=== PATIENT | male | born 1940 | race Caucasian/White ===

== ENCOUNTER → 2016-03-18 | Outpatient (REF) | payer MEDICARE, OTHER ==
[2016-03-18 10:05] LABS: VITAMIN B12 LEVEL 1525 PG/ML
[2016-03-18 10:06] LABS: FOLATE > 24.0 NG/ML
[2016-03-18 10:10] LABS: PERCENT SATURATION 8.7 % (19.7-37.4); TOTAL IRON BINDING CAPACITY 357 UG/DL (250-450)
== END | disposition home or self-care (01) ==
LOC: M LAB REF 09:18
PROVIDERS: ATTEND Internal Medicine
DX: Z98.84 Bariatric surgery status (principal); K91.2 Postsurgical malabsorption, not elsewhere classified

== ENCOUNTER 2016-03-26 10:04 | Emergency (ER) | payer MEDICARE, OTHER ==
[2016-03-26] MEDS ORDERED: MORPHINE 4 MG/ML 1ML SYRINGE As Ordered ONE ×2 (11:12→12:18)
[2016-03-26 11:30] LABS: BASO % 0.4 % (0.0-1.0); EOS # 0.3 K/mm3 (0.0-0.50); EOS % 2.1 % (0.0-3.0); LARGE UNSTAINED CELL # 0.2 K/mm3 (0.0-0.4); LARGE UNSTAINED CELL % 1.8 % (0.0-4.0); LYMPH # 3.1 K/mm3 (1.5-4.5); LYMPH % 22.6 % (24.0-44.0); MEAN CORPUSCULAR HEMOGLOBIN 32.8 pg (27.0-33.0); MEAN CORPUSCULAR HGB CONC 32.9 g/dl (32.0-36.5); MEAN CORPUSCULAR VOLUME 99.7 fl (80.0-96.0); MONO # 0.7 K/mm3 (0.0-0.8); MONO % 4.8 % (0.0-5.0); NEUTROPHILS # 9.3 K/mm3 (1.8-7.7); NEUTROPHILS % 68.4 % (36.0-66.0); PLATELET COUNT, AUTOMATED 313 k/mm3 (150-450); RED CELL DISTRIBUTION WIDTH 12.7 % (11.5-14.5); WHITE BLOOD COUNT 13.6 K/mm3 (4.0-10.0)
[2016-03-26 11:35] LABS: CALCIUM OXALATE CRYSTALS MODERATE
--- NOTE | 2016-03-26 12:02 | REP ---
Clinical: Right flank pain. Comparison: 10/19/2015. Findings: Moderate right-sided obstructive uropathy with perinephric stranding and hydroureteronephrosis along with periureteral stranding is appreciated secondary to a 8 mm obstructing calculus in the distal right ureter (images 120 - 122). 2 mm nonobstructing right intrarenal calculus is also identified. The left kidney and ureter appear normal. Liver, pancreas, gallbladder, and bilateral adrenal glands are normal. Spleen demonstrates calcifications related to prior granulomas disease. Evidence for prior gastric bypass surgery. No evidence for bowel obstruction or acute inflammatory process. Normal terminal ileum and appendix identified in the right lower quadrant. Colonic diverticulosis noted without acute diverticulitis. Pelvis demonstrates normal bladder along with enlarged prostate gland measuring 6 cm diameter. No pelvic fluid or ascites. No free air. No adenopathy. Atherosclerotic changes of the aorta and iliac arteries noted without aneurysm. Musculoskeletal structures demonstrate degenerative changes. Lung bases demonstrate chronic changes and calcified granuloma in the left lower lobe. Impression: 1. Acute moderate obstructive uropathy with 8 mm obstructing calculus in the distal right ureter. A 2 mm nonobstructing right calculus. Normal left kidney and bladder. 2. Large prostate gland measuring 6 cm diameter. 3. Diverticulosis. 4. Evidence for prior granulomatous disease. Signed by Rudy Valdes MD 03/26/2016 11:53 A
[2016-03-26 12:13] LABS: ANION GAP 7 MEQ/L (8-16); BLOOD UREA NITROGEN 18 MG/DL (7-18); CALCIUM LEVEL 9.4 MG/DL (8.8-10.2); CARBON DIOXIDE LEVEL 30 MEQ/L (21-32); CHLORIDE LEVEL 105 MEQ/L (98-107); CREATININE FOR GFR 0.95 MG/DL (0.70-1.30); GLOMERULAR FILTRATION RATE > 60.0 (>42); GLUCOSE, FASTING 85 MG/DL (83-110); POTASSIUM SERUM 4.4 MEQ/L (3.5-5.1); SODIUM LEVEL 142 MEQ/L (136-145)
[2016-03-26] MEDS ORDERED: TAMSULOSIN 0.4 MG CAP As Ordered ONE (12:38)
[2016-03-26] MEDS ORDERED: KETOROLAC 30 MG/ML VIAL (J1885) As Ordered ONE (12:38)
--- NOTE | 2016-03-26 13:33 | EDDOCDS ---
Nurse's Notes [facility] Name: Jeramie George Age: 76 yrs Sex: Male : 1940 Arrival Date: 03/26/2016 Time: 10:04 Bed I1 / M1 Private MD: Shey Diagnosis: Unspecified renal colic-8 mm stone right. Presentation: 03/26 10:10 Presenting complaint: Patient states: woke up around 2 am with right flank pain that dy wraps around to right testicle. has hx of kidney stones and states the pain is similar. Adult Sepsis Screening: The patient does not have new or worsening altered mentation. Patient's respiratory rate is less than 22. Systolic blood pressure is greater than 100. Patient has a qSOFA score of 0- Negative Sepsis Screen. Suicide/Homicide risk assessment- the patient denies having any suicidal and/or homicidal ideations and does not present with any other emotional, behavioral or mental health complaints. 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 Transition of care: patient was not received from another setting of care. 10:10 Acuity: CASANDRA Level 3 dy 10:10 Method Of Arrival: Walkin/Carried/Asstd dy Triage Assessment: 10:12 General: Appears in no apparent distress. Pain: Location: right flank. dy Historical: - Allergies: No known drug Allergies; - Home Meds: 1. oxycodone-acetaminophen 10-325 mg Oral tab 1 tab every 4 hours (Last dose: 03/26/2016 07:30) - PMHx: Chronic Low Back Pain; Kidney stones; - PSHx: Dorsal column stimulator; back surgery x 4; Shoulder Arthroscopy- Right; - Social history: Smoking status: Cigars No barriers to communication noted, The patient speaks fluent Kinyarwanda, Speaks appropriately for age. - Family history: Not pertinent. - : The pt / caregiver states he / she is not on anticoagulants. Home medication list is obtained from the patient. - Exposure Risk Screening:: None identified. Screenin:23 Screening information is obtained from the patient. Fall risk: No risks identified. ck1 Assistance ADL's: requires no assistance with activities of daily living. Abuse/DV Screen: The patient / caregiver reports he/she is: not in a situation that causes fear, pain or injury. Nutritional screening: No deficits noted. home support is adequate. 13:32 Advance Directives: Currently, there is no health care proxy. kc3 Assessment: 11:23 General: Appears in no apparent distress, comfortable, Behavior is appropriate for age, ck1 cooperative. Pain: Location: right flank Pain currently is 12 out of 10 on a pain scale. right testicle. Respiratory: Respiratory effort is unlabored, Respiratory pattern is regular, symmetrical. GI: Denies nausea, vomiting. : Denies burning with urination, inability to void, urinary frequency. Derm: Skin is intact, is healthy with good turgor, Skin is pink, warm & dry. 12:42 General: Appears in no apparent distress, comfortable, Behavior is appropriate for age, ck1 cooperative. Pain: Location: right flank Pain currently is 4 out of 10 on a pain scale. Neurological: Level of Consciousness is awake, alert, obeys commands, Oriented to person, place, time. Respiratory: Respiratory effort is unlabored, Respiratory pattern is regular, symmetrical. GI: No deficits noted. Derm: Skin is intact, is healthy with good turgor, Skin is pink, warm & dry. Musculoskeletal: Circulation, motion, and sensation intact Range of motion intact in all extremities. 13:29 General: Appears in no apparent distress, comfortable, Behavior is appropriate for age, kc3 cooperative. Neurological: Level of Consciousness is awake, alert, obeys commands, Oriented to person, place, time. Respiratory: Respiratory effort is even, unlabored. Derm: Skin is pink, warm & dry. Vital Signs: 10:05 BP 165 / 88; Pulse 65; Resp 16; Temp 97.8(O); Pulse Ox 100% ; Weight 80.74 kg; Height 5 cmb ft. 8 in. (172.72 cm); Pain 10/10; 11:54 BP 125 / 70 RA Sitting (auto/reg); Pulse 76; Resp 16; Pulse Ox 97% ; Pain 8/10; jrd 12:00 Pain 8/10; ck1 13:21 BP 118 / 75 RA Sitting (auto/reg); Pulse 72; Resp 16; Temp 97.8(O); Pulse Ox 96% ; Pain jrd 2/10; 10:05 Body Mass Index 27.06 (80.74 kg, 172.72 cm) cmb Vitals: 10:05 Log In Time: March 26, 2016 at 10:04. cmb ED Course: 10:05 Patient visited by Raysa Knight. cmb 10:05 Shey is Private Physician. cmb 10:05 Patient moved to Waiting cmb 10:06 Patient moved to Pre RCE cmb 10:11 Triage Initiated dy 10:47 Patient moved to Triage 3 rs6 10:57 Mehdi Bassett PA-C is PHCP. cc10 10:57 Cody Vargas MD is Attending Physician. cc10 10:57 Patient visited by Mehdi Bassett PA-C. cc10 10:57 Patient visited by Mehdi Bassett PA-C. cc10 11:08 Patient moved to I1 / M1 mlb1 11:11 [facility] Payment Agreement was scanned into [employer] and attached to record. lg 11:22 Basic Metabolic Profile Sent. ck1 11:22 CBC with Diff Sent. ck1 11:23 The patient / caregiver is instructed regarding the plan of care and ED course. ck1 11:23 Inserted saline lock: 20 gauge in right hand and blood collected. The patient tolerated ck1 the procedure well. 11:27 Patient visited by Opal Dixon,MARY. ck1 11:55 Patient visited by Srinivasan Harvye PCA. jrd 12:19 CT ABD & PELVIS: No Contrast Returned. EDMS 12:23 Patient visited by Araceli Kaur, MARY. srm 12:42 Patient visited by Opal Dixon,MARY. ck1 13:14 Ar Hale is Referral Physician. cc10 13:22 Patient visited by Srinivasan Harvey PCA. jrd 13:30 Discontinued IV lock intact, bleeding controlled, pressure dressing applied, No kc3 redness/swelling at site. No procedures done that require assistance. Administered Medications: 11:22 Drug: morphine 4 mg [morphine 4 mg/mL intravenous cartridge (1 mL)] Route: IVP; Site: ck1 right hand; 12:00 Follow up: Pain 8/10 Adult; Response: Confirmed pt not driving.; No Adverse Reaction; ck1 Pain is decreased 12:21 Drug: morphine 4 mg [morphine 4 mg/mL intravenous cartridge (1 mL)] Route: IVP; Site: srm right hand; 12:42 Drug: ketorolac 15 mg [ketorolac 30 mg/mL (1 mL) injection solution (0.5 mL)] Route: ck1 IVP; Site: right hand; 12:42 Drug: Tamsulosin 0.4 mg [tamsulosin 0.4 mg capsule (1 caps)] Route: PO; ck1 Order Results: Lab Order: Basic Metabolic Profile; SPEC'M 03/26/16 11:51 Test: GLUCOSE, FASTING; Value: 85; Range: 83-110; Units: MG/DL; Status: F Test: BLOOD UREA NITROGEN; Value: 18; Range: 7-18; Units: MG/DL; Status: F Test: CREATININE FOR GFR; Value: 0.95; Range: 0.70-1.30; Units: MG/DL; Status: F Test: GLOMERULAR FILTRATION RATE; Value: > 60.0; Range: >42; Status: F Test: SODIUM LEVEL; Value: 142; Range: 136-145; Units: MEQ/L; Status: F Test: POTASSIUM SERUM; Value: 4.4; Range: 3.5-5.1; Units: MEQ/L; Status: F Test: CHLORIDE LEVEL; Value: 105; Range: 98-107; Units: MEQ/L; Status: F Test: CARBON DIOXIDE LEVEL; Value: 30; Range: 21-32; Units: MEQ/L; Status: F Test: ANION GAP; Value: 7; Range: 8-16; Abnormal: Below low normal; Units: MEQ/L; Status: F Test: CALCIUM LEVEL; Value: 9.4; Range: 8.8-10.2; Units: MG/DL; Status: F Test Note: ; Units are mL/min/1.73 m2 Chronic Kidney Disease Staging per NKF: Stage I & II GFR >=60 Normal to Mildly Decreased Stage III GFR 30-59 Moderately Decreased Stage IV GFR 15-29 Severely Decreased Stage V GFR <15 Very Little GFR Left ESRD GFR <15 on ENTEROSTOMAL NURSE Lab Order: CBC with Diff; SPEC'03/26/16 11:21 Test: WHITE BLOOD COUNT; Value: 13.6; Range: 4.0-10.0; Abnormal: Above high normal; Units: K/mm3; Status: F Test: RED BLOOD COUNT; Value: 4.52; Range: 4.30-6.10; Units: M/mm3; Status: F Test: HEMOGLOBIN; Value: 14.8; Range: 14.0-18.0; Units: g/dl; Status: F Test: HEMATOCRIT; Value: 45.1; Range: 42.0-52.0; Units: %; Status: F Test: MEAN CORPUSCULAR VOLUME; Value: 99.7; Range: 80.0-96.0; Abnormal: Above high normal; Units: fl; Status: F Test: MEAN CORPUSCULAR HEMOGLOBIN; Value: 32.8; Range: 27.0-33.0; Units: pg; Status: F Test: MEAN CORPUSCULAR HGB CONC; Value: 32.9; Range: 32.0-36.5; Units: g/dl; Status: F Test: RED CELL DISTRIBUTION WIDTH; Value: 12.7; Range: 11.5-14.5; Units: %; Status: F Test: PLATELET COUNT, AUTOMATED; Value: 313; Range: 150-450; Units: k/mm3; Status: F Test: NEUTROPHILS %; Value: 68.4; Range: 36.0-66.0; Abnormal: Above high normal; Units: %; Status: F Test: LYMPH %; Value: 22.6; Range: 24.0-44.0; Abnormal: Below low normal; Units: %; Status: F Test: MONO %; Value: 4.8; Range: 0.0-5.0; Units: %; Status: F Test: EOS %; Value: 2.1; Range: 0.0-3.0; Units: %; Status: F Test: BASO %; Value: 0.4; Range: 0.0-1.0; Units: %; Status: F Test: LARGE UNSTAINED CELL %; Value: 1.8; Range: 0.0-4.0; Units: %; Status: F Test: NEUTROPHILS #; Value: 9.3; Range: 1.8-7.7; Abnormal: Above high normal; Units: K/mm3; Status: F Test: LYMPH #; Value: 3.1; Range: 1.5-4.5; Units: K/mm3; Status: F Test: MONO #; Value: 0.7; Range: 0.0-0.8; Units: K/mm3; Status: F Test: EOS #; Value: 0.3; Range: 0.0-0.50; Units: K/mm3; Status: F Test: BASO #; Value: 0.0; Range: 0.0-0.2; Units: K/mm3; Status: F Test: LARGE UNSTAINED CELL #; Value: 0.2; Range: 0.0-0.4; Units: K/mm3; Status: F Lab Order: Urinalysis; SPEC'M 03/26/16 11:07 Test: APPEARANCE, URINE; Value: CLOUDY; Range: CLEAR; Abnormal: Above high normal; Status: F Test: COLOR, URINE; Value: YELLOW; Range: YELLOW; Status: F Test: PH,URINE; Value: 5.0; Range: 5.0-9.0; Units: UNITS; Status: F Test: SPECIFIC GRAVITY URINE AUTO; Value: 1.019; Range: 1.002-1.035; Status: F Test: PROTEIN, URINE AUTO; Value: NEGATIVE; Range: NEGATIVE; Units: mg/dL; Status: F Test: GLUCOSE, URINE (UA) AUTO; Value: NEGATIVE; Range: NEGATIVE; Units: mg/dL; Status: F Test: KETONE, URINE AUTO; Value: NEGATIVE; Range: NEGATIVE; Units: mg/dL; Status: F Test: UROBILINOGEN, URINE AUTO; Value: 0.2; Range: 0.0-2.0; Units: mg/dL; Status: F Test: BILIRUBIN, URINE AUTO; Value: NEGATIVE; Range: NEGATIVE; Status: F Test: NITRITE, URINE AUTO; Value: NEGATIVE; Range: NEGATIVE; Status: F Test: LEUKOCYTE ESTERASE, URINE AUTO; Value: NEGATIVE; Range: NEGATIVE; Status: F Test: BLOOD, URINE BLOOD; Value: 3+; Range: NEGATIVE; Abnormal: Above high normal; Status: F Test: WBC, URINE AUTO; Value: 3; Range: 0-3; Units: /HPF; Status: F Test: RBC, URINE AUTO; Value: TNTC; Range: 0-3; Abnormal: Above high normal; Units: /HPF; Status: F Test: BACTERIA, URINE AUTO; Value: NEGATIVE; Range: NEGATIVE; Status: F Test: SQUAMOUS EPITHELIAL CELL UR AU; Value: 0; Range: 0-6; Units: /HPF; Status: F Test: MUCUS, URINE; Value: SMALL; Range: NEGATIVE; Status: F Test: HYALINE CAST, URINE AUTO; Value: 0; Range: 0-1; Units: /LPF; Status: F Test: CALCIUM OXALATE CRYSTALS; Value: MODERATE; Range: NONE; Status: F Radiology Order: CT ABD & PELVIS: No Contrast Test: CT ABD & PELVIS: No Contrast REASON FOR EXAMINATION: Renal colic; Clinical: Right flank pain.; ; Comparison: 10/19/2015.; ; Findings:; Moderate right-sided obstructive uropathy with perinephric stranding and; hydroureteronephrosis along with periureteral stranding is appreciated secondary; to a 8 mm obstructing calculus in the distal right ureter (images 120 - 122). 2; mm nonobstructing right intrarenal calculus is also identified. The left kidney; and ureter appear normal.; ; Liver, pancreas, gallbladder, and bilateral adrenal glands are normal. Spleen; demonstrates calcifications related to prior granulomas disease. Evidence for; prior gastric bypass surgery. No evidence for bowel obstruction or acute; inflammatory process. Normal terminal ileum and appendix identified in the right; lower quadrant. Colonic diverticulosis noted without acute diverticulitis.; Pelvis demonstrates normal bladder along with enlarged prostate gland measuring 6; cm diameter. No pelvic fluid or ascites. No free air. No adenopathy.; Atherosclerotic changes of the aorta and iliac arteries noted without aneurysm.; Musculoskeletal structures demonstrate degenerative changes. Lung bases; demonstrate chronic changes and calcified granuloma in the left lower lobe.; ; Impression:; 1. Acute moderate obstructive uropathy with 8 mm obstructing calculus in the; distal right ureter. A 2 mm nonobstructing right calculus. Normal left kidney; and bladder.; 2. Large prostate gland measuring 6 cm diameter.; 3. Diverticulosis.; 4. Evidence for prior granulomatous disease.; ; ; Signed by; Rudy Valdes MD 03/26/2016 11:53 A; Outcome: 11:40 CT Study completed. ck1 13:15 Discharge ordered by Provider. cc10 13:30 Discharge Assessment: Patient awake, alert and oriented x 3. No cognitive and/or kc3 functional deficits noted. Patient verbalized understanding of disposition instructions. patient administered narcotics - yes. Pt provided with safe discharge. 13:31 The following High Risk Discharge criteria are identified: None. Condition: stable. kc3 Discharge instructions given to patient, Instructed on discharge instructions, follow up and referral plans. medication usage, Demonstrated understanding of instructions, medications, Pt was receptive of discharge instructions/ teaching. Prescriptions given X 2. Property :Personal belongings accompany Pt. 13:32 Patient left the ED. kc3 Signatures: Dispatcher [employer] EDMS Araceli Kaur, RN RN srm Rosetta, Cheri, Reg Reg lg Eddi Harkins, RN RN Freddie Sandoval RN RN mlb1 Opal DixonRN RN ck1 Raysa Knight cmMehdi Farmer, PA-C PA-C cc10 Srinivasan Harvey, MUTUEL DEPARTMENT MANAGER MUTUEL DEPARTMENT MANAGER jrd Radha Blackman, MUTUEL DEPARTMENT MANAGER MUTUEL DEPARTMENT MANAGER rs6 Grace Gayle,MARY RN kc3 Corrections: (The following items were deleted from the chart) 13:32 13:30 Discharge Assessment: Patient awake, alert and oriented x 3. No cognitive and/or kc3 functional deficits noted. Patient verbalized understanding of disposition instructions. patient administered narcotics - kc3 MTDD
--- NOTE | 2016-03-26 13:33 | EDDOCDS ---
Physician Documentation [facility] Name: Jeramie George Age: 76 yrs Sex: Male : 1940 Arrival Date: 03/26/2016 Time: 10:04 Bed I1 / M1 Private MD: Shey Disposition: 03/26/16 13:15 Discharged to Home/Self Care. Impression: Unspecified renal colic - 8 mm stone right. . - Condition is Stable. - Discharge Instructions: Kidney Stones. - Prescriptions for Flomax 0.4 mg Oral Capsule, Sust. Release 24 hr - take 1 capsule by ORAL route once daily 1/2 hour following the same meal each day; 30 capsule. ketorolac 10 mg Oral Tablet - take 1 tablet by ORAL route 3 times per day As needed MDD- 30mg. Up to 5 days total use.; 15 tablet. - Medication Reconciliation, Local Pharmacy Hours form. - Follow up: Emergency Department; When: As needed. Follow up: Ar Hale; When: 1 week; Reason: Wound/Symptom Recheck, Recheck today's complaints, Worsening of conditions, Continuance of care. - Problem is new. - Symptoms are resolved. Historical: - Allergies: No known drug Allergies; - Home Meds: 1. oxycodone-acetaminophen 10-325 mg Oral tab 1 tab every 4 hours (Last dose: 03/26/2016 07:30) - PMHx: Chronic Low Back Pain; Kidney stones; - PSHx: Dorsal column stimulator; back surgery x 4; Shoulder Arthroscopy- Right; - Social history: Smoking status: Cigars No barriers to communication noted, The patient speaks fluent Portuguese, Speaks appropriately for age. - Family history: Not pertinent. - : The pt / caregiver states he / she is not on anticoagulants. Home medication list is obtained from the patient. - Exposure Risk Screening:: None identified. Vital Signs: 03/26 10:05 BP 165 / 88; Pulse 65; Resp 16; Temp 97.8(O); Pulse Ox 100% ; Weight 80.74 kg / 178 cmb lbs; Height 5 ft. 8 in. (172.72 cm); Pain 10/10; 11:54 BP 125 / 70 RA Sitting (auto/reg); Pulse 76; Resp 16; Pulse Ox 97% ; Pain 8/10; jrd 12:00 Pain 8/10; ck1 13:21 BP 118 / 75 RA Sitting (auto/reg); Pulse 72; Resp 16; Temp 97.8(O); Pulse Ox 96% ; Pain jrd 04/25; 10:05 Body Mass Index 27.06 (80.74 kg, 172.72 cm) cmb MDM: 11:01 IV Saline Lock ordered. cc10 11:01 morphine 4 mg IVP once ordered. cc10 11:02 Basic Metabolic Profile Ordered. EDMS 11:02 CBC with Diff Ordered. EDMS 11:02 Urinalysis Ordered. EDMS 11:02 Urine Culture Ordered. EDMS 11:02 CT ABD & PELVIS: No Contrast Ordered. EDMS 12:15 morphine 4 mg IVP once ordered. cc10 12:31 ketorolac 15 mg IVP once ordered. cc10 12:32 Tamsulosin Extended Release 24 hour Capsule 0.4 mg PO once ordered. cc10 13:16 Misc. Nursing Order ordered. cc10 MDM: 11:01 Financial registration complete. 11:11 [facility] Payment Agreement was scanned into [employer] and attached to record. lg Administered Medications: 11:22 Drug: morphine 4 mg [morphine 4 mg/mL intravenous cartridge (1 mL)] Route: IVP; Site: ck right hand; 12:00 Follow up: Pain 10/23 Adult; Response: Confirmed pt not driving.; No Adverse Reaction; ck1 Pain is decreased 12:21 Drug: morphine 4 mg [morphine 4 mg/mL intravenous cartridge (1 mL)] Route: IVP; Site: [facility] right hand; 12:42 Drug: ketorolac 15 mg [ketorolac 30 mg/mL (1 mL) injection solution (0.5 mL)] Route: ck1 IVP; Site: right hand; 12:42 Drug: Tamsulosin 0.4 mg [tamsulosin 0.4 mg capsule (1 caps)] Route: PO; ck1 Signatures: Dispatcher [employer] EDMS Cheri Sargent, Reg Reg lg Eddi Harkins RN MARY dy Opal Dixon RN RN ck1 Mehdi Bassett, PA-C PA-C cc10 Grace Gayle RN RN kc3 Araceli Kaur RN [facility] The chart was reviewed and I authenticate all verbal orders and agree with the evaluation and treatment provided.Attachments: 11:11 [facility] Payment Agreement lg MTDD
--- NOTE | 2016-03-28 14:33 | EDDOCDS ---
Physician Documentation [facility] Name: Jeramie George Age: 76 yrs Sex: Male : 1940 Arrival Date: 03/26/2016 Time: 10:04 Bed I1 / M1 Private MD: Shey Disposition: 03/26/16 13:15 Discharged to Home/Self Care. Impression: Unspecified renal colic - 8 mm stone right. . - Condition is Stable. - Discharge Instructions: Kidney Stones. - Prescriptions for Flomax 0.4 mg Oral Capsule, Sust. Release 24 hr - take 1 capsule by ORAL route once daily 1/2 hour following the same meal each day; 30 capsule. ketorolac 10 mg Oral Tablet - take 1 tablet by ORAL route 3 times per day As needed MDD- 30mg. Up to 5 days total use.; 15 tablet. - Medication Reconciliation, Local Pharmacy Hours form. - Follow up: Emergency Department; When: As needed. Follow up: Ar Hale; When: 1 week; Reason: Wound/Symptom Recheck, Recheck today's complaints, Worsening of conditions, Continuance of care. - Problem is new. - Symptoms are resolved. Historical: - Allergies: No known drug Allergies; - Home Meds: 1. oxycodone-acetaminophen 10-325 mg Oral tab 1 tab every 4 hours (Last dose: 03/26/2016 07:30) - PMHx: Chronic Low Back Pain; Kidney stones; - PSHx: Dorsal column stimulator; back surgery x 4; Shoulder Arthroscopy- Right; - Social history: Smoking status: Cigars No barriers to communication noted, The patient speaks fluent Kinyarwanda, Speaks appropriately for age. - Family history: Not pertinent. - : The pt / caregiver states he / she is not on anticoagulants. Home medication list is obtained from the patient. - Exposure Risk Screening:: None identified. Vital Signs: 03/26 10:05 BP 165 / 88; Pulse 65; Resp 16; Temp 97.8(O); Pulse Ox 100% ; Weight 80.74 kg / 178 cmb lbs; Height 5 ft. 8 in. (172.72 cm); Pain 10/10; 11:54 BP 125 / 70 RA Sitting (auto/reg); Pulse 76; Resp 16; Pulse Ox 97% ; Pain 8/10; jrd 12:00 Pain 8/10; ck1 13:21 BP 118 / 75 RA Sitting (auto/reg); Pulse 72; Resp 16; Temp 97.8(O); Pulse Ox 96% ; Pain jrd 210; 10:05 Body Mass Index 27.06 (80.74 kg, 172.72 cm) cmb MDM: 11:01 IV Saline Lock ordered. cc10 11:01 morphine 4 mg IVP once ordered. cc10 11:02 Basic Metabolic Profile Ordered. EDMS 11:02 CBC with Diff Ordered. EDMS 11:02 Urinalysis Ordered. EDMS 11:02 Urine Culture Ordered. EDMS 11:02 CT ABD & PELVIS: No Contrast Ordered. EDMS 12:15 morphine 4 mg IVP once ordered. cc10 12:31 ketorolac 15 mg IVP once ordered. cc10 12:32 Tamsulosin Extended Release 24 hour Capsule 0.4 mg PO once ordered. cc10 13:16 Misc. Nursing Order ordered. cc10 15:13 T-Sheet-- Draft Copy was scanned into [employer] and attached to record. gb MDM: 11:01 Financial registration complete. lg 11:11 [facility] Payment Agreement was scanned into [employer] and attached to record. lg Administered Medications: 11:22 Drug: morphine 4 mg [morphine 4 mg/mL intravenous cartridge (1 mL)] Route: IVP; Site: ck1 right hand; 12:00 Follow up: Pain 10/23 Adult; Response: Confirmed pt not driving.; No Adverse Reaction; ck1 Pain is decreased 12:21 Drug: morphine 4 mg [morphine 4 mg/mL intravenous cartridge (1 mL)] Route: IVP; Site: [facility] right hand; 12:42 Drug: ketorolac 15 mg [ketorolac 30 mg/mL (1 mL) injection solution (0.5 mL)] Route: ck1 IVP; Site: right hand; 12:42 Drug: Tamsulosin 0.4 mg [tamsulosin 0.4 mg capsule (1 caps)] Route: PO; ck1 Signatures: Dispatcher [employer] EDMS Shyann Pardo, Reg Reg gb Cheri Sargent, Reg Reg lg Eddi Harkins RN RN dy Opal Dixon RN RN ck1 Mehdi Bassett PA-C PA-C cc10 Grace Gayle,RN RN kc3 Araceli Kaur RN srm The chart was reviewed and I authenticate all verbal orders and agree with the evaluation and treatment provided.Attachments: 11:11 [facility] Payment Agreement lg 15:13 T-Sheet-- Draft Copy gb Chart Complete MTDD
--- NOTE | 2016-03-28 14:33 | EDDOCDS ---
Physician Documentation [facility] Name: Jeramie George Age: 76 yrs Sex: Male : 1940 Arrival Date: 03/26/2016 Time: 10:04 Bed I1 / M1 Private MD: Shey Disposition: 03/26/16 13:15 Discharged to Home/Self Care. Impression: Unspecified renal colic - 8 mm stone right. . - Condition is Stable. - Discharge Instructions: Kidney Stones. - Prescriptions for Flomax 0.4 mg Oral Capsule, Sust. Release 24 hr - take 1 capsule by ORAL route once daily 1/2 hour following the same meal each day; 30 capsule. ketorolac 10 mg Oral Tablet - take 1 tablet by ORAL route 3 times per day As needed MDD- 30mg. Up to 5 days total use.; 15 tablet. - Medication Reconciliation, Local Pharmacy Hours form. - Follow up: Emergency Department; When: As needed. Follow up: Ar Hale; When: 1 week; Reason: Wound/Symptom Recheck, Recheck today's complaints, Worsening of conditions, Continuance of care. - Problem is new. - Symptoms are resolved. Historical: - Allergies: No known drug Allergies; - Home Meds: 1. oxycodone-acetaminophen 10-325 mg Oral tab 1 tab every 4 hours (Last dose: 03/26/2016 07:30) - PMHx: Chronic Low Back Pain; Kidney stones; - PSHx: Dorsal column stimulator; back surgery x 4; Shoulder Arthroscopy- Right; - Social history: Smoking status: Cigars No barriers to communication noted, The patient speaks fluent Urdu, Speaks appropriately for age. - Family history: Not pertinent. - : The pt / caregiver states he / she is not on anticoagulants. Home medication list is obtained from the patient. - Exposure Risk Screening:: None identified. Vital Signs: 03/26 10:05 BP 165 / 88; Pulse 65; Resp 16; Temp 97.8(O); Pulse Ox 100% ; Weight 80.74 kg / 178 cmb lbs; Height 5 ft. 8 in. (172.72 cm); Pain 10/10; 11:54 BP 125 / 70 RA Sitting (auto/reg); Pulse 76; Resp 16; Pulse Ox 97% ; Pain 8/10; jrd 12:00 Pain 8/10; ck1 13:21 BP 118 / 75 RA Sitting (auto/reg); Pulse 72; Resp 16; Temp 97.8(O); Pulse Ox 96% ; Pain jrd 210; 10:05 Body Mass Index 27.06 (80.74 kg, 172.72 cm) cmb MDM: 11:01 IV Saline Lock ordered. cc10 11:01 morphine 4 mg IVP once ordered. cc10 11:02 Basic Metabolic Profile Ordered. EDMS 11:02 CBC with Diff Ordered. EDMS 11:02 Urinalysis Ordered. EDMS 11:02 Urine Culture Ordered. EDMS 11:02 CT ABD & PELVIS: No Contrast Ordered. EDMS 12:15 morphine 4 mg IVP once ordered. cc10 12:31 ketorolac 15 mg IVP once ordered. cc10 12:32 Tamsulosin Extended Release 24 hour Capsule 0.4 mg PO once ordered. cc10 13:16 Misc. Nursing Order ordered. cc10 15:13 T-Sheet-- Draft Copy was scanned into [employer] and attached to record. gb MDM: 11:01 Financial registration complete. lg 11:11 [facility] Payment Agreement was scanned into [employer] and attached to record. lg Administered Medications: 11:22 Drug: morphine 4 mg [morphine 4 mg/mL intravenous cartridge (1 mL)] Route: IVP; Site: ck1 right hand; 12:00 Follow up: Pain 10/23 Adult; Response: Confirmed pt not driving.; No Adverse Reaction; ck1 Pain is decreased 12:21 Drug: morphine 4 mg [morphine 4 mg/mL intravenous cartridge (1 mL)] Route: IVP; Site: [facility] right hand; 12:42 Drug: ketorolac 15 mg [ketorolac 30 mg/mL (1 mL) injection solution (0.5 mL)] Route: ck1 IVP; Site: right hand; 12:42 Drug: Tamsulosin 0.4 mg [tamsulosin 0.4 mg capsule (1 caps)] Route: PO; ck1 Signatures: Dispatcher [employer] EDMS Shyann Pardo, Reg Reg gb Cheri Sargent, Reg Reg lg Eddi Harkins RN RN dy Opal Dixon RN RN ck1 Mehdi Bassett PA-C PA-C cc10 Grace Gayle,RN RN kc3 Araceli Kaur RN srm The chart was reviewed and I authenticate all verbal orders and agree with the evaluation and treatment provided.Attachments: 11:11 [facility] Payment Agreement lg 15:13 T-Sheet-- Draft Copy gb Chart Complete MTDD
--- NOTE | 2016-03-28 14:33 | EDDOCDS ---
Nurse's Notes [facility] Name: Jeramie George Age: 76 yrs Sex: Male : 1940 Arrival Date: 03/26/2016 Time: 10:04 Bed I1 / M1 Private MD: Shey Diagnosis: Unspecified renal colic-8 mm stone right. Presentation: 03/26 10:10 Presenting complaint: Patient states: woke up around 2 am with right flank pain that dy wraps around to right testicle. has hx of kidney stones and states the pain is similar. Adult Sepsis Screening: The patient does not have new or worsening altered mentation. Patient's respiratory rate is less than 22. Systolic blood pressure is greater than 100. Patient has a qSOFA score of 0- Negative Sepsis Screen. Suicide/Homicide risk assessment- the patient denies having any suicidal and/or homicidal ideations and does not present with any other emotional, behavioral or mental health complaints. Status: Patient is not a emergency service worker or dependent. Transition of care: patient was not received from another setting of care. 10:10 Acuity: CASANDRA Level 3 dy 10:10 Method Of Arrival: Walkin/Carried/Asstd dy Triage Assessment: 10:12 General: Appears in no apparent distress. Pain: Location: right flank. dy Historical: - Allergies: No known drug Allergies; - Home Meds: 1. oxycodone-acetaminophen 10-325 mg Oral tab 1 tab every 4 hours (Last dose: 03/26/2016 07:30) - PMHx: Chronic Low Back Pain; Kidney stones; - PSHx: Dorsal column stimulator; back surgery x 4; Shoulder Arthroscopy- Right; - Social history: Smoking status: Cigars No barriers to communication noted, The patient speaks fluent Lithuanian, Speaks appropriately for age. - Family history: Not pertinent. - : The pt / caregiver states he / she is not on anticoagulants. Home medication list is obtained from the patient. - Exposure Risk Screening:: None identified. Screenin:23 Screening information is obtained from the patient. Fall risk: No risks identified. ck1 Assistance ADL's: requires no assistance with activities of daily living. Abuse/DV Screen: The patient / caregiver reports he/she is: not in a situation that causes fear, pain or injury. Nutritional screening: No deficits noted. home support is adequate. 13:32 Advance Directives: Currently, there is no health care proxy. kc3 Assessment: 11:23 General: Appears in no apparent distress, comfortable, Behavior is appropriate for age, ck1 cooperative. Pain: Location: right flank Pain currently is 12 out of 10 on a pain scale. right testicle. Respiratory: Respiratory effort is unlabored, Respiratory pattern is regular, symmetrical. GI: Denies nausea, vomiting. : Denies burning with urination, inability to void, urinary frequency. Derm: Skin is intact, is healthy with good turgor, Skin is pink, warm & dry. 12:42 General: Appears in no apparent distress, comfortable, Behavior is appropriate for age, ck1 cooperative. Pain: Location: right flank Pain currently is 4 out of 10 on a pain scale. Neurological: Level of Consciousness is awake, alert, obeys commands, Oriented to person, place, time. Respiratory: Respiratory effort is unlabored, Respiratory pattern is regular, symmetrical. GI: No deficits noted. Derm: Skin is intact, is healthy with good turgor, Skin is pink, warm & dry. Musculoskeletal: Circulation, motion, and sensation intact Range of motion intact in all extremities. 13:29 General: Appears in no apparent distress, comfortable, Behavior is appropriate for age, kc3 cooperative. Neurological: Level of Consciousness is awake, alert, obeys commands, Oriented to person, place, time. Respiratory: Respiratory effort is even, unlabored. Derm: Skin is pink, warm & dry. Vital Signs: 10:05 BP 165 / 88; Pulse 65; Resp 16; Temp 97.8(O); Pulse Ox 100% ; Weight 80.74 kg; Height 5 cmb ft. 8 in. (172.72 cm); Pain 10/10; 11:54 BP 125 / 70 RA Sitting (auto/reg); Pulse 76; Resp 16; Pulse Ox 97% ; Pain 8/10; jrd 12:00 Pain 8/10; ck1 13:21 BP 118 / 75 RA Sitting (auto/reg); Pulse 72; Resp 16; Temp 97.8(O); Pulse Ox 96% ; Pain jrd 2/10; 10:05 Body Mass Index 27.06 (80.74 kg, 172.72 cm) cmb Vitals: 10:05 Log In Time: March 26, 2016 at 10:04. cmb ED Course: 10:05 Patient visited by Raysa Knight. cmb 10:05 Shey is Private Physician. cmb 10:05 Patient moved to Waiting cmb 10:06 Patient moved to Pre RCE cmb 10:11 Triage Initiated dy 10:47 Patient moved to Triage 3 rs6 10:57 Mehdi Bassett PA-C is PHCP. cc10 10:57 Cody Vargas MD is Attending Physician. cc10 10:57 Patient visited by Mehdi Bassett PA-C. cc10 10:57 Patient visited by Mehdi Bassett PA-C. cc10 11:08 Patient moved to I1 / M1 mlb1 11:11 [facility] Payment Agreement was scanned into [employer] and attached to record. lg 11:22 Basic Metabolic Profile Sent. ck1 11:22 CBC with Diff Sent. ck1 11:23 The patient / caregiver is instructed regarding the plan of care and ED course. ck1 11:23 Inserted saline lock: 20 gauge in right hand and blood collected. The patient tolerated ck1 the procedure well. 11:27 Patient visited by Opal Dixon,RN. ck1 11:55 Patient visited by Srinivasan Harvey PCA. jrd 12:19 CT ABD & PELVIS: No Contrast Returned. EDMS 12:23 Patient visited by Araceli Kaur, RN. srm 12:42 Patient visited by Opal Dixon,MARY. ck1 13:14 Ar Hale is Referral Physician. cc10 13:22 Patient visited by Srinivasan Harvey PCA. jrd 13:30 Discontinued IV lock intact, bleeding controlled, pressure dressing applied, No kc3 redness/swelling at site. No procedures done that require assistance. 15:13 T-Sheet-- Draft Copy was scanned into [employer] and attached to record. gb Administered Medications: 11:22 Drug: morphine 4 mg [morphine 4 mg/mL intravenous cartridge (1 mL)] Route: IVP; Site: ck1 right hand; 12:00 Follow up: Pain 8/10 Adult; Response: Confirmed pt not driving.; No Adverse Reaction; ck1 Pain is decreased 12:21 Drug: morphine 4 mg [morphine 4 mg/mL intravenous cartridge (1 mL)] Route: IVP; Site: [facility] right hand; 12:42 Drug: ketorolac 15 mg [ketorolac 30 mg/mL (1 mL) injection solution (0.5 mL)] Route: ck1 IVP; Site: right hand; 12:42 Drug: Tamsulosin 0.4 mg [tamsulosin 0.4 mg capsule (1 caps)] Route: PO; ck1 Order Results: Lab Order: Basic Metabolic Profile; SPEC'M 03/26/16 11:51 Test: GLUCOSE, FASTING; Value: 85; Range: 83-110; Units: MG/DL; Status: F Test: BLOOD UREA NITROGEN; Value: 18; Range: 7-18; Units: MG/DL; Status: F Test: CREATININE FOR GFR; Value: 0.95; Range: 0.70-1.30; Units: MG/DL; Status: F Test: GLOMERULAR FILTRATION RATE; Value: > 60.0; Range: >42; Status: F Test: SODIUM LEVEL; Value: 142; Range: 136-145; Units: MEQ/L; Status: F Test: POTASSIUM SERUM; Value: 4.4; Range: 3.5-5.1; Units: MEQ/L; Status: F Test: CHLORIDE LEVEL; Value: 105; Range: 98-107; Units: MEQ/L; Status: F Test: CARBON DIOXIDE LEVEL; Value: 30; Range: 21-32; Units: MEQ/L; Status: F Test: ANION GAP; Value: 7; Range: 8-16; Abnormal: Below low normal; Units: MEQ/L; Status: F Test: CALCIUM LEVEL; Value: 9.4; Range: 8.8-10.2; Units: MG/DL; Status: F Test Note: ; Units are mL/min/1.73 m2 Chronic Kidney Disease Staging per NKF: Stage I & II GFR >=60 Normal to Mildly Decreased Stage III GFR 30-59 Moderately Decreased Stage IV GFR 15-29 Severely Decreased Stage V GFR <15 Very Little GFR Left ESRD GFR <15 on DEVELOPING MACHINE TENDER Lab Order: CBC with Diff; SPEC'M 03/26/16 11:21 Test: WHITE BLOOD COUNT; Value: 13.6; Range: 4.0-10.0; Abnormal: Above high normal; Units: K/mm3; Status: F Test: RED BLOOD COUNT; Value: 4.52; Range: 4.30-6.10; Units: M/mm3; Status: F Test: HEMOGLOBIN; Value: 14.8; Range: 14.0-18.0; Units: g/dl; Status: F Test: HEMATOCRIT; Value: 45.1; Range: 42.0-52.0; Units: %; Status: F Test: MEAN CORPUSCULAR VOLUME; Value: 99.7; Range: 80.0-96.0; Abnormal: Above high normal; Units: fl; Status: F Test: MEAN CORPUSCULAR HEMOGLOBIN; Value: 32.8; Range: 27.0-33.0; Units: pg; Status: F Test: MEAN CORPUSCULAR HGB CONC; Value: 32.9; Range: 32.0-36.5; Units: g/dl; Status: F Test: RED CELL DISTRIBUTION WIDTH; Value: 12.7; Range: 11.5-14.5; Units: %; Status: F Test: PLATELET COUNT, AUTOMATED; Value: 313; Range: 150-450; Units: k/mm3; Status: F Test: NEUTROPHILS %; Value: 68.4; Range: 36.0-66.0; Abnormal: Above high normal; Units: %; Status: F Test: LYMPH %; Value: 22.6; Range: 24.0-44.0; Abnormal: Below low normal; Units: %; Status: F Test: MONO %; Value: 4.8; Range: 0.0-5.0; Units: %; Status: F Test: EOS %; Value: 2.1; Range: 0.0-3.0; Units: %; Status: F Test: BASO %; Value: 0.4; Range: 0.0-1.0; Units: %; Status: F Test: LARGE UNSTAINED CELL %; Value: 1.8; Range: 0.0-4.0; Units: %; Status: F Test: NEUTROPHILS #; Value: 9.3; Range: 1.8-7.7; Abnormal: Above high normal; Units: K/mm3; Status: F Test: LYMPH #; Value: 3.1; Range: 1.5-4.5; Units: K/mm3; Status: F Test: MONO #; Value: 0.7; Range: 0.0-0.8; Units: K/mm3; Status: F Test: EOS #; Value: 0.3; Range: 0.0-0.50; Units: K/mm3; Status: F Test: BASO #; Value: 0.0; Range: 0.0-0.2; Units: K/mm3; Status: F Test: LARGE UNSTAINED CELL #; Value: 0.2; Range: 0.0-0.4; Units: K/mm3; Status: F Lab Order: Urinalysis; SPEC'M 03/26/16 11:07 Test: APPEARANCE, URINE; Value: CLOUDY; Range: CLEAR; Abnormal: Above high normal; Status: F Test: COLOR, URINE; Value: YELLOW; Range: YELLOW; Status: F Test: PH,URINE; Value: 5.0; Range: 5.0-9.0; Units: UNITS; Status: F Test: SPECIFIC GRAVITY URINE AUTO; Value: 1.019; Range: 1.002-1.035; Status: F Test: PROTEIN, URINE AUTO; Value: NEGATIVE; Range: NEGATIVE; Units: mg/dL; Status: F Test: GLUCOSE, URINE (UA) AUTO; Value: NEGATIVE; Range: NEGATIVE; Units: mg/dL; Status: F Test: KETONE, URINE AUTO; Value: NEGATIVE; Range: NEGATIVE; Units: mg/dL; Status: F Test: UROBILINOGEN, URINE AUTO; Value: 0.2; Range: 0.0-2.0; Units: mg/dL; Status: F Test: BILIRUBIN, URINE AUTO; Value: NEGATIVE; Range: NEGATIVE; Status: F Test: NITRITE, URINE AUTO; Value: NEGATIVE; Range: NEGATIVE; Status: F Test: LEUKOCYTE ESTERASE, URINE AUTO; Value: NEGATIVE; Range: NEGATIVE; Status: F Test: BLOOD, URINE BLOOD; Value: 3+; Range: NEGATIVE; Abnormal: Above high normal; Status: F Test: WBC, URINE AUTO; Value: 3; Range: 0-3; Units: /HPF; Status: F Test: RBC, URINE AUTO; Value: TNTC; Range: 0-3; Abnormal: Above high normal; Units: /HPF; Status: F Test: BACTERIA, URINE AUTO; Value: NEGATIVE; Range: NEGATIVE; Status: F Test: SQUAMOUS EPITHELIAL CELL UR AU; Value: 0; Range: 0-6; Units: /HPF; Status: F Test: MUCUS, URINE; Value: SMALL; Range: NEGATIVE; Status: F Test: HYALINE CAST, URINE AUTO; Value: 0; Range: 0-1; Units: /LPF; Status: F Test: CALCIUM OXALATE CRYSTALS; Value: MODERATE; Range: NONE; Status: F Lab Order: Urine Culture; SPEC'M 03/26/16 11:07 Test: URINE CULTURE; Value: URINE CULTURE RESULT NO GROWTH; Status: F Radiology Order: CT ABD & PELVIS: No Contrast Test: CT ABD & PELVIS: No Contrast REASON FOR EXAMINATION: Renal colic; Clinical: Right flank pain.; ; Comparison: 10/19/2015.; ; Findings:; Moderate right-sided obstructive uropathy with perinephric stranding and; hydroureteronephrosis along with periureteral stranding is appreciated secondary; to a 8 mm obstructing calculus in the distal right ureter (images 120 - 122). 2; mm nonobstructing right intrarenal calculus is also identified. The left kidney; and ureter appear normal.; ; Liver, pancreas, gallbladder, and bilateral adrenal glands are normal. Spleen; demonstrates calcifications related to prior granulomas disease. Evidence for; prior gastric bypass surgery. No evidence for bowel obstruction or acute; inflammatory process. Normal terminal ileum and appendix identified in the right; lower quadrant. Colonic diverticulosis noted without acute diverticulitis.; Pelvis demonstrates normal bladder along with enlarged prostate gland measuring 6; cm diameter. No pelvic fluid or ascites. No free air. No adenopathy.; Atherosclerotic changes of the aorta and iliac arteries noted without aneurysm.; Musculoskeletal structures demonstrate degenerative changes. Lung bases; demonstrate chronic changes and calcified granuloma in the left lower lobe.; ; Impression:; 1. Acute moderate obstructive uropathy with 8 mm obstructing calculus in the; distal right ureter. A 2 mm nonobstructing right calculus. Normal left kidney; and bladder.; 2. Large prostate gland measuring 6 cm diameter.; 3. Diverticulosis.; 4. Evidence for prior granulomatous disease.; ; ; Signed by; Rudy Valdes MD 03/26/2016 11:53 A; Outcome: 11:40 CT Study completed. ck1 13:15 Discharge ordered by Provider. cc10 13:30 Discharge Assessment: Patient awake, alert and oriented x 3. No cognitive and/or kc3 functional deficits noted. Patient verbalized understanding of disposition instructions. patient administered narcotics - yes. Pt provided with safe discharge. 13:31 The following High Risk Discharge criteria are identified: None. Condition: stable. kc3 Discharge instructions given to patient, Instructed on discharge instructions, follow up and referral plans. medication usage, Demonstrated understanding of instructions, medications, Pt was receptive of discharge instructions/ teaching. Prescriptions given X 2. Property :Personal belongings accompany Pt. 13:32 Patient left the ED. kc3 Signatures: Dispatcher MedHost EDMS Araceli Kaur, RN RN srm Char, Shyann, Reg Reg gb Cheri Sargent, Reg Reg lg Eddi Harkins, RN RN Freddie Sandoval RN RN mlb1 Opal DixonRN RN ck1 Raysa Knight cmb Mehdi Bassett, PA-C PA-C cc10 Srinivasan Harvey, SEISMOLOGY TECHNICAL OFFICER SEISMOLOGY TECHNICAL OFFICER jrd Radha Blackman, SEISMOLOGY TECHNICAL OFFICER SEISMOLOGY TECHNICAL OFFICER rs6 Grace Gayle RN RN kc3 Corrections: (The following items were deleted from the chart) 13:32 13:30 Discharge Assessment: Patient awake, alert and oriented x 3. No cognitive and/or kc3 functional deficits noted. Patient verbalized understanding of disposition instructions. patient administered narcotics - kc3 [facility]
[2016-03-31] MEDS ORDERED: VITA500046 PO (15:30)
[2016-03-31] MEDS ORDERED: OMEP40CA2 PO (15:30)
[2016-03-31] MEDS ORDERED: MULT1TAB10 PO (15:30)
[2016-03-31] MEDS ORDERED: VITA250L PO (15:30)
[2016-03-31] MEDS ORDERED: IRONCAP2 PO (15:30)
[2016-03-31] MEDS ORDERED: OXYC1TAB16 PO (15:30)
== END 2016-03-26 13:32 | disposition home or self-care (01) ==
LOC: M ED 10:04
DX: N20.1 Calculus of ureter (principal); Z87.442 Personal history of urinary calculi; G89.29 Other chronic pain; M54.5 Low back pain; Z96.9 Presence of functional implant, unspecified; Z72.0 Tobacco use
CPT/HCPCS: 36415; 74176; 80048; 81001; 85025; 87086; 96374; 96375; 96376; 99284; J1885

== ENCOUNTER → 2016-03-31 | Outpatient (CLI) | payer MEDICARE, OTHER ==
[~2016-03-31] MED LIST: IRONCAP2 PO; MULT1TAB10 PO; OMEP40CA2 PO; OXYC1TAB16 PO; VITA250L PO; VITA500046 PO
--- NOTE | 2016-03-31 14:12 | REP ---
CHEST X-RAY PA AND LATERAL: 03/31/2016 COMPARISON: 03/29/2013. CLINICAL HISTORY: Ureteral stone disease. FINDINGS: Two views show a dorsal column stimulator now present and extends up to the T4 level. There is a granuloma in the left lung base peripherally unchanged. There is elevation right diaphragm as before with slightly lower level of inflation overall. Underlying interstitial changes noted. There is no pleural effusion. There is some minor fibrotic change at the left CP angle. Stable. No dense consolidation or mass. The heart is not enlarged. The aorta is mildly tortuous with calcifications at the arch but no aneurysm. Airway intact. The mediastinal or hilar mass. Bony thorax shows no acute compression deformity. IMPRESSION: 1. An elevated right diaphragm, old granulomatous disease and some underlying fibrotic change. No cardiomegaly, edema, nodule/mass, effusion or acute infiltrate. 2. Indwelling dorsal column stimulator up to the T4 level. Signed by Pepe Brizuela MD 03/31/2016 02:57 P
[2016-03-31 18:25] LABS: MEAN CORPUSCULAR HEMOGLOBIN 32.1 pg (27.0-33.0); MEAN CORPUSCULAR HGB CONC 31.8 g/dl (32.0-36.5); MEAN CORPUSCULAR VOLUME 100.8 fl (80.0-96.0); RED CELL DISTRIBUTION WIDTH 13.7 % (11.5-14.5); WHITE BLOOD COUNT 14.4 K/mm3 (4.0-10.0)
[2016-03-31 18:33] LABS: ANION GAP 7 MEQ/L (8-16); BLOOD UREA NITROGEN 17 MG/DL (7-18); CALCIUM LEVEL 9.3 MG/DL (8.8-10.2); CARBON DIOXIDE LEVEL 29 MEQ/L (21-32); CHLORIDE LEVEL 106 MEQ/L (98-107); CREATININE FOR GFR 0.89 MG/DL (0.70-1.30); GLOMERULAR FILTRATION RATE > 60.0 (>42); GLUCOSE, FASTING 99 MG/DL (83-110); POTASSIUM SERUM 4.8 MEQ/L (3.5-5.1); SODIUM LEVEL 142 MEQ/L (136-145)
== END | disposition home or self-care (01) ==
LOC: M SMT 10:43
PROVIDERS: ATTEND Urology
DX: Z01.818 Encounter for other preprocedural examination (principal); N20.1 Calculus of ureter; Q79.1 Other congenital malformations of diaphragm; J98.4 Other disorders of lung; Z96.9 Presence of functional implant, unspecified

== ENCOUNTER → 2016-04-03 | Day surgery (SDC) | payer MEDICARE, OTHER ==
[~2016-04-03] VITALS: Ht 172.7 cm; Wt 78.9 kg
[~2016-04-03] MED LIST changes: +CONRAY-60 60% 50ML VIAL (Q9961) As Ordered ONE; +LIDOCAINE 2% INJ 100 MG/5 ML SDV (FOR ANES.) As Ordered ONE; +MIDAZOLAM INJ 2 MG/2 ML VIAL (J2250) As Ordered ONE; +PHENYLephrine HCL 500 MCG/5 ML (100MCG/ML) SYRINGE (J2370) As Ordered ONE; +PROPOFOL 200 MG/20 ML VIAL As Ordered ONE; +ePHEDrine SULFATE 25 MG/5 ML(5MG/ML) SYRINGE As Ordered ONE; +fentaNYL 100 MCG/2 ML INJECTION (J3010) As Ordered ONE
--- NOTE | 2016-04-03 11:46 | REP ---
Retrograde pyelogram: Four views. History: Ureteral stone, basket retrieval. 11 seconds of fluoroscopy time is reported. Findings: A sequence of four fluoroscopically obtained intraprocedural spot radiographs of the abdomen document ureteral cannulation guidewire placement, contrast injection, and ureteral stent placement. No laterality markers are seen. Signed by Spencer Huddleston MD 04/03/2016 03:09 P
[2016-04-03 12:30] VITALS: BP 141/79
--- NOTE | 2016-04-07 19:49 | RO ---
DATE OF PROCEDURE: 04/03/2016 PREPROCEDURE DIAGNOSIS: Obstructing right ureteral stone. POSTPROCEDURE DIAGNOSIS: Obstructing right ureteral stone. PROCEDURE: Cystoscopy, right ureteroscopy with basket extraction of stones, right retrograde pyelogram with intraoperative interpretation of images, right ureteral stent placement. SURGEON: Ar Hale MD CERTIFIED MIDWIFE: None. ANESTHESIA: General. OPERATIVE INDICATIONS: This is a 76-year-old male who presented to the emergency room about a week or two ago with severe right flank pain due to an obstructing 4-5 mm distal right ureteral stone. He was given a trial of passage, and he could not pass it with Flomax. Therefore, recommended he be brought to the operating room today for removal of stone. DESCRIPTION OF PROCEDURE: Patient brought to the operating room and general anesthesia induced. Prophylactic antibiotics were infused. He was then placed in the dorsal lithotomy position, prepped and draped in the usual sterile fashion. A rigid cystoscope was inserted into the urethral meatus and advanced into the bladder. The wire was then advanced to the right collecting system. This wire was then secured to the drape to serve as a safety wire. The cystoscope was then removed. Then, I went up the right ureter with a short semirigid ureteroscope. Within the distal right ureter, it appeared that the ureteral stone had fragmented into a few smaller pieces. The stones within were still obstructing the lumen. I then utilized the basket to remove all the stone fragments. There did appear to be a little bit of edema and scarring in this area. Retrograde pyelogram was performed, and it was notable for moderate to severe right hydroureteronephrosis. At this point, the ureteroscope was withdrawn and no additional stones were seen. I then utilized the previously placed wire to advance a #6-[id number] x 22-32 cm JJ ureteral stent up into the right collecting system. The wire was then removed, and there were adequate curls of the stent in the right renal pelvis and in the bladder. The bladder was then emptied of all fluid, and this marked the conclusion of the procedure. The patient was then taken out of dorsal lithotomy position, awakened from anesthesia, and transported to the recovery room in stable condition. ESTIMATED BLOOD LOSS: 0 mL. COMPLICATIONS: None. SPECIMENS: Kidney stone fragments. PLAN: The patient will be brought back to be seen in the clinic in a week or two for stent removal.
== END | disposition home or self-care (01) ==
LOC: M SDC 09:00
PROVIDERS: ATTEND Urology
DX: N20.1 Calculus of ureter (principal); R73.03 Prediabetes; E78.00 Pure hypercholesterolemia, unspecified; M54.9 Dorsalgia, unspecified; Z79.899 Other long term (current) drug therapy; Z98.84 Bariatric surgery status; F17.290 Nicotine dependence, other tobacco product, uncomplicated
CPT/HCPCS: 52332; 52352; 74420; 82360; 88300; C1783; J0690; J2250; J2370; J3010; Q9961

== ENCOUNTER → 2016-07-15 | Outpatient (REF) | payer MEDICARE, OTHER ==
[~2016-07-15] MED LIST changes: -CONRAY-60 60% 50ML VIAL (Q9961) As Ordered ONE; -LIDOCAINE 2% INJ 100 MG/5 ML SDV (FOR ANES.) As Ordered ONE; -MIDAZOLAM INJ 2 MG/2 ML VIAL (J2250) As Ordered ONE; -PHENYLephrine HCL 500 MCG/5 ML (100MCG/ML) SYRINGE (J2370) As Ordered ONE; -PROPOFOL 200 MG/20 ML VIAL As Ordered ONE; -ePHEDrine SULFATE 25 MG/5 ML(5MG/ML) SYRINGE As Ordered ONE; -fentaNYL 100 MCG/2 ML INJECTION (J3010) As Ordered ONE
[2016-07-15 12:14] LABS: MEAN CORPUSCULAR HEMOGLOBIN 33.3 pg (27.0-33.0); MEAN CORPUSCULAR HGB CONC 32.2 g/dl (32.0-36.5); MEAN CORPUSCULAR VOLUME 103.5 fl (80.0-96.0); RED CELL DISTRIBUTION WIDTH 12.9 % (11.5-14.5); WHITE BLOOD COUNT 6.1 K/mm3 (4.0-10.0)
[2016-07-15 12:20] LABS: BLOOD UREA NITROGEN 13 MG/DL (7-18); CREATININE FOR GFR 0.86 MG/DL (0.70-1.30); GLOMERULAR FILTRATION RATE > 60.0 (>42)
[2016-07-15 12:34] LABS: INR 0.97
== END ==
LOC: M LABNEURO 11:22
PROVIDERS: ATTEND Orthopaedic Surgery
DX: M54.5 Low back pain (principal)

== ENCOUNTER → 2016-07-31 | Outpatient (CLI) | payer MEDICARE, OTHER ==
[~2016-07-31] MED LIST changes: +ACETAMINOPHEN 325 MG TAB As Ordered ONE; +CONRAY-43 43% 50ML VIAL (Q9960) As Ordered ONE; +ISOVUE-M 300 61% 15ML VIAL (Q9967) As Ordered ONE
--- NOTE | 2016-07-31 10:18 | REP ---
CT LUMBAR SPINE WITH CONTRAST (CT MYELOGRAM): 07/31/2016 CLINICAL HISTORY: Low back pain persists. Spine stimulator in place. TECHNIQUE: Axial soft-tissue and bone windows from T10 through S3 with coronal and sagittal bone window reconstructions provided. A lumbar myelogram injection performed by ELENA Love under supervision of a colleague. Please see that procedure report. COMPARISON: MRI 01/26/2015. FINDINGS: Shift Manager image shows a left posterior flank battery unit for spinal stimulator. Sagittal reconstruction shows loss of lordosis with straightening of the spine. There is disc space narrowing at all levels in the lumbar spine, greatest at L4-5 and L1-2. There is no compression deformity at any of these vertebral levels. There are marginal osteophytes throughout in the anterior aspect of the lumbar spine. From the T10-11 through T12-L1 levels there is layering of the contrast posteriorly to the cord. The conus terminates at about at T12-L1. At L1-2, there is a mild disc bulge flattening ventral subarachnoid space and indenting it centrally with protrusion. This is unchanged. Cross-sectional area of the canal was adequate. The foramina appear adequate. Marginal osteophytes are present but no nerve root compression suggested. At L2-3 posterior osteophytic ridging and a broad-based disc bulge. There is disc osteophyte complex laterally. Cross-sectional area of the canal was adequate. There has been laminectomy with removal of the spinous process of L2. There is clumping of nerve roots noted at this level centrally and towards the left. The right L3 root shows normal course. Cross-sectional area of the canal at this level is adequate with mild ligamentum and facet hypertrophic change. At L3-4, there is broad-based disc bulge. Disc osteophyte complex peripherally. There is ligamentum flavum hypertrophy and facet arthropathy particularly on the left, contributing to moderate spinal stenosis at this level. There is some clumping of nerve roots. This is towards the left side at this level. Foramina show encroachment on the right more than left. Laminectomy also at this level with resection of the spinous process. At L4-5 some mild broad-based disc bulge with disc osteophyte formation peripherally. The left paracentral protrusion better seen on the MRI but also visible on this study. There is some clumping of nerve roots anteriorly in the canal. Foramina show encroachment, left greater than right. Extensive hypertrophic facet change. At L5-S1, there is broad-based disc bulge abutting the S1 nerve roots in the central canal. There is central canal stenosis at this level. Hypertrophic facet changes are noted. Foraminal encroachment bilaterally due to combined factors of facet arthropathy. A few millimeters of retrolisthesis of L5 on S1. No spondylolysis. IMPRESSION: 1. Multiple levels lumbar spondylosis with degenerative disc changes and greatest stenosis centrally at L3-4, facet and ligamentum hypertrophy particularly on the left contributing to moderately severe central canal stenosis. Combined factor foraminal encroachment noted as well. 2. Degenerative disc changes with central canal stenosis at L5-S1 to a lesser degree with L2-3, L1-2, and L4-5 levels, not showing significant central canal stenosis. 3. There has been laminectomies with resection of spinous process at L2 and L3. 4. Clumping of nerve roots consistent with arachnoiditis and similar to the appearance on previous MRI. Signed by Pepe Brizuela MD 07/31/2016 10:58 A
--- NOTE | 2016-07-31 16:36 | REP ---
LUMBAR MYELOGRAM: The procedure was performed under the personal supervision of Dr. Huddleston. The risks and benefits of the procedure were explained to the patient and informed consent was obtained. The L3-4 interspace was localized using fluoroscopic guidance. The skin was prepped and draped in a sterile fashion. 1% Lidocaine was used as a local anesthetic. Using fluoroscopic guidance a 22 gauge spinal needed was inserted and then advanced into the thecal sac however there was no return of spinal fluid. This may represent spinal stenosis. The L 2-3 interspace was then localized using fluoroscopic guidance. A 22-gauge spinal needle was inserted and then advanced into the thecal sac. 10 mL of Isovue-M 300 was injected. Myelogram images show an extradural defect on the right lateral and right ventral lateral margin of the thecal sac at L3-4 consistent with disc protrusion. There is also dorsal lateral indentation of the thecal sac and L3-4 indicating central canal stenosis. Irregularity of the thecal sac contour and some clumping of the nerve roots at L5 and L5-S1 suggest arachnoiditis. The needle was removed and the patient was taken to CAT scan for post-procedural imaging. The patient tolerated the procedure well and there were no immediate complications. 57 seconds of fluoroscopic time was utilized for this procedure. Reviewed by ELENA Salgado 07/31/2016 04:44 PEdited and Signed by Spencer Huddleston MD 07/31/2016 04:56 P
== END ==
LOC: M RADPRO 07:33
PROVIDERS: ATTEND Orthopaedic Surgery
DX: M54.5 Low back pain (principal); M47.896 Other spondylosis, lumbar region; M51.36 Other intervertebral disc degeneration, lumbar region; Z96.9 Presence of functional implant, unspecified
CPT/HCPCS: 62304; 72131; Q9967

== ENCOUNTER → 2016-08-22 | Outpatient (REF) | payer MEDICARE, OTHER ==
[~2016-08-22] MED LIST changes: -ACETAMINOPHEN 325 MG TAB As Ordered ONE; -CONRAY-43 43% 50ML VIAL (Q9960) As Ordered ONE; -ISOVUE-M 300 61% 15ML VIAL (Q9967) As Ordered ONE
== END ==
LOC: M LAB REF 12:58
PROVIDERS: ATTEND Internal Medicine
DX: E61.1 Iron deficiency (principal)

== ENCOUNTER 2016-09-10 01:36 | Emergency (ER) | payer MEDICARE, OTHER ==
[~2016-09-10] VITALS: Ht 175.3 cm; Wt 77.0 kg
[2016-09-10 01:39] VITALS: BP 174/108
== END 2016-09-10 03:08 | disposition home or self-care (01) ==
LOC: M ED 01:36
DX: R33.9 Retention of urine, unspecified (principal); N40.0 Benign prostatic hyperplasia without lower urinary tract symptoms; Z98.84 Bariatric surgery status; M54.9 Dorsalgia, unspecified; F17.200 Nicotine dependence, unspecified, uncomplicated; Z79.899 Other long term (current) drug therapy; Z88.0 Allergy status to penicillin

== ENCOUNTER 2016-09-10 05:41 | Inpatient (IN) | payer MEDICARE, OTHER ==
[~2016-09-10] VITALS: Ht 175.3 cm; Wt 77.7 kg
[2016-09-10] MEDS ORDERED: ASPIRIN 325 MG TAB PO ONE (05:45)
[2016-09-10] MEDS ORDERED: MORPHINE 2 MG/ML 1ML SYRINGE IV ONE (06:15)
[2016-09-10 06:20] LABS: BASO % 0.2 % (0.0-1.0); EOS # 0.2 K/mm3 (0.0-0.50); EOS % 1.2 % (0.0-3.0); LARGE UNSTAINED CELL # 0.2 K/mm3 (0.0-0.4); LARGE UNSTAINED CELL % 1.6 % (0.0-4.0); LYMPH % 26.6 % (24.0-44.0); MEAN CORPUSCULAR HEMOGLOBIN 32.2 pg (27.0-33.0); MEAN CORPUSCULAR HGB CONC 32.2 g/dl (32.0-36.5); MEAN CORPUSCULAR VOLUME 99.9 fl (80.0-96.0); MONO % 6.9 % (0.0-5.0); NEUTROPHILS # 8.9 K/mm3 (1.8-7.7); NEUTROPHILS % 63.6 % (36.0-66.0); PLATELET COUNT, AUTOMATED 261 k/mm3 (150-450); WHITE BLOOD COUNT 14.1 K/mm3 (4.0-10.0)
[2016-09-10] MEDS ORDERED: NS 500 ML IV ONE (06:30)
[2016-09-10 06:31] LABS: INR 0.99
[2016-09-10] MEDS ORDERED: MORPHINE 4 MG/ML 1ML SYRINGE IV ONE ×2 (06:45→08:15)
[2016-09-10 06:48] LABS: ANION GAP 4 MEQ/L (8-16); BLOOD UREA NITROGEN 12 MG/DL (7-18); CALCIUM LEVEL 9.4 MG/DL (8.8-10.2); CARBON DIOXIDE LEVEL 32 MEQ/L (21-32); CHLORIDE LEVEL 103 MEQ/L (98-107); CREATININE FOR GFR 0.82 MG/DL (0.70-1.30); GLOMERULAR FILTRATION RATE > 60.0 (>42); GLUCOSE, FASTING 109 MG/DL (83-110); POTASSIUM SERUM 3.5 MEQ/L (3.5-5.1); SODIUM LEVEL 139 MEQ/L (136-145)
[2016-09-10] MEDS ORDERED: ISOVUE-370 76% 100ML VIAL (Q9967) As Ordered ONE ×2 (06:51→07:02)
--- NOTE | 2016-09-10 07:38 | ECGEPIP ---
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
--- NOTE | 2016-09-10 07:40 | REPUSA ---
CLINICAL HISTORY: Chest pain, exclude PE. TECHNIQUE: Multiple incremental axial, coronal and oblique images are obtained from the thoracic inle t to the upper abdomen. Intravenous contrast material was administered as per pulmonary embolism prot ocol. COMMENTS: There is bilateral peribronchial interstitial thickening suggestive of bronchitis. There is excellent opacification of pulmonary arterial system without evidence for pulmonary embolism . Aorta is of normal caliber without evidence for dissection or aneurysm. There is no evidence of pleural or parenchymal mass. There are no pleural effusions. There is no evid ence of hilar or mediastinal lymphadenopathy. Calcified mediastinal and hilar lymph nodes. Images of the upper abdomen demonstrate no evidence of adrenal mass. The bony structures are free of lytic or blastic lesions. Multilevel degenerative changes are seen in volving the visualized thoracolumbar spine. Scattered calcifications are seen involving the aorta and major branches compatible with atherosclero sis. Bilateral basilar atelectatic pulmonary changes. Small sliding hiatal hernia. IMPRESSION: No evidence for pulmonary embolism. Bilateral basilar atelectatic pulmonary changes. Bronchitis. Thank you for your kind referral of this patient.
--- NOTE | 2016-09-10 07:47 | REP ---
Clinical: Chest pain . Comparison: 03/21/2016. Findings: The mediastinum and cardiac silhouette are stable and within normal limits for portable technique. The lung leigh demonstrate chronic changes without acute consolidation, effusion, or pneumothorax. Stimulator at the mid-thoracic level. Skeletal structures are intact. Impression: No acute cardiopulmonary process. Signed by Rudy Valdes MD 09/10/2016 07:38 A
[2016-09-10 08:36] LABS: AMYLASE 48 U/L (25-115)
[2016-09-10] MEDS: HYDROmorphone HCL 1 MG/ML SYRINGE (J1170) IV PRN ×4 (08:36→10:10)
--- NOTE | 2016-09-10 09:09 | REP ---
Clinical: Abdominal pain status post back surgery. Comparison: 03/26/2016. Findings: Moderate pneumoperitoneum is appreciated and suggest bowel perforation. Correlation is required. The enteric system demonstrates prior gastric bypass surgery along with colonic diverticulosis, but no evidence for acute diverticulitis and no evidence for bowel obstruction. The terminal ileum and appendix in the right lower quadrant appear normal. No ascites or drainable collection appreciated. Liver, pancreas, gallbladder, bilateral adrenal glands and left kidney are normal. Splenic calcifications consistent with prior granulomatous disease. 4.8 cm right renal cyst remain stable. Pelvis demonstrates a Fitzpatrick catheter in collapsed bladder and enlarged heterogeneous prostate gland. No ascites. Atherosclerotic changes to the vasculature noted without aneurysm. Musculoskeletal structures demonstrate degenerative changes as well as presumed recent postsurgical changes to the lumbar spine with laminectomy and epidural stimulator. Lung bases demonstrate chronic fibro atelectatic changes along with suspected right lower lobe atelectasis. Impression: 1. Moderate free air within the abdomen suggests perforation and requires correlation. 2. The enteric system demonstrates diverticulosis as well as prior gastric bypass surgery. No obstruction or obvious acute inflammatory process. 3. Chronic stable changes as described above. 4. Evidence for prior lumbar laminectomy. Signed by Rudy Valdes MD 09/10/2016 09:00 A
[2016-09-10] MEDS ORDERED: IMIPENEM/CILASTATIN 500 MG in D5W MINI-BAG PLUS 100 ML IV ONE (09:15)
[2016-09-10] MEDS ORDERED: SODIUM CHLORIDE 0.9% 1000 ML IV ONE (09:45)
[2016-09-10] MEDS ORDERED: BUPIVACAINE/EPIN 0.25% 30 ML VIAL As Ordered ONE (10:41)
[2016-09-10] MEDS ORDERED: ERTAPENEM 1 GM INJ (INVanz) (J1335) As Ordered ONE (11:56)
[2016-09-10] MEDS ORDERED: fentaNYL 250 MCG/5 ML INJECTION (J3010) As Ordered ONE (12:37)
[2016-09-10] MEDS ORDERED: LIDOCAINE 2% INJ 100 MG/5 ML SDV (FOR ANES.) As Ordered ONE (12:37)
[2016-09-10] MEDS ORDERED: MIDAZOLAM INJ 2 MG/2 ML VIAL (J2250) As Ordered ONE (12:37)
[2016-09-10] MEDS ORDERED: ROCURONIUM BROMIDE 50 MG/5 ML VIAL/SYRINGE As Ordered ONE (12:37)
[2016-09-10] MEDS ORDERED: PROPOFOL 200 MG/20 ML VIAL As Ordered ONE (12:37)
[2016-09-10] MEDS ORDERED: LABETALOL HCL 100 MG/20 ML VIAL As Ordered ONE (12:52)
[2016-09-10] MEDS ORDERED: DESFLURANE 240 ML INHALANT As Ordered ONE (12:56)
[2016-09-10] MEDS ORDERED: ONDANSETRON 4MG/2ML VIAL (J2405) As Ordered ONE (14:31)
[2016-09-10] MEDS ORDERED: NEOSTIGMINE 1MG/ML 5 ML SYRINGE (J2710) As Ordered ONE (14:31)
[2016-09-10] MEDS ORDERED: GLYCOPYRROLATE INJ 0.2 MG/ML 2 ML VIAL As Ordered ONE (14:31)
[2016-09-10] MEDS ORDERED: fentaNYL 100 MCG/2 ML INJECTION (J3010) As Ordered ONE (14:51)
--- NOTE | 2016-09-10 14:56 | CR.PDOC ---
[facility] Consultation Consultation DATE OF CONSULTATION: Sep 10, 2016 at 14:50 PRIMARY CARE PHYSICIAN: Dr. Kat REFERRING PROVIDER: Dr. Miranda ATTENDING PHYSICIAN: Dr. Miranda REASON FOR CONSULTATION/CHIEF COMPLAINT: Medical co-management. HISTORY OF PRESENT ILLNESS: This is a 76-year-old male possible history of multiple back surgeries, peptic ulcer disease, nephrolithiasis who recently had a laminectomy on Thursday. Patient states the night after, he developed urinary retention and presented to the ED after which a Fitzpatrick was placed, and relief was achieved. Patient now presents with epigastric/left upper quadrant abdominal pain with radiation to left shoulder. Patient states this started today. Is unable to quantify the pain, nor describe in detail. The patient states that the pain was progressively worse when he was turned over in the ED. At that time a CAT scan of the abdomen and pelvis was ordered which noted perforation of the bowel. The patient will be going for ex-lap with Dr. Miranda today. We have been consulted for co-medical management. ALLERGIES: Please see below. HOME MEDICATIONS: Please see below. PAST MEDICAL HISTORY: As per HPI PAST SURGICAL HISTORY: Carpal tunnel, multiple back surgeries FAMILY HISTORY: Brother - pancreatitis, F- OR age 66. B- DM SOCIAL HISTORY: - Smokes 1 cigar/day. No alcohol or illicit drug use. REVIEW OF SYSTEMS: HEENT: Denies sore throat/headache CARDIOVASCULAR: Denies chest pain/palpitations RESPIRATORY: Denies shortness of breath/cough GASTROINTESTINAL: denies nausea/vomiting GENITOURINARY: Denies dysuria/urinary urgency. MUSCULOSKELETAL: Denies myalgias/arthralgias NEUROLOGICAL: Denies any focal weakness PHYSICAL EXAMINATION: VITAL SIGNS: Please see below. General: No acute distress, laying comfortably in bed. HEENT: Moist mucous membranes. Neck: No JVD or lymphadenopathy Cardiac: RRR, No murmurs Pulm: Clear to auscultation b/l. No wheezing, rhonchi Abd: Diffuse tender to palpation, greatest at the epigastric/LUQ region. + guarding. Firm. Distended. +BS Ext: No edema or cyanosis. Strength 5 out of 5 in bilateral lower extremities. Distal pulses intact. LABORATORY DATA: Please see below. ASSESSMENT/PLAN: 1. Bowel perforation, history of peptic ulcer disease. Exploratory laparotomy today with Dr. Miranda. Management per surgery. 2. History of peptic ulcer disease- placed on Protonix IV. 3. Tobacco abuse- counseled on cessation 4. History of multiple back surgery status post laminectomy on Thursday. We'll continue to monitor. Pain control. DVT prophylaxis- Lovenox when okay with surgery. Vital Signs/I&O Vital Signs Date Time Temp Pulse Resp B/P (MAP) Pulse Ox O2 Delivery O2 Flow Rate FiO2 09/10/16 10:33 99.6 18 96 Nasal Cannula 2.0 170/103 (125) 09/10/16 10:11 102 Laboratory Data Labs 24H Laboratory Tests 2 09/10/16 06:08: White Blood Count 14.1H, Red Blood Count 4.39, Hemoglobin 14.1, Hematocrit 43.9 , Mean Corpuscular Volume 99.9H, Mean Corpuscular Hemoglobin 32.2, Mean Corpuscular Hemoglobin Concent 32.2, Red Cell Distribution Width 13.0, Platelet Count 261, Neutrophils (%) (Auto) 63.6, Lymphocytes (%) (Auto) 26.6, Monocytes ( %) (Auto) 6.9H, Eosinophils (%) (Auto) 1.2, Basophils (%) (Auto) 0.2, Neutrophils # (Auto) 8.9H, Lymphocytes # (Auto) 4.0, Monocytes # (Auto) 1.0H, Eosinophils # (Auto) 0.2, Basophils # (Auto) 0.0, Large Unclassified Cells % 1.6 , Large Unclassified Cells # 0.2, Prothrombin Time 13.2, Prothromb Time International Ratio 0.99, Activated Partial Thromboplast Time 33.5, Anion Gap 4L , Glomerular Filtration Rate > 60.0, Blood Urea Nitrogen 12, Creatinine 0.82, Sodium Level 139, Potassium Level 3.5, Chloride Level 103, Carbon Dioxide Level 32, Calcium Level 9.4, Total Creatine Kinase 98, Creatine Kinase MB 1.1, Creatine Kinase MB Relative Index 1.12, Troponin I < 0.02, Amylase Level 48, Lipase 108 09/10/16 08:56: Urine Appearance CLEAR, Urine Color STRAW, Urine pH 6.0, Urine Specific Tolar 1.053, Urine Protein NEGATIVE, Urine Glucose (UA) NEGATIVE, Urine Ketones NEGATIVE, Urine Urobilinogen 0.2, Urine Bilirubin NEGATIVE, Urine Leukocyte Esterase NEGATIVE, Urine Blood 3+H, Urine Nitrite NEGATIVE, Urine WBC (Auto) 9H , Urine RBC (Auto) 148H, Urine Hyaline Casts (Auto) 0, Urine Bacteria (Auto) NEGATIVE, Urine Squamous Epithelial Cells 0, Urine Sperm (Auto) CBC/BMP Laboratory Tests 09/10/16 06:08 Red Blood Count 4.39, Mean Corpuscular Volume 99.9 H, Mean Corpuscular Hemoglobin 32.2, Mean Corpuscular Hemoglobin Concent 32.2, Red Cell Distribution Width 13.0, Neutrophils (%) (Auto) 63.6, Lymphocytes (%) (Auto) 26.6, Monocytes (%) (Auto) 6.9 H, Eosinophils (%) (Auto) 1.2, Basophils (%) ( Auto) 0.2, Neutrophils # (Auto) 8.9 H, Lymphocytes # (Auto) 4.0, Monocytes # ( Auto) 1.0 H, Eosinophils # (Auto) 0.2, Basophils # (Auto) 0.0, Calcium Level 9.4 , Total Creatine Kinase 98 Allergies Coded Allergies: Penicillins (Verified Allergy, Unknown, 09/10/16) Home Medications Scheduled Multivitamins (Multivitamin Adults) 1 Tab Tab, 1 TAB PO DAILY, (Reported) Omeprazole (Omeprazole) 40 Mg Cap, 40 MG PO DAILY, (Reported) Scheduled PRN (Oxycodone/Acetaminophen 10-325 mg) 1 Tab Tab, 1 TAB PO Q4HP PRN for PAIN, #1 ( Reported) Miscellaneous Medications (Iron Complex) 1 Cap Cap, 1 CAP PO, (Reported) Cholecalciferol (Vitamin D) 5,000 Unit Tab, 5,000 UNIT PO, (Reported) Cyanocobalamin (Vitamin B 12) 250 Mcg Christian, 250 MCG PO, #2 (Reported) CHARLIE SEN MD Sep 10, 2016 14:56
[2016-09-10] MEDS ORDERED: METOCLOPRAMIDE INJ 10MG/2ML VIAL (J2765) As Ordered ONE (14:58)
[2016-09-10] MEDS ORDERED: ONDANSETRON 4MG/2ML VIAL (J2405) IV PRN ×2 (15:00→15:30)
[2016-09-10] MEDS ORDERED: MEPERIDINE INJ 25 MG/ML VIAL (J2175) IV PRN (15:30)
[2016-09-10] MEDS ORDERED: fentaNYL 100 MCG/2 ML INJECTION (J3010) IV PRN (15:30)
[2016-09-10] MEDS ORDERED: LR 1,000 ML IV SCH (15:30)
[2016-09-10] MEDS ORDERED: METOCLOPRAMIDE INJ 10MG/2ML VIAL (J2765) IV PRN (15:30)
[2016-09-10 16:44] VITALS: BP 118/62
[2016-09-10] MEDS: LR 1,000 ML IV SCH (16:49)
[2016-09-10 17:14] VITALS: BP 108/95
[2016-09-10] MEDS: MORPHINE 2 MG/ML 1ML SYRINGE IV PRN ×2 (17:26→21:23)
[2016-09-10] MEDS: KETOROLAC 30 MG/ML VIAL (J1885) IV PRN (18:13)
[2016-09-10 18:14] VITALS: BP 114/62
[2016-09-10 19:14] VITALS: BP 104/54
--- NOTE | 2016-09-10 19:36 | HPE ---
DATE OF ADMISSION: 09/10/2016 CHIEF COMPLAINT: Abdominal pain. HISTORY OF PRESENT ILLNESS: The patient is a 76-year-old male, who has had a history of multiple back surgeries and peptic ulcer in the past due to his back pain. He also had a gastric bypass done two years ago to help him lose some weight to help relieve some of the pain in is back. He has been on omeprazole daily since then; however this was stopped a little over a week ago for his back surgery. He started to have some upper abdominal pain radiating to left shoulder a little over a week ago. He ignored it because he did not want to have his back surgery cancelled. He underwent his back surgery Thursday and had laminectomy down [place]. Postoperatively, he had difficulty with urination. He was in the emergency room here Thursday where he ended up having a Fitzpatrick catheter placed that he was sent home with. Soon after returning home, he had increasing pain in his upper abdomen and he came back to the emergency room again early this morning. Because of the upper chest pain, he had a CT chest done to rule out pulmonary emboli (PE) that was negative. When of the emergency room (ER) physician went back to see him two hours later, he had sudden onset of increasing pain in his abdomen, so he had a CT abdomen and pelvis which showed free air below the diaphragm. No other signs of bowel obstruction or inflammation with his history of having ulcer disease in the past as well as this gastric bypass and he has been taking lots of pain medications for his first back pain. It was suspected that this was likely an upper source of perforation. PAST MEDICAL HISTORY: 1. Back pain. 2. Peptic ulcer disease 3. Nephrolithiasis. PAST SURGICAL HISTORY: Carpal tunnel, multiple back surgeries, recent laminectomy on Thursday spinal stimulator placement and laparoscopic gastric bypass two years ago. FAMILY HISTORY: Noncontributory. SOCIAL HISTORY: Smokes one cigar a day. Denies any drug or alcohol usage. FAMILY HISTORY: Noncontributory. ALLERGIES: PENICILLIN. MEDICATIONS: Please see medical record. REVIEW OF SYSTEMS: For positives and negatives see the history of present illness. PHYSICAL EXAMINATION: GENERAL: Alert and oriented times three, in no acute distress. VITALS: Temperature 99.1, pulse 89, respirations 18, blood pressure 162/96, pulse oxygen 96% room air. HEENT: Pupils equal round react to light accommodation. HEART: S1-S2, regular rate and rhythm. LUNGS: Clear to auscultation bilaterally. ABDOMEN: Soft, tender palpation left upper and left lower quadrants. No generalized peritonitis. He does have localized guarding in the left upper quadrant and left lower quadrant only. No signs of hernias. EXTREMITIES: No clubbing, cyanosis or edema. LABORATORY DATA: White count 14.1, hemoglobin of 14.1, platelets 261, INR 0.99, potassium 3.5, creatinine 0.82. IMAGING: CT abdomen and pelvis shows moderate free air within the abdomen suggesting perforation and requires correlation. There are signs of diverticulosis. No signs of diverticulitis. No signs of obstruction or acute inflammatory processes. ASSESSMENT/PLAN: The patient is a 76-year-old male with perforated viscus likely secondary to a perforated gastric versus marginal ulcer based off of his history, Recommendation is to proceed with urgent diagnostic laparoscopy with repair of perforation, possible laparotomy. Risks and benefits of the procedure discussed in detail with the patient. Risks include but are not limited bleeding, infection, hernia formation, damage to surrounding structures, need for further surgery, anastomotic leak and possible need for colostomy. He understands all the risks involvements and just wants to be out of pain and is agreeable to having the procedure completed. Postoperatively, he will be kept nothing by mouth. Fitzpatrick catheter will be kept in place for at least 24 hours, then will remove it and he will get all IV pain medications and regular medications, strict nothing by mouth for now.
[2016-09-10 20:14] VITALS: BP 98/57
[2016-09-10 21:14] VITALS: BP 131/56
[2016-09-10] MEDS: HEPARIN SOD (PORCINE) 5000 UNITS/ML VIAL SC SCH (21:21)
[2016-09-11] MEDS: LR 1,000 ML IV SCH ×2 (00:16→05:51)
[2016-09-11] MEDS: KETOROLAC 30 MG/ML VIAL (J1885) IV PRN ×3 (00:17→19:49)
[2016-09-11 01:14] VITALS: BP 96/51
[2016-09-11] MEDS: MORPHINE 2 MG/ML 1ML SYRINGE IV PRN ×2 (03:35→09:47)
[2016-09-11] MEDS: ACETAMINOPHEN 650 MG SUPP PR PRN (04:04)
[2016-09-11 05:14] VITALS: BP 110/59
[2016-09-11] MEDS: HEPARIN SOD (PORCINE) 5000 UNITS/ML VIAL SC SCH ×3 (05:50→21:02)
[2016-09-11 05:58] LABS: MEAN CORPUSCULAR HEMOGLOBIN 33.6 pg (27.0-33.0); MEAN CORPUSCULAR HGB CONC 34.3 g/dl (32.0-36.5); MEAN CORPUSCULAR VOLUME 97.9 fl (80.0-96.0); RED CELL DISTRIBUTION WIDTH 13.2 % (11.5-14.5); WHITE BLOOD COUNT 12.6 K/mm3 (4.0-10.0)
[2016-09-11 06:22] LABS: ANION GAP 5 MEQ/L (8-16); BLOOD UREA NITROGEN 18 MG/DL (7-18); CALCIUM LEVEL 8.4 MG/DL (8.8-10.2); CARBON DIOXIDE LEVEL 27 MEQ/L (21-32); CHLORIDE LEVEL 108 MEQ/L (98-107); CREATININE FOR GFR 0.74 MG/DL (0.70-1.30); GLOMERULAR FILTRATION RATE > 60.0 (>42); GLUCOSE, FASTING 99 MG/DL (83-110); MAGNESIUM LEVEL 1.4 MG/DL (1.8-2.4); POTASSIUM SERUM 4.1 MEQ/L (3.5-5.1); SODIUM LEVEL 140 MEQ/L (136-145)
[2016-09-11] MEDS: MAG SULF 1GM/100ML (MAG RUN) 1 GM in APPROPRIATE DILUENT 1 EA IV SCH ×2 (07:36→09:47)
[2016-09-11 09:14] VITALS: BP 117/69
[2016-09-11] MEDS: PANTOPRAZOLE 40MG INJ (PROTONIX) (C9113) IV SCH (09:47)
[2016-09-11] MEDS: D5W/0.45% SODIUM CHLORIDE 1,000 ML IV SCH ×2 (09:48→21:02)
--- NOTE | 2016-09-11 09:59 | RO ---
DATE OF PROCEDURE: 09/10/2016 PREOPERATIVE DIAGNOSIS: Perforated viscus. POSTOPERATIVE DIAGNOSIS: Perforated marginal ulcer. PROCEDURE: Laparoscopic repair of perforated gastric ulcer with Twan patch and abdominal washout, upper endoscopy. SURGEON: Dr. Miranda SOLDER MAKING SUPERVISOR: Dr. Alvarez ANESTHESIA: General. ESTIMATED BLOOD LOSS: 10 mL. COMPLICATIONS: None. INDICATIONS FOR PROCEDURE: Pace 76-year-old male who presents with a history of upper abdominal pain for a little over a week now. He did not tell his doctors about it because he was scheduled for back surgery on this past Thursday. He underwent a laminectomy down in [place] on Thursday. Postoperatively, he had difficulty with pain, which began radiating up into his shoulders. He came to the emergency room and CT chest was normal; however, CT of the abdomen and pelvis showed free air in the abdomen. On exam, he was extremely tender. Due to the perforated viscus, recommendation was to proceed with laparoscopic, possible open repair. Risks and benefits of the procedure, not limited but including bleeding, infection, hernia formation, damage to surrounding structures and the possible need for further surgery were discussed in detail with the patient. Informed consent was obtained and the procedure was planned. PROCEDURE: The patient brought back to operating room #7. After sufficient sedation, the abdomen was sterilely prepped and draped. Next, a time-out was done to confirm proper patient and proper procedure. Following that, a 5 mm incision was made in left lower quadrant. Veress needle was inserted and the abdomen was insufflated to 50 mmHg. Next, a 5 mm incision was made supraumbilically through a previous incision site from a gastric bypass. Here, a 5 mm Optiview port was used to gain access to the abdomen. When the abdomen was entered, the Veress needle site was examined. There were no signs of injury. Veress needle was then replaced with an 8 mm port. Another 5 mm port epigastric, another 5 mm port in left upper quadrant. There is a lot of dark-colored fluid from the left upper quadrant of the abdomen. After careful dissection and manipulation, the liver was carefully teased off the loop of small bowel that was up there, and there was a perforated gastric ulcer identified right at the anastomosis site where the small bowel was attached. Once this was identified, the right upper quadrant was aspirated and irrigated. The omentum was carefully dissected off of the lateral abdominal wall, again from the previous incision site from the gastric bypass. Once this was completed, the omentum was mobilized, #2-0 Vicryl sutures were used to place three interrupted sutures laparoscopically to approximate the edges of the ulcer. The tails in the middle of the suture was left long. Once the hole was closed, a large piece of omentum was placed over top of the center of this perforation. The suture tails from the middle suture were then tied tight over top of it to hold it in place, thus creating a Twan patch. Once this was completed, Tisseel was placed on top of the Twan patch and underneath it. A #19-Portuguese Ra drain was placed over top the anastomosis and looped up into the left upper quadrant. Next, EGD was completed to confirm patency of the lumen to make sure that it was not oversewn during the repair. On endoscope, there are no signs of any bleeding or damage inside. The distal lumen was intact. No signs of obstruction. Gastroscope was then removed. The abdomen was desufflated. Drain was sutured in place with a #2-0 silk suture. The skin incisions were closed with #4-0 Vicryl subcuticular sutures. The abdomen was cleaned and dried. Steri-Strips, 4x4 and tape were applied, thus ending procedure.
[2016-09-11] MEDS: MORPHINE 4 MG/ML 1ML SYRINGE IV PRN ×3 (12:36→19:45)
[2016-09-11] MEDS: ERTAPENEM SODIUM 1 GM in NS MINI-BAG PLUS 50 ML IV SCH (12:37)
[2016-09-11 13:14] VITALS: BP 124/74
--- NOTE | 2016-09-11 15:00 | IPNPDOC ---
Text Note Date of Service The patient was seen on 09/11/16. NOTE Subjective: Pt has abd pain at the incision sites, however states overall he's feeling better. No N/V. Has a HERNANDEZ with morphine. No vision changes/neuro changes. PHYSICAL EXAMINATION: VITAL SIGNS: Please see below. General: No acute distress, laying comfortably in bed. HEENT: Moist mucous membranes. Neck: No JVD or lymphadenopathy Cardiac: RRR, No murmurs Pulm: Clear to auscultation b/l. No wheezing, rhonchi Abd: Mild diffuse tender to palpation, greatest at the incision sites. ROSALBA drain with serosang. fluid. +BS Ext: No edema or cyanosis. Strength 5 out of 5 in bilateral lower extremities. Distal pulses intact. Strength 5/5 BUE and BLE. Labs (see below) Images: CT Abd/pelvis 09/10/16 Impression: 1. Moderate free air within the abdomen suggests perforation and requires correlation. 2. The enteric system demonstrates diverticulosis as well as prior gastric bypass surgery. No obstruction or obvious acute inflammatory process. 3. Chronic stable changes as described above. 4. Evidence for prior lumbar laminectomy. ASSESSMENT/PLAN: 1. POD#1 s/p laparoscopic repair of perforated gastric ulcer. IVF. NPO. IV Pain control. Management per surgery. 2. History of peptic ulcer disease- placed on Protonix IV. 3. Tobacco abuse- counseled on cessation. Nicotine patch. 4. History of multiple back surgery status post laminectomy on Thursday. We'll continue to monitor. Pain control. 5. H/o gastric bypass surgery DVT prophylaxis- SCDs VS,Fishbone, I+O VS, Fishbone, I+O Laboratory Tests 09/11/16 05:38 Red Blood Count 3.46 L, Mean Corpuscular Volume 97.9 H, Mean Corpuscular Hemoglobin 33.6 H, Mean Corpuscular Hemoglobin Concent 34.3, Red Cell Distribution Width 13.2, Calcium Level 8.4 L Vital Signs Date Time Temp Pulse Resp B/P (MAP) Pulse Ox O2 Delivery O2 Flow Rate FiO2 09/11/16 12:46 18 09/11/16 09:30 Room Air 09/11/16 05:14 98.5 92 110/59 (76) 92 09/10/16 10:33 2.0 I&O- Last 24 Hours up to 6 AM 09/11/16 05:59 Intake Total 1750 ml Output Total 730 ml Balance 1020 ml CHARLIE SEN MD Sep 11, 2016 15:00
[2016-09-11 22:00] VITALS: BP 135/78
[2016-09-12] MEDS: MORPHINE 4 MG/ML 1ML SYRINGE IV PRN ×4 (00:40→19:55)
[2016-09-12 02:00] VITALS: BP 132/76
[2016-09-12] MEDS: D5W/0.45% SODIUM CHLORIDE 1,000 ML IV SCH ×3 (02:12→19:50)
[2016-09-12] MEDS: KETOROLAC 30 MG/ML VIAL (J1885) IV PRN ×3 (02:12→18:48)
[2016-09-12] MEDS: HEPARIN SOD (PORCINE) 5000 UNITS/ML VIAL SC SCH ×3 (05:57→21:12)
[2016-09-12 06:00] VITALS: BP 117/59
[2016-09-12 06:14] LABS: MEAN CORPUSCULAR HEMOGLOBIN 33.7 pg (27.0-33.0); MEAN CORPUSCULAR HGB CONC 33.9 g/dl (32.0-36.5); MEAN CORPUSCULAR VOLUME 99.4 fl (80.0-96.0); RED CELL DISTRIBUTION WIDTH 13.1 % (11.5-14.5)
--- NOTE | 2016-09-12 07:12 | ECGEPIP ---
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
[2016-09-12 07:33] LABS: ANION GAP 8 MEQ/L (8-16); BLOOD UREA NITROGEN 13 MG/DL (7-18); CALCIUM LEVEL 8.7 MG/DL (8.8-10.2); CARBON DIOXIDE LEVEL 24 MEQ/L (21-32); CHLORIDE LEVEL 107 MEQ/L (98-107); CREATININE FOR GFR 0.63 MG/DL (0.70-1.30); GLOMERULAR FILTRATION RATE > 60.0 (>42); GLUCOSE, FASTING 98 MG/DL (83-110); MAGNESIUM LEVEL 1.9 MG/DL (1.8-2.4); POTASSIUM SERUM 3.8 MEQ/L (3.5-5.1); SODIUM LEVEL 139 MEQ/L (136-145)
[2016-09-12] MEDS: PANTOPRAZOLE 40MG INJ (PROTONIX) (C9113) IV SCH (08:02)
[2016-09-12] MEDS: ACETAMINOPHEN 650 MG SUPP PR PRN (11:12)
[2016-09-12] MEDS: ERTAPENEM SODIUM 1 GM in NS MINI-BAG PLUS 50 ML IV SCH (11:12)
--- NOTE | 2016-09-12 13:19 | IPNPDOC ---
Text Note Date of Service The patient was seen on 09/12/16. NOTE Subjective: Pt states abd pain is improving. No N/V. HERNANDEZ improved. PHYSICAL EXAMINATION: VITAL SIGNS: Please see below. General: No acute distress, laying comfortably in bed. HEENT: Moist mucous membranes. Neck: No JVD or lymphadenopathy Cardiac: RRR, No murmurs Pulm: Clear to auscultation b/l. No wheezing, rhonchi Abd: Tender to palpation, greatest at the incision sites, improved. ROSALBA drain with serosang. fluid. +BS Ext: No edema or cyanosis. Strength 5 out of 5 in bilateral lower extremities. Distal pulses intact. Strength 5/5 BUE and BLE. Labs (see below) Images: CT Abd/pelvis 09/10/16 Impression: 1. Moderate free air within the abdomen suggests perforation and requires correlation. 2. The enteric system demonstrates diverticulosis as well as prior gastric bypass surgery. No obstruction or obvious acute inflammatory process. 3. Chronic stable changes as described above. 4. Evidence for prior lumbar laminectomy. ASSESSMENT/PLAN: 1. POD#2 s/p laparoscopic repair of perforated gastric ulcer. IVF. NPO. IV Pain control. Management per surgery. 2. Anemia - drop of Hb from 14-->10.9 since 07/15/16. No significant blood loss noted. Anemia panel. Will continue to monitor. If continues, to drop in the am, will transfuse. Hemodynamically stable. No acute bleeding at this time. 3. History of peptic ulcer disease- placed on Protonix IV. 4. Tobacco abuse- counseled on cessation. Nicotine patch. 5. History of multiple back surgery status post laminectomy on Thursday. We'll continue to monitor. Pain control. 6. H/o gastric bypass surgery DVT prophylaxis- SCDs VS,Fishbone, I+O VS, Fishbone, I+O Laboratory Tests 09/12/16 05:37 Red Blood Count 3.22 L, Mean Corpuscular Volume 99.4 H, Mean Corpuscular Hemoglobin 33.7 H, Mean Corpuscular Hemoglobin Concent 33.9, Red Cell Distribution Width 13.1, Calcium Level 8.7 L Vital Signs Date Time Temp Pulse Resp B/P (MAP) Pulse Ox O2 Delivery O2 Flow Rate FiO2 09/12/16 11:22 18 Room Air 09/12/16 06:00 97.4 66 117/59 (78) 91 09/10/16 10:33 2.0 I&O- Last 24 Hours up to 6 AM 09/12/16 06:00 Intake Total 1450 ml Output Total 1580 ml Balance -130 ml CHARLIE SEN MD Sep 12, 2016 13:19
[2016-09-12 14:00] VITALS: BP 146/91
[2016-09-12 22:00] VITALS: BP 125/75
[2016-09-13] MEDS: MORPHINE 4 MG/ML 1ML SYRINGE IV PRN ×3 (02:14→07:58)
[2016-09-13] MEDS: D5W/0.45% SODIUM CHLORIDE 1,000 ML IV SCH ×3 (03:51→18:13)
[2016-09-13] MEDS: HEPARIN SOD (PORCINE) 5000 UNITS/ML VIAL SC SCH ×3 (05:01→21:06)
[2016-09-13 06:25] VITALS: BP 158/89
[2016-09-13 06:30] LABS: MEAN CORPUSCULAR HEMOGLOBIN 33.2 pg (27.0-33.0); MEAN CORPUSCULAR HGB CONC 33.5 g/dl (32.0-36.5); RED CELL DISTRIBUTION WIDTH 12.5 % (11.5-14.5)
[2016-09-13 07:09] LABS: ANION GAP 8 MEQ/L (8-16); BLOOD UREA NITROGEN 12 MG/DL (7-18); CALCIUM LEVEL 8.9 MG/DL (8.8-10.2); CARBON DIOXIDE LEVEL 23 MEQ/L (21-32); CHLORIDE LEVEL 105 MEQ/L (98-107); CREATININE FOR GFR 0.67 MG/DL (0.70-1.30); FERRITIN 575 NG/ML (26-388); GLOMERULAR FILTRATION RATE > 60.0 (>42); GLUCOSE, FASTING 89 MG/DL (83-110); PERCENT SATURATION 12.6 % (19.7-37.4); POTASSIUM SERUM 3.5 MEQ/L (3.5-5.1); SODIUM LEVEL 136 MEQ/L (136-145); TOTAL IRON BINDING CAPACITY 253 UG/DL (250-450)
[2016-09-13] MEDS: PANTOPRAZOLE 40MG INJ (PROTONIX) (C9113) IV SCH (07:57)
[2016-09-13] MEDS: KETOROLAC 30 MG/ML VIAL (J1885) IV PRN ×2 (10:31→18:32)
[2016-09-13] MEDS: MORPHINE 2 MG/ML 1ML SYRINGE IV PRN ×2 (10:32→18:33)
--- NOTE | 2016-09-13 10:47 | IPNPDOC ---
Text Note Date of Service The patient was seen on 09/13/16. NOTE Subjective: Pt states abd pain continues to improve. No N/V. Mild flatus. Ambulating PHYSICAL EXAMINATION: VITAL SIGNS: Please see below. General: No acute distress, laying comfortably in bed. HEENT: Moist mucous membranes. Neck: No JVD or lymphadenopathy Cardiac: RRR, No murmurs Pulm: Clear to auscultation b/l. No wheezing, rhonchi Abd: Tender to palpation, greatest at the incision sites, improved. ROSALBA drain with serosang. fluid. +BS Ext: No edema or cyanosis. Strength 5 out of 5 in bilateral lower extremities. Distal pulses intact. Strength 5/5 BUE and BLE. Labs (see below) Images: CT Abd/pelvis 09/10/16 Impression: 1. Moderate free air within the abdomen suggests perforation and requires correlation. 2. The enteric system demonstrates diverticulosis as well as prior gastric bypass surgery. No obstruction or obvious acute inflammatory process. 3. Chronic stable changes as described above. 4. Evidence for prior lumbar laminectomy. ASSESSMENT/PLAN: 1. POD#3 s/p laparoscopic repair of perforated gastric ulcer. IVF. NPO. IV Pain control. Management per surgery. 2. Anemia - drop of Hb from 14-->10.9--> 12 Likely dilutional. No significant blood loss noted. Anemia panel. Will continue to monitor. Hemodynamically stable. No acute bleeding at this time. 3. History of peptic ulcer disease- placed on Protonix IV. 4. Tobacco abuse- counseled on cessation. Nicotine patch. 5. History of multiple back surgery status post laminectomy on Thursday. We'll continue to monitor. Pain control. 6. H/o gastric bypass surgery DVT prophylaxis- SCDs VS,Fishbone, I+O VS, Fishbone, I+O Laboratory Tests 09/13/16 05:48 Red Blood Count 3.66 L, Mean Corpuscular Volume 99.0 H, Mean Corpuscular Hemoglobin 33.2 H, Mean Corpuscular Hemoglobin Concent 33.5, Red Cell Distribution Width 12.5, Calcium Level 8.9 Vital Signs Date Time Temp Pulse Resp B/P (MAP) Pulse Ox O2 Delivery O2 Flow Rate FiO2 09/13/16 10:32 18 09/13/16 06:25 97.6 71 158/89 (112) 97 Room Air 09/10/16 10:33 2.0 I&O- Last 24 Hours up to 6 AM 09/13/16 06:00 Intake Total 2988 ml Output Total 1870 ml Balance 1118 ml CHARLIE SEN MD Sep 13, 2016 10:47
[2016-09-13] MEDS: ERTAPENEM SODIUM 1 GM in NS MINI-BAG PLUS 50 ML IV SCH (13:29)
[2016-09-13 14:00] VITALS: BP 130/77
[2016-09-13 22:00] VITALS: BP 135/78
[2016-09-14] MEDS: KETOROLAC 30 MG/ML VIAL (J1885) IV PRN ×3 (00:55→19:01)
[2016-09-14] MEDS: MORPHINE 2 MG/ML 1ML SYRINGE IV PRN ×2 (00:55→07:55)
[2016-09-14] MEDS: D5W/0.45% SODIUM CHLORIDE 1,000 ML IV SCH ×2 (01:15→05:18)
[2016-09-14] MEDS: HEPARIN SOD (PORCINE) 5000 UNITS/ML VIAL SC SCH ×3 (05:18→21:22)
[2016-09-14 06:00] VITALS: BP 104/58
[2016-09-14 06:21] LABS: MEAN CORPUSCULAR HGB CONC 33.6 g/dl (32.0-36.5); MEAN CORPUSCULAR VOLUME 98.3 fl (80.0-96.0); RED CELL DISTRIBUTION WIDTH 12.7 % (11.5-14.5)
[2016-09-14 06:34] LABS: ANION GAP 5 MEQ/L (8-16); BLOOD UREA NITROGEN 10 MG/DL (7-18); CALCIUM LEVEL 8.6 MG/DL (8.8-10.2); CARBON DIOXIDE LEVEL 26 MEQ/L (21-32); CHLORIDE LEVEL 110 MEQ/L (98-107); CREATININE FOR GFR 0.57 MG/DL (0.70-1.30); GLOMERULAR FILTRATION RATE > 60.0 (>42); GLUCOSE, FASTING 103 MG/DL (83-110); MAGNESIUM LEVEL 1.9 MG/DL (1.8-2.4); POTASSIUM SERUM 3.6 MEQ/L (3.5-5.1); SODIUM LEVEL 141 MEQ/L (136-145)
[2016-09-14] MEDS: PANTOPRAZOLE 40MG INJ (PROTONIX) (C9113) IV SCH (07:55)
--- NOTE | 2016-09-14 08:33 | IPNPDOC ---
Text Note Date of Service The patient was seen on 09/14/16. NOTE Subjective: Feels well. + BM. Ambulating. Abd pain improving. PHYSICAL EXAMINATION: VITAL SIGNS: Please see below. General: No acute distress, laying comfortably in bed. HEENT: Moist mucous membranes. Neck: No JVD or lymphadenopathy Cardiac: RRR, No murmurs Pulm: Clear to auscultation b/l. No wheezing, rhonchi Abd: Minimal tenderness to palpation at the incision sites, improved. ROSALBA drain with serosang. fluid. +BS Ext: No edema or cyanosis. Strength 5 out of 5 in bilateral lower extremities. Distal pulses intact. Strength 5/5 BUE and BLE. Labs (see below) Images: CT Abd/pelvis 09/10/16 Impression: 1. Moderate free air within the abdomen suggests perforation and requires correlation. 2. The enteric system demonstrates diverticulosis as well as prior gastric bypass surgery. No obstruction or obvious acute inflammatory process. 3. Chronic stable changes as described above. 4. Evidence for prior lumbar laminectomy. ASSESSMENT/PLAN: 1. POD#4 s/p laparoscopic repair of perforated gastric ulcer. IVF. NPO. IV Pain control being weaned off. Management per surgery. 2. Anemia -Likely dilutional. No significant blood loss noted. Anemia panel. Will continue to monitor. Hemodynamically stable. No acute bleeding at this time. 3. History of peptic ulcer disease- placed on Protonix IV. 4. Tobacco abuse- counseled on cessation. Nicotine patch. 5. History of multiple back surgery status post laminectomy on Thursday. We'll continue to monitor. Pain control. 6. H/o gastric bypass surgery DVT prophylaxis- Heparin SQ VS,Fishbone, I+O VS, Fishbone, I+O Laboratory Tests 09/14/16 05:47 Red Blood Count 3.28 L, Mean Corpuscular Volume 98.3 H, Mean Corpuscular Hemoglobin 33.0, Mean Corpuscular Hemoglobin Concent 33.6, Red Cell Distribution Width 12.7, Calcium Level 8.6 L Vital Signs Date Time Temp Pulse Resp B/P (MAP) Pulse Ox O2 Delivery O2 Flow Rate FiO2 09/14/16 07:55 18 09/14/16 06:00 97.3 59 104/58 (73) 96 Room Air 09/10/16 10:33 2.0 I&O- Last 24 Hours up to 6 AM 09/14/16 05:59 Intake Total 3025 ml Output Total 3080 ml Balance -55 ml CHARLIE SEN MD Sep 14, 2016 08:33
[2016-09-14] MEDS ORDERED: GASTROGRAFIN SOLUTION 30ML (Q9963) As Ordered ONE ×2 (10:09→10:15)
[2016-09-14] MEDS: ERTAPENEM SODIUM 1 GM in NS MINI-BAG PLUS 50 ML IV SCH (12:14)
[2016-09-14 14:00] VITALS: BP 130/60
[2016-09-14] MEDS: SUCRALFATE SUSP 1GM/10ML UD PO SCH ×3 (14:27→21:22)
--- NOTE | 2016-09-14 16:12 | REP ---
Clinical: Status post repair for gastric perforation with history of gastric bypass surgery. Technique: Limited esophagram/upper GI examination using gastrografin contrast. Findings: Examination demonstrates the patient to be status post gastric bypass surgery as well as recent repair for gastric perforation. Drainage catheter is identified in the left upper quadrant. The esophagus demonstrates mild dilatation to the mid/distal esophagus which may be chronic and related to gastric bypass surgery. Normal peristalsis is otherwise noted with normal passage of contrast through the esophagus into the residual stomach and small bowel. There is no evidence for extravasation. Total fluoroscopic time 1 minute 44 seconds. Impression: Evidence for prior gastric bypass surgery and recent gastric perforation repair. No evidence for extravasation. Signed by Rudy Valdes MD 09/14/2016 04:03 P
[2016-09-14] MEDS: NORCO, ANEXSIA 5/325MG TABLET (HYDROcodone/ACETAMINOPHEN) PO PRN (19:01)
[2016-09-14 22:00] VITALS: BP 109/68
[2016-09-15] MEDS: NORCO, ANEXSIA 5/325MG TABLET (HYDROcodone/ACETAMINOPHEN) PO PRN ×2 (01:14→07:53)
[2016-09-15] MEDS: HEPARIN SOD (PORCINE) 5000 UNITS/ML VIAL SC SCH (05:25)
[2016-09-15 06:00] VITALS: BP 135/81
[2016-09-15 06:19] LABS: MEAN CORPUSCULAR HEMOGLOBIN 33.6 pg (27.0-33.0); MEAN CORPUSCULAR VOLUME 98.6 fl (80.0-96.0); RED CELL DISTRIBUTION WIDTH 12.6 % (11.5-14.5); WHITE BLOOD COUNT 7.2 K/mm3 (4.0-10.0)
[2016-09-15 06:25] LABS: ANION GAP 9 MEQ/L (8-16); BLOOD UREA NITROGEN 11 MG/DL (7-18); CALCIUM LEVEL 8.6 MG/DL (8.8-10.2); CARBON DIOXIDE LEVEL 23 MEQ/L (21-32); CHLORIDE LEVEL 109 MEQ/L (98-107); CREATININE FOR GFR 0.64 MG/DL (0.70-1.30); GLOMERULAR FILTRATION RATE > 60.0 (>42); GLUCOSE, FASTING 72 MG/DL (83-110); MAGNESIUM LEVEL 1.8 MG/DL (1.8-2.4); POTASSIUM SERUM 3.6 MEQ/L (3.5-5.1); SODIUM LEVEL 141 MEQ/L (136-145)
--- NOTE | 2016-09-15 07:45 | IPNPDOC ---
Text Note Date of Service The patient was seen on 09/15/16. NOTE Subjective: No acute changes overnight. Diet advanced to clears yesterday, and he tolerated diet. PHYSICAL EXAMINATION: VITAL SIGNS: Please see below. General: No acute distress, laying comfortably in bed. HEENT: Moist mucous membranes. Neck: No JVD or lymphadenopathy Cardiac: RRR, No murmurs Pulm: Clear to auscultation b/l. No wheezing, rhonchi Abd: Minimal tenderness to palpation at the incision sites, improved. ROSALBA drain with serosang. fluid. +BS Ext: No edema or cyanosis. Strength 5 out of 5 in bilateral lower extremities. Distal pulses intact. Strength 5/5 BUE and BLE. Labs (see below) Images: CT Abd/pelvis 09/10/16 Impression: 1. Moderate free air within the abdomen suggests perforation and requires correlation. 2. The enteric system demonstrates diverticulosis as well as prior gastric bypass surgery. No obstruction or obvious acute inflammatory process. 3. Chronic stable changes as described above. 4. Evidence for prior lumbar laminectomy. ASSESSMENT/PLAN: 1. POD#5 s/p laparoscopic repair of perforated gastric ulcer. IVF. Tolerated clears. IV Pain control being weaned off. Management per surgery. 2. Anemia -Likely dilutional. No significant blood loss noted. Anemia panel. Will continue to monitor. Hemodynamically stable. No acute bleeding at this time. 3. History of peptic ulcer disease- placed on Protonix IV. 4. Tobacco abuse- counseled on cessation. Nicotine patch. 5. History of multiple back surgery status post laminectomy on Thursday. We'll continue to monitor. Pain control. 6. H/o gastric bypass surgery 7. Urinary retention - has jones prior to admission. Started on flomax. will need to f/u with Dr. Hale in 1 week. DVT prophylaxis- Heparin SQ Being d/c today. VS,Fishbone, I+O VS, Fishbone, I+O Laboratory Tests 09/15/16 05:47 Red Blood Count 3.43 L, Mean Corpuscular Volume 98.6 H, Mean Corpuscular Hemoglobin 33.6 H, Mean Corpuscular Hemoglobin Concent 34.0, Red Cell Distribution Width 12.6, Calcium Level 8.6 L Vital Signs Date Time Temp Pulse Resp B/P (MAP) Pulse Ox O2 Delivery O2 Flow Rate FiO2 7/3/17 06:00 96.9 57 19 135/81 (99) 97 Room Air 09/10/16 10:33 2.0 I&O- Last 24 Hours up to 6 AM 09/15/16 06:00 Intake Total 1650 ml Output Total 1230 ml Balance 420 ml CHARLIE SEN MD Sep 15, 2016 07:45
[2016-09-15] MEDS: PANTOPRAZOLE 40MG INJ (PROTONIX) (C9113) IV SCH (07:53)
[2016-09-15] MEDS: SUCRALFATE SUSP 1GM/10ML UD PO SCH (07:53)
[2016-09-15] MEDS: KETOROLAC 30 MG/ML VIAL (J1885) IV PRN (07:53)
[2016-09-15 08:30] VITALS: BP 134/81
[2016-09-15] MEDS ORDERED: SUCR10SS PO (09:02)
--- NOTE | 2016-09-15 10:08 | DSES ---
DATE OF ADMISSION: 09/10/2016 DATE OF DISCHARGE: ADMISSION DIAGNOSIS: Perforated marginal ulcer. DISCHARGE DIAGNOSIS: Perforated marginal ulcer. HOSPITAL COURSE: The patient is a 76-year-old male who presented with upper abdominal pain and shoulder pain. He was found to have free air on abdominal CAT scan in the emergency room. Due to his history of a gastric bypass and recent stress from his back surgery, this was suspected to be from a gastric ulcer versus marginal ulcer that had likely perforated. He was brought to the operating room on 09/10/2016 for exploratory surgery and repair. He underwent a diagnostic laparoscopy which diagnosed a perforated marginal ulcer at the junction of the stomach and the jejunum and this was on the anterior surface. The hole was approximately a centimeter in diameter. This was all repaired laparoscopically with a Twan patch. Once this was completed, he had a Ra drain placed next to the anastomosis. He was sent to back to the floor. He was kept strict nothing by mouth (n.p.o.) with IV fluids, antibiotics and IV pain meds for four days. He did well. Minimal output of serosanguineous from his Ra drain. Labs were controlled. No fevers. No elevated heart rate. No problems with blood pressure. He was up ambulating in the halls every day with decreasing pain daily. On 09/14/2016, he had underwent an upper GI which showed that there was no extravasation of contrast from where the repair was made. He was started on a clear liquid diet and by mouth (p.o.) pain meds. By the afternoon, he was doing well. No problems with increasing output from his Ra drain. Again, today, 09/15/2016, still no problems with increased drainage output and no change in pain, labs or fevers. The plan is to discharge home today. Because of the risk of this perforation happening again, he will be discharged home with the drain in place for three more days to monitor output. He will be kept on a liquid diet for the next ten days straight. He will go back on his home pain meds that he already has. I advised him to make sure he eats with any pills that he takes. He also will be started on Carafate before meals and at bedtime and he will go back on his omeprazole that he was taking prior to his surgery. It is okay to shower when he gets home. No lifting more than 20 pounds. He will follow up with me in the office this to evaluate his drainage output and likely remove the drain as well.
[2016-09-15] MEDS ORDERED: FLOM5CAP PO (10:39)
[2016-09-15 10:44] LABS: FOLATE 13.8 NG/ML (>5.4); VITAMIN B12 LEVEL 522 PG/ML (247-911)
[2016-09-15] MEDS ORDERED: TAMSULOSIN 0.4 MG CAP PO ONE (11:00)
== END 2016-09-15 11:08 | disposition home or self-care (01) | DRG 328 ==
LOC: EDBD 05:41 → M ED 05:41 → M ED INP 10:00 → M MSPAV 16:37
PROVIDERS: ADMIT Surgery; ATTEND Surgery
PROC: 0DQ64ZZ Repair Stomach, Percutaneous Endoscopic Approach (ICD-10-PCS; principal; 2016-09-10 10:14)
DX: K28.5 Chronic or unspecified gastrojejunal ulcer with perforation (principal); D64.9 Anemia, unspecified; K27.9 Peptic ulcer, site unspecified, unspecified as acute or chronic, without hemorrhage or perforation; Z98.84 Bariatric surgery status; Z87.442 Personal history of urinary calculi; Z88.0 Allergy status to penicillin; Z72.0 Tobacco use; Z79.899 Other long term (current) drug therapy; Z96.89 Presence of other specified functional implants

== ENCOUNTER → 2016-09-18 | Outpatient (REF) | payer MEDICARE, OTHER ==
[~2016-09-18] MED LIST changes: +FLOM5CAP PO; +SUCR10SS PO
== END ==
LOC: M LAB REF 09:30
PROVIDERS: ATTEND Physician Assistant Medical
DX: R31.9 Hematuria, unspecified (principal)

== ENCOUNTER 2016-09-19 19:34 | Emergency (ER) | payer MEDICARE, OTHER ==
[~2016-09-19] VITALS: Ht 172.7 cm; Wt 77.7 kg
[2016-09-19 21:06] LABS: BASO % 0.5 % (0.0-1.0); EOS # 0.3 K/mm3 (0.0-0.50); EOS % 3.5 % (0.0-3.0); LARGE UNSTAINED CELL # 0.2 K/mm3 (0.0-0.4); LARGE UNSTAINED CELL % 2.9 % (0.0-4.0); LYMPH # 2.5 K/mm3 (1.5-4.5); LYMPH % 30.3 % (24.0-44.0); MEAN CORPUSCULAR HGB CONC 33.4 g/dl (32.0-36.5); MEAN CORPUSCULAR VOLUME 98.9 fl (80.0-96.0); MONO # 0.4 K/mm3 (0.0-0.8); MONO % 5.5 % (0.0-5.0); NEUTROPHILS # 4.4 K/mm3 (1.8-7.7); NEUTROPHILS % 57.3 % (36.0-66.0); PLATELET COUNT, AUTOMATED 509 k/mm3 (150-450); RED CELL DISTRIBUTION WIDTH 12.7 % (11.5-14.5); WHITE BLOOD COUNT 7.7 K/mm3 (4.0-10.0)
[2016-09-19 21:23] LABS: ANION GAP 4 MEQ/L (8-16); BLOOD UREA NITROGEN 11 MG/DL (7-18); CALCIUM LEVEL 9.2 MG/DL (8.8-10.2); CARBON DIOXIDE LEVEL 29 MEQ/L (21-32); CHLORIDE LEVEL 107 MEQ/L (98-107); CREATININE FOR GFR 0.82 MG/DL (0.70-1.30); GLOMERULAR FILTRATION RATE > 60.0 (>42); GLUCOSE, FASTING 93 MG/DL (83-110); POTASSIUM SERUM 4.7 MEQ/L (3.5-5.1); SODIUM LEVEL 140 MEQ/L (136-145)
[2016-09-19] MEDS ORDERED: ISOVUE-370 76% 100ML VIAL (Q9967) As Ordered ONE (21:40)
--- NOTE | 2016-09-19 22:17 | REP ---
Clinical: Hematuria. Rule out bladder mass. Technique: Axial precontrast, contrast enhanced, and delayed images of the abdomen and pelvis using 100 ml Isovue 370 intravenous contrast material with coronal and sagittal re-formations. Comparison: 09/10/2016. Findings: Evaluation of the urinary tract system demonstrates stable 4.8 cm lower pole right renal cyst and sub centimeter bilateral renal cysts. No perinephric stranding, hydroureteronephrosis, intrarenal or obstructing ureteral calculi are identified. Evaluation of the bladder demonstrates mass effect secondary to enlarged prostate gland measuring approximately 5.1 cm maximal AP diameter. Fitzpatrick catheter in satisfactory position. Liver, spleen, pancreas, gallbladder, and bilateral adrenal glands are normal. Splenic calcifications consistent with prior granulomatous disease. The patient is status post gastric bypass surgery and there is no evidence for acute obstruction or inflammatory process. Normal terminal ileum and appendix identified in the right lower quadrant. Colonic and sigmoid diverticulosis without acute diverticulitis. No ascites. No obvious retroperitoneal adenopathy. No free air. Atherosclerotic changes of the aorta and vasculature without aneurysm or dissection. Musculoskeletal structures demonstrate degenerative changes without focal osseous abnormality. Lung bases demonstrate minimal bibasilar chronic changes. Impression: 1. Stable 4.8 cm lower pole right renal cyst and bilateral sub centimeter cysts. Mass effect on the bladder due to enlarged prostate gland measuring 5.1 cm maximal AP diameter. No other obvious significant urinary tract pathology appreciated. 2. Diverticulosis without acute diverticulitis. 3. Evidence of prior gastric bypass surgery. 4. Chronic changes as described above without further acute abdominopelvic pathology appreciated. Signed by Rudy aVldes MD 09/19/2016 10:09 P
[2016-09-19 23:23] VITALS: BP 131/69
== END 2016-09-19 23:25 | disposition home or self-care (01) ==
LOC: M ED 19:34
DX: R31.0 Gross hematuria (principal); N40.1 Benign prostatic hyperplasia with lower urinary tract symptoms; N28.1 Cyst of kidney, acquired; K57.90 Diverticulosis of intestine, part unspecified, without perforation or abscess without bleeding; Z96.0 Presence of urogenital implants; Z87.442 Personal history of urinary calculi; Z98.84 Bariatric surgery status; Z98.890 Other specified postprocedural states; Z98.1 Arthrodesis status
CPT/HCPCS: 36415; 51700; 74178; 80048; 81001; 85025; 99284; Q9967

== ENCOUNTER → 2016-10-01 | Outpatient (REF) | payer MEDICARE | LOC: M SMT 09:38 | PROVIDERS: ATTEND Nurse Practitioner Women's Health | DX: N39.0 Urinary tract infection, site not specified (principal) ==

== ENCOUNTER → 2016-10-20 | Outpatient (REF) | payer MEDICARE, OTHER | LOC: M SMT 12:59 | PROVIDERS: ATTEND Urology | DX: N39.0 Urinary tract infection, site not specified (principal) ==

== ENCOUNTER → 2017-02-03 | Outpatient (REF) | payer MEDICARE, OTHER ==
[2017-02-04 09:05] LABS: CONTROL LINE HPYORI INT CTR LINE PRESENT
== END ==
LOC: M LAB REF 16:36
PROVIDERS: ATTEND Nurse Practitioner Family
DX: R10.13 Epigastric pain (principal)

== ENCOUNTER 2017-02-25 06:58 | Day surgery (SDC) | payer MEDICARE, OTHER ==
[~2017-02-25] VITALS: Ht 175.3 cm; Wt 79.4 kg
[~2017-02-25 06:58] MED LIST changes: +CALC600T60 PO; +OXYC20TA2 PO; +PREG100CA PO; +PROPOFOL 200 MG/20 ML VIAL As Ordered ONE; +medical marijuana
[2017-02-25] MEDS ORDERED: NS 1,000 ML IV ONE (07:30)
[2017-02-25] MEDS ORDERED: LIDOCAINE 2% INJ 100 MG/5 ML SDV (FOR ANES.) As Ordered ONE (08:31)
--- NOTE | 2017-02-25 08:39 | ROOR ---
Patient Name: Jeramie George Procedure Date: 02/25/2017 8:20 AM Date of : 1940 Age: 77 Room: [facility] Gender: Male Note Status: Finalized Procedure: Upper GI endoscopy Indications: Epigastric abdominal pain Providers: DO Randolph Murcia MD: KADEN VIERA JR, MD Requesting Provider: Medicines: Propofol per Anesthesia Complications: No immediate complications. Procedure: Pre-Anesthesia Assessment: - Prior to the procedure, a History and Physical was performed, and patient medications and allergies were reviewed. The patient is competent. The risks and benefits of the procedure and the sedation options and risks were discussed with the patient. All questions were answered and informed consent was obtained. Patient identification and proposed procedure were verified by the physician, the nurse, the anesthesiologist and the facilities operations technician in the endoscopy suite. Mental Status Examination: alert and oriented. Airway Examination: normal oropharyngeal airway and neck mobility. Respiratory Examination: clear to auscultation. CV Examination: normal. Prophylactic Antibiotics: The patient does not require prophylactic antibiotics. Prior Anticoagulants: The patient has taken no previous anticoagulant or antiplatelet agents. ASA Grade Assessment: II - A patient with mild systemic disease. After reviewing the risks and benefits, the patient was deemed in satisfactory condition to undergo the procedure. The anesthesia plan was to use monitored anesthesia care (MAC). Immediately prior to administration of medications, the patient was re-assessed for adequacy to receive sedatives. The heart rate, respiratory rate, oxygen saturations, blood pressure, adequacy of pulmonary ventilation, and response to care were monitored throughout the procedure. The physical status of the patient was re-assessed after the procedure. The Endoscope was introduced through the mouth, and advanced to the afferent and efferent jejunal loops. The upper GI endoscopy was accomplished without difficulty. The patient tolerated the procedure well. Findings: Scattered moderate inflammation characterized by erythema and friability was found in the entire examined stomach. Biopsies were taken with a cold forceps for Helicobacter pylori testing. Estimated blood loss was minimal. One oozing superficial gastric ulcer was found on the anterior wall of the stomach. The lesion was 15 mm in largest dimension. Biopsies were taken with a cold forceps for histology. Estimated blood loss was minimal. Impression: - Gastritis. Biopsied. - Oozing gastric ulcer. Biopsied. Recommendation: - Patient has a contact number available for emergencies. The signs and symptoms of potential delayed complications were discussed with the patient. Return to normal activities tomorrow. Written discharge instructions were provided to the patient. - Return to my office PRN. - Telephone my office for pathology results in 1 week. Michael Miranda DO 02/25/2017 8:39:06 AM This report has been signed electronically. Number of Addenda: 0 Note Initiated On: 02/25/2017 8:20 AM Estimated Blood Loss: Estimated blood loss was minimal.
[2017-02-25 09:00] VITALS: BP 106/69
== END 2017-02-25 09:15 | disposition home or self-care (01) ==
LOC: M OPP 06:58
PROVIDERS: ATTEND Surgery
DX: R10.13 Epigastric pain (principal); K31.89 Other diseases of stomach and duodenum; K25.4 Chronic or unspecified gastric ulcer with hemorrhage; K29.70 Gastritis, unspecified, without bleeding; M54.9 Dorsalgia, unspecified; M79.669 Pain in unspecified lower leg; I73.9 Peripheral vascular disease, unspecified; Z98.84 Bariatric surgery status; F17.290 Nicotine dependence, other tobacco product, uncomplicated; F12.10 Cannabis abuse, uncomplicated; Z88.0 Allergy status to penicillin; Z79.899 Other long term (current) drug therapy

== ENCOUNTER → 2017-08-26 | Outpatient (REF) | payer MEDICARE, OTHER ==
[2017-08-26 12:49] LABS: IRON (FE) 89 UG/DL (65-175); PERCENT SATURATION 30.5 % (19.7-50.0); TOTAL IRON BINDING CAPACITY 292 UG/DL (250-450)
[2017-08-26 14:11] LABS: VITAMIN B12 LEVEL 1625 PG/ML (247-911)
[2017-08-29 08:06] LABS: VITAMIN B1 LEVEL WHOLE BLOOD 104.7 nmol/L (66.5-200.0)
== END ==
LOC: M LAB REF 11:54
DX: E61.1 Iron deficiency (principal); Z98.84 Bariatric surgery status
CPT/HCPCS: 83550

== ENCOUNTER 2017-09-08 07:10 | Day surgery (SDC) | payer MEDICARE, OTHER ==
[~2017-09-08 07:10] MED LIST changes: +ACETAMINOPHEN 325 MG TAB PO; -CALC600T60 PO; -FLOM5CAP PO; -IRONCAP2 PO; -MULT1TAB10 PO; -OMEP40CA2 PO; -OXYC1TAB16 PO; -OXYC20TA2 PO; +PHENYLEPHRINE HCL 10 % OPHTH. SOL 5ML OD; -PREG100CA PO; -PROPOFOL 200 MG/20 ML VIAL As Ordered ONE; -SUCR10SS PO; -VITA250L PO; -VITA500046 PO; -medical marijuana
[2017-09-08] MEDS: TROPICAMIDE 1% OPHTH SOLN 2ML OD (08:02)
[2017-09-08] MEDS: LIDOCAINE 3.5 % 1ML OPHTH TOPICAL GEL OU (08:02)
[2017-09-08] MEDS: OFLOXACIN 0.3 % (OCUFLOX) OPTH SOL 5ML OD (08:03)
[2017-09-08] MEDS: CYCLOPENTOLATE 2% OPHTH SOLN 2ML BTL OD (08:03)
[2017-09-08] MEDS: PHENYLEPHRINE 2.5% OPHTH SOL 2ML OD (08:03)
[2017-09-08] MEDS: POVIDONE-IODINE 5% OPHTH PREP SOL 30ML As Ordered (08:53)
[2017-09-08] MEDS ORDERED: MIDAZOLAM INJ 2 MG/2 ML VIAL (J2250) As Ordered (08:57)
[2017-09-08] MEDS ORDERED: fentaNYL 100 MCG/2 ML INJECTION (J3010) As Ordered (08:57)
[2017-09-08] MEDS: LIDOCAINE 1% SDV 5 ML VIAL As Ordered (08:59)
[2017-09-08] MEDS: HEALON DUET (HEALON 10MG/ML 0.55ML & HEALON ENDOCOAT 30MG/ML 0.85ML) As Ordered (09:04)
[2017-09-08] MEDS: MOXIFLOXACIN IN BSS 0.25MG/0.25ML INTRACAMERAL INJ (OR EYE ONLY)(J2280) As Ordered (09:04)
[2017-09-08] MEDS: TRIAMCINOLONE PRES FR 40 MG/ML 1ML(TRIESENCE)(OR EYE ONLY)(J3300 PER 1MG) As Ordered (09:05)
[2017-09-08] MEDS: BSS with VANC/TOB/EPI for EYE CASES IR (09:05)
[2017-09-08] MEDS ORDERED: TRIMETHOBENZAMIDE 300 MG CAP PO (09:30)
[2017-09-08] MEDS: AcetaZOLAMIDE 500 MG ER CAP PO (09:30)
== END 2017-09-08 09:45 | disposition home or self-care (01) ==
LOC: M SDC 07:10
DX: H25.9 Unspecified age-related cataract (principal); H57.03 Miosis; H21.81 Floppy iris syndrome; K21.9 Gastro-esophageal reflux disease without esophagitis; N40.0 Benign prostatic hyperplasia without lower urinary tract symptoms; F17.290 Nicotine dependence, other tobacco product, uncomplicated; Z79.899 Other long term (current) drug therapy; Z88.0 Allergy status to penicillin
CPT/HCPCS: 66982

== ENCOUNTER → 2017-09-23 | Outpatient (REF) | payer MEDICARE, OTHER ==
[2017-09-23 16:58] LABS: TROPONIN I < 0.02 NG/ML (< 0.10)
== END ==
LOC: M LAB REF 16:24
DX: R07.9 Chest pain, unspecified (principal)
CPT/HCPCS: 84484

== ENCOUNTER 2017-10-13 10:24 | Emergency (ER) | payer MEDICARE, OTHER | END 2017-10-13 11:50 | disposition home or self-care (01) | LOC: M ED 10:24 | DX: I47.1 Supraventricular tachycardia (principal); M54.9 Dorsalgia, unspecified; Z88.0 Allergy status to penicillin; Z79.899 Other long term (current) drug therapy; Z79.891 Long term (current) use of opiate analgesic | CPT/HCPCS: 93005 ==

== ENCOUNTER → 2017-11-05 | Outpatient (REF) | payer MEDICARE, OTHER ==
[2017-11-05 16:03] LABS: BASO # 0.1 10^3/uL (0.0-0.2); BASO % 0.6 % (0.0-1.0); EOS # 0.2 10^3/uL (0.0-0.50); EOS % 2.3 % (0.0-3.0); HEMATOCRIT 41.2 % (42.0-52.0); HEMOGLOBIN 13.7 g/dl (13.5-17.5); IMMATURE GRANULOCYTE % 0.2 % (0-3.0); LYMPH % 34.5 % (24.0-44.0); MEAN CORPUSCULAR HEMOGLOBIN 32.1 pg (27.0-33.0); MEAN CORPUSCULAR HGB CONC 33.3 g/dl (32.0-36.5); MEAN CORPUSCULAR VOLUME 96.5 fl (80.0-96.0); MONO # 0.7 10^3/uL (0.0-0.8); MONO % 8.4 % (0.0-5.0); NEUTROPHILS # 4.7 10^3/uL (1.8-7.7); PLATELET COUNT, AUTOMATED 260 10^3/uL (150-450); RED BLOOD COUNT 4.27 10^6/uL (4.30-6.10); RED CELL DISTRIBUTION WIDTH 14.1 % (11.5-14.5); WHITE BLOOD COUNT 8.7 10^3/uL (4.0-10.0)
[2017-11-05 16:08] LABS: ANION GAP 6 MEQ/L (8-16); BLOOD UREA NITROGEN 11 MG/DL (7-18); CALCIUM LEVEL 8.9 MG/DL (8.8-10.2); CARBON DIOXIDE LEVEL 29 MEQ/L (21-32); CHLORIDE LEVEL 108 MEQ/L (98-107); CREATININE FOR GFR 0.82 MG/DL (0.70-1.30); GLOMERULAR FILTRATION RATE > 60.0 (>42); GLUCOSE, FASTING 67 MG/DL (70-100); POTASSIUM SERUM 4.4 MEQ/L (3.5-5.1); SODIUM LEVEL 143 MEQ/L (136-145)
== END ==
LOC: M LAB REF 15:37
DX: I47.1 Supraventricular tachycardia (principal)
CPT/HCPCS: 80048

== ENCOUNTER → 2018-10-12 | Outpatient (REF) | payer MEDICARE, OTHER ==
[~2018-10-12] MED LIST changes: -ACETAMINOPHEN 325 MG TAB PO; +CALC600T60 PO; +FLOM0.4C39 PO; +IRONCAP2 PO; +MORP-38 PO; +MULT1TAB10 PO; +OMEP40CA2 PO; +OXYC10TA3 PO; +OXYC20TA2 PO; -PHENYLEPHRINE HCL 10 % OPHTH. SOL 5ML OD; +PREG100CA PO; +SUCR10SS PO; +VITA250L PO; +VITA500046 PO; +medical marijuana
[2018-10-12 13:27] LABS: IRON (FE) 84 UG/DL (65-175); PERCENT SATURATION 29.3 % (19.7-50.0); TOTAL IRON BINDING CAPACITY 287 UG/DL (250-450)
[2018-10-12 13:39] LABS: FOLATE > 24.0 NG/ML; VITAMIN B12 LEVEL 834 PG/ML
== END ==
LOC: M LAB REF 12:46
PROVIDERS: ATTEND Internal Medicine
DX: Z98.84 Bariatric surgery status (principal)

== ENCOUNTER 2018-10-24 11:52 | Emergency (ER) | payer MEDICARE, OTHER ==
[~2018-10-24 11:52] MED LIST changes: -MORP-38 PO; +MORP-69 PO
[2018-10-24] MEDS ORDERED: OXYC-141 (12:06)
[2018-10-24] MEDS ORDERED: OXYC10TA3 (12:06)
[2018-10-24] MEDS ORDERED: ALPR0.5T7 (12:07)
[2018-10-24 12:22] LABS: BASO # 0.1 10^3/uL (0.0-0.2); BASO % 0.7 % (0.0-1.0); EOS # 0.2 10^3/uL (0.0-0.50); EOS % 2.5 % (0.0-3.0); HEMATOCRIT 44.9 % (42.0-52.0); HEMOGLOBIN 14.9 g/dl (13.5-17.5); LYMPH % 34.4 % (24.0-44.0); MEAN CORPUSCULAR HEMOGLOBIN 32.7 pg (27.0-33.0); MEAN CORPUSCULAR HGB CONC 33.2 g/dl (32.0-36.5); MEAN CORPUSCULAR VOLUME 98.5 fl (80.0-96.0); MONO # 0.7 10^3/uL (0.0-0.8); MONO % 7.5 % (0.0-5.0); NEUTROPHILS # 4.8 10^3/uL (1.8-7.7); NEUTROPHILS % 54.8 % (36.0-66.0); PLATELET COUNT, AUTOMATED 267 10^3/uL (150-450); RED BLOOD COUNT 4.56 10^6/uL (4.30-6.10); WHITE BLOOD COUNT 8.7 10^3/uL (4.0-10.0)
[2018-10-24] MEDS ORDERED: GI COCKTAIL 50ML BTL(HYOSCYAMINE/MAALOX/LIDOCAINE VISCOUS)(1:3:1) PO ONE (12:45)
[2018-10-24] MEDS ORDERED: ASPIRIN 81 MG CHEW TABLET PO ONE (12:45)
[2018-10-24 12:57] LABS: ALBUMIN 3.6 GM/DL (3.2-5.2); ALT/SGPT 19 U/L (12-78); BILIRUBIN,DIRECT < 0.1 MG/DL (0.0-0.2); BILIRUBIN,TOTAL 0.3 MG/DL (0.2-1.0); BLOOD UREA NITROGEN 9 MG/DL (7-18); CALCIUM LEVEL 8.9 MG/DL (8.8-10.2); CARBON DIOXIDE LEVEL 31 MEQ/L (21-32); CHLORIDE LEVEL 107 MEQ/L (98-107); CK-MB VALUE MASS 2.5 NG/ML (<3.6); CPK CREATINE PHOSPHOKINASE 143 U/L (39-308); GLOMERULAR FILTRATION RATE > 60.0 (>42); GLUCOSE, FASTING 89 MG/DL (70-100); LIPASE 76 U/L (73-393); MB/CK RELATIVE INDEX 1.75 (< OR =4); POTASSIUM SERUM 4.5 MEQ/L (3.5-5.1); SODIUM LEVEL 142 MEQ/L (136-145); TOTAL PROTEIN 6.5 GM/DL (6.4-8.2); TROPONIN I < 0.02 NG/ML (< 0.10)
[2018-10-24 13:05] LABS: INR 0.99; PROTHROMBIN TIME 12.8 SECONDS (11.8-14.0)
--- NOTE | 2018-10-24 13:10 | REP ---
HISTORY: Chest pain. COMPARISON: 06/22/2017. The technique utilized in obtaining the radiograph has magnified the cardiac silhouette and accentuated the interstitial markings. There is no significant change compared to the prior exam. There is evidence of interstitial fibrosis with basilar predominance and again, left greater than right. No acute patchy parenchymal opacities or pleural effusions seem to have developed on this limited exam. The cardiac silhouette is accentuated by technique. The dorsal column stimulator is unchanged. The osseous structures are unchanged. IMPRESSION: No change. No evidence of acute cardiopulmonary disease. Electronically Signed by Jesus Montanez DO 10/24/2018 01:44 P
[2018-10-24] MEDS ORDERED: LORazepam 2 MG/ML VIAL (J2060) IV STA (13:30)
[2018-10-24] MEDS ORDERED: PERCOCET 5MG/325MG TAB PO ONE (15:45)
[2018-10-24 17:03] LABS: CPK CREATINE PHOSPHOKINASE 114 U/L (39-308); MB/CK RELATIVE INDEX 1.75 (< OR =4); TROPONIN I < 0.02 NG/ML (< 0.10)
[2018-10-24 17:31] VITALS: BP 150/70
--- NOTE | 2018-10-24 21:36 | ECGEPIP ---
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
--- NOTE | 2018-10-24 21:41 | ECGEPIP ---
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
== END 2018-10-24 17:39 | disposition home or self-care (01) ==
LOC: M ED 11:52
DX: K52.9 Noninfective gastroenteritis and colitis, unspecified (principal); R07.89 Other chest pain; I44.0 Atrioventricular block, first degree; I51.9 Heart disease, unspecified; I10 Essential (primary) hypertension; K21.9 Gastro-esophageal reflux disease without esophagitis; G89.29 Other chronic pain; M54.9 Dorsalgia, unspecified; Z98.84 Bariatric surgery status; Z72.0 Tobacco use; Z79.899 Other long term (current) drug therapy; Z88.0 Allergy status to penicillin
CPT/HCPCS: 71045; 80048; 80076; 82550; 82553; 83690; 84439; 84443; 84484; 85025; 85610; 93005; 93041; 94760; 96374; 99285; J2060

== ENCOUNTER → 2019-02-22 | Day surgery (SDC) | payer MEDICARE, OTHER ==
[~2019-02-22] VITALS: Ht 172.7 cm; Wt 78.5 kg
[~2019-02-22] MED LIST changes: +ALPR0.5T7; +IRON18TA PO; +LIDOCAINE 2% INJ 100 MG/5 ML SDV (FOR ANES.) As Ordered ONE; +MULTCAP PO; +NS 1,000 ML IV ONE; -OMEP40CA2 PO; +OMEP40CA97 PO; +OXYC-141; +OXYC-423 PO; +OXYC10TA3; +OYST1TAB PO; +PROPOFOL 200 MG/20 ML VIAL As Ordered ONE; +[UNRECOGNIZED DRUG - CODE] PO
--- NOTE | 2019-02-22 12:54 | ROOR ---
Patient Name: Jeramie George Procedure Date: 02/22/2019 12:42 PM Date of : 1940 Age: 79 Room: [facility] Gender: Male Note Status: Finalized Procedure: Upper GI endoscopy Indications: Epigastric abdominal pain Providers: Eddi CAI MD Referring MD: KADEN VIERA JR, MD Requesting Provider: Medicines: Monitored Anesthesia Care Complications: No immediate complications. Procedure: Pre-Anesthesia Assessment: - The heart rate, respiratory rate, oxygen saturations, blood pressure, adequacy of pulmonary ventilation, and response to care were monitored throughout the procedure. The Endoscope was introduced through the mouth, and advanced to the jejunum. The upper GI endoscopy was accomplished without difficulty. The patient tolerated the procedure well. Findings: The examined esophagus was normal. 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 The gastrojejunal anastomosis was characterized by healthy appearing mucosa. This was traversed. Small Hiatal Hernia. The exam of the stomach was otherwise normal. The examined jejunum was normal. Impression: - Normal esophagus. - Small Hiatal Hernia. - Melissa-en-Y gastrojejunostomy with gastrojejunal anastomosis characterized by healthy appearing mucosa. - Normal examined jejunum. - No specimens collected. Recommendation: - Continue present medications. - No ibuprofen, naproxen, or other non-steroidal anti-inflammatory drugs. - Observe patient's clinical course. Eddi Cai MD Eddi CAI MD 02/22/2019 12:54:32 PM Electronically signed by Eddi CAI MD Number of Addenda: 0 Note Initiated On: 02/22/2019 12:42 PM Estimated Blood Loss: Estimated blood loss: none.
[2019-02-22 13:20] VITALS: BP 116/72
== END | disposition home or self-care (01) ==
LOC: M OPP 11:43
PROVIDERS: ATTEND Internal Medicine Gastroenterology
DX: K44.9 Diaphragmatic hernia without obstruction or gangrene (principal); Z98.0 Intestinal bypass and anastomosis status; R10.13 Epigastric pain; F17.210 Nicotine dependence, cigarettes, uncomplicated; Z79.891 Long term (current) use of opiate analgesic; Z79.899 Other long term (current) drug therapy; Z88.0 Allergy status to penicillin

== ENCOUNTER → 2019-02-26 | Outpatient (CLI) | payer MEDICARE, OTHER ==
[~2019-02-26] MED LIST changes: -LIDOCAINE 2% INJ 100 MG/5 ML SDV (FOR ANES.) As Ordered ONE; -NS 1,000 ML IV ONE; -PROPOFOL 200 MG/20 ML VIAL As Ordered ONE
--- NOTE | 2019-02-26 12:44 | REP ---
Left wrist series: Four views. History: Contusion. Findings: Four views of the left wrist demonstrate overall normal mineralization. There are osteoarthritic changes at the carpal-metacarpal articulation of the thumb as well as at the first MCP and first IP joint. No fracture or subluxation is seen. There is degenerative spurring at the other carpometacarpal joints as well on lateral film. Impression: Osteoarthritic changes. No traumatic abnormality. Electronically Signed by Spencer Huddleston MD 02/26/2019 12:36 P
== END ==
LOC: M WUC 12:12
PROVIDERS: ATTEND Physician Assistant
DX: S60.212A Contusion of left wrist, initial encounter (principal); W18.30XA Fall on same level, unspecified, initial encounter; Y92.009 Unspecified place in unspecified non-institutional (private) residence as the place of occurrence of the external cause

== ENCOUNTER 2019-06-04 11:59 | Emergency (ER) | payer MEDICARE, OTHER ==
[~2019-06-04] VITALS: Ht 175.3 cm; Wt 77.4 kg
[~2019-06-04 11:59] MED LIST changes: -SUCR10SS PO; +SUCR1ORA2 PO
[2019-06-04] MEDS ORDERED: NS 1,000 ML IV SCH (12:18)
[2019-06-04] MEDS ORDERED: PANTOPRAZOLE 40MG INJ (PROTONIX) (C9113) IV ONE (12:30)
[2019-06-04] MEDS ORDERED: SUCRALFATE 1 GM TAB PO ONE (12:30)
--- NOTE | 2019-06-04 12:31 | REP ---
Clinical: Chest pain. Comparison: 10/24/2018, 06/22/2017. Findings: Mediastinum and cardiac silhouette are within normal limits and stable. Epidural stimulator in the mid thoracic level again noted. Lung leigh demonstrate diffuse chronic-appearing interstitial changes similar to prior examination and primarily involving the left lower lung zone. No focal consolidation, obvious effusion, or pneumothorax. Skeletal structures demonstrate age-related changes. Impression: Chronic-appearing interstitial changes with left basilar predominance similar to prior examination. Subtle superimposed atelectasis cannot definitively be excluded. No focal consolidation or effusion. Electronically Signed by Rudy Valdes MD 06/04/2019 12:23 P
[2019-06-04 12:41] LABS: BASO # 0.1 10^3/uL (0.0-0.2); BASO % 0.6 % (0.0-1.0); EOS # 0.2 10^3/uL (0.0-0.5); EOS % 1.8 % (0.0-3.0); HEMATOCRIT 45.4 % (42.0-52.0); HEMOGLOBIN 15.2 g/dl (13.5-17.5); LYMPH # 2.6 10^3/uL (1.5-5.0); LYMPH % 31.3 % (24.0-44.0); MEAN CORPUSCULAR HEMOGLOBIN 31.7 pg (27.0-33.0); MEAN CORPUSCULAR HGB CONC 33.5 g/dl (32.0-36.5); MEAN CORPUSCULAR VOLUME 94.6 fl (80.0-96.0); MONO # 0.7 10^3/uL (0.0-0.8); MONO % 8.1 % (0.0-5.0); NEUTROPHILS # 4.8 10^3/uL (1.5-8.5); PLATELET COUNT, AUTOMATED 356 10^3/uL (150-450); WHITE BLOOD COUNT 8.4 10^3/uL (4.0-10.0)
[2019-06-04 12:50] LABS: INR 1.06; PROTHROMBIN TIME 13.5 SECONDS (11.8-14.0)
[2019-06-04] MEDS ORDERED: ALPR0.5T7 (12:55)
[2019-06-04] MEDS ORDERED: OXYC15TA66 (12:55)
[2019-06-04] MEDS ORDERED: GABA-843 PO (12:55)
[2019-06-04 13:07] LABS: BLOOD UREA NITROGEN 19 MG/DL (7-18); CALCIUM LEVEL 9.9 MG/DL (8.8-10.2); CARBON DIOXIDE LEVEL 27 MEQ/L (21-32); CHLORIDE LEVEL 105 MEQ/L (98-107); CPK CREATINE PHOSPHOKINASE 76 U/L (39-308); CREATININE FOR GFR 0.93 MG/DL (0.70-1.30); GLOMERULAR FILTRATION RATE > 60.0 (>42); GLUCOSE, FASTING 101 MG/DL (70-100); MB/CK RELATIVE INDEX 1.32 (< OR =4); POTASSIUM SERUM 4.1 MEQ/L (3.5-5.1); SODIUM LEVEL 136 MEQ/L (136-145); TROPONIN I < 0.02 NG/ML (< 0.10)
[2019-06-04] MEDS ORDERED: COLA100C5 PO (14:14)
[2019-06-04] MEDS ORDERED: OMEP40CA97 PO (14:14)
[2019-06-04] MEDS ORDERED: CARA1TAB6 PO (14:14)
[2019-06-04 14:20] VITALS: BP 117/66
--- NOTE | 2019-06-05 06:43 | ECGEPIP ---
[facility] - ED Test Date: 2019-06-04 Pat Name: SERVANDO BLAIR Department: Room: - Gender: Male Brainer: maricruzjoce : 1940 Requested By: JOSIAH Gerardo Order Number: [id number] Reading MD: Cody Vargas Measurements Intervals [place] Rate: 82 P: 201 LA: 366 QRS: 66 QRSD: 75 T: 49 QT: 337 QTc: 394 Interpretive Statements SINUS RHYTHM WITH FIRST DEGREE AV BLOCK ABNORMAL RHYTHM ECG BASELINE ARTIFACT MAY AFFECT READING NONSPECIFIC ST T WAVE CHANGES CW 10/24/[address] T WAVE CHANGES Electronically Signed on 06-05-2019 6:43:33 EDT by Cody Vargas
== END 2019-06-04 14:42 | disposition home or self-care (01) ==
LOC: M ED 11:59
DX: K29.01 Acute gastritis with bleeding (principal); K27.0 Acute peptic ulcer, site unspecified, with hemorrhage; I44.0 Atrioventricular block, first degree; I51.9 Heart disease, unspecified; M54.9 Dorsalgia, unspecified; Z98.84 Bariatric surgery status; Z79.899 Other long term (current) drug therapy; Z88.0 Allergy status to penicillin
CPT/HCPCS: 71045; 80048; 82550; 82553; 83690; 84484; 85025; 85610; 86850; 86900; 86901; 93005; 93041; 94760; 96361; 96374; 99285; C9113

== ENCOUNTER → 2019-09-05 | Outpatient (CLI) | payer MEDICARE, OTHER ==
[~2019-09-05] MED LIST changes: +CARA1TAB6 PO; +COLA100C5 PO; +GABA-843 PO; +OXYC15TA66
--- NOTE | 2019-09-06 00:28 | REP ---
REASON: Contusion. COMPARISON: 02/26/2019 There are degenerative changes seen throughout the wrist, status quo. Seen arising from the base of the radial styloid, there is a slight cortical irregularity, which represents a change from the prior exam. This potentially represents a tiny avulsion fracture, but clinical correlation for point tenderness over the region is recommended. Electronically Signed by Jesus Montanez DO 09/06/2019 10:17 A
== END ==
LOC: M WUC 14:56
PROVIDERS: ATTEND Physician Assistant
DX: S60.212A Contusion of left wrist, initial encounter (principal); Y92.9 Unspecified place or not applicable; Y93.9 Activity, unspecified; Y99.9 Unspecified external cause status

== ENCOUNTER → 2020-03-19 | Outpatient (REF) | payer MEDICARE, OTHER ==
[~2020-03-19] MED LIST changes: +GABA-282 PO; -GABA-843 PO
[2020-03-19 13:28] LABS: IRON (FE) 126 UG/DL (65-175); TOTAL IRON BINDING CAPACITY 300 UG/DL (250-450)
[2020-03-19 13:38] LABS: FOLATE > 24.0 NG/ML; VITAMIN B12 LEVEL 484 PG/ML
== END ==
LOC: M LAB REF 12:11
PROVIDERS: ATTEND Internal Medicine
DX: Z98.84 Bariatric surgery status (principal)

== ENCOUNTER 2020-07-29 08:30 | Inpatient (IN) | payer MEDICARE, OTHER ==
[~2020-07-29] VITALS: Ht 172.7 cm; Wt 77.0 kg
[~2020-07-29 08:30] MED LIST changes: +ALPR0.5T7 PO
[2020-07-29] MEDS ORDERED: PERC10TA26 PO (08:51)
[2020-07-29] MEDS: MULTIVITAMINS/MINERALS THERAP 1 TAB PO SCH (09:00)
[2020-07-29] MEDS: VITAMIN D 1,000 INTERNATIONAL UNITS TABLET PO SCH (09:00)
[2020-07-29] MEDS ORDERED: MORPHINE 4 MG/ML 1ML VIAL/SYRINGE (J2270) IV ONE (09:00)
[2020-07-29] MEDS: OYSTER SHELL CALCIUM 500 MG TAB PO SCH (09:00)
[2020-07-29] MEDS: TAMSULOSIN 0.4 MG CAP PO SCH (09:00)
[2020-07-29 09:23] LABS: BASO % 0.5 % (0.0-1.0); EOS # 0.3 10^3/uL (0.0-0.5); HEMATOCRIT 44.3 % (42.0-52.0); HEMOGLOBIN 14.2 g/dl (13.5-17.5); LYMPH # 2.5 10^3/uL (1.5-5.0); LYMPH % 30.4 % (24.0-44.0); MEAN CORPUSCULAR HEMOGLOBIN 31.6 pg (27.0-33.0); MEAN CORPUSCULAR HGB CONC 32.1 g/dl (32.0-36.5); MEAN CORPUSCULAR VOLUME 98.4 fl (80.0-96.0); MONO # 0.6 10^3/uL (0.0-0.8); MONO % 7.2 % (2.0-8.0); NEUTROPHILS # 4.7 10^3/uL (1.5-8.5); NEUTROPHILS % 57.5 % (36.0-66.0); PLATELET COUNT, AUTOMATED 313 10^3/uL (150-450); WHITE BLOOD COUNT 8.2 10^3/uL (4.0-10.0)
--- NOTE | 2020-07-29 09:44 | REP ---
INDICATION: fall. COMPARISON: None. TECHNIQUE: CT brain performed in the axial plane. Coronal reconstruction images are performed. FINDINGS: There is moderate atrophy. There is no midline shift or mass effect. There are mild periventricular small vessel ischemic changes in the white matter. There is no acute intracranial hemorrhage. There is no extra-axial fluid collection. There is no evidence of skull fracture. The visualized paranasal sinuses and mastoid air cells demonstrate no air-fluid levels, with minor mucosal thickening in portions of the paranasal sinuses. IMPRESSION: Chronic changes. No acute intracranial hemorrhage, midline shift or mass effect. No evidence of a skull fracture. <Electronically signed by Michael Kaur > 07/29/20 0996
--- NOTE | 2020-07-29 09:48 | REP ---
INDICATION: trauma. COMPARISON: None. TECHNIQUE: CT cervical spine performed in the axial plane, with sagittal and coronal reconstruction images performed. FINDINGS: There is no acute compression fracture or malalignment. There is no prevertebral soft tissue swelling. There is narrowing and subcortical sclerotic and cystic change at the interface between the dens and the anterior ring of C1. There is mild diffuse spurring. A ligamentous calcification is seen anteriorly at the C3-4 disc level. There is moderate disc space narrowing at C3-4 with subchondral sclerosis. There is moderately severe narrowing at C6-7 with subchondral sclerosis and cystic change. There is mild narrowing at other disc levels. There is relatively mild diffuse narrowing and sclerosis as well as spurring at the posterior facet joints. There is normal cervical lordosis. There is no abnormal density in the spinal canal. IMPRESSION: No evidence of acute fracture or dislocation.Degenerative changes as discussed above <Electronically signed by Michael Kaur > 07/29/20 0944
[2020-07-29 09:50] LABS: BLOOD UREA NITROGEN 14 MG/DL (7-18); CALCIUM LEVEL 9.3 MG/DL (8.8-10.2); CARBON DIOXIDE LEVEL 30 MEQ/L (21-32); CHLORIDE LEVEL 109 MEQ/L (98-107); CREATININE FOR GFR 0.82 MG/DL (0.70-1.30); GLOMERULAR FILTRATION RATE > 60.0 (>35); GLUCOSE, FASTING 86 MG/DL (70-100); POTASSIUM SERUM 4.3 MEQ/L (3.5-5.1); SODIUM LEVEL 142 MEQ/L (136-145)
--- NOTE | 2020-07-29 09:54 | REP ---
INDICATION: fall COMPARISON: None. TECHNIQUE: Three views right shoulder. FINDINGS: No acute fracture is seen. The humeral head is high riding suggesting a tear of the rotator cuff. There is mild to moderate narrowing and spurring at the glenohumeral joint. There appears to have been resection of the distal end of the clavicle. Subcentimeter calcific density is seen adjacent to the distal end of the clavicle. IMPRESSION: No acute fracture. The humeral head is high riding suggesting a rotator cuff tear. <Electronically signed by Michael Kaur > 07/29/20 [id number]
--- NOTE | 2020-07-29 09:56 | REP ---
INDICATION: fall COMPARISON: None. TECHNIQUE: AP and lateral right forearm. FINDINGS: There is no evidence of acute fracture, dislocation, or intrinsic bone disease. IMPRESSION: No fracture or dislocation. <Electronically signed by Michael Kaur > 07/29/20 0983
--- NOTE | 2020-07-29 10:04 | REP ---
INDICATION: trauma. COMPARISON: None. TECHNIQUE: AP view pelvis, AP and cross-table lateral right hip. FINDINGS: Linear lucency in the intertrochanteric region of the proximal right femur is visualized without evidence of cortical disruption. I suspect this represents a nondisplaced fracture. Otherwise no acute fracture or dislocation is seen. There are mild degenerative changes at both hip joints, with mild joint space narrowing, subchondral sclerosis and spurring. Scattered vascular calcifications are present. There is a bone island in the left femoral neck. IMPRESSION: Nondisplaced fracture intertrochanteric region proximal right femur is suspected. Recommend confirmation with CT. <Electronically signed by Michael Kaur > 07/29/20 1000
--- NOTE | 2020-07-29 10:37 | REP ---
INDICATION: trauma ?fx on xray. COMPARISON: The radiographs today. TECHNIQUE: Axial CT right hip performed with sagittal and coronal reconstruction images. FINDINGS: There is nondisplaced fracture of the intertrochanteric region of the proximal right femur. There is no other evidence of acute fracture or dislocation. There is mild joint space narrowing, subchondral sclerosis and spurring at the right hip joint. There is a joint effusion. The prostate is enlarged. IMPRESSION: Nondisplaced fracture intertrochanteric region proximal right femur. <Electronically signed by Michael Kaur > 07/29/20 0812
[2020-07-29] MEDS ORDERED: PERCOCET 5MG/325MG TAB PO PRN (10:50)
[2020-07-29] MEDS ORDERED: THERTAB21 PO (10:57)
[2020-07-29] MEDS ORDERED: OXYC20TA40 PO (10:57)
[2020-07-29] MEDS ORDERED: D31000TA2 PO (10:57)
[2020-07-29] MEDS ORDERED: TAMS1CAP17 PO (10:57)
[2020-07-29] MEDS ORDERED: ALBU8.5H INH (10:57)
[2020-07-29] MEDS: PERCOCET 5MG/325MG TAB PO PRN ×2 (11:02→16:59)
[2020-07-29] MEDS: MORPHINE 4 MG/ML 1ML VIAL/SYRINGE (J2270) IV PRN (11:05)
[2020-07-29] MEDS ORDERED: MOM 30ML SUSPENSION UDC PO PRN (11:25)
[2020-07-29] MEDS ORDERED: MIRALAX *UNIT DOSE* 17GM PACKET PO PRN (11:25)
[2020-07-29] MEDS ORDERED: SENOKOT S TAB PO PRN (11:25)
--- NOTE | 2020-07-29 11:55 | HPEPDOC ---
[facility] Medical History & Physical Date of Admission July 29, 2020 Date of Service: July 29, 2020 History and Physical CHIEF COMPLAINT: Fall, right hip fracture HISTORY OF PRESENT ILLNESS: 80-year-old, DO NOT RESUSCITATE, DO NOT INTUBATE male with history of multiple back surgeries, disc herniation laminectomy, dorsal column stimulator gastric bypass surgery, gastroesophageal reflux disease, gastric ulcer repair was in his usual state of health until this morning when he tripped while going to the bathroom. Patient sat up too quickly, usually has gait abnormalities and didn't catch himself fell forward, hit himself on the side of the bed and landed on the dresser then eventually on the floor. He rolled over to the bathroom because he had to urinate and called his family from there. When they arrived patient did n ot appear pale, diaphoretic. He had no complaints of dizziness, lightheadedness, chest pain, pressure, tightness, fever, chills, cough, dysuria, urgency, frequency, flank pain, polyphagia, polydipsia, weakness, nausea, vomiting, diarrhea, constipation, bright red blood per rectum, melena, black tarry stools. Patient's gait is unsteady at baseline but has had no falls, resulting in fractures in the past. He lives alone in a two-story home and usually manages well cooking, cleaning and says that he is a "neat freak," and still mows his lawn and snow blows in the winter. Patient is very active and usually does not require a cane or walker. In the emergency room he was found to have a right nondisplaced proximal femoral fracture. EKG was sinus rhythm, ventricular rate of 61. Chest x-ray had no acute intrathoracic abnormality. Hospitalist was asked to admit the patient for pain control and treatment for right hip fracture. Orthopedic surgeon, Dr. Bhanu Ham has been consulted. Patient had a last drink and meal at 6:30 PM on 07/28/2020. He has been Nothing by mouth since he arrived in the emergency room. PAST MEDICAL HISTORY/PAST SURGICAL HISTORY: Gastroesophageal reflux disease, gastric ulcer, gastric bypass surgery gastric ulcer repair, BPH, 6 back surgeries due to disc herniations, laminectomy, dorsal column stimulator in his back SOCIAL HISTORY: Lives in his own home alone. Two-story home walks without a walker or cane very active and still snow blows in the winter and uses his lawnmower during the summer able to do all his activities of daily living, still smoking cigars, 2 a day for the past 10 years. Smokes cigarettes in the past on and off but has not been smoking for many years. No alcohol use at all, but previously drank socially. He is retired, DO NOT RESUSCITATE, DO NOT INTUBATE. Emergency contact is Laurence [id number] who works at [email or web address] in the rehabilitation unit. Her phone number is [phone]. FAMILY HISTORY: Mother, father are both . Father of heart disease and was diabetic at the age of 66. Mother at the age of 92 or 93 had prior history of diabetes ALLERGIES: Please see below. REVIEW OF SYSTEMS: 10 point review of system per HPI, otherwise negative HOME MEDICATIONS: Please see below. PHYSICAL EXAMINATION: VITAL SIGNS: See below GENERAL APPEARANCE: No distress, pallor, icterus or jaundice, awake, alert, or iented 3, speaking in full sentences HEENT: Pupils equally round, reactive to light and accommodation. Extra muscles are intact. Normocephalic, atraumatic. Moist mucous membranes. No JVD, thyromegaly, carotid bruit or stridor CARDIOVASCULAR: S1, S2, regular rate and rhythm. No murmurs, rubs or gallops LUNGS: No kyphosis, no scoliosis. Air entry is equal bilaterally. No adventitious breath sounds clear to auscultation bilaterally. No wheezing, rales or rhonchi ABDOMEN: Positive bowel sounds, soft, nontender, nondistended. No rebound, guarding, no CVA tenderness. No hepatosplenomegaly. No abdominal bruit EXTREMITIES: Right lower extremity slightly rotated medially and tender right hip. No ecchymosis or excoriations. No pitting edema bilateral lower extremities Femoral pulses, dorsalis pedis, posterior tibialis, popliteal pulses intact . SKIN: WARM, DRY, WELL PERFUSED, PINK IN COLOR LABORATORY DATA: See below. IMAGING: See below MICROBIOLOGY: Please see below. ASSESSMENT: 80-year-old, DO NOT RESUSCITATE, DO NOT INTUBATE male with history of multiple back surgeries, disc herniation laminectomy, dorsal column stimulator gastric bypass surgery, gastroesophageal reflux disease, gastric ulcer repair was in his usual state of health until this morning when he tripped while going to the bathroom. Patient sat up too quickly, usually has gait abnormalities and didn't catch himself fell forward, hit himself on the side of the bed and landed on the dresser then eventually on the floor. He rolled over to the bathroom because he had to urinate and called his family from there. When they arrived patient did not appear pale, diaphoretic. He had no complaints of dizziness, lightheadedn ess, chest pain, pressure, tightness, fever, chills, cough, dysuria, urgency, frequency, flank pain, polyphagia, polydipsia, weakness, nausea, vomiting, diarrhea, constipation, bright red blood per rectum, melena, black tarry stools. Patient's gait is unsteady at baseline but has had no falls, resulting in fractures in the past. He lives alone in a two-story home and usually manages well cooking, cleaning and says that he is a "neat freak," and still mows his lawn and snow blows in the winter. Patient is very active and usually does not require a cane or walker. In the emergency room he was found to have a right nondisplaced proximal femoral fracture. EKG was sinus rhythm, ventricular rate of 61. Chest x-ray had no acute intrathoracic abnormality. Hospitalist was asked to admit the patient for pain control and treatment for right hip fracture. Orthopedic surgeon, Dr. Bhanu Ham has been consulted. Patient had a last drink and meal at 6:30 PM on 07/28/2020. He has been Nothing by mouth since he arrived in the emergency room. Patient will be admitted as an inpatient for 2 midnights due to right hip fracture. #1 right hip fracture-patient is kept nothing by mouth, bed rest, Fitzpatrick catheter perioperatively. Patient is medically stable to proceed to the operating room for intervention. Dr. Bhanu Ham has been consulted from orthopedic surgery. Patient does not take any antiplatelet or anticoagulants. He will be given compression stockings. IV fluids. Hypoglycemic protocol . His DNR/DNI status will be suspended temporarily during the surgery and resume postoperatively when he arrives on the floor Pain medications. Activity per orthopedic surgery. A RU screen on Thursday #2. Medical clearance -Patient had no prodromal symptoms. EKG is unremarkable, but patient will be kept on telemetry monitoring. Chest x-ray has no acute intrathoracic changes. Patient is medically optimized to proceed to surgery #3. Chronic back pain with history of lumbar disc disease, disc herniations laminectomies and has a dorsal column stimulator -Resume home medications. IV pain meds for breakthrough pain #4 history of gastric ulcer, gastric ulcer repair, gastric bypass surgery in the past -Continue on PPI #5 BPH -on flomax. check for orthostasis postop. #6 Abnormal EKG -Tele monitoring. nonurgent ECHO. CODE STATUS DNR/DNI Diet nothing by mouth awaiting surgery for right hip fracture DVT prophylaxis compression stockings for now while awaiting surgery Healthcare proxy Laurence [id number], phone number [phone] Vital Signs Vital Signs Date Time Temp Pulse Resp B/P (MAP) Pulse Ox O2 Delivery O2 Flow Rate FiO2 07/29/20 11:15 82 07/29/20 11:08 134/78 (96) 07/29/20 11:05 16 07/29/20 08:37 97.7 97 Room Air Laboratory Data Labs 24H Laboratory Tests 2 07/29/20 08:57: Immature Granulocyte % (Auto) 0.4, Neutrophils (%) (Auto) 57.5, Lymphocytes (%) (Auto) 30.4, Monocytes (%) (Auto) 7.2, Eosinophils (%) (Auto) 4.0H, Basophils (%) (Auto) 0.5, Neutrophils # (Auto) 4.7, Lymphocytes # (Auto) 2.5, Monocytes # (Auto) 0.6, Eosinophils # (Auto) 0.3, Basophils # (Auto) 0.0, Nucleated Red Blood Cells % (auto) 0.0, Anion Gap 3L, Glomerular Filtration Rate > 60.0, Calcium Level 9.3 07/29/20 09:10: Bedside Glucose (Misc Panel) 93 07/29/20 11:37: CBC/BMP Laboratory Tests 07/29/20 08:57 Microbiology Microbiology 07/29/20 Respiratory Virus Panel (PCR) ([facility]), Received Pending Home Medications Scheduled Alprazolam (Alprazolam Odt) 0.5 Mg Tab.rapdis, 0.5 MG PO QHS Calcium Carbonate (Calcium) 500 Mg Tablet, 500 MG PO DAILY Cholecalciferol (Vitamin D3) (Vitamin D3) 1,000 Unit Tablet, 1,000 UNITS PO DAILY Gabapentin (Gabapentin) 300 Mg Capsule, 300 MG PO TID Multivit,Calc,Mins/Iron/Folic (Thera-M Tablet) 1 Each Tablet, 1 TAB PO DAILY Omeprazole (Omeprazole) 40 Mg Cap, 40 MG PO DAILY Oxycodone HCl (Oxycontin) 20 Mg Tab.er.12h, 20 MG PO BID Tamsulosin Hcl (Tamsulosin HCl) 0.4 Mg Capsule, 0.4 MG PO DAILY [medical marijuana] , QPM Scheduled PRN Albuterol Sulfate (Albuterol Sulfate Hfa) 8.5 Gm Hfa.aer.ad, 2 PUFF INH Q4H PRN for SOB/WHEEZING Oxycodone HCl/Acetaminophen (Percocet 10-325 mg Tablet) 1 Each Tablet, 1 TAB PO BID PRN for BREAKTHROUGH PAIN Allergies Coded Allergies: Penicillins (Verified Adverse Reaction, Mild, itchy, 02/07/19) A-FIB/CHADSVASC A-FIB History Current/History of A-Fib/PAF?: No Current PO Anticoag Therapy: No Age/Risk Factor Scoring CHADSVASC: CHADSVASC Response (Comments) Value Age Risk Factor Age >/= 75 years old 2 Gender Risk Factor Male 0 Hx of CHF No 0 Hx of HTN No 0 Hx of Stroke/TIA/or VTE No 0 Hx of Diabetes No 0 Hx of Vascular Disease No 0 Total 2 Treatment Treatment ordered: NONE BETHANY DOE MD July 29, 2020 11:55
[2020-07-29] MEDS ORDERED: DEXTROSE 50% 50 ML SYRINGE IV PRN (12:00)
[2020-07-29] MEDS ORDERED: GLUCAGON INJ 1MG VIAL SC PRN (12:00)
[2020-07-29] MEDS ORDERED: GLUCOSE 4GM CHEW TABLET PO PRN (12:00)
[2020-07-29] MEDS ORDERED: ALBUTEROL 90 MCG/ACT 8GM HFA INHALER INH PRN (12:00)
[2020-07-29 12:01] LABS: INR 0.98; PROTHROMBIN TIME 13.2 SECONDS (12.5-14.3)
--- NOTE | 2020-07-29 12:14 | REP ---
INDICATION: PREOP . FALL. COMPARISON: 06/04/2019. TECHNIQUE: Single portable AP view of the chest was performed. FINDINGS: Elevation of the right hemidiaphragm is unchanged. Chronically prominent interstitial markings are stable. Calcified granuloma is again seen in the left lung base. There is no acute infiltrate. The heart is normal in size. The mediastinal silhouette is unchanged. There is mild calcification of the thoracic aorta. Stimulator leads are again noted in the midthoracic region. IMPRESSION: No acute pulmonary disease. <Electronically signed by Michael Kaur > 07/29/20 1217
--- NOTE | 2020-07-29 12:52 | REP ---
INDICATION: Right hip fracture, femur film please COMPARISON: None. TECHNIQUE: AP and lateral right femur. FINDINGS: There is an oblique nondisplaced fracture of the intertrochanteric region of the proximal right femur. The more distal femur is intact. There are mild degenerative changes at the knee joint, with mild medial joint space narrowing and subchondral sclerosis. There is diffuse chondrocalcinosis. There are scattered vascular calcifications in the soft tissues. There are mild degenerative changes at the hip joint. IMPRESSION: Nondisplaced intertrochanteric fracture proximal right femur. Mild degenerative changes at the hip and knee. <Electronically signed by Michael Kaur > 07/29/20 1722
[2020-07-29] MEDS ORDERED: TRANEXAMIC ACID 100 MG/ML 10ML VIAL As Ordered ONE (13:42)
[2020-07-29] MEDS ORDERED: LIDOCAINE 1% MDV 20ML VIAL As Ordered ONE (13:42)
[2020-07-29] MEDS ORDERED: CLINDAMYCIN 900 MG/50 ML PREMIX BAG As Ordered ONE (13:42)
[2020-07-29] MEDS ORDERED: BUPIVACAINE HCL 0.5% 10ML VIAL As Ordered ONE (13:57)
[2020-07-29] MEDS ORDERED: SUGAMMADEX SODIUM 500 MG/5 ML VIAL (BRIDION) As Ordered ONE (14:20)
[2020-07-29] MEDS ORDERED: fentaNYL 250 MCG/5 ML INJECTION (J3010) As Ordered ONE (14:20)
[2020-07-29] MEDS ORDERED: MIDAZOLAM INJ 2MG/2ML VIAL (J2250 PER 1MG) As Ordered ONE (14:20)
[2020-07-29] MEDS ORDERED: ePHEDrine SULFATE 25 MG/5 ML(5MG/ML) SYRINGE As Ordered ONE (14:20)
[2020-07-29] MEDS ORDERED: PHENYLephrine 500MCG 5ML (100MCG/ML) SYRINGE As Ordered ONE (14:20)
[2020-07-29] MEDS ORDERED: METOCLOPRAMIDE INJ 10MG/2ML VIAL (J2765 PER 1) As Ordered ONE (14:20)
[2020-07-29] MEDS ORDERED: LIDOCAINE 2% 100MG/5ML SDV (FOR ANES.) As Ordered ONE (14:20)
[2020-07-29] MEDS ORDERED: ROCURONIUM BROMIDE 50 MG/5 ML VIAL As Ordered ONE (14:20)
[2020-07-29] MEDS ORDERED: propofoL 200 MG/20 ML VIAL As Ordered ONE (14:20)
[2020-07-29] MEDS ORDERED: ONDANSETRON 4MG/2ML VIAL As Ordered ONE (14:20)
[2020-07-29] MEDS ORDERED: dexameTHASONE 4 MG/ML 1ML VIAL (J1100 PER 1MG) As Ordered ONE (14:20)
--- NOTE | 2020-07-29 16:06 | REP ---
INDICATION: IM NAIL FEMUR. COMPARISON: Radiographs today. TECHNIQUE: Multiple C-arm views right hip. FINDINGS: Metallic internal fixation is placed for an intertrochanteric fracture of the proximal right femur. The structures are well-aligned. IMPRESSION: 135 seconds fluoroscopy time utilized. <Electronically signed by Michael Kaur > 07/29/20 1767
[2020-07-29] MEDS ORDERED: ONDANSETRON 4MG/2ML VIAL IV PRN (16:15)
[2020-07-29] MEDS ORDERED: oxyCODONE 5MG TAB PO PRN (16:15)
[2020-07-29] MEDS ORDERED: HYDROMORPHONE HCL 0.5 MG/ 0.5 ML SYRINGE (J1170 PER 1) IV PRN (16:15)
[2020-07-29] MEDS ORDERED: LR 1,000 ML IV SCH (16:15)
[2020-07-29] MEDS ORDERED: fentaNYL 100 MCG/2 ML INJECTION (J3010) IV PRN (16:15)
--- NOTE | 2020-07-29 16:22 | CR ---
CONSULTATION DATE: 07/29/2020 REASON FOR CONSULTATION: Right hip nondisplaced intertrochanteric fracture. CHIEF COMPLAINT: Right hip pain. HISTORY OF PRESENT ILLNESS: The patient is an 80-year-old male, do not resuscitate, do not intubate, male with a history of back surgery, disc herniation, laminectomy, dorsal column stimulator, gastric bypass surgery, GERD, gastric ulcer repair who sustained a fall this morning onto his right hip. He noted immediate onset of pain and inability to ambulate on his right lower extremity. He was evaluated in the emergency department where he was found to have a nondisplaced right hip intertrochanteric femur fracture. Orthopedics was consulted for further management. He was admitted by the hospitalist team. He did have x-rays taken of both the right shoulder as well as the right forearm and radius but these were negative. Otherwise, no other complaints. PAST MEDICAL HISTORY: As above in the HPI. PAST SURGICAL HISTORY: As above in the HPI. SOCIAL HISTORY: He lives at home alone in a two-story home, walks without a walker or a cane. He still snow blows and mows his lawn. Prior smoker but not currently, no alcohol. FAMILY HISTORY: Mother and father are both . Father of a heart attack and was diabetic. Mother at 92 and prior history of diabetes. ALLERGIES: PENICILLINS. MEDICATIONS: See medical rec conciliation. REVIEW OF SYSTEMS: A 10 point review of systems per HPI. A full review of systems was performed and all were negative except what is in HPI. PHYSICAL EXAMINATION: GENERAL: He is well-developed, well-nourished, in no acute distress. NEURO: Alert and oriented x4. PSYCH: Normal mood and affect. CARDIAC: Regular rate and rhythm. RESPIRATORY: Nonlabored breathing. Equal chest rise and fall. ABDOMEN: Nontender, nondistended. SKIN: Intact, no ecchymosis, swelling or breaks in the skin. EXTREMITIES: Focused exam of right lower extremity demonstrates mild swelling about the thigh. Mild tenderness to palpation over the proximal femur. Pain with range of motion so limited secondary to pain. No other areas of tenderness to palpation. Otherwise neurovascularly intact distally. Focused exam of the right upper extremity demonstrates full range of motion, no ecchymosis, swelling or breaks in the skin. Otherwise, neurovascularly intact distally. IMAGING: X-rays of the right shoulder and right forearm demonstrate no acute osseous abnormalities although there are some degenerative changes about both. Right hip x-rays and right hip CT scan demonstrate a nondisplaced intertrochanteric femur fracture of the right hip. ASSESSMENT: This is an 80-year-old male who sustained a ground level fall and sustained a nondisplaced right-sided intertrochanteric femur fracture. PLAN: I had a long discussion with the patient about operative and nonoperative treatment. Due to the concern of this nondisplaced fracture further displacing and causing catastrophic failure of the right hip and its ability to bear weight, I recommend stabilization with supplementary nail fixation. I counseled the patient on the risks of the surgery to include but not limited to bleeding, infection, damage to nearby structures, pain and stiffness, need for further surgery and refracture and he was able to sign informed consent. We will plan for right-sided cephalomedullary nail fixation today. Postoperatively we will plan his weightbearing status based on what we seen in surgery. He will receive preop antibiotics and then in 24 hours, postop antibiotics.
[2020-07-29] MEDS: D5W/0.45% SODIUM CHLORIDE 1,000 ML IV SCH ×2 (16:51→22:00)
[2020-07-29] MEDS: GABAPENTIN 300 MG CAP PO SCH ×2 (16:59→20:35)
[2020-07-29 17:00] VITALS: BP 135/84
[2020-07-29 17:30] VITALS: BP 131/82
[2020-07-29 18:00] VITALS: BP 130/80
[2020-07-29 19:00] VITALS: BP_SYST 11; BP_SYST 111; BP_DIAS 62
[2020-07-29 20:00] VITALS: BP 110/66
[2020-07-29] MEDS: CLINDAMYCIN 900 MG in IV 1 EA IV SCH (20:34)
[2020-07-29] MEDS: oxyCODONE 20 MG CR TAB PO SCH (20:35)
[2020-07-29] MEDS: ALPRAZolam 0.5 MG TAB PO SCH (20:35)
[2020-07-29 21:00] VITALS: BP 115/71
[2020-07-30] VITALS (11 sets, daily range): BP systolic 104–130; BP diastolic 56–70; O2SAT 91–95
[2020-07-30] MEDS: PERCOCET 5MG/325MG TAB PO PRN (00:28)
--- NOTE | 2020-07-30 00:50 | IPNPDOC ---
Text Note Date of Service The patient was seen on 07/30/20. NOTE Alerted overnight that patient was showing irregular rhythm on heart monitor. STAT ekg ordered at this point shows possible 2nd/3rd degree heart block. D/w Dr. 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 Recommends close observation as patient is asymptomatic. Will upgrade patient to PCU for closer monitoring, f/u troponin VS,Fishbone, I+O VS, Fishbone, I+O Laboratory Tests 07/29/20 08:57 Vital Signs Date Time Temp Pulse Resp B/P (MAP) Pulse Ox O2 Delivery O2 Flow Rate FiO2 07/30/20 00:30 98.0 74 20 108/67 (81) 96 Room Air I&O- Last 24 Hours up to 6 AM 07/30/20 06:00 Intake Total 1210 ml Output Total 400 ml Balance 810 ml RICHARD VILLASENOR July 30, 2020 00:50
[2020-07-30] MEDS: CLINDAMYCIN 900 MG in IV 1 EA IV SCH ×3 (04:11→15:49)
[2020-07-30] MEDS: RIVAROXABAN 10 MG TAB (XARELTO) PO SCH (05:22)
[2020-07-30 05:44] LABS: HEMATOCRIT 36.8 % (42.0-52.0); MEAN CORPUSCULAR HEMOGLOBIN 31.6 pg (27.0-33.0); MEAN CORPUSCULAR HGB CONC 32.6 g/dl (32.0-36.5); MEAN CORPUSCULAR VOLUME 96.8 fl (80.0-96.0); PLATELET COUNT, AUTOMATED 271 10^3/uL (150-450)
[2020-07-30 06:23] LABS: BLOOD UREA NITROGEN 14 MG/DL (7-18); CALCIUM LEVEL 8.3 MG/DL (8.8-10.2); CARBON DIOXIDE LEVEL 27 MEQ/L (21-32); CHLORIDE LEVEL 106 MEQ/L (98-107); CREATININE FOR GFR 0.74 MG/DL (0.70-1.30); FREE THYROXINE INDEX 1.6 % (1.4-3.8); GLOMERULAR FILTRATION RATE > 60.0 (>35); GLUCOSE, FASTING 102 MG/DL (70-100); POTASSIUM SERUM 4.5 MEQ/L (3.5-5.1); SODIUM LEVEL 139 MEQ/L (136-145); T UPTAKE 31 % (33-40); THYROID STIMULATING HORMONE 0.578 uIU/ML (0.358-3.740); THYROXINE (T4) 5.2 UG/DL (4.5-12.0)
[2020-07-30] MEDS ORDERED: METOCLOPRAMIDE INJ 10MG/2ML VIAL (J2765 PER 1) IV ONE (07:45)
[2020-07-30] MEDS ORDERED: oxyCODONE 5MG TAB PO ONE (07:45)
[2020-07-30] MEDS ORDERED: MONTELUKAST 10 MG TAB PO ONE (07:45)
[2020-07-30] MEDS ORDERED: CETIRIZINE (ZyrTEC) 10 MG TAB PO ONE (07:45)
[2020-07-30] MEDS ORDERED: FIORICET TAB PO ONE (07:45)
[2020-07-30] MEDS ORDERED: IPRATROPIUM 0.5MG/ALBUTEROL 2.5MG INH SOL UD 3ML (DUONEB) NEB PRN (07:50)
[2020-07-30] MEDS ORDERED: IPRATROPIUM 0.5MG/ALBUTEROL 2.5MG INH SOL UD 3ML (DUONEB) NEB ONE (07:50)
--- NOTE | 2020-07-30 08:30 | RO ---
OPERATIVE NOTE DATE OF OPERATION: 07/29/2020 PREOPERATIVE DIAGNOSIS: Right hip nondisplaced intertrochanteric femur fracture. POSTOPERATIVE DIAGNOSIS: Right hip nondisplaced intertrochanteric femur fracture. MATERIAL FORWARDED: None. DESCRIPTION OF FINDINGS: The patient had stable intertrochanteric femur fracture that remained nondisplaced throughout the procedure and amenable to cephalomedullary nail fixation with short nail. IMPLANTS: DePuy Synthes TFN-A. The implant length was 170 mm. INFECTION CLASSIFICATION: 1, clean. ESTIMATED BLOOD LOSS: 100 mL. PROCEDURE PERFORMED: Right hip closed reduction and cephalomedullary nail fixation. SURGEON: Bhanu Ham MD SERVICE COORDINATOR: None. CLINICAL SERVICE: Orthopedic surgery. ANESTHESIA: INDICATIONS FOR OPERATION: The patient is an 80-year-old male who at baseline is a community ambulator who fell while getting out of bed today and sustained a ground level fall to his right hip and had onset of pain and inability to bear weight. He was seen in the emergency department and diagnosed with undisplaced intertrochanteric right femur fracture. He was indicated for cephalomedullary nail fixation for stable intertrochanteric fracture. He was counseled on the risks of surgery to include but not limited to bleeding, infection, damage to local structures, pain, stiffness, need for further surgery, re-fracture and he was sign informed consent. All questions were answered to his full satisfaction. DESCRIPTION OF THE OPERATION: The patient was met in the preoperative holding area where the correct name, identity, operative site, laterality and procedure were confirmed with no discrepancies. The operative site was marked by myself. The patient was then taken to the operating room by nursing and anesthesia providers, placed supine on the operating room table. All bony prominences were padded in standard fashion. He then underwent general anesthetic and placed under general anesthesia without complication. He was on the fracture table and the right lower extremity was placed into the boot and secured with adequate padding. The left lower extremity was then supported and the end of the bed was removed and the left lower extremity was then scissored down and well padded. After being well padded it was secured to the longitudinal axis of the table. Once in appropriate position with the peroneal post in place as well the leg was adducted and the C-arm was brought in and we took images to assure that we had correct positioning to allow for adequate AP and lateral images of the right hip. Once this was completed the right lower extremity area was prepped and draped, first after undergoing a Chlorhexidine scrub followed by wiping down with isopropyl alcohol followed by Chlorhexidine preparation. The shower curtain was then applied as the draping. We then called time out and the patient's name, identity, operative site, laterality and procedure verified without discrepancies. We also confirmed weight-based antibiotic administration with Clindamycin as well as patient endorsed an allergy to Penicillin. We marked out the axes of the femoral neck in AP and lateral views. Incision was carried out about 4 fingersbreadth length several centimeters above the level of the greater trochanter. Sharp dissection was taken down to the IT band and opened up with Medina scissors. The greater trochanter was then palpated and the guidewire was inserted. Appropriate placement on AP and lateral views was confirmed. Guidewire was then seated into position using mallet. Once it was in the appropriate position using the wire retail delivery driver the opening reamer was then used taking care to try to medialize the opening reamer. Once the opening reamer was down to the level of the lesser trochanter we placed the long ball-tipped guidewire down through the femoral canal. An 11 x 80 mm nail with 125 degree setting was then placed under the jig and placed into the femur. Once it was seated in the appropriate position our lag screw jig attachment was then applied. Using the AP and lateral to ensure that we had appropriate position cranial caudally of the guide pin and on the lateral to ensure that we had appropriate position with regard to femoral neck anteversion, the guidewire was then placed in the right position. It was drilled over the appropriate drill after having been measured with lag screw size to 100 mm. Once this was drilled we placed the lag screw without complication. AP and lateral x-rays demonstrated appropriate position. We then utilized the jig feature of applying some compression to the intertrochanteric region. Set screw was then placed proximally. We then placed our interlocking screw distally through the jig without complication as well. Once this was completed x-rays in the AP and lateral views were obtained and demonstrated appropriate length, orientation and position of the implants. The wounds were then copiously irrigated and closed in layers including the IT band. Once closed the areas around the wounds were infiltrated with combination of 1% Lidocaine and 0.5% Marcaine for pain control. Sterile dressings were applied. The patient was then aroused from anesthesia having tolerated the procedure well without complications. He was transferred to the PACU without any problem. Postoperatively, he will remain weightbearing as tolerated on the right lower extremity and plan to begin mobilizing with physical therapy on postop day 1. Will have him go on DVT chemoprophylaxis and pain control per the primary team. I would like him to go on 24 hours of postop antibiotics. Will order physical therapy and occupational therapy. Will have him follow up with me or another one of the orthopedic providers in the next 2-3 weeks or so. The patient received preop antibiotics, he will continue to receive postop antibiotics and will go on postop DVT chemoprophylaxis per primary team.
[2020-07-30] MEDS: TAMSULOSIN 0.4 MG CAP PO SCH (08:35)
[2020-07-30] MEDS: MULTIVITAMINS/MINERALS THERAP 1 TAB PO SCH (08:36)
[2020-07-30] MEDS: OYSTER SHELL CALCIUM 500 MG TAB PO SCH (08:36)
[2020-07-30] MEDS: GABAPENTIN 300 MG CAP PO SCH ×3 (08:37→20:17)
[2020-07-30] MEDS: VITAMIN D 1,000 INTERNATIONAL UNITS TABLET PO SCH (08:37)
--- NOTE | 2020-07-30 08:37 | IPN ---
PROGRESS NOTE DATE: 07/30/2020 SUBJECTIVE: Overnight, patient was transferred to PCU emergently due to findings of sinus pause of 1.7 at 2328 last night. 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 The patient was hemodynamically stable, asymptomatic without complaints of shortness of breath, chest pain, pressure or tightness. This morning he complains of cough and says that he felt like he had the same a week ago when he had bronchitis; no fever or chills overnight. He also complains of severe pain at the right hip and requesting for his 10 mg of oxycodone to be given as needed. The patient is continued on OxyContin 20 twice a day, which he takes at home, and he is requesting his Percocet 10-325 to be given as needed. The patient also complains of diffuse headache this morning. Blood pressure is 109/70 without changes in vision, diplopia, blurred vision; without chest pain, pressure, tightness. PHYSICAL EXAM (OBJECTIVE): Vital Signs: Temperature 98, pulse 78, respiratory 17, blood pressure 109/70, 95% on room air. General: Awake, alert, oriented to person, place, and time, answering questions appropriately. He is in no distress. No jugular venous distension (JVD), thyromegaly. No pallor, icterus, jaundice. Speaks in full sentences. HEENT: No jugular venous distension (JVD); no thyromegaly, cervical lymphadenopathy or carotid bruits. Heart: S1, S2, regularly irregular. Lungs: Diminished but clear to auscultation. No wheezing, rales or rhonchi. Abdomen: Soft, nontender, nondistended. Positive bowel sounds. Extremities: Patient has postoperative right hip. No pitting edema. LABORATORY DATA: White count 13, hemoglobin 12, hematocrit 36, platelet count 271. Sodium 139, potassium 4.5, chloride 106, bicarbonate 27, BUN 14, creatinine 0.74, glucose of 102. Troponin less than 0.02. TSH 0.578, normal. Respiratory panel negative. Chest x-ray yesterday, 07/29/2020: No acute cardiopulmonary disease. Pelvic and hip x-ray, 07/29/2020: Metallic internal fixation is placed for an intertrochanteric fracture of the proximal right femur. Structures are well aligned. ASSESSMENT AND PLAN: This is an 80-year-old male admitted on 07/29/2020 status post mechanical fall; found to have a right nondisplaced proximal femoral fracture with the following acute issues, admitted as an inpatient for two midnights. 1. Right hip fracture, status post surgery by orthopedic surgeon, Dr. Ham, yesterday; postoperative day number one. For deep vein thrombosis (DVT) prophylaxis, the patient has been given renally dosed Xarelto 10 mg. Pain management is not adequate at this time. he is on OxyContin 20 mg twice a day which he uses at home; gabapentin 300 mg three times a day; he is requesting his oxycodone/acetaminophen 10-325 mg to be given as needed. He will be given oxycodone 10 mg this morning and as needed every four hours for pain control. Bowel regimen with MiraLAX. 2. Headache. Patient had been given Fioricet. Blood pressure is okay. IV Reglan for rapid control. 3. Benign prostatic hypertrophy (BPH) on chronic Flomax. 4. Sinus bradycardia, 1.7 seconds and second degree type I Wenckebach. Continue on telemetry monitoring. Thyroid function tests are normal. Patient has a history of chronic atrial fibrillation, status post ablation in the past. Will consult cardiology if patient continues to have longer sinus pauses or symptomatic bradycardia. He is currently not on any rate control medications at this time. Twelve-lead EKG. 5. History of benign prostatic hypertrophy on chronic Flomax potentially causing orthostasis with recurrent falls at home. Check orthostatic hypotension today and discontinue Flomax if positive, and put the patient on Proscar. 6. Vitamin D deficiency on chronic supplements. 7. Type 2 diabetes on sliding scale; continue carbohydrate diet and hypoglycemic protocol.
[2020-07-30] MEDS: oxyCODONE 20 MG CR TAB PO SCH (08:38)
--- NOTE | 2020-07-30 08:58 | REP ---
INDICATION: cough sob r/o chf/ pneumonia. COMPARISON: 07/29/2020. TECHNIQUE: Single portable AP view of the chest was performed. FINDINGS: Once again there is elevation of the right hemidiaphragm. There is no acute infiltrate. Calcified granuloma is again seen in the left lung base. The heart is normal in size. There is calcification and tortuosity of the thoracic aorta. The mediastinal silhouette is unchanged. IMPRESSION: No acute pulmonary disease. <Electronically signed by Michael Kaur > 07/30/20 0850
[2020-07-30] MEDS: IPRATROPIUM 0.5MG/ALBUTEROL 2.5MG INH SOL UD 3ML (DUONEB) NEB SCH ×3 (13:08→21:21)
[2020-07-30] MEDS: oxyCODONE 5MG TAB PO PRN ×2 (13:51→18:23)
[2020-07-30] MEDS: MORPHINE 4 MG/ML 1ML VIAL/SYRINGE (J2270) IV PRN (16:00)
--- NOTE | 2020-07-30 19:29 | ECGEPIP ---
[facility] Test Date: 2020-07-30 Pat Name: SERVANDO BLAIR Department: Room: [place] [address] Gender: Male Plc Controls Engineer: SURENDRA : 1940 Requested By: RICHARD Viramontes Order Number: [id number] Reading MD: Eddi Rosa Measurements Intervals [place] Rate: 67 P: [place]: QRS: 21 QRSD: 70 T: 35 QT: 400 QTc: 422 Interpretive Statements Sinus arrythmia with first degree av block Low voltage QRS Similar to tracing done 10-24-18 Electronically Signed on 07-30-2020 19:28:49 EDT by Eddi Rosa
[2020-07-30] MEDS: ALPRAZolam 0.5 MG TAB PO SCH (20:17)
[2020-07-30] MEDS: HYDROMORPHONE HCL 0.5 MG/ 0.5 ML SYRINGE (J1170 PER 1) IV PRN (20:18)
[2020-07-31] VITALS: BP 119/75
[2020-07-31] MEDS: HYDROMORPHONE HCL 0.5 MG/ 0.5 ML SYRINGE (J1170 PER 1) IV PRN ×2 (00:32→11:08)
[2020-07-31] MEDS ORDERED: ACETAMINOPHEN 500 MG TAB PO PRN (02:10)
--- NOTE | 2020-07-31 02:43 | REPVR ---
PROCEDURE INFORMATION: Exam: XR Chest Exam date and time: 07/31/2020 1:36 AM Age: 80 years old Clinical indication: Fever; Additional info: Post op fever TECHNIQUE: Imaging protocol: XR of the chest. Views: 1 view. COMPARISON: MD PORTABLE CHEST X-RAY 07/30/2020 8:19 AM FINDINGS: Tubes, catheters and devices: Spinal stimulator electrode is unchanged. Lungs: Clear. No consolidation. Pleural spaces: Unremarkable. No pleural effusion. No pneumothorax. Heart/Mediastinum: Unremarkable. No cardiomegaly. Diaphragm: Persistent elevation of the right hemidiaphragm. Bones/joints: Unremarkable. IMPRESSION: Stable chest. Electronically signed by: Gm Jama On 07/31/2020 02:43:10 AM
[2020-07-31 04:00] VITALS: BP 96/51
[2020-07-31] MEDS: RIVAROXABAN 10 MG TAB (XARELTO) PO SCH (05:20)
[2020-07-31 05:46] LABS: HEMATOCRIT 36.2 % (42.0-52.0); MEAN CORPUSCULAR HEMOGLOBIN 32.3 pg (27.0-33.0); MEAN CORPUSCULAR HGB CONC 33.1 g/dl (32.0-36.5); MEAN CORPUSCULAR VOLUME 97.3 fl (80.0-96.0); PLATELET COUNT, AUTOMATED 256 10^3/uL (150-450); RED BLOOD COUNT 3.72 10^6/uL (4.30-6.10); WHITE BLOOD COUNT 10.7 10^3/uL (4.0-10.0)
--- NOTE | 2020-07-31 05:47 | ECGEPIP ---
[facility] - ED Test Date: 2020-07-29 Pat Name: SERVANDO BLAIR Department: Room: - Gender: Male Archeology Professor: LR : 1940 Requested By: Ayleen Yuan Order Number: [id number] Reading MD: Anshu Resendiz Measurements Intervals [place] Rate: 61 P: [place]: QRS: 44 QRSD: 72 T: 38 QT: 394 QTc: 396 Interpretive Statements BASELINE ARTIFACT AFFECTS INTERPRETATION Sino-Atrial Block, Type 2 Low voltage QRS Electronically Signed on 07-31-2020 5:47:27 EDT by Anshu Resendiz
[2020-07-31 06:19] LABS: BLOOD UREA NITROGEN 13 MG/DL (7-18); CALCIUM LEVEL 8.4 MG/DL (8.8-10.2); CARBON DIOXIDE LEVEL 27 MEQ/L (21-32); CHLORIDE LEVEL 105 MEQ/L (98-107); CREATININE FOR GFR 0.82 MG/DL (0.70-1.30); GLOMERULAR FILTRATION RATE > 60.0 (>35); GLUCOSE, FASTING 113 MG/DL (70-100); MAGNESIUM LEVEL 1.7 MG/DL (1.8-2.4); POTASSIUM SERUM 4.1 MEQ/L (3.5-5.1); SODIUM LEVEL 139 MEQ/L (136-145)
[2020-07-31] MEDS: IPRATROPIUM 0.5MG/ALBUTEROL 2.5MG INH SOL UD 3ML (DUONEB) NEB SCH ×3 (07:36→16:00)
[2020-07-31 07:39] VITALS: BP 118/57
[2020-07-31] MEDS: VITAMIN D 1,000 INTERNATIONAL UNITS TABLET PO SCH (08:44)
[2020-07-31] MEDS: MULTIVITAMINS/MINERALS THERAP 1 TAB PO SCH (08:44)
[2020-07-31] MEDS: oxyCODONE 20 MG CR TAB PO SCH ×2 (08:44)
[2020-07-31] MEDS: GABAPENTIN 300 MG CAP PO SCH ×2 (08:44→16:59)
[2020-07-31] MEDS: TAMSULOSIN 0.4 MG CAP PO SCH (08:44)
[2020-07-31] MEDS: OYSTER SHELL CALCIUM 500 MG TAB PO SCH (08:45)
[2020-07-31] MEDS ORDERED: MAGNESIUM OXIDE 400MG TAB (MAG-OX) PO ONE (09:00)
[2020-07-31] MEDS: oxyCODONE 5MG TAB PO PRN ×3 (09:09→16:59)
[2020-07-31] MEDS ORDERED: SENN-52 PO (11:09)
[2020-07-31] MEDS ORDERED: MIRA1POW3 PO (11:09)
[2020-07-31] MEDS ORDERED: XARE10TA PO (11:09)
[2020-07-31] MEDS ORDERED: ACET-907 PO (11:09)
[2020-07-31] MEDS ORDERED: OXYC-517 PO (11:09)
[2020-07-31 11:54] VITALS: BP 111/61
--- NOTE | 2020-07-31 13:58 | IPNPDOC ---
Text Note Date of Service The patient was seen on 07/31/20. NOTE NOTE Date of Service The patient was seen on 07/31/20. NOTE S: Doing well this afternoon, no issues to speak of. Ready to go to rehab. O: VSSWNL Right Hip demonstrates incisions c/d/i, TTP over incisions, NVI distally Labs: Hgb 12 A: 80 yo M s/p right hip cephalomedullary nail fixation on 07/29/2020, doing well overall. 9 POINT PLAN: 1. Medications: pain and DVT ppx per primary team 2. Therapy: continue ROM and strengthening, mobilize WBAT 3. Conservative measures: RICE precautions 4. Activity Modifications: as tolerated 5. Injections: none today 6. Surgery plan: none 7. Follow-up: with Dr. Perez on August 24 8. Imaging: none 9. Consults: none Questions please call [phone] Jitendra VS,Ofe, I+O VS, Ofe, I+O Laboratory Tests 07/31/20 05:22 Vital Signs Date Time Temp Pulse Resp B/P (MAP) Pulse Ox O2 Delivery O2 Flow Rate FiO2 07/31/20 13:13 18 07/31/20 11:54 97.7 96 111/61 (78) 92 Room Air I&O- Last 24 Hours up to 6 AM 07/31/20 06:00 Intake Total 775 ml Output Total 2050 ml Balance -1275 ml COREY CHRISTINA MD July 31, 2020 13:58
[2020-07-31 15:21] VITALS: BP 110/64
--- NOTE | 2020-07-31 21:33 | DS.PDOC ---
Discharge Summary General Date of Admission July 29, 2020 at 10:46 Date of Discharge 07/31/20 Attending Physician: Scarlett Rosales MD Discharge Summary HISTORY OF PRESENT ILLNESS: 80-year-old, DO NOT RESUSCITATE, DO NOT INTUBATE male with history of multiple back surgeries, disc herniation laminectomy, dorsal column stimulator gastric bypass surgery, gastroesophageal reflux disease, gastric ulcer repair was in his usual state of health until this morning when he tripped while going to the bathroom. Patient sat up too quickly, usually has gait abnormalities and didn't catch himself fell forward, hit himself on the side of the bed and landed on the dresser then eventually on the floor. He rolled over to the bathroom because he had to urinate and called his family from there. When they arrived patient did not appear pale, diaphoretic. He had no complaints of dizziness, lighth eadedness, chest pain, pressure, tightness, fever, chills, cough, dysuria, urgency, frequency, flank pain, polyphagia, polydipsia, weakness, nausea, vomiting, diarrhea, constipation, bright red blood per rectum, melena, black tarry stools. Patient's gait is unsteady at baseline but has had no falls, resulting in fractures in the past. He lives alone in a two-story home and usually manages well cooking, cleaning and says that he is a "neat freak," and still mows his lawn and snow blows in the winter. Patient is very active and usually does not require a cane or walker. In the emergency room he was found to have a right nondisplaced proximal femoral fracture. EKG was sinus rhythm, ventricular rate of 61. Chest x-ray had no acute intrathoracic abnormality. Hospitalist was asked to admit the patient for pain control and treatment for right hip fracture. Orthopedic surgeon, Dr. Bhanu Ham has been consulted. Patient had a last drink and meal at 6:30 PM on 07/28/2020. He has been Nothing by mouth since he arrived in the emergency room. HOSPITAL COURSE: Patient underwent right hip cephalomedullary nail fixation on 07/29/2020, no intra- or post-operative complications. After arrival to hospital floor there was a d noted pause of 1.7 at 2328 07/29/20. He also had a second degree type I Wenckebach heart block with sales and marketing agent (Dr. Chamberlain) reviewing EKG and recommendations of close observation over the next 24-48 hours. The patient was hemodynamically stable, asymptomatic without complaints of shortness of breath, chest pain, pressure or tightness. There was difficulty controlling his pain and PRN meds were switched to Q4H along with home oxycodone BID. This helped some. Over the next several days, VS remained stable, there were no acute events on te le to warrant official cardiology consult or concern for additional medication treatment. Bu 07/31/20 patient remained stable, pain better controlled with PO meds and rehab accepted patient. He was discharged from acute inpatient and transferred to ARU for further rehabilitation. At time of discharge, he denied chest pain, palpitations, SOB, changes in vision, diplopia, blurred vision. PAST MEDICAL HISTORY/PAST SURGICAL HISTORY: Gastroesophageal reflux disease, gastric ulcer, gastric bypass surgery gastric ulcer repair, BPH, 6 back surgeries due to disc herniations, laminectomy, dorsal column stimulator in his back SOCIAL HISTORY: Lives in his own home alone. Two-story home walks without a walker or cane very active and still snow blows in the winter and uses his lawnmower during the summ er able to do all his activities of daily living, still smoking cigars, 2 a day for the past 10 years. Smokes cigarettes in the past on and off but has not been smoking for many years. No alcohol use at all, but previously drank socially. He is retired, DO NOT RESUSCITATE, DO NOT INTUBATE. Emergency contact is Laurence [email or web address] who works at [employer] [facility] [employer] in the rehabilitation unit. Her phone number is [phone]. FAMILY HISTORY: Mother, father are both . Father of heart disease and was diabetic at the age of 66. Mother at the age of 92 or 93 had prior history of diabetes DISCHARGE MEDS: Please see below PHYSICAL EXAM: Vital Signs: Please see below General: Awake, alert, oriented to person, place, and time, answering questions appropriately. He is in no distress. No jugular venous distension (JVD), thyromegaly. No pallor, icterus, jaundice. Speaks in full sentences. HEENT: No jugular venous distension (JVD); no thyromegaly, cervical lymphadenopathy or carotid bruits. Heart: S1, S2, regularly irregular. Lungs: Diminished but clear to auscultation. No wheezing, rales or rhonchi. Abdomen: Soft, nontender, nondistended. Positive bowel sounds. Extremities: Patient has postoperative right hip. No pitting edema. LABORATORY DATA: Please see below MICRO: Respiratory panel negative. IMAGING: Chest x-ray 07/29/2020: No acute cardiopulmonary disease. Pelvic and hip x-ray, 07/29/2020: Metallic internal fixation is placed for an intertrochanteric fracture of the proximal right femur. Structures are well aligned. ASSESSMENT/PLAN: This is an 80-year-old male admitted on 07/29/2020 status post mechanical fall; found to have a right nondisplaced proximal femoral fracture s/p cephalomedullary nail fixation, doing well. Right hip fracture s/p right hip cephalomedullary nail fixation on 07/29/2020 (ortho- Dr. Ham) -Pain better controlled, no post-op complications -F/u with ortho Dr. Perez on 08/24/20 -C/w AC, pain control with BR, PT/OT, continue ROM and strengthening, mobilize WBAT in rehab Benign prostatic hypertrophy (BPH) -Stable -Tamsulosin Sinus bradycardia, 1.7 seconds and second degree type I Wenckebach- isolated event -TSH wnl, denies chest pain, palpitations, incr SOB- was asymptomatic on this isolated event -Discussed with cards this admission, no further w/u due to not occurring again. -if occurs again, officially consult cards Chronic atrial fibrillation s/p ablation hx -Rate controlled -C/w Xarelto Vitamin D deficiency -C/w supplementation Type 2 diabetes -Continue to monitor closely with carbohydrate diet , ISS, hypoglycemic protocol. GERD -PPI DVT PX -xarelto DISPOSITION: discharge to ARU today, f/u with orthopedic surgery 08/24/20 TIME SPENT ON DISCHARGE: 35 minutes. Vital Signs/I&Os Vital Signs Date Time Temp Pulse Resp B/P (MAP) Pulse Ox O2 Delivery O2 Flow Rate FiO2 07/31/20 17:29 17 07/31/20 15:21 97.2 80 110/64 (79) 94 Room Air I&O- Last 24 Hours up to 6 AM 07/31/20 06:00 Intake Total 775 ml Output Total 2050 ml Balance -1275 ml Laboratory Data Labs 24H Laboratory Tests 2 07/31/20 01:21: Urine Color STRAW, Urine Appearance CLEAR, Urine pH 7.0, Urine Specific Gladys 1.006, Urine Protein NEGATIVE, Urine Glucose (UA) NEGATIVE, Urine Ketones NEGATIVE, Urine Blood NEGATIVE, Urine Nitrite NEGATIVE, Urine Bilirubin NEGAT GABRIELLA, Urine Urobilinogen 0.2, Urine Leukocyte Esterase NEGATIVE, Urine WBC (Auto) 1, Urine RBC (Auto) 2, Urine Hyaline Casts (Auto) 0, Urine Bacteria (Auto) NEGATIVE, Urine Squamous Epithelial Cells 0, Urine Sperm (Auto) 07/31/20 05:22: Nucleated Red Blood Cells % (auto) 0.0, Anion Gap 7L, Glomerular Filtration Rate > 60.0, Calcium Level 8.4L, Magnesium Level 1.7L CBC/BMP Laboratory Tests 07/31/20 05:22 Microbiology Microbiology 07/29/20 Respiratory Virus Panel (PCR) (KENDRA) - Final, Complete Discharge Medications Scheduled Alprazolam (Alprazolam Odt) 0.5 Mg Tab.rapdis, 0.5 MG PO QHS, (Reported) Calcium Carbonate (Calcium) 500 Mg Tablet, 500 MG PO DAILY, (Reported) Cholecalciferol (Vitamin D3) (Vitamin D3) 1,000 Unit Tablet, 1,000 UNITS PO DAILY, (Reported) Gabapentin (Gabapentin) 300 Mg Capsule, 300 MG PO TID, (Reported) Multivit,Calc,Mins/Iron/Folic (Thera-M Tablet) 1 Each Tablet, 1 TAB PO DAILY, (Reported) Omeprazole (Omeprazole) 40 Mg Cap, 40 MG PO DAILY, (Reported) Oxycodone HCl (Oxycontin) 20 Mg Tab.er.12h, 20 MG PO BID, (Reported) Rivaroxaban (Xarelto) 10 Mg Tablet, 10 MG PO DAILY@0600 Tamsulosin Hcl (Tamsulosin HCl) 0.4 Mg Capsule, 0.4 MG PO DAILY, (Reported) [medical marijuana] , QPM, (Reported) Scheduled PRN Acetaminophen (Tylenol) 325 Mg Tablet, 650 MG PO Q6HP PRN for PAIN OR FEVER Albuterol Sulfate (Albuterol Sulfate Hfa) 8.5 Gm Hfa.aer.ad, 2 PUFF INH Q4H PRN for SOB/WHEEZING, (Reported) Oxycodone HCl (Oxycodone HCl) 5 Mg Tablet, 10 MG PO Q6HP PRN for SEVERE PAIN (PS 8-10) Polyethylene Glycol 3350 (Miralax) 17 Gm Powd.pack, 1 PKT PO DAILYPRN PRN for CONSTIPATION Sennosides/Docusate Sodium (Senna Plus Tablet) 1 Each Tablet, 2 TAB PO BIDP PRN for CONSTIPATION Allergies Coded Allergies: Penicillins (Verified Adverse Reaction, Mild, itchy, 02/07/19) Scarlett Rosales MD July 31, 2020 21:33
--- NOTE | 2020-08-01 09:45 | ECHO ---
DATE OF PROCEDURE: 07/31/2020 Age: 80 Gender: M Height: 173 cm Weight: 76 kg REFERRING PHYSICIAN: Dr. Lenz INDICATION: Abnormal electrocardiogram (EKG) MEASUREMENTS: IVS 1.0 LV 4.0 LVPW 1.1 LA 3.6 Aorta 3.3 IVC 2.3 FINDINGS: The study is of fair technical quality. There is underlying sinus rhythm with first degree AV block and very frequent atrial ectopy. Left ventricle is normal size and has hyperdynamic contractility, estimated left ventricular ejection fraction (LVEF) 70 to 75%. No segmental wall motion abnormalities are noted. Right ventricle is also normal size and systolic function. Both atria appear grossly normal. Aortic valve is heavily sclerotic, but mobility is preserved. The same applies for mitral valve. There is very prominent mitral annulus calcifications and thickening of mitral leaflets. Mobility is preserved though. Tricuspid valve appears normal. Pulmonic valve was not well seen. No pericardial effusion is noted. Inferior vena cava is dilated, but collapses with inspiration indicative of normal mildly elevated central venous pressure. Aortic root and abdominal aorta appear normal. Aortic arch was not well seen. Doppler interrogation of the aortic valve reveals no significant stenosis or insufficiency. There is trace mitral and trace tricuspid insufficiency. Calculated pulmonary artery pressure is in the 30s corresponding to mild pulmonary hypertension. I was unable to determine diastolic function due to irregularity of the rate and the fact that the evaluation of mitral annulus velocities was not performed. CONCLUSIONS: 1. Study was of acceptable technical quality, underlying sinus rhythm with frequent ectopy and first degree AV block. 2. Normal LV size with preserved LV systolic function. Unable to determine diastolic function. 3. Very prominent aortic sclerosis, but no significant stenosis or insufficiency. 4. Degenerative abnormalities of mitral valve resulting in no significant functional impairment. 5. Likely normal mildly elevated central venous pressure and at least mild pulmonary hypertension. MTDD
== END 2020-07-31 17:30 | DRG 481 ==
LOC: M ED 08:30 → EDBD 08:30 → M ED INP 10:46 → ENRESERV 12:14 → M MSPAV 12:52 → M PCU 07-30 01:58
PROVIDERS: ADMIT General Practice; ATTEND Internal Medicine
PROC: 0QS606Z Reposition Right Upper Femur with Intramedullary Internal Fixation Device, Open Approach (ICD-10-PCS; principal; 2020-07-29 12:06)
DX: S72.144A Nondisplaced intertrochanteric fracture of right femur, initial encounter for closed fracture (principal); I48.20 Chronic atrial fibrillation, unspecified; E11.9 Type 2 diabetes mellitus without complications; I44.1 Atrioventricular block, second degree; Z66 Do not resuscitate; K21.9 Gastro-esophageal reflux disease without esophagitis; N40.0 Benign prostatic hyperplasia without lower urinary tract symptoms; E55.9 Vitamin D deficiency, unspecified; Z79.899 Other long term (current) drug therapy; Z88.0 Allergy status to penicillin; W22.8XXA Striking against or struck by other objects, initial encounter; Y92.002 Bathroom of unspecified non-institutional (private) residence as the place of occurrence of the external cause

== ENCOUNTER 2020-07-31 13:58 | Inpatient (IN) | payer MEDICARE, OTHER ==
[~2020-07-31] VITALS: Ht 172.7 cm; Wt 74.7 kg
[~2020-07-31 13:58] MED LIST changes: +ACET-907 PO; +ALBU8.5H INH; +D31000TA2 PO; +MIRA1POW3 PO; +OXYC-517 PO; +OXYC20TA40 PO; +PERC10TA26 PO; +SENN-52 PO; +TAMS1CAP17 PO; +THERTAB21 PO; +XARE10TA PO
[2020-07-31] MEDS ORDERED: BISACODYL 10 MG SUPP PR PRN (16:35)
[2020-07-31] MEDS ORDERED: MIRALAX *UNIT DOSE* 17GM PACKET PO PRN (16:35)
[2020-07-31 17:38] VITALS: BP 128/52
[2020-07-31] MEDS: COMBIVENT RESPIMAT 100-20MCG INHALER 4GM INH SCH (20:22)
[2020-07-31] MEDS: SENNA 8.6 MG TAB (SENOKOT) PO SCH (21:04)
[2020-07-31] MEDS: ALPRAZolam 0.5 MG TAB PO SCH (21:05)
[2020-07-31] MEDS: oxyCODONE 10 MG CR TAB PO SCH (21:05)
[2020-07-31] MEDS: ACETAMINOPHEN 500 MG TAB PO SCH (21:05)
[2020-07-31] MEDS: DOCUSATE SODIUM 100MG CAPSULE PO SCH (21:06)
[2020-07-31] MEDS: GABAPENTIN 300 MG CAP PO SCH (21:06)
[2020-07-31 22:00] VITALS: BP 111/68
[2020-08-01] MEDS: oxyCODONE 5MG TAB PO PRN ×2 (03:47→11:14)
[2020-08-01 04:30] VITALS: BP 137/81
[2020-08-01] MEDS ORDERED: PINK BISMUTH SUSP 524MG/30ML ORAL SYRINGE PO ONE (04:50)
[2020-08-01] MEDS ORDERED: CALCIUM CARBONATE 500 MG CHEW U/D PO ONE (04:50)
--- NOTE | 2020-08-01 04:51 | IPNPDOC ---
Text Note Date of Service The patient was seen on 08/01/20. NOTE I received a call from the RN to see the pt bc he was c/o chest pain At the time of my visit the pt reported that the left sided chest pain radiated to the left chest & he also had back pain, that occurred suddenly after trying to pull himself up in the hospital bed. He denied having dyspnea, denied having a history of CVA, PVD, previous LA, DM, CHF or pulmonary HTN. He occasionally payne s acid reflux. He added that both his parents have had MIs but these occurred after they were 50 yrs of age. 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
[2020-08-01] MEDS: RIVAROXABAN 10 MG TAB (XARELTO) PO SCH (05:05)
[2020-08-01] MEDS: ACETAMINOPHEN 500 MG TAB PO SCH ×3 (05:05→21:33)
[2020-08-01 05:12] LABS: BASO % 0.4 % (0.0-1.0); EOS # 0.4 10^3/uL (0.0-0.5); EOS % 3.7 % (0.0-3.0); HEMATOCRIT 40.9 % (42.0-52.0); HEMOGLOBIN 13.7 g/dl (13.5-17.5); LYMPH # 2.6 10^3/uL (1.5-5.0); LYMPH % 23.7 % (24.0-44.0); MEAN CORPUSCULAR HEMOGLOBIN 32.2 pg (27.0-33.0); MEAN CORPUSCULAR HGB CONC 33.5 g/dl (32.0-36.5); MONO # 1.1 10^3/uL (0.0-0.8); MONO % 9.4 % (2.0-8.0); NEUTROPHILS % 62.4 % (36.0-66.0); PLATELET COUNT, AUTOMATED 254 10^3/uL (150-450); RED BLOOD COUNT 4.26 10^6/uL (4.30-6.10); WHITE BLOOD COUNT 11.1 10^3/uL (4.0-10.0)
[2020-08-01 05:43] LABS: ALT/SGPT 20 U/L (12-78); BILIRUBIN,TOTAL 0.7 MG/DL (0.2-1.0); BLOOD UREA NITROGEN 13 MG/DL (7-18); CALCIUM LEVEL 8.9 MG/DL (8.8-10.2); CARBON DIOXIDE LEVEL 29 MEQ/L (21-32); CHLORIDE LEVEL 104 MEQ/L (98-107); CREATININE FOR GFR 0.64 MG/DL (0.70-1.30); GLOMERULAR FILTRATION RATE > 60.0 (>35); GLUCOSE, FASTING 105 MG/DL (70-100); POTASSIUM SERUM 4.5 MEQ/L (3.5-5.1); SODIUM LEVEL 137 MEQ/L (136-145); TOTAL PROTEIN 6.3 GM/DL (6.4-8.2); TROPONIN I < 0.02 NG/ML (< 0.10)
[2020-08-01 06:09] VITALS: BP 129/77
--- NOTE | 2020-08-01 07:32 | HPEPDOC ---
Rayon Winder Note DATE OF ADMISSION: 07-31-20 DATE OF SERVICE: 08-01-20 TIME OF ADMISSION: Please refer to physician's admission order. SOURCE OF ADMISSION INFORMATION: [facility] record and patient CHIEF COMPLAINT: right hip fracture HISTORY OF PRESENT ILLNESS: 80M pmh multiple back surgeries, chronic opioid use, spinal stimulator, GERD, gastric ulcer s/p repair, s/p gastric bypass surgery, chronic afib s/p ablation not on AC, who fell at home and presented to [facility] ED on 07-29-20 complaining of right leg pain and difficulty walking. Hip x-ray revealed Nondisplaced fracture intertrochanteric region proximal right femur. CTH was performed showing no acute bleed or mass. He was evaluated by orthopedics who performed an ORIF on 07/29/20 after which he developed post-op anemia and leukocytosis. He was transferred to PCU on 07/30/20 for sinus bradycardia with second degree heart block which resolved. He reported cough which began a week prior when he had had bronchitis. He was noted to have mobility and ADL impairments and deemed medically appropriate for discharge to ARU on 07-31-20. Overnight patient complained of left sided chest pain after pulling himself up in bed using his arms overhead with subsequent cardiac work-up negative. Patient's symptoms also responded to pepto bismol and tums. REVIEW OF SYSTEMS: The following is a completed review of systems and has been reviewed. Review of systems otherwise unremarkable. PAIN: Patient self reports right hip and low back pain EYES: No recent vision changes EARS, NOSE, & THROAT: No throat pain, or dysphagia, or rhinorrhea CARDIOVASCULAR: Denies chest pain or palpitations PULMONARY: +cough GASTROINTESTINAL: Denies constipation/diarrhea GENITOURINARY: denies dysuria MUSCULOSKELETAL: s/p right hip ORIF NEUROLOGICAL:denies paresthesias or tremors HEMATOLOGICAL: denies easy bruising SKIN: right hip incision PSYCHIATRIC: Unremarkable All other review of systems found to be negative. PAST MEDICAL HISTORY: As per HPI PAST SURGICAL HISTORY: As per HPI ALLERGIES: Please see below. MEDICATIONS: Please see below. FAMILY HISTORY: Cardiac and DM SOCIAL HISTORY: former cigarette smoker, daily cigar smoker, no etoh, no illicit drugs DIET: 2 gram sodium PHYSICAL EXAMINATION: VITAL SIGNS: Please see below. GENERAL: Pleasant and cooperative. No acute distress. HEENT: PERRL. Extraocular movements intact. Clear conjunctiva CARDIOVASCULAR: Regular rate and rhythm. No murmurs, rubs, or gallops LUNGS: mostly Clear to auscultation bilaterally with scattered wheeze ABDOMEN: Soft, nontender, nondistended. Positive bowel sounds. Normal active bowel sounds NEUROLOGICAL: Alert and oriented times three. Cranial nerves II through XII grossly intact. Sensation grossly intact all 4 limbs including 1st web space of right foot EXTREMITIES: 5-\5 strength bilateral upper extremities. right ankle DF 5-/5 (limited due to recent surgery) .5-/5 strength in left lower extremity. SKIN: right hip incision c/d/i no induration or ecchymosis LABORATORY DATA: Please see below. IMAGING:Imaging documentation personally reviewed by record FUNCTIONAL STATUS: Premorbid: Mod-Independent with all activities of daily life as well as mobility On Admission: Contact guard bed mobility, functional transfers, toileting, dressing, ambulating (5ft) GOALS: Mod-Independent with all activities of daily life as well as mobility ASSESSMENT:80-year-old M with past medical history of chronic low back pain who presents status post fall with right femur fracture PLAN: 1. Rehab- PT/OT advance mobility and ADLs, WBAT to RLE, strengthen/stretch/jj ntain ROM all 4 limbs 2. Ortho- s/p right hip ORIF 07/29/[address] Ham, WBAT f/u outpati ent 3. CArdiac- hx of chronic afib s/p ablation, not on AC or beta ritu, noted to have recent sinus bradycardia with 2nd degree AV block asymptomatic-will refer to supervisor transferring and boxing to eval for possible pacemaker -chest pain overnight on 08/01/20 resolved following pepto-bismol and tums, cardiac enzymes negative -BPs well controlled, not on meds -medicine consulted to assist in overall management 4. Resp- + cigar smoker with recent bronchitis, monitor for worsening respiratory infection, Combivent and guaifenesin, sputum cx ordered -incentive spirometry 5. GI- hx of gastric ulcers, c/u Protonix, will add sucralfate now that he is on xarelto 6. DVT ppx- xarelto 7. Pain- hx of chronic low back pain s/p multiple surgeries on chronic opioids, c/u oxycodone 20mg CR BID and oxycodone 10mg q6h prn, increase gabapentin to 600mg TID to better address pain -tylneol 8. Psych- x/u xanax qhs- monitor for sedation/AMS while on oioids 9. - c/u flomax for bph 10. Dispo- TBD POST ADMISSION PHYSICIAN EVALUATION: Medical and functional status: Description of medical status, medical assessment: As above. Rehabilitation diagnosis and current and prior cold morbid medical conditions as above. Risk of complications and plans to mitigate them as above. Description of functional status current status is as above. Prior status as above. Status compared to preadmission: There are no clinically significant differences between the patient's current status and the information described on the preadmission screening document. Treatment plan anticipated: Treatment plan is as described above. Required disciplines including physical therapy, occupational therapy, others as noted above. Intensity of services: 3 hours a day, 6 days a week. Special considerations: There are no specific special or safety considerations that would likely preclude immediate implementation of an intensive rehabilitation program or subsequently influence the plan of care. ATTESTATION: Considering all the information above, it is my best judgment that this patient requires intensive rehabilitation therapy as described above and an inpatient hospital environment due to the complexity of nursing, medical, and rehabilitation needs required by the patient. Furthermore, this patient can re asonably be expected to participate in an benefit from an inpatient rehabilitation stay with an interdisciplinary team approach to the delivery of rehabilitation care under the direction and supervision of rehabilitation physician. PROGNOSIS: good ESTIMATED LENGTH OF STAY:12-14 days. PROJECTED DISCHARGE DESTINATION: Home with family support and any durable medical equipment required to increase functional safety and mobility TIME SPENT COUNSELING AND COORDINATING INITIAL CARE: Greater than 70 minutes. Vital Signs Vital Sign - Last 24 Hours 07/31/20 07/31/20 07/31/20 07/31/20 17:38 17:45 21:05 22:00 Temp 98.5 97.5 Pulse 106 95 Resp 20 20 18 20 B/P (MAP) 128/52 (77) 111/68 (82) Pulse Ox 93 95 O2 Delivery Room Air Room Air Room Air Room Air 07/31/20 08/01/20 08/01/20 08/01/20 23:37 03:47 04:17 04:30 Pulse 64 Resp 18 18 18 18 B/P (MAP) 137/81 (99) Pulse Ox 98 O2 Delivery Room Air Room Air 08/01/20 06:09 Temp 97.8 Pulse 62 Resp 18 B/P (MAP) 129/77 (94) Pulse Ox 93 O2 Delivery Room Air Laboratory Data CBC/BMP Laboratory Tests 08/01/20 05:01 Labs 24H Laboratory Tests 2 08/01/20 05:01: Immature Granulocyte % (Auto) 0.4, Neutrophils (%) (Auto) 62.4, Lymphocytes (%) (Auto) 23.7L, Monocytes (%) (Auto) 9.4H, Eosinophils (%) (Auto) 3.7H, Basophils (%) (Auto) 0.4, Neutrophils # (Auto) 7.0, Lymphocytes # (Auto) 2.6, Monocytes # (Auto) 1.1H, Eosinophils # (Auto) 0.4, Basophils # (Auto) 0.0, Nucleated Red Blood Cells % (auto) 0.0, Anion Gap 4L, Glomerular Filtration Rate > 60.0, Calcium Level 8.9, Total Bilirubin 0.7, Aspartate Amino Transf (AST/SGOT) 19, Alanine Aminotransferase (ALT/SGPT) 20, Alkaline Phosphatase 104, Troponin I < 0.02, Total Protein 6.3L, Albumin 3.0L, Albumin/Globulin Ratio 0.9 Home Medications Scheduled Alprazolam (Alprazolam Odt) 0.5 Mg Tab.rapdis, 0.5 MG PO QHS, (Reported) Calcium Carbonate (Calcium) 500 Mg Tablet, 500 MG PO DAILY, (Reported) Cholecalciferol (Vitamin D3) (Vitamin D3) 1,000 Unit Tablet, 1,000 UNITS PO DAILY, (Reported) Gabapentin (Gabapentin) 300 Mg Capsule, 300 MG PO TID, (Reported) Multivit,Calc,Mins/Iron/Folic (Thera-M Tablet) 1 Each Tablet, 1 TAB PO DAILY, (Reported) Omeprazole (Omeprazole) 40 Mg Cap, 40 MG PO DAILY, (Reported) Oxycodone HCl (Oxycontin) 20 Mg Tab.er.12h, 20 MG PO BID, (Reported) Rivaroxaban (Xarelto) 10 Mg Tablet, 10 MG PO DAILY@0600 Tamsulosin Hcl (Tamsulosin HCl) 0.4 Mg Capsule, 0.4 MG PO DAILY, (Reported) [medical marijuana] , QPM, (Reported) Scheduled PRN Acetaminophen (Tylenol) 325 Mg Tablet, 650 MG PO Q6HP PRN for PAIN OR FEVER Albuterol Sulfate (Albuterol Sulfate Hfa) 8.5 Gm Hfa.aer.ad, 2 PUFF INH Q4H PRN for SOB/WHEEZING, (Reported) Oxycodone HCl (Oxycodone HCl) 5 Mg Tablet, 10 MG PO Q6HP PRN for SEVERE PAIN (PS 8-10) Polyethylene Glycol 3350 (Miralax) 17 Gm Powd.pack, 1 PKT PO DAILYPRN PRN for CONSTIPATION Sennosides/Docusate Sodium (Senna Plus Tablet) 1 Each Tablet, 2 TAB PO BIDP PRN for CONSTIPATION Allergies Coded Allergies: Penicillins (Verified Adverse Reaction, Mild, itchy, 02/07/19) A-FIB/CHADSVASC A-FIB History Current/History of A-Fib/PAF?: Yes Current PO Anticoag Therapy: No ALEXANDRA QUINTANA MD August 01, 2020 07:31
[2020-08-01] MEDS: COMBIVENT RESPIMAT 100-20MCG INHALER 4GM INH SCH ×3 (08:06→20:20)
--- NOTE | 2020-08-01 08:55 | ECGEPIP ---
[facility] Test Date: 2020-08-01 Pat Name: SERVANDO BLAIR Department: Room: [place] [address] Gender: Male Building Official: : [id number] Requested By: THERESA GUARDADO Order Number: [id number] Reading MD: Eddi Rosa Measurements Intervals [place] Rate: 74 P: 73 TX: QRS: 16 QRSD: 82 T: 29 QT: 380 QTc: 421 Interpretive Statements Sinus rhythm with 2nd degree AV block (Mobitz I) Previous tracing may have had progressively increasing TX interval hidden in b baseline artifact Electronically Signed on 08-01-2020 8:55:09 EDT by Eddi Rosa
[2020-08-01] MEDS: GABAPENTIN 300 MG CAP PO SCH ×3 (09:21→21:34)
[2020-08-01] MEDS: TAMSULOSIN 0.4 MG CAP PO SCH (09:21)
[2020-08-01] MEDS: PANTOPRAZOLE 40MG TAB (PROTONIX) PO SCH (09:21)
[2020-08-01] MEDS: MULTIVITAMINS/MINERALS THERAP 1 TAB PO SCH (09:21)
[2020-08-01] MEDS: VITAMIN D 1,000 INTERNATIONAL UNITS TABLET PO SCH (09:21)
[2020-08-01] MEDS: DOCUSATE SODIUM 100MG CAPSULE PO SCH ×2 (09:21→21:33)
[2020-08-01] MEDS: OYSTER SHELL CALCIUM 500 MG TAB PO SCH (09:21)
[2020-08-01] MEDS: oxyCODONE 10 MG CR TAB PO SCH ×2 (09:22→21:35)
--- NOTE | 2020-08-01 12:47 | IPNPDOC ---
Date Seen The patient was seen on 08/01/20. Progress Note SUBJECTIVE: Overnight patient complained of chest pain after pulling self up in bed by both upper ext. Cardiac w/u done, trop neg, ECG similar to last on file. Was given Tums and Peptol Bismol and this helped slightly. No chest pain this AM on exam. Complains of increased congestion similar to recent symptoms with bronchitis several weeks ago. Denies incr SOB, fevers, chills, n/v/d. OBJECTIVE: PHYSICAL EXAM: Vital Signs: Please see below General: NAD, sitting up in wheelchair HEENT: No jugular venous distension (JVD); no thyromegaly, cervical lymphadenopathy or carotid bruits. Heart: S1, S2, regularly irregular. No pitting edema. Lungs: CTAB, no wheezing/rhonchi or rales Abdomen: Soft, nontender, nondistended. Positive bowel sounds. Extremities: Right hip incision appears clean. LABORATORY DATA: Please see below IMAGING: No new imaging ASSESSMENT: This is an 80-year-old male admitted on 07/29/2020 status post mechanical fall; found to have a right nondisplaced proximal femoral fracture s/p cephalomedullary nail fixation currently admitted to ARU for continued rehabilitation . PLAN: Chest pain likely musculoskeletal vs. GERD -Not cardiac in nature, neg trop, no ECG changes -Mild relief with TUMs, Peptol Bismol -Pain not recreatable on exam today -Monitor closely -PPI Chest congestion, possibly bronchitis -Currently saturating well on RA, no incr SOB -Recently diagnosed several weeks ago, has similar symptoms of mild cough, occasional productive sputum -Guaifenesin, consider adding acapella Q2H while awake Right hip fracture s/p right hip cephalomedullary nail fixation on 07/29/2020 (ortho- Dr. Ham) -Pain better controlled, no post-op complications -F/u with ortho Dr. Perez on 08/24/20 -C/w AC, pain control with BR, PT/OT, continue ROM and strengthening, mobilize WBAT in rehab Benign prostatic hypertrophy (BPH) -Stable -Tamsulosin Sinus bradycardia, 1.7 seconds and second degree type I Wenckebach- isolated event -TSH wnl, denies chest pain, palpitations, incr SOB- was asymptomatic on this isolated event -Discussed with cards this admission, no further w/u due to not occurring again. -if occurs again, officially consult cards Chronic atrial fibrillation s/p ablation hx -Rate controlled -C/w Xarelto Vitamin D deficiency -C/w supplementation Type 2 diabetes -Continue to monitor closely with carbohydrate diet , ISS, hypoglycemic protocol. GERD -PPI DVT PX -xarelto DISPOSITION: Will continue to follow regularly while in ARU. VS, I&O, 24H, Fishbone Vital Signs/I&O Vital Signs Date Time Temp Pulse Resp B/P (MAP) Pulse Ox O2 Delivery O2 Flow Rate FiO2 08/01/20 11:44 18 08/01/20 06:09 97.8 62 129/77 (94) 93 Room Air I&O- Last 24 Hours up to 6 AM 08/01/20 06:00 Intake Total 200 ml Output Total 300 ml Balance -100 ml Laboratory Data 24H LABS Laboratory Tests 2 08/01/20 05:01: Immature Granulocyte % (Auto) 0.4, Neutrophils (%) (Auto) 62.4, Lymphocytes (%) (Auto) 23.7L, Monocytes (%) (Auto) 9.4H, Eosinophils (%) (Auto) 3.7H, Basophils (%) (Auto) 0.4, Neutrophils # (Auto) 7.0, Lymphocytes # (Auto) 2.6, Monocytes # (Auto) 1.1H, Eosinophils # (Auto) 0.4, Basophils # (Auto) 0.0, Nucleated Red Blood Cells % (auto) 0.0, Anion Gap 4L, Glomerular Filtration Rate > 60.0, Calcium Level 8.9, Total Bilirubin 0.7, Aspartate Amino Transf (AST/SGOT) 19, Alanine Aminotransferase (ALT/SGPT) 20, Alkaline Phosphatase 104, Troponin I < 0.02, Total Protein 6.3L, Albumin 3.0L, Albumin/Globulin Ratio 0.9 CBC/BMP Laboratory Tests 08/01/20 05:01 Scarlett Rosales MD August 01, 2020 12:47
[2020-08-01] MEDS: SUCRALFATE 1 GM TAB PO SCH ×3 (13:42→21:33)
[2020-08-01] MEDS: guaiFENesin 200 MG TAB PO SCH ×2 (13:43→21:33)
[2020-08-01 14:00] VITALS: BP 115/59
[2020-08-01 20:00] VITALS: BP 115/59
[2020-08-01] MEDS: SENNA 8.6 MG TAB (SENOKOT) PO SCH (21:33)
[2020-08-01] MEDS: ALPRAZolam 0.5 MG TAB PO SCH (21:33)
[2020-08-02] MEDS: oxyCODONE 5MG TAB PO PRN ×3 (00:11→12:33)
[2020-08-02] MEDS: RIVAROXABAN 10 MG TAB (XARELTO) PO SCH (05:16)
[2020-08-02] MEDS: ACETAMINOPHEN 500 MG TAB PO SCH ×3 (05:16→21:35)
[2020-08-02 06:23] VITALS: BP 122/76
[2020-08-02] MEDS: SUCRALFATE 1 GM TAB PO SCH ×4 (07:45→21:36)
[2020-08-02] MEDS: DOCUSATE SODIUM 100MG CAPSULE PO SCH ×2 (08:27→21:35)
[2020-08-02] MEDS: TAMSULOSIN 0.4 MG CAP PO SCH (08:27)
[2020-08-02] MEDS: VITAMIN D 1,000 INTERNATIONAL UNITS TABLET PO SCH (08:27)
[2020-08-02] MEDS: guaiFENesin 200 MG TAB PO SCH ×2 (08:28→21:35)
[2020-08-02] MEDS: GABAPENTIN 300 MG CAP PO SCH ×3 (08:28→21:36)
[2020-08-02] MEDS: PANTOPRAZOLE 40MG TAB (PROTONIX) PO SCH (08:30)
[2020-08-02] MEDS: MULTIVITAMINS/MINERALS THERAP 1 TAB PO SCH (08:30)
[2020-08-02] MEDS: oxyCODONE 10 MG CR TAB PO SCH ×2 (08:30→21:34)
[2020-08-02] MEDS: OYSTER SHELL CALCIUM 500 MG TAB PO SCH (08:30)
--- NOTE | 2020-08-02 10:48 | IPNPDOC ---
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 He states his cough is better, but he is still brining up brown mucus. REVIEW OF SYSTEMS: The following is a completed review of systems and has been reviewed. Review of systems otherwise unremarkable. PAIN: Patient self reports right hip and low back pain EYES: No recent vision changes EARS, NOSE, & THROAT: No throat pain, or dysphagia, or rhinorrhea CARDIOVASCULAR: Denies chest pain or palpitations PULMONARY: +cough GASTROINTESTINAL: Denies constipation/diarrhea GENITOURINARY: denies dysuria MUSCULOSKELETAL: s/p right hip ORIF NEUROLOGICAL:denies paresthesias or tremors HEMATOLOGICAL: denies easy bruising SKIN: right hip incision PSYCHIATRIC: Unremarkable All other review of systems found to be negative. PHYSICAL EXAMINATION: VITAL SIGNS: Please see below. GENERAL: Pleasant and cooperative. No acute distress. HEENT: PERRL. Extraocular movements intact. Clear conjunctiva CARDIOVASCULAR: Regular rate and rhythm. No murmurs, rubs, or gallops LUNGS: Clear to auscultation ABDOMEN: Soft, nontender, nondistended. Positive bowel sounds. Normal active bowel sounds NEUROLOGICAL: Alert and oriented times three. Cranial nerves II through XII grossly intact. Sensation grossly intact all 4 limbs including 1st web space of right foot EXTREMITIES: 5-\5 strength bilateral upper extremities. right ankle DF 5-/5 (limited due to recent surgery) .5-/5 strength in left lower extremity. SKIN: right hip incision c/d/i no induration or ecchymosis ASSESSMENT:80-year-old M with past medical history of chronic low back pain who presents status post fall with right femur fracture PLAN: 1. Rehab- PT/OT advance mobility and ADLs, WBAT to RLE, strengthen/stretch/maintain ROM all 4 limbs 2. Ortho- s/p right hip ORIF 07/29/[address] Ham, WBAT f/u outpatient 3. CArdiac- hx of chronic afib s/p ablation, not on AC or beta ritu, noted to have recent sinus bradycardia with 2nd degree AV block asymptomatic-will refer to wireless watcher to [employer]ula for possible pacemaker- he has worked with Dr. Chamberlain in past -chest pain overnight on 5/19/21 resolved following pepto-bismol and tums, cardiac enzymes negative- no further chest pain -BPs well controlled, not on meds -medicine consulted to assist in overall management 4. Resp- + cigar smoker with recent bronchitis, monitor for worsening respiratory infection, Combivent and guaifenesin, sputum cx ordered-cough imp roving -incentive spirometry 5. GI- hx of gastric ulcers, c/u Protonix, c/u sucralfate now that he is on xarelto 6. DVT ppx- xarelto 7. Pain- hx of chronic low back pain s/p multiple surgeries on chronic opioids, c/u oxycodone 20mg CR BID and oxycodone 10mg q6h prn, increase gabapentin to 600mg TID to better address pain -tylneol 8. Psych- x/u xanax qhs- monitor for sedation/AMS while on opioids -rozerem added for insomnia 9. - c/u flomax for bph 10. Dispo- TBD Allergies Coded Allergies: Penicillins (Verified Adverse Reaction, Mild, itchy, 02/07/19) Vital Signs Vital Signs Date Time Temp Pulse Resp B/P (MAP) Pulse Ox O2 Delivery O2 Flow Rate FiO2 08/02/20 08:30 18 Room Air 08/02/20 06:23 97.2 91 122/76 (91) 98 Current Medications Current Medications Current Medications Medications (Trade) Dose Ordered Sig/Lyly Route PRN Reason Start Time Stop Time Status Last Admin Dose Admin Acetaminophen (Tylenol Tab) 1,000 mg Q8H PO 07/31/20 22:00 08/02/20 05:16 Albuterol/ Ipratropium (Combivent Respimat 100-20mcg) 1 puff RTID INH 07/31/20 20:00 08/01/20 20:20 Alprazolam (Xanax) 0.5 mg QHS PO 07/31/20 21:00 08/01/20 21:33 Bisacodyl (Dulcolax Suppository) 10 mg DAILYPRN PRN ND CONSTIPATION 07/31/20 16:35 Calcium Carbonate (Oscal) 500 mg DAILY PO 08/01/20 09:00 08/02/20 08:30 Docusate Sodium (Colace) 100 mg BID PO 07/31/20 21:00 08/02/20 08:27 Gabapentin (Neurontin) 300 mg TID PO 07/31/20 21:00 08/01/20 12:34 DC 08/01/20 09:21 Gabapentin (Neurontin) 600 mg TID PO 08/01/20 16:00 08/02/20 08:28 Guaifenesin (Robitussin Tab) 400 mg BID PO 08/01/20 09:00 08/02/20 08:28 Multivitamins (Theragram-M) 1 tab DAILY PO 08/01/20 09:00 08/02/20 08:30 Oxycodone HCl (OxyCONTIN) 20 mg BID PO 07/31/20 21:00 08/02/20 08:30 Oxycodone HCl (Roxicodone, Oxyir) 10 mg Q6HP PRN PO SEVERE PAIN (PS 8-10) 07/31/20 16:35 08/02/20 06:42 Pantoprazole Sodium (Protonix) 40 mg DAILY PO 08/01/20 09:00 08/02/20 08:30 Polyethylene Glycol (Miralax) 1 pkt DAILY PRN PO CONSTIPATION 07/31/20 16:35 Rivaroxaban (Xarelto) 10 mg DAILY@0600 PO 08/01/20 06:00 08/02/20 05:16 Senna (Senokot) 1 tab QHS PO 07/31/20 21:00 08/01/20 21:33 Sucralfate (Carafate) 1 gm ACHS PO 08/01/20 12:00 08/02/20 07:45 Tamsulosin HCl (Flomax) 0.4 mg DAILY PO 08/01/20 09:00 08/02/20 08:27 Vitamin D (Vitamin D) 1,000 units DAILY PO 08/01/20 09:00 08/02/20 08:27 ALEXANDRA QUINTANA MD August 02, 2020 10:48
[2020-08-02 14:00] VITALS: BP 160/98
[2020-08-02] MEDS: COMBIVENT RESPIMAT 100-20MCG INHALER 4GM INH SCH (20:35)
[2020-08-02 21:00] VITALS: BP 112/73
[2020-08-02] MEDS ORDERED: RAMELTEON 8 MG TAB (ROZEREM) PO SCH (21:00)
[2020-08-02] MEDS: SENNA 8.6 MG TAB (SENOKOT) PO SCH (21:34)
[2020-08-02] MEDS: ALPRAZolam 0.5 MG TAB PO SCH (21:35)
[2020-08-03] MEDS ORDERED: POLYVINYL ALCOHOL OPHTH SOLN 15 ML(LIQUITEARS) OU PRN (00:55)
[2020-08-03] MEDS ORDERED: prednisoLONE ACET 1% OPHTH SUSP 5ML OD PRN (00:55)
[2020-08-03] MEDS: oxyCODONE 5MG TAB PO PRN ×2 (01:34→12:49)
[2020-08-03] MEDS: RIVAROXABAN 10 MG TAB (XARELTO) PO SCH (05:29)
[2020-08-03] MEDS: ACETAMINOPHEN 500 MG TAB PO SCH ×3 (05:29→21:32)
[2020-08-03 06:00] VITALS: BP 122/70
[2020-08-03] MEDS: COMBIVENT RESPIMAT 100-20MCG INHALER 4GM INH SCH ×3 (08:00→23:42)
[2020-08-03] MEDS: GABAPENTIN 300 MG CAP PO SCH ×3 (08:53→20:08)
[2020-08-03] MEDS: MULTIVITAMINS/MINERALS THERAP 1 TAB PO SCH (08:53)
[2020-08-03] MEDS: DOCUSATE SODIUM 100MG CAPSULE PO SCH ×2 (08:53→19:58)
[2020-08-03] MEDS: VITAMIN D 1,000 INTERNATIONAL UNITS TABLET PO SCH (08:53)
[2020-08-03] MEDS: TAMSULOSIN 0.4 MG CAP PO SCH (08:54)
[2020-08-03] MEDS: guaiFENesin 200 MG TAB PO SCH ×2 (08:54→20:08)
[2020-08-03] MEDS: OYSTER SHELL CALCIUM 500 MG TAB PO SCH (08:54)
[2020-08-03] MEDS: PANTOPRAZOLE 40MG TAB (PROTONIX) PO SCH (08:54)
[2020-08-03] MEDS: oxyCODONE 10 MG CR TAB PO SCH ×2 (08:55→19:45)
[2020-08-03] MEDS: SUCRALFATE 1 GM TAB PO SCH ×4 (09:03→20:08)
[2020-08-03 10:14] LABS: BASO % 0.4 % (0.0-1.0); EOS # 0.3 10^3/uL (0.0-0.5); EOS % 3.2 % (0.0-3.0); HEMATOCRIT 39.7 % (42.0-52.0); HEMOGLOBIN 13.3 g/dl (13.5-17.5); LYMPH # 2.3 10^3/uL (1.5-5.0); LYMPH % 27.6 % (24.0-44.0); MEAN CORPUSCULAR HEMOGLOBIN 32.4 pg (27.0-33.0); MEAN CORPUSCULAR HGB CONC 33.5 g/dl (32.0-36.5); MEAN CORPUSCULAR VOLUME 96.8 fl (80.0-96.0); MONO # 0.9 10^3/uL (0.0-0.8); MONO % 11.4 % (2.0-8.0); NEUTROPHILS # 4.7 10^3/uL (1.5-8.5); NEUTROPHILS % 57.2 % (36.0-66.0); PLATELET COUNT, AUTOMATED 331 10^3/uL (150-450); WHITE BLOOD COUNT 8.3 10^3/uL (4.0-10.0)
[2020-08-03 10:48] LABS: BLOOD UREA NITROGEN 20 MG/DL (7-18); CALCIUM LEVEL 8.9 MG/DL (8.8-10.2); CARBON DIOXIDE LEVEL 26 MEQ/L (21-32); CHLORIDE LEVEL 105 MEQ/L (98-107); CREATININE FOR GFR 0.66 MG/DL (0.70-1.30); GLOMERULAR FILTRATION RATE > 60.0 (>35); GLUCOSE, FASTING 100 MG/DL (70-100); POTASSIUM SERUM 4.4 MEQ/L (3.5-5.1); SODIUM LEVEL 139 MEQ/L (136-145)
--- NOTE | 2020-08-03 11:35 | IPNPDOC ---
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 He believes it is allergy related and reports a warm wet compress always helps. He is interested in trying claritin and flonase. REVIEW OF SYSTEMS: The following is a completed review of systems and has been reviewed. Review of systems otherwise unremarkable. PAIN: Patient self reports right hip and low back pain EYES: No recent vision changes EARS, NOSE, & THROAT: No throat pain, or dysphagia, or rhinorrhea CARDIOVASCULAR: Denies chest pain or palpitations PULMONARY: +cough GASTROINTESTINAL: Denies constipation/diarrhea GENITOURINARY: denies dysuria MUSCULOSKELETAL: s/p right hip ORIF NEUROLOGICAL:denies paresthesias or tremors HEMATOLOGICAL: denies easy bruising SKIN: right hip incision PSYCHIATRIC: Unremarkable All other review of systems found to be negative. PHYSICAL EXAMINATION: VITAL SIGNS: Please see below. GENERAL: Pleasant and cooperative. No acute distress. HEENT: PERRL. Extraocular movements intact. Clear conjunctiva CARDIOVASCULAR: Regular rate and rhythm. No murmurs, rubs, or gallops LUNGS: Clear to auscultation ABDOMEN: Soft, nontender, nondistended. Positive bowel sounds. Normal active bowel sounds NEUROLOGICAL: Alert and oriented times three. Cranial nerves II through XII grossly intact. Sensation grossly intact all 4 limbs including 1st web space of right foot EXTREMITIES: 5-\5 strength bilateral upper extremities. right ankle DF 5-/5 (limited due to recent surgery) .5-/5 strength in left lower extremity. SKIN: right hip incision c/d/i no induration or ecchymosis ASSESSMENT:80-year-old M with past medical history of chronic low back pain who presents status post fall with right femur fracture PLAN: 1. Rehab- PT/OT advance mobility and ADLs, WBAT to RLE, strengthen/stretch/maintain ROM all 4 limbs- ambulating with RW 2. Ortho- s/p right hip ORIF 07/29/[address] Ham, WBAT f/u outpatient 3. 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 Chamberlain in past -chest pain overnight on 08/01/20 resolved following pepto-bismol and tums, cardiac enzymes negative- no further chest pain -BPs well controlled, not on meds -medicine consulted to assist in overall management 4. Resp- + cigar smoker with recent bronchitis, monitor for worsening respirator y infection, Combivent and guaifenesin, sputum cx ordered-cough improving -incentive spirometry -flonase, claritin for seasonal allergies and warm compress to right eye 5. GI- hx of gastric ulcers, c/u Protonix, c/u sucralfate now that he is on xarelto 6. DVT ppx- xarelto 7. Pain- hx of chronic low back pain s/p multiple surgeries on chronic opioids, c/u oxycodone 20mg CR BID and oxycodone 10mg q6h prn, increase gabapentin to 600mg TID to better address pain -tylneol 8. Psych- x/u xanax qhs- monitor for sedation/AMS while on opioids -rozerem not effective, will trial trazodone 9. - c/u flomax for bph 10. Dispo- TBD Allergies Coded Allergies: Penicillins (Verified Adverse Reaction, Mild, itchy, 02/07/19) Vital Signs Vital Signs Date Time Temp Pulse Resp B/P (MAP) Pulse Ox O2 Delivery O2 Flow Rate FiO2 08/03/20 08:55 16 08/03/20 06:00 97.7 80 122/70 (87) 95 Room Air Laboratory Data CBC/BMP Laboratory Tests 08/03/20 06:00 Labs 24H Laboratory Tests 2 08/03/20 06:00: Immature Granulocyte % (Auto) 0.2, Neutrophils (%) (Auto) 57.2, Lymphocytes (%) (Auto) 27.6, Monocytes (%) (Auto) 11.4H, Eosinophils (%) (Auto) 3.2H, Basophils (%) (Auto) 0.4, Neutrophils # (Auto) 4.7, Lymphocytes # (Auto) 2.3, Monocytes # (Auto) 0.9H, Eosinophils # (Auto) 0.3, Basophils # (Auto) 0.0, Nucleated Red Blood Cells % (auto) 0.0, Anion Gap 8, Glomerular Filtration Rate > 60.0, Calcium Level 8.9 Current Medications Current Medications Current Medications Medications (Trade) Dose Ordered Sig/Lyly Route PRN Reason Start Time Stop Time Status Last Admin Dose Admin Acetaminophen (Tylenol Tab) 1,000 mg Q8H PO 07/31/20 22:00 08/03/20 05:29 Albuterol/ Ipratropium (Combivent Respimat 100-20mcg) 1 puff RTID INH 07/31/20 20:00 08/02/20 20:35 Alprazolam (Xanax) 0.5 mg QHS PO 07/31/20 21:00 08/02/20 21:35 Artificial Tears (Akwa Tears) 2 drop TIDP PRN OU DRY EYES 08/03/20 00:55 08/03/20 01:33 Bisacodyl (Dulcolax Suppository) 10 mg DAILYPRN PRN [place] CONSTIPATION 07/31/20 16:35 Calcium Carbonate (Oscal) 500 mg DAILY PO 08/01/20 09:00 08/03/20 08:54 Docusate Sodium (Colace) 100 mg BID PO 07/31/20 21:00 08/03/20 08:53 Gabapentin (Neurontin) 300 mg TID PO 07/31/20 21:00 08/01/20 12:34 DC 08/01/20 09:21 Gabapentin (Neurontin) 600 mg TID PO 08/01/20 16:00 08/03/20 08:53 Guaifenesin (Robitussin Tab) 400 mg BID PO 08/01/20 09:00 08/03/20 08:54 Multivitamins (Theragram-M) 1 tab DAILY PO 08/01/20 09:00 08/03/20 08:53 Oxycodone HCl (OxyCONTIN) 20 mg BID PO 07/31/20 21:00 08/03/20 08:55 Oxycodone HCl (Roxicodone, Oxyir) 10 mg Q6HP PRN PO SEVERE PAIN (PS 8-10) 07/31/20 16:35 08/03/20 01:34 Pantoprazole Sodium (Protonix) 40 mg DAILY PO 08/01/20 09:00 08/03/20 08:54 Polyethylene Glycol (Miralax) 1 pkt DAILY PRN PO CONSTIPATION 07/31/20 16:35 Prednisolone Acetate (Predforte 1% Ophth Susp) 2 drop DAILYPRN PRN [place] PAIN OR DISCOMFORT 08/03/20 00:55 08/03/20 01:32 Ramelteon (Rozerem) 8 mg QHS PO 08/02/20 21:00 08/02/20 21:34 Rivaroxaban (Xarelto) 10 mg DAILY@0600 PO 08/01/20 06:00 08/03/20 05:29 Senna (Senokot) 1 tab QHS PO 07/31/20 21:00 08/02/20 21:34 Sucralfate (Carafate) 1 gm ACHS PO 08/01/20 12:00 08/03/20 09:03 Tamsulosin HCl (Flomax) 0.4 mg DAILY PO 08/01/20 09:00 08/03/20 08:54 Vitamin D (Vitamin D) 1,000 units DAILY PO 08/01/20 09:00 08/03/20 08:53 ALEXANDRA QUINTANA MD August 03, 2020 11:35
--- NOTE | 2020-08-03 12:56 | IPNPDOC ---
Text Note Date of Service The patient was seen on 08/03/20. NOTE Pt seen and examined, No overnight events. PHYSICAL EXAM: General: NAD HEENT: No jugular venous distension (JVD); no thyromegaly, cervical lymphadenopathy or carotid bruits. Heart: S1, S2, regularly irregular. No pitting edema. Lungs: CTAB, no wheezing/rhonchi or rales Abdomen: Soft, nontender, nondistended. Positive bowel sounds. Extremities: Right hip incision appears clean. ASSESSMENT and PLAN This is an 80-year-old male admitted on 07/29/2020 status post mechanical fall; found to have a right nondisplaced proximal femoral fracture s/p cephalomedullary nail fixation currently admitted to ARU for continued rehabilitation . 1) Right hip fracture s/p right hip cephalomedullary nail fixation on 07/29/2020 (ortho- Dr. Ham) : Pain better controlled, no post-op complications, F/u with ortho Dr. Perez on 08/24/20, C/w AC with xeralto , pain control with BR, PT/OT, continue ROM and strengthening, mobilize WBAT in rehab 2) Chest pain likely musculoskeletal vs. GERD: Resolved. Not cardiac in nature, neg trop, no ECG changes. PPI 3) Benign prostatic hypertrophy (BPH): Continue Tamsulosin 4) Sinus bradycardia, 1.7 seconds and second degree type I Wenckebach- isolated event . TSH wnl, denies chest pain, palpitations, incr SOB- was asymptomatic on this isolated event. No acute intervention required. Out pt follow up 5) Chronic atrial fibrillation s/p ablation hx : Rate controlled, C/w Xarelto 6) Vitamin D deficiency: C/w supplementation 7) Type 2 diabetes. Continue to monitor closely with carbohydrate diet , ISS, hypoglycemic protocol. DVT ppx xarelto DISPOSITION:As per ARU. VS,Fishbone, I+O VS, Fishbone, I+O Laboratory Tests 08/03/20 06:00 Vital Signs Date Time Temp Pulse Resp B/P (MAP) Pulse Ox O2 Delivery O2 Flow Rate FiO2 08/03/20 12:49 14 08/03/20 06:00 97.7 80 122/70 (87) 95 Room Air I&O- Last 24 Hours up to 6 AM 08/03/20 05:59 Intake Total 680 ml Output Total 500 ml Balance 180 ml HUSSEIN ESTEVES MD August 03, 2020 12:56
[2020-08-03 14:00] VITALS: BP 118/62
[2020-08-03] MEDS ORDERED: traZODone 25MG PER 1/2 TABLET PO PRN (14:35)
[2020-08-03] MEDS: LORATADINE 10 MG TAB PO SCH (15:49)
[2020-08-03] MEDS: POLYVINYL ALCOHOL OPHTH SOLN 15 ML(LIQUITEARS) OU SCH ×2 (16:00→20:08)
[2020-08-03] MEDS: SENNA 8.6 MG TAB (SENOKOT) PO SCH (19:58)
[2020-08-03 20:00] VITALS: BP 141/71
[2020-08-03] MEDS: FLUTICASONE PROP 0.05% NASAL SPRAY 16 GM (FLONASE) NARES SCH (20:08)
[2020-08-03] MEDS: ALPRAZolam 0.5 MG TAB PO SCH (20:08)
[2020-08-03] MEDS: traZODone 25MG PER 1/2 TABLET PO SCH (20:09)
[2020-08-03] MEDS ORDERED: diphenhydrAMINE 50MG CAP PO PRN (22:05)
[2020-08-03] MEDS: diphenhydrAMINE 50MG CAP PO SCH (22:47)
[2020-08-03] MEDS: AUGMENTIN 875 MG TAB PO SCH (22:47)
[2020-08-04] MEDS: oxyCODONE 5MG TAB PO PRN ×3 (01:41→16:26)
[2020-08-04] MEDS ORDERED: MORPHINE 2 MG/ML 1ML VIAL (J2270) IV PRN (05:40)
[2020-08-04] MEDS ORDERED: MORPHINE 30 MG TAB **MSIR PO ONE (05:45)
[2020-08-04 06:00] VITALS: BP 106/64
[2020-08-04] MEDS: RIVAROXABAN 10 MG TAB (XARELTO) PO SCH (06:10)
[2020-08-04] MEDS: ACETAMINOPHEN 500 MG TAB PO SCH ×3 (06:10→21:13)
[2020-08-04 06:34] LABS: BASO # 0.1 10^3/uL (0.0-0.2); BASO % 0.7 % (0.0-1.0); EOS # 0.4 10^3/uL (0.0-0.5); EOS % 5.1 % (0.0-3.0); HEMATOCRIT 38.6 % (42.0-52.0); HEMOGLOBIN 12.9 g/dl (13.5-17.5); LYMPH % 37.4 % (24.0-44.0); MEAN CORPUSCULAR HEMOGLOBIN 32.2 pg (27.0-33.0); MEAN CORPUSCULAR HGB CONC 33.4 g/dl (32.0-36.5); MEAN CORPUSCULAR VOLUME 96.3 fl (80.0-96.0); MONO # 0.9 10^3/uL (0.0-0.8); MONO % 10.7 % (2.0-8.0); NEUTROPHILS # 3.7 10^3/uL (1.5-8.5); NEUTROPHILS % 45.7 % (36.0-66.0); PLATELET COUNT, AUTOMATED 342 10^3/uL (150-450); RED BLOOD COUNT 4.01 10^6/uL (4.30-6.10); WHITE BLOOD COUNT 8.1 10^3/uL (4.0-10.0)
[2020-08-04 06:58] LABS: BLOOD UREA NITROGEN 19 MG/DL (7-18); CALCIUM LEVEL 8.7 MG/DL (8.8-10.2); CARBON DIOXIDE LEVEL 26 MEQ/L (21-32); CHLORIDE LEVEL 106 MEQ/L (98-107); CREATININE FOR GFR 0.63 MG/DL (0.70-1.30); GLOMERULAR FILTRATION RATE > 60.0 (>35); GLUCOSE, FASTING 81 MG/DL (70-100); POTASSIUM SERUM 4.3 MEQ/L (3.5-5.1); SODIUM LEVEL 139 MEQ/L (136-145)
[2020-08-04] MEDS: COMBIVENT RESPIMAT 100-20MCG INHALER 4GM INH SCH ×3 (07:23→20:02)
[2020-08-04] MEDS: AUGMENTIN 875 MG TAB PO SCH ×2 (07:35→20:41)
[2020-08-04] MEDS: diphenhydrAMINE 50MG CAP PO SCH ×2 (07:35→20:41)
[2020-08-04] MEDS: SUCRALFATE 1 GM TAB PO SCH ×4 (07:35→20:41)
[2020-08-04] MEDS: PANTOPRAZOLE 40MG TAB (PROTONIX) PO SCH (07:35)
[2020-08-04] MEDS: TAMSULOSIN 0.4 MG CAP PO SCH (07:35)
[2020-08-04] MEDS: oxyCODONE 10 MG CR TAB PO SCH ×2 (07:35→20:41)
[2020-08-04] MEDS: VITAMIN D 1,000 INTERNATIONAL UNITS TABLET PO SCH (07:35)
[2020-08-04] MEDS: GABAPENTIN 300 MG CAP PO SCH ×3 (07:35→20:41)
[2020-08-04] MEDS: guaiFENesin 200 MG TAB PO SCH ×2 (07:35→20:41)
[2020-08-04] MEDS: MULTIVITAMINS/MINERALS THERAP 1 TAB PO SCH (07:35)
[2020-08-04] MEDS: LORATADINE 10 MG TAB PO SCH (07:35)
[2020-08-04] MEDS: OYSTER SHELL CALCIUM 500 MG TAB PO SCH (07:38)
[2020-08-04] MEDS: FLUTICASONE PROP 0.05% NASAL SPRAY 16 GM (FLONASE) NARES SCH ×2 (07:38→20:42)
[2020-08-04] MEDS: DOCUSATE SODIUM 100MG CAPSULE PO SCH ×2 (07:38→20:42)
[2020-08-04] MEDS: POLYVINYL ALCOHOL OPHTH SOLN 15 ML(LIQUITEARS) OU SCH ×4 (07:38→20:42)
[2020-08-04 14:00] VITALS: BP 109/71
[2020-08-04] MEDS: traZODone 25MG PER 1/2 TABLET PO SCH (20:41)
[2020-08-04] MEDS: ALPRAZolam 0.5 MG TAB PO SCH (20:41)
[2020-08-04] MEDS: SENNA 8.6 MG TAB (SENOKOT) PO SCH (20:42)
[2020-08-04 22:00] VITALS: BP 113/70
[2020-08-05] MEDS: oxyCODONE 5MG TAB PO PRN ×4 (02:54→22:45)
[2020-08-05] MEDS: RIVAROXABAN 10 MG TAB (XARELTO) PO SCH (05:53)
[2020-08-05] MEDS: ACETAMINOPHEN 500 MG TAB PO SCH ×4 (05:53→22:45)
[2020-08-05 06:00] VITALS: BP 140/63
[2020-08-05] MEDS: COMBIVENT RESPIMAT 100-20MCG INHALER 4GM INH SCH ×3 (07:48→20:33)
[2020-08-05] MEDS: oxyCODONE 10 MG CR TAB PO SCH ×2 (08:12→20:28)
[2020-08-05] MEDS: AUGMENTIN 875 MG TAB PO SCH ×2 (08:13→20:28)
[2020-08-05] MEDS: PANTOPRAZOLE 40MG TAB (PROTONIX) PO SCH (08:13)
[2020-08-05] MEDS: diphenhydrAMINE 50MG CAP PO SCH ×2 (08:13→20:27)
[2020-08-05] MEDS: SUCRALFATE 1 GM TAB PO SCH ×4 (08:13→20:28)
[2020-08-05] MEDS: DOCUSATE SODIUM 100MG CAPSULE PO SCH ×2 (08:13→20:28)
[2020-08-05] MEDS: OYSTER SHELL CALCIUM 500 MG TAB PO SCH (08:13)
[2020-08-05] MEDS: TAMSULOSIN 0.4 MG CAP PO SCH (08:13)
[2020-08-05] MEDS: guaiFENesin 200 MG TAB PO SCH ×2 (08:13→20:30)
[2020-08-05] MEDS: MULTIVITAMINS/MINERALS THERAP 1 TAB PO SCH (08:13)
[2020-08-05] MEDS: VITAMIN D 1,000 INTERNATIONAL UNITS TABLET PO SCH (08:13)
[2020-08-05] MEDS: LORATADINE 10 MG TAB PO SCH (08:13)
[2020-08-05] MEDS: GABAPENTIN 300 MG CAP PO SCH ×3 (08:13→20:28)
[2020-08-05] MEDS: FLUTICASONE PROP 0.05% NASAL SPRAY 16 GM (FLONASE) NARES SCH ×2 (08:14→20:29)
[2020-08-05] MEDS: POLYVINYL ALCOHOL OPHTH SOLN 15 ML(LIQUITEARS) OU SCH ×4 (08:14→20:30)
[2020-08-05 14:30] VITALS: BP 132/67
[2020-08-05 20:00] VITALS: BP 127/59
[2020-08-05] MEDS: ALPRAZolam 0.5 MG TAB PO SCH (20:28)
[2020-08-05] MEDS: traZODone 25MG PER 1/2 TABLET PO SCH (20:28)
[2020-08-05] MEDS: SENNA 8.6 MG TAB (SENOKOT) PO SCH (20:29)
[2020-08-06] MEDS: oxyCODONE 5MG TAB PO PRN ×2 (03:44→14:04)
[2020-08-06] MEDS: RIVAROXABAN 10 MG TAB (XARELTO) PO SCH (05:44)
[2020-08-06] MEDS: ACETAMINOPHEN 500 MG TAB PO SCH ×3 (05:44→20:57)
[2020-08-06 05:52] VITALS: BP 120/67
[2020-08-06] MEDS: COMBIVENT RESPIMAT 100-20MCG INHALER 4GM INH SCH ×3 (07:37→19:40)
[2020-08-06 07:48] LABS: BASO # 0.1 10^3/uL (0.0-0.2); BASO % 0.7 % (0.0-1.0); EOS # 0.5 10^3/uL (0.0-0.5); EOS % 5.5 % (0.0-3.0); HEMATOCRIT 40.8 % (42.0-52.0); LYMPH # 3.4 10^3/uL (1.5-5.0); LYMPH % 34.7 % (24.0-44.0); MEAN CORPUSCULAR HEMOGLOBIN 31.6 pg (27.0-33.0); MEAN CORPUSCULAR HGB CONC 31.9 g/dl (32.0-36.5); MEAN CORPUSCULAR VOLUME 99.3 fl (80.0-96.0); MONO # 0.9 10^3/uL (0.0-0.8); NEUTROPHILS # 4.8 10^3/uL (1.5-8.5); NEUTROPHILS % 49.9 % (36.0-66.0); PLATELET COUNT, AUTOMATED 397 10^3/uL (150-450); RED BLOOD COUNT 4.11 10^6/uL (4.30-6.10); WHITE BLOOD COUNT 9.7 10^3/uL (4.0-10.0)
[2020-08-06 08:17] LABS: BLOOD UREA NITROGEN 16 MG/DL (7-18); CALCIUM LEVEL 9.6 MG/DL (8.8-10.2); CARBON DIOXIDE LEVEL 27 MEQ/L (21-32); CHLORIDE LEVEL 109 MEQ/L (98-107); CREATININE FOR GFR 0.81 MG/DL (0.70-1.30); GLOMERULAR FILTRATION RATE > 60.0 (>35); GLUCOSE, FASTING 82 MG/DL (70-100); POTASSIUM SERUM 4.4 MEQ/L (3.5-5.1); SODIUM LEVEL 142 MEQ/L (136-145)
[2020-08-06] MEDS: TAMSULOSIN 0.4 MG CAP PO SCH (08:56)
[2020-08-06] MEDS: PANTOPRAZOLE 40MG TAB (PROTONIX) PO SCH (08:56)
[2020-08-06] MEDS: MULTIVITAMINS/MINERALS THERAP 1 TAB PO SCH (08:56)
[2020-08-06] MEDS: GABAPENTIN 300 MG CAP PO SCH ×3 (08:56→20:51)
[2020-08-06] MEDS: SUCRALFATE 1 GM TAB PO SCH ×4 (08:56→20:49)
[2020-08-06] MEDS: guaiFENesin 200 MG TAB PO SCH ×2 (08:56→20:49)
[2020-08-06] MEDS: OYSTER SHELL CALCIUM 500 MG TAB PO SCH (08:56)
[2020-08-06] MEDS: LORATADINE 10 MG TAB PO SCH (08:56)
[2020-08-06] MEDS: oxyCODONE 10 MG CR TAB PO SCH ×2 (08:57→20:50)
[2020-08-06] MEDS: AUGMENTIN 875 MG TAB PO SCH ×2 (08:57→20:50)
[2020-08-06] MEDS: FLUTICASONE PROP 0.05% NASAL SPRAY 16 GM (FLONASE) NARES SCH ×2 (08:57→20:54)
[2020-08-06] MEDS: VITAMIN D 1,000 INTERNATIONAL UNITS TABLET PO SCH (08:57)
[2020-08-06] MEDS: POLYVINYL ALCOHOL OPHTH SOLN 15 ML(LIQUITEARS) OU SCH ×4 (08:57→20:54)
[2020-08-06] MEDS: diphenhydrAMINE 50MG CAP PO SCH ×2 (08:57→20:51)
[2020-08-06] MEDS: DOCUSATE SODIUM 100MG CAPSULE PO SCH ×2 (08:58→20:50)
--- NOTE | 2020-08-06 09:48 | IPNPDOC ---
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 REVIEW OF SYSTEMS: The following is a completed review of systems and has been reviewed. Review of systems otherwise unremarkable. PAIN: Patient self reports right hip and low back pain EYES: No recent vision changes EARS, NOSE, & THROAT: No throat pain, or dysphagia, or rhinorrhea CARDIOVASCULAR: Denies chest pain or palpitations PULMONARY: +cough GASTROINTESTINAL: Denies constipation/diarrhea GENITOURINARY: denies dysuria MUSCULOSKELETAL: s/p right hip ORIF NEUROLOGICAL:denies paresthesias or tremors HEMATOLOGICAL: denies easy bruising SKIN: right hip incision PSYCHIATRIC: Unremarkable All other review of systems found to be negative. PHYSICAL EXAMINATION: VITAL SIGNS: Please see below. GENERAL: Pleasant and cooperative. No acute distress. HEENT: PERRL. Extraocular movements intact. Clear conjunctiva CARDIOVASCULAR: Regular rate and rhythm. No murmurs, rubs, or gallops LUNGS: Clear to auscultation ABDOMEN: Soft, nontender, nondistended. Positive bowel sounds. Normal active bowel sounds NEUROLOGICAL: Alert and oriented times three. Cranial nerves II through XII grossly intact. Sensation grossly intact all 4 limbs including 1st web space of right foot EXTREMITIES: 5-\5 strength bilateral upper extremities. right ankle DF 5-/5 (limited due to recent surgery) .5-/5 strength in left lower extremity. SKIN: right hip incision c/d/i no induration or ecchymosis ASSESSMENT:80-year-old M with past medical history of chronic low back pain who presents status post fall with right femur fracture PLAN: 1. Rehab- PT/OT advance mobility and ADLs, WBAT to RLE, strengthen/stretch/maintain ROM all 4 limbs- ambulating with RW 2. Ortho- s/p right hip ORIF 07/29/[address] Ham, WBAT f/u outpatient 3. 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 Chamberlain in past -chest pain overnight on 08/01/20 resolved following pepto-bismol and tums, cardiac enzymes negative- no further complaints of chest pain -BPs well controlled, not on meds -medicine consulted to assist in overall management 4. Resp- + cigar smoker with recent bronchitis, monitor for worsening respiratory infection, Combivent and guaifenesin, sputum cx growing E. coli, patient started on augmentin 08-03-20 per hospitalist along with benadryl as hx of rash with penicillins, discussed with Dr. Gilliland who recommended CXR to r/o PNA- patient appears clinically stable, lungs CTA, cough much better, no leukocytosis, low suspicion for PNA -incentive spirometry -flonase, claritin for seasonal allergies and warm compress to right eye 5. GI- hx of gastric ulcers, c/u Protonix, c/u sucralfate now that he is on xarelto 6. DVT ppx- xarelto 7. Pain- hx of chronic low back pain s/p multiple surgeries on chronic opioids, c/u oxycodone 20mg CR BID and oxycodone 10mg q6h prn, increased gabapentin to 600mg TID to better address pain -tylneol 8. Psych- x/u xanax qhs- monitor for sedation/AMS while on opioids -trazodone helping with insomnia 9. - c/u flomax for bph 10. Dispo- TBD Allergies Coded Allergies: Penicillins (Verified Adverse Reaction, Mild, itchy, 02/07/19) Vital Signs Vital Signs Date Time Temp Pulse Resp B/P (MAP) Pulse Ox O2 Delivery O2 Flow Rate FiO2 08/06/20 08:57 18 08/06/20 05:52 97.3 86 120/67 (84) 95 Room Air Laboratory Data CBC/BMP Laboratory Tests 08/06/20 07:31 Labs 24H Laboratory Tests 2 08/06/20 07:31: Immature Granulocyte % (Auto) 0.2, Neutrophils (%) (Auto) 49.9, Lymphocytes (%) (Auto) 34.7, Monocytes (%) (Auto) 9.0H, Eosinophils (%) (Auto) 5.5H, Basophils (%) (Auto) 0.7, Neutrophils # (Auto) 4.8, Lymphocytes # (Auto) 3.4, Monocytes # (Auto) 0.9H, Eosinophils # (Auto) 0.5, Basophils # (Auto) 0.1, Nucleated Red Blood Cells % (auto) 0.0, Anion Gap 6L, Glomerular Filtration Rate > 60.0, Calcium Level 9.6 Microbiology Microbiology 08/03/20 Gram Stain - Final, Complete 08/03/20 Sputum Culture - Final, Complete Escherichia Coli Current Medications Current Medications Current Medications Medications (Trade) Dose Ordered Sig/Lyly Route PRN Reason Start Time Stop Time Status Last Admin Dose Admin Acetaminophen (Tylenol Tab) 1,000 mg Q8H PO 07/31/20 22:00 08/06/20 05:44 Albuterol/ Ipratropium (Combivent Respimat 100-20mcg) 1 puff RTID INH 07/31/20 20:00 08/06/20 07:37 Alprazolam (Xanax) 0.5 mg QHS PO 07/31/20 21:00 08/05/20 20:28 Amoxicillin/ Clavulanate Potassium (Augmentin) 875 mg BID PO 08/03/20 21:00 08/06/20 08:57 Artificial Tears (Akwa Tears) 2 drop QID OU 08/03/20 17:00 08/06/20 08:57 Artificial Tears (Akwa Tears) 2 drop TIDP PRN OU DRY EYES 08/03/20 00:55 08/03/20 15:02 DC 08/03/20 01:33 Bisacodyl (Dulcolax Suppository) 10 mg DAILYPRN PRN [place] CONSTIPATION 07/31/20 16:35 Calcium Carbonate (Oscal) 500 mg DAILY PO 08/01/20 09:00 08/06/20 08:56 Diphenhydramine HCl (Benadryl) 50 mg BID@0830,2030 PO 08/03/20 20:30 08/06/20 08:57 Diphenhydramine HCl (Benadryl) 50 mg Q4HP PRN PO ITCHING/SWELLING 08/03/20 22:05 Docusate Sodium (Colace) 100 mg BID PO 07/31/20 21:00 08/03/20 08:53 Fluticasone Propionate (Flonase 0.05% Nasal [place]) 1 spray BID NARES 08/03/20 21:00 08/06/20 08:57 Gabapentin (Neurontin) 300 mg TID PO 07/31/20 21:00 08/01/20 12:34 DC 08/01/20 09:21 Gabapentin (Neurontin) 600 mg TID PO 08/01/20 16:00 08/06/20 08:56 Guaifenesin (Robitussin Tab) 400 mg BID PO 08/01/20 09:00 08/06/20 08:56 Loratadine (Claritin) 10 mg DAILY PO 08/03/20 15:00 08/06/20 08:56 Morphine Sulfate (Morphine Sulfate Inj) 1 mg Q4H PRN IV MODERATE PAIN (PS 5-7) 08/04/20 05:40 UNV Multivitamins (Theragram-M) 1 tab DAILY PO 08/01/20 09:00 08/06/20 08:56 Oxycodone HCl (OxyCONTIN) 20 mg BID PO 07/31/20 21:00 08/06/20 08:57 Oxycodone HCl (Roxicodone, Oxyir) 10 mg Q6HP PRN PO SEVERE PAIN (PS 8-10) 07/31/20 16:35 08/06/20 03:44 Pantoprazole Sodium (Protonix) 40 mg DAILY PO 08/01/20 09:00 08/06/20 08:56 Polyethylene Glycol (Miralax) 1 pkt DAILY PRN PO CONSTIPATION 07/31/20 16:35 Prednisolone Acetate (Predforte 1% Ophth Susp) 2 drop DAILYPRN PRN OD PAIN OR DISCOMFORT 08/03/20 00:55 08/03/20 15:02 DC 08/03/20 01:32 Ramelteon (Rozerem) 8 mg QHS PO 08/02/20 21:00 08/03/20 14:37 DC 08/02/20 21:34 Rivaroxaban (Xarelto) 10 mg DAILY@0600 PO 08/01/20 06:00 08/06/20 05:44 Senna (Senokot) 1 tab QHS PO 07/31/20 21:00 08/02/20 21:34 Sucralfate (Carafate) 1 gm ACHS PO 08/01/20 12:00 08/06/20 08:56 Tamsulosin HCl (Flomax) 0.4 mg DAILY PO 08/01/20 09:00 08/06/20 08:56 Trazodone HCl (Desyrel) 25 mg ASDIRECTED PRN PO INSOMNIA 08/03/20 14:35 Trazodone HCl (Desyrel) 25 mg QHS PO 08/03/20 21:00 08/05/20 20:28 Vitamin D (Vitamin D) 1,000 units DAILY PO 08/01/20 09:00 08/06/20 08:57 ALEXANDRA QUINTANA MD August 06, 2020 09:48
[2020-08-06 14:00] VITALS: BP 132/76
--- NOTE | 2020-08-06 15:05 | REP ---
INDICATION: r/o infilatrate COMPARISON: 07/31/2020 TECHNIQUE: PA and lateral. FINDINGS: Mediastinum and cardiac silhouette are stable. Epidural stimulator overlies the thoracic spine. Lung leigh demonstrate chronic changes. Subtle bibasilar airspace disease cannot definitively be excluded. No discrete focal consolidation, effusion, or pneumothorax.. IMPRESSION: Chronic changes. Cannot exclude very subtle basilar airspace disease. <Electronically signed by Rudy Valdes > 08/06/20 [id number]
[2020-08-06] MEDS: LACTOBACILLUS ACIDOPHILUS CAP (BACID) PO SCH ×2 (17:26→20:49)
[2020-08-06 20:00] VITALS: BP 130/65
[2020-08-06] MEDS: SENNA 8.6 MG TAB (SENOKOT) PO SCH (20:49)
[2020-08-06] MEDS: ALPRAZolam 0.5 MG TAB PO SCH (20:50)
[2020-08-06] MEDS: traZODone 50 MG TAB PO SCH (20:51)
[2020-08-07] MEDS: oxyCODONE 5MG TAB PO PRN ×2 (01:18→10:25)
[2020-08-07] MEDS: ACETAMINOPHEN 500 MG TAB PO SCH ×3 (06:16→20:11)
[2020-08-07] MEDS: RIVAROXABAN 10 MG TAB (XARELTO) PO SCH (06:16)
[2020-08-07 06:35] VITALS: BP 123/75
[2020-08-07] MEDS: COMBIVENT RESPIMAT 100-20MCG INHALER 4GM INH SCH ×3 (07:09→19:37)
[2020-08-07] MEDS: PANTOPRAZOLE 40MG TAB (PROTONIX) PO SCH (08:27)
[2020-08-07] MEDS: LACTOBACILLUS ACIDOPHILUS CAP (BACID) PO SCH ×3 (08:27→20:10)
[2020-08-07] MEDS: VITAMIN D 1,000 INTERNATIONAL UNITS TABLET PO SCH (08:27)
[2020-08-07] MEDS: AUGMENTIN 875 MG TAB PO SCH ×2 (08:27→20:11)
[2020-08-07] MEDS: GABAPENTIN 300 MG CAP PO SCH ×3 (08:27→20:10)
[2020-08-07] MEDS: TAMSULOSIN 0.4 MG CAP PO SCH (08:27)
[2020-08-07] MEDS: MULTIVITAMINS/MINERALS THERAP 1 TAB PO SCH (08:27)
[2020-08-07] MEDS: SUCRALFATE 1 GM TAB PO SCH ×4 (08:27→20:10)
[2020-08-07] MEDS: LORATADINE 10 MG TAB PO SCH (08:28)
[2020-08-07] MEDS: guaiFENesin 200 MG TAB PO SCH ×2 (08:28→20:10)
[2020-08-07] MEDS: diphenhydrAMINE 50MG CAP PO SCH (08:28)
[2020-08-07] MEDS: oxyCODONE 10 MG CR TAB PO SCH ×2 (08:28→20:12)
[2020-08-07] MEDS: OYSTER SHELL CALCIUM 500 MG TAB PO SCH (08:28)
[2020-08-07] MEDS: POLYVINYL ALCOHOL OPHTH SOLN 15 ML(LIQUITEARS) OU SCH ×4 (08:29→20:13)
[2020-08-07] MEDS: DOCUSATE SODIUM 100MG CAPSULE PO SCH ×2 (08:29→20:10)
[2020-08-07] MEDS: FLUTICASONE PROP 0.05% NASAL SPRAY 16 GM (FLONASE) NARES SCH ×2 (08:29→20:13)
[2020-08-07 14:00] VITALS: BP 128/76
--- NOTE | 2020-08-07 15:01 | IPNPDOC ---
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 He is uncertain whether or not he feels ready to go home on Thursday. REVIEW OF SYSTEMS: The following is a completed review of systems and has been reviewed. Review of systems otherwise unremarkable. PAIN: Patient self reports right hip and low back pain EYES: No recent vision changes EARS, NOSE, & THROAT: No throat pain, or dysphagia, or rhinorrhea CARDIOVASCULAR: Denies chest pain or palpitations PULMONARY: +cough (resolved) GASTROINTESTINAL: Denies constipation/diarrhea GENITOURINARY: denies dysuria MUSCULOSKELETAL: s/p right hip ORIF NEUROLOGICAL:denies paresthesias or tremors HEMATOLOGICAL: denies easy bruising SKIN: right hip incision PSYCHIATRIC: Unremarkable All other review of systems found to be negative. PHYSICAL EXAMINATION: VITAL SIGNS: Please see below. GENERAL: Pleasant and cooperative. No acute distress. HEENT: PERRL. Extraocular movements intact. Clear conjunctiva CARDIOVASCULAR: Regular rate and rhythm. No murmurs, rubs, or gallops LUNGS: Clear to auscultation ABDOMEN: Soft, nontender, nondistended. Positive bowel sounds. Normal active bowel sounds NEUROLOGICAL: Alert and oriented times three. Cranial nerves II through XII grossly intact. Sensation grossly intact all 4 limbs including 1st web space of right foot EXTREMITIES: 5-\5 strength bilateral upper extremities. right ankle DF 5-/5 (limited due to recent surgery) .5-/5 strength in left lower extremity. SKIN: right hip incision c/d/i no induration or ecchymosis ASSESSMENT:80-year-old M with past medical history of chronic low back pain who presents status post fall with right femur fracture PLAN: 1. Rehab- PT/OT advance mobility and ADLs, WBAT to RLE, strengthen/stretch/maintain ROM all 4 limbs- ambulating with RW 2. Ortho- s/p right hip ORIF 07/29/[address] Ham, WBAT f/u outpatient 3. 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 Chamberlain in past -chest pain overnight on 08/01/20 resolved following pepto-bismol and tums, cardiac enzymes negative- no further complaints of chest pain -BPs well controlled, not on meds -medicine consulted to assist in overall management 4. Resp- + cigar smoker with recent bronchitis, monitor for worsening respiratory infection, Combivent and guaifenesin, sputum cx growing E. coli, patient started on augmentin 08-03-20 per hospitalist along with benadryl (will lower dose as per staff patient more anxious which may be side effect of benadryl) as hx of rash with penicillins -patient appears clinically stable, lungs CTA, cough resolved, no leukocytosis/fever, CXR 08-06-20 shows no infiltrate, will stop augmentin tomorrow after 5 day course -incentive spirometry -flonase, claritin for seasonal allergies and warm compress to right eye 5. GI- hx of gastric ulcers, c/u Protonix, c/u sucralfate now that he is on xarelto 6. DVT ppx- xarelto 7. Pain- hx of chronic low back pain s/p multiple surgeries on chronic opioids, c/u oxycodone 20mg CR BID and oxycodone 10mg q6h prn, increased gabapentin to 600mg TID to better address pain -tylneol 8. Psych- x/u xanax qhs- monitor for sedation/AMS while on opioids -trazodone helping with insomnia 9. - c/u flomax for bph 10. Dispo- TBD Allergies Coded Allergies: Penicillins (Verified Adverse Reaction, Mild, itchy, 02/07/19) Vital Signs Vital Signs Date Time Temp Pulse Resp B/P (MAP) Pulse Ox O2 Delivery O2 Flow Rate FiO2 08/07/20 14:00 97.3 93 18 128/76 (93) 100 Room Air Microbiology Microbiology 08/03/20 Gram Stain - Final, Complete 08/03/20 Sputum Culture - Final, Complete Escherichia Coli Current Medications Current Medications Current Medications Medications (Trade) Dose Ordered Sig/Lyly Route PRN Reason Start Time Stop Time Status Last Admin Dose Admin Acetaminophen (Tylenol Tab) 1,000 mg Q8H PO 07/31/20 22:00 08/07/20 14:35 Albuterol/ Ipratropium (Combivent Respimat 100-20mcg) 1 puff RTID INH 07/31/20 20:00 08/07/20 12:50 Alprazolam (Xanax) 0.5 mg QHS PO 07/31/20 21:00 08/06/20 20:50 Amoxicillin/ Clavulanate Potassium (Augmentin) 875 mg BID PO 08/03/20 21:00 08/10/20 23:59 08/07/20 08:27 Artificial Tears (Akwa Tears) 2 drop QID OU 08/03/20 17:00 08/07/20 12:23 Artificial Tears (Akwa Tears) 2 drop TIDP PRN OU DRY EYES 08/03/20 00:55 08/03/20 15:02 DC 08/03/20 01:33 Bisacodyl (Dulcolax Suppository) 10 mg DAILYPRN PRN [place] CONSTIPATION 07/31/20 16:35 Calcium Carbonate (Oscal) 500 mg DAILY PO 08/01/20 09:00 08/07/20 08:28 Diphenhydramine HCl (Benadryl) 50 mg BID@0830,2030 PO 08/03/20 20:30 08/07/20 08:28 Diphenhydramine HCl (Benadryl) 50 mg Q4HP PRN PO ITCHING/SWELLING 08/03/20 22:05 Docusate Sodium (Colace) 100 mg BID PO 07/31/20 21:00 08/06/20 20:50 Fluticasone Propionate (Flonase 0.05% Nasal [place]) 1 spray BID NARES 08/03/20 21:00 08/07/20 08:29 Gabapentin (Neurontin) 300 mg TID PO 07/31/20 21:00 08/01/20 12:34 DC 08/01/20 09:21 Gabapentin (Neurontin) 600 mg TID PO 08/01/20 16:00 08/07/20 08:27 Guaifenesin (Robitussin Tab) 400 mg BID PO 08/01/20 09:00 08/07/20 08:28 Lactobacillus Acidophilus (Bacid) 1 ea TID PO 08/06/20 16:00 08/07/20 08:27 Loratadine (Claritin) 10 mg DAILY PO 08/03/20 15:00 08/07/20 08:28 Morphine Sulfate (Morphine Sulfate Inj) 1 mg Q4H PRN IV MODERATE PAIN (PS 5-7) 08/04/20 05:40 UNV Multivitamins (Theragram-M) 1 tab DAILY PO 08/01/20 09:00 08/07/20 08:27 Oxycodone HCl (OxyCONTIN) 20 mg BID PO 07/31/20 21:00 08/07/20 08:28 Oxycodone HCl (Roxicodone, Oxyir) 10 mg Q6HP PRN PO SEVERE PAIN (PS 8-10) 07/31/20 16:35 08/07/20 10:25 Pantoprazole Sodium (Protonix) 40 mg DAILY PO 08/01/20 09:00 08/07/20 08:27 Polyethylene Glycol (Miralax) 1 pkt DAILY PRN PO CONSTIPATION 07/31/20 16:35 Prednisolone Acetate (Predforte 1% Ophth Susp) 2 drop DAILYPRN PRN OD PAIN OR DISCOMFORT 08/03/20 00:55 08/03/20 15:02 DC 08/03/20 01:32 Ramelteon (Rozerem) 8 mg QHS PO 08/02/20 21:00 08/03/20 14:37 DC 08/02/20 21:34 Rivaroxaban (Xarelto) 10 mg DAILY@0600 PO 08/01/20 06:00 08/07/20 06:16 Senna (Senokot) 1 tab QHS PO 07/31/20 21:00 08/06/20 20:49 Sucralfate (Carafate) 1 gm ACHS PO 08/01/20 12:00 08/07/20 12:23 Tamsulosin HCl (Flomax) 0.4 mg DAILY PO 08/01/20 09:00 08/07/20 08:27 Trazodone HCl (Desyrel) 25 mg ASDIRECTED PRN PO INSOMNIA 08/03/20 14:35 Trazodone HCl (Desyrel) 25 mg QHS PO 08/03/20 21:00 08/06/20 14:26 DC 08/05/20 20:28 Trazodone HCl (Desyrel) 50 mg QHS PO 08/06/20 21:00 08/06/20 20:51 Vitamin D (Vitamin D) 1,000 units DAILY PO 08/01/20 09:00 08/07/20 08:27 ALEXANDRA QUINTANA MD August 07, 2020 15:01
[2020-08-07 20:00] VITALS: BP 107/68
[2020-08-07] MEDS: ALPRAZolam 0.5 MG TAB PO SCH (20:10)
[2020-08-07] MEDS: traZODone 50 MG TAB PO SCH (20:10)
[2020-08-07] MEDS: diphenhydrAMINE 12.5MG/5ML ELIXIR UDC PO SCH (20:10)
[2020-08-07] MEDS: SENNA 8.6 MG TAB (SENOKOT) PO SCH (20:11)
[2020-08-08] MEDS: oxyCODONE 5MG TAB PO PRN ×3 (02:13→16:38)
[2020-08-08] MEDS: RIVAROXABAN 10 MG TAB (XARELTO) PO SCH (05:28)
[2020-08-08] MEDS: ACETAMINOPHEN 500 MG TAB PO SCH ×3 (05:28→20:59)
[2020-08-08 06:30] VITALS: BP 122/71
[2020-08-08 06:56] LABS: BASO # 0.1 10^3/uL (0.0-0.2); BASO % 0.9 % (0.0-1.0); EOS # 0.5 10^3/uL (0.0-0.5); EOS % 5.2 % (0.0-3.0); HEMATOCRIT 38.1 % (42.0-52.0); HEMOGLOBIN 12.5 g/dl (13.5-17.5); LYMPH # 3.2 10^3/uL (1.5-5.0); LYMPH % 37.3 % (24.0-44.0); MEAN CORPUSCULAR HEMOGLOBIN 31.7 pg (27.0-33.0); MEAN CORPUSCULAR HGB CONC 32.8 g/dl (32.0-36.5); MEAN CORPUSCULAR VOLUME 96.7 fl (80.0-96.0); MONO # 0.7 10^3/uL (0.0-0.8); MONO % 7.6 % (2.0-8.0); NEUTROPHILS # 4.2 10^3/uL (1.5-8.5); NEUTROPHILS % 48.7 % (36.0-66.0); PLATELET COUNT, AUTOMATED 395 10^3/uL (150-450); RED BLOOD COUNT 3.94 10^6/uL (4.30-6.10); WHITE BLOOD COUNT 8.7 10^3/uL (4.0-10.0)
[2020-08-08 07:26] LABS: BLOOD UREA NITROGEN 15 MG/DL (7-18); CALCIUM LEVEL 9.7 MG/DL (8.8-10.2); CARBON DIOXIDE LEVEL 25 MEQ/L (21-32); CHLORIDE LEVEL 110 MEQ/L (98-107); CREATININE FOR GFR 0.77 MG/DL (0.70-1.30); GLOMERULAR FILTRATION RATE > 60.0 (>35); GLUCOSE, FASTING 86 MG/DL (70-100); POTASSIUM SERUM 3.9 MEQ/L (3.5-5.1); SODIUM LEVEL 142 MEQ/L (136-145)
[2020-08-08] MEDS: COMBIVENT RESPIMAT 100-20MCG INHALER 4GM INH SCH ×3 (07:35→20:42)
[2020-08-08] MEDS: LACTOBACILLUS ACIDOPHILUS CAP (BACID) PO SCH ×3 (08:11→20:58)
[2020-08-08] MEDS: VITAMIN D 1,000 INTERNATIONAL UNITS TABLET PO SCH (08:11)
[2020-08-08] MEDS: OYSTER SHELL CALCIUM 500 MG TAB PO SCH (08:11)
[2020-08-08] MEDS: LORATADINE 10 MG TAB PO SCH (08:11)
[2020-08-08] MEDS: PANTOPRAZOLE 40MG TAB (PROTONIX) PO SCH (08:11)
[2020-08-08] MEDS: TAMSULOSIN 0.4 MG CAP PO SCH (08:11)
[2020-08-08] MEDS: diphenhydrAMINE 12.5MG/5ML ELIXIR UDC PO SCH (08:11)
[2020-08-08] MEDS: MULTIVITAMINS/MINERALS THERAP 1 TAB PO SCH (08:11)
[2020-08-08] MEDS: AUGMENTIN 875 MG TAB PO SCH (08:11)
[2020-08-08] MEDS: SUCRALFATE 1 GM TAB PO SCH ×4 (08:11→20:58)
[2020-08-08] MEDS: DOCUSATE SODIUM 100MG CAPSULE PO SCH ×3 (08:11→20:59)
[2020-08-08] MEDS: GABAPENTIN 300 MG CAP PO SCH ×3 (08:12→20:58)
[2020-08-08] MEDS: guaiFENesin 200 MG TAB PO SCH ×2 (08:12→20:59)
[2020-08-08] MEDS: oxyCODONE 10 MG CR TAB PO SCH ×2 (08:13→20:58)
[2020-08-08] MEDS: FLUTICASONE PROP 0.05% NASAL SPRAY 16 GM (FLONASE) NARES SCH ×2 (08:13→20:58)
[2020-08-08] MEDS: POLYVINYL ALCOHOL OPHTH SOLN 15 ML(LIQUITEARS) OU SCH ×4 (08:13→20:58)
--- NOTE | 2020-08-08 11:36 | IPNPDOC ---
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 He states he usually takes medical marij uana at home but understands this is not something the hospital can provide. He is interested in having the frequency of his short-acting oxycodone dosing increased. REVIEW OF SYSTEMS: The following is a completed review of systems and has been reviewed. Review of systems otherwise unremarkable. PAIN: Patient self reports right hip and low back pain EYES: No recent vision changes EARS, NOSE, & THROAT: No throat pain, or dysphagia, or rhinorrhea CARDIOVASCULAR: Denies chest pain or palpitations PULMONARY: +cough (resolved) GASTROINTESTINAL: Denies constipation/diarrhea GENITOURINARY: denies dysuria MUSCULOSKELETAL: s/p right hip ORIF NEUROLOGICAL:denies paresthesias or tremors HEMATOLOGICAL: denies easy bruising SKIN: right hip incision PSYCHIATRIC: Unremarkable All other review of systems found to be negative. PHYSICAL EXAMINATION: VITAL SIGNS: Please see below. GENERAL: Pleasant and cooperative. No acute distress. HEENT: PERRL. Extraocular movements intact. Clear conjunctiva CARDIOVASCULAR: Regular rate and rhythm. No murmurs, rubs, or gallops LUNGS: Clear to auscultation ABDOMEN: Soft, nontender, nondistended. Positive bowel sounds. Normal active bowel sounds NEUROLOGICAL: Alert and oriented times three. Cranial nerves II through XII grossly intact. Sensation grossly intact all 4 limbs including 1st web space of right foot EXTREMITIES: 5-\5 strength bilateral upper extremities. right ankle DF 5-/5 (limited due to recent surgery) .5-/5 strength in left lower extremity. SKIN: right hip incision c/d/i no induration or ecchymosis ASSESSMENT:80-year-old M with past medical history of chronic low back pain who presents status post fall with right femur fracture PLAN: 1. Rehab- PT/OT advance mobility and ADLs, WBAT to RLE, stren gthen/stretch/maintain ROM all 4 limbs- ambulating with RW 2. Ortho- s/p right hip ORIF 07/29/[address] Ham, WBAT f/u outpatient 3. 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 Chamberlain in past -chest pain overnight on 08/01/20 resolved following pepto-bismol and tums, cardiac enzymes negative- no further complaints of chest pain -BPs well controlled, not on meds -medicine consulted to assist in overall management 4. Resp- + cigar smoker with recent bronchitis, monitor for worsening respiratory infection, Combivent and guaifenesin, sputum cx growing E. coli, patient started on augmentin 08-03-20 per hospitalist along with benadryl ( lowered dose as per staff patient more anxious which may be side effect of benadryl) as hx of rash with penicillins -patient appears clinically stable, lungs CTA, cough resolved, no leukocytosis/fever, CXR 08-06-20 shows no infiltrate, finishing up 5 day course of Augmentin today -incentive spirometry -flonase, claritin for seasonal allergies and warm compress to right eye 5. GI- hx of gastric ulcers, c/u Protonix, c/u sucralfate now that he is on xarelto 6. DVT ppx- xarelto 7. Pain- hx of chronic low back pain s/p multiple surgeries on chronic opioids, c/u oxycodone 20mg CR BID and will increase oxycodone frequency to 10mg 46h prn, increased gabapentin to 600mg TID to better address pain -tylneol 8. Psych- x/u xanax qhs- monitor for sedation/AMS while on opioids -trazodone helping with insomnia 9. - c/u flomax for bph 10. Dispo- 08-10-20 to home, progressing towards goals Allergies Coded Allergies: Penicillins (Verified Adverse Reaction, Mild, itchy, 02/07/19) Vital Signs Vital Signs Date Time Temp Pulse Resp B/P (MAP) Pulse Ox O2 Delivery O2 Flow Rate FiO2 08/08/20 08:13 18 08/08/20 06:30 96.7 61 122/71 (88) 97 Room Air Laboratory Data CBC/BMP Laboratory Tests 08/08/20 06:39 Labs 24H Laboratory Tests 2 08/08/20 06:39: Immature Granulocyte % (Auto) 0.3, Neutrophils (%) (Auto) 48.7, Lymphocytes (%) (Auto) 37.3, Monocytes (%) (Auto) 7.6, Eosinophils (%) (Auto) 5.2H, Basophils (%) (Auto) 0.9, Neutrophils # (Auto) 4.2, Lymphocytes # (Auto) 3.2, Monocytes # (Auto) 0.7, Eosinophils # (Auto) 0.5, Basophils # (Auto) 0.1, Nucleated Red Blood Cells % (auto) 0.0, Anion Gap 7L, Glomerular Filtration Rate > 60.0, Calcium Level 9.7 Microbiology Microbiology 08/03/20 Gram Stain - Final, Complete 08/03/20 Sputum Culture - Final, Complete Escherichia Coli Current Medications Current Medications Current Medications Medications (Trade) Dose Ordered Sig/Lyly Route PRN Reason Start Time Stop Time Status Last Admin Dose Admin Acetaminophen (Tylenol Tab) 1,000 mg Q8H PO 07/31/20 22:00 08/08/20 05:28 Albuterol/ Ipratropium (Combivent Respimat 100-20mcg) 1 puff RTID INH 07/31/20 20:00 08/08/20 07:35 Alprazolam (Xanax) 0.5 mg QHS PO 07/31/20 21:00 08/07/20 20:10 Amoxicillin/ Clavulanate Potassium (Augmentin) 875 mg BID PO 08/03/20 21:00 08/08/20 09:01 DC 08/08/20 08:11 Artificial Tears (Akwa Tears) 2 drop QID OU 08/03/20 17:00 08/08/20 08:13 Artificial Tears (Akwa Tears) 2 drop TIDP PRN OU DRY EYES 08/03/20 00:55 08/03/20 15:02 DC 08/03/20 01:33 Bisacodyl (Dulcolax Suppository) [address] CONSTIPATION 07/31/20 16:35 Calcium Carbonate (Oscal) 500 mg DAILY PO 08/01/20 09:00 08/08/20 08:11 Diphenhydramine HCl (Benadryl Elixir) 12.5 mg BID@0830,2030 PO 08/07/20 20:30 08/08/20 08:31 DC 08/08/20 08:11 Diphenhydramine HCl (Benadryl) 50 mg BID@0830,2030 PO 08/03/20 20:30 08/07/20 14:51 DC 08/07/20 08:28 Diphenhydramine HCl (Benadryl) 50 mg Q4HP PRN PO ITCHING/SWELLING 08/03/20 22:05 Docusate Sodium (Colace) 100 mg BID PO 07/31/20 21:00 08/07/20 20:10 Fluticasone Propionate (Flonase 0.05% Nasal [place]) 1 spray BID NARES 08/03/20 21:00 08/08/20 08:13 Gabapentin (Neurontin) 300 mg TID PO 07/31/20 21:00 08/01/20 12:34 DC 08/01/20 09:21 Gabapentin (Neurontin) 600 mg TID PO 08/01/20 16:00 08/08/20 08:12 Guaifenesin (Robitussin Tab) 400 mg BID PO 08/01/20 09:00 08/08/20 08:12 Lactobacillus Acidophilus (Bacid) 1 ea TID PO 08/06/20 16:00 08/08/20 08:11 Loratadine (Claritin) 10 mg DAILY PO 08/03/20 15:00 08/08/20 08:11 Morphine Sulfate (Morphine Sulfate Inj) 1 mg Q4H PRN IV MODERATE PAIN (PS 5-7) 08/04/20 05:40 UNV Multivitamins (Theragram-M) 1 tab DAILY PO 08/01/20 09:00 08/08/20 08:11 Oxycodone HCl (OxyCONTIN) 20 mg BID PO 07/31/20 21:00 08/08/20 08:13 Oxycodone HCl (Roxicodone, Oxyir) 10 mg Q4HP PRN PO SEVERE PAIN (PS 8-10) 08/08/20 11:15 Oxycodone HCl (Roxicodone, Oxyir) 10 mg Q6HP PRN PO SEVERE PAIN (PS 8-10) 07/31/20 16:35 08/08/20 11:21 DC 08/08/20 02:13 Pantoprazole Sodium (Protonix) 40 mg DAILY PO 08/01/20 09:00 08/08/20 08:11 Polyethylene Glycol (Miralax) 1 pkt DAILY PRN PO CONSTIPATION 07/31/20 16:35 Prednisolone Acetate (Predforte 1% Ophth Susp) 2 drop DAILYPRN PRN OD PAIN OR DISCOMFORT 08/03/20 00:55 08/03/20 15:02 DC 08/03/20 01:32 Ramelteon (Rozerem) 8 mg QHS PO 08/02/20 21:00 08/03/20 14:37 DC 08/02/20 21:34 Rivaroxaban (Xarelto) 10 mg DAILY@0600 PO 08/01/20 06:00 08/08/20 05:28 Senna (Senokot) 1 tab QHS PO 07/31/20 21:00 08/07/20 20:11 Sucralfate (Carafate) 1 gm ACHS PO 08/01/20 12:00 08/08/20 08:11 Tamsulosin HCl (Flomax) 0.4 mg DAILY PO 08/01/20 09:00 08/08/20 08:11 Trazodone HCl (Desyrel) 25 mg ASDIRECTED PRN PO INSOMNIA 08/03/20 14:35 Trazodone HCl (Desyrel) 25 mg QHS PO 08/03/20 21:00 08/06/20 14:26 DC 08/05/20 20:28 Trazodone HCl (Desyrel) 50 mg QHS PO 08/06/20 21:00 08/07/20 20:10 Vitamin D (Vitamin D) 1,000 units DAILY PO 08/01/20 09:00 08/08/20 08:11 ALEXANDRA QUINTANA MD August 08, 2020 11:36
[2020-08-08] MEDS ORDERED: GABA-282 PO (11:51)
[2020-08-08] MEDS ORDERED: VITAD1000T PO (11:51)
[2020-08-08] MEDS ORDERED: OMEP40CA97 PO (11:51)
[2020-08-08] MEDS ORDERED: OXYC-517 PO (11:51)
[2020-08-08] MEDS ORDERED: FLUTISP NARES (11:51)
[2020-08-08] MEDS ORDERED: XARE10TA PO (11:51)
[2020-08-08] MEDS ORDERED: SUCR1TA PO (11:51)
[2020-08-08] MEDS ORDERED: ALBU8.5H INH (11:51)
[2020-08-08] MEDS ORDERED: CLAR10TA7 PO (11:51)
[2020-08-08] MEDS ORDERED: FLOM0.4C39 PO (11:51)
[2020-08-08 14:00] VITALS: BP 122/55
[2020-08-08 20:00] VITALS: BP 125/68
[2020-08-08] MEDS: ALPRAZolam 0.5 MG TAB PO SCH (20:58)
[2020-08-08] MEDS: traZODone 50 MG TAB PO SCH (20:58)
[2020-08-08] MEDS: SENNA 8.6 MG TAB (SENOKOT) PO SCH (20:59)
[2020-08-09] MEDS: oxyCODONE 5MG TAB PO PRN ×5 (02:22→21:10)
[2020-08-09 05:16] VITALS: BP 122/69
[2020-08-09] MEDS: RIVAROXABAN 10 MG TAB (XARELTO) PO SCH (06:18)
[2020-08-09] MEDS: ACETAMINOPHEN 500 MG TAB PO SCH ×3 (06:19→20:10)
[2020-08-09] MEDS: OYSTER SHELL CALCIUM 500 MG TAB PO SCH (08:22)
[2020-08-09] MEDS: LACTOBACILLUS ACIDOPHILUS CAP (BACID) PO SCH ×3 (08:22→20:05)
[2020-08-09] MEDS: PANTOPRAZOLE 40MG TAB (PROTONIX) PO SCH (08:22)
[2020-08-09] MEDS: MULTIVITAMINS/MINERALS THERAP 1 TAB PO SCH (08:22)
[2020-08-09] MEDS: TAMSULOSIN 0.4 MG CAP PO SCH (08:22)
[2020-08-09] MEDS: SUCRALFATE 1 GM TAB PO SCH ×4 (08:23→20:06)
[2020-08-09] MEDS: GABAPENTIN 300 MG CAP PO SCH ×3 (08:23→20:05)
[2020-08-09] MEDS: VITAMIN D 1,000 INTERNATIONAL UNITS TABLET PO SCH (08:23)
[2020-08-09] MEDS: LORATADINE 10 MG TAB PO SCH (08:23)
[2020-08-09] MEDS: oxyCODONE 10 MG CR TAB PO SCH ×2 (08:24→20:06)
[2020-08-09] MEDS: DOCUSATE SODIUM 100MG CAPSULE PO SCH ×3 (08:25→20:09)
[2020-08-09] MEDS: guaiFENesin 200 MG TAB PO SCH ×2 (08:26→20:06)
[2020-08-09] MEDS: COMBIVENT RESPIMAT 100-20MCG INHALER 4GM INH SCH ×3 (09:00→20:25)
[2020-08-09] MEDS: FLUTICASONE PROP 0.05% NASAL SPRAY 16 GM (FLONASE) NARES SCH ×2 (10:16→20:06)
[2020-08-09] MEDS: POLYVINYL ALCOHOL OPHTH SOLN 15 ML(LIQUITEARS) OU SCH ×4 (10:17→20:07)
[2020-08-09 14:00] VITALS: BP 112/57
[2020-08-09 20:00] VITALS: BP 100/63
[2020-08-09] MEDS: traZODone 50 MG TAB PO SCH (20:05)
[2020-08-09] MEDS: ALPRAZolam 0.5 MG TAB PO SCH (20:06)
[2020-08-09] MEDS: SENNA 8.6 MG TAB (SENOKOT) PO SCH ×2 (20:06→20:09)
[2020-08-10] MEDS: oxyCODONE 5MG TAB PO PRN ×2 (01:17→04:48)
[2020-08-10] MEDS: RIVAROXABAN 10 MG TAB (XARELTO) PO SCH (04:49)
[2020-08-10] MEDS: ACETAMINOPHEN 500 MG TAB PO SCH (04:49)
[2020-08-10 06:00] VITALS: BP 106/60
[2020-08-10] MEDS: COMBIVENT RESPIMAT 100-20MCG INHALER 4GM INH SCH (07:24)
[2020-08-10] MEDS: SUCRALFATE 1 GM TAB PO SCH ×2 (07:30→12:00)
[2020-08-10] MEDS: guaiFENesin 200 MG TAB PO SCH (09:00)
[2020-08-10] MEDS: POLYVINYL ALCOHOL OPHTH SOLN 15 ML(LIQUITEARS) OU SCH ×2 (09:00→13:00)
[2020-08-10] MEDS: OYSTER SHELL CALCIUM 500 MG TAB PO SCH (09:00)
[2020-08-10] MEDS: GABAPENTIN 300 MG CAP PO SCH (09:28)
[2020-08-10] MEDS: oxyCODONE 10 MG CR TAB PO SCH (09:29)
[2020-08-10] MEDS: LORATADINE 10 MG TAB PO SCH (09:30)
[2020-08-10] MEDS: VITAMIN D 1,000 INTERNATIONAL UNITS TABLET PO SCH (09:30)
[2020-08-10] MEDS: PANTOPRAZOLE 40MG TAB (PROTONIX) PO SCH (09:30)
[2020-08-10] MEDS: MULTIVITAMINS/MINERALS THERAP 1 TAB PO SCH (09:30)
[2020-08-10] MEDS: LACTOBACILLUS ACIDOPHILUS CAP (BACID) PO SCH (09:30)
[2020-08-10] MEDS: DOCUSATE SODIUM 100MG CAPSULE PO SCH (09:30)
[2020-08-10] MEDS: TAMSULOSIN 0.4 MG CAP PO SCH (09:30)
[2020-08-10] MEDS: FLUTICASONE PROP 0.05% NASAL SPRAY 16 GM (FLONASE) NARES SCH (09:32)
--- NOTE | 2020-08-10 14:37 | IPNPDOC ---
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 He feels better after having received a dose of oxycodone and has no complaints. REVIEW OF SYSTEMS: The following is a completed review of systems and has been reviewed. Review of systems otherwise unremarkable. PAIN: Patient self reports right hip and low back pain EYES: No recent vision changes EARS, NOSE, & THROAT: No throat pain, or dysphagia, or rhinorrhea CARDIOVASCULAR: Denies chest pain or palpitations PULMONARY: +cough (resolved) GASTROINTESTINAL: Denies constipation/diarrhea GENITOURINARY: denies dysuria MUSCULOSKELETAL: s/p right hip ORIF NEUROLOGICAL:denies paresthesias or tremors HEMATOLOGICAL: denies easy bruising SKIN: right hip incision PSYCHIATRIC: Unremarkable All other review of systems found to be negative. PHYSICAL EXAMINATION: VITAL SIGNS: Please see below. GENERAL: Pleasant and cooperative. No acute distress. HEENT: PERRL. Extraocular movements intact. Clear conjunctiva CARDIOVASCULAR: Regular rate and rhythm. No murmurs, rubs, or gallops LUNGS: Clear to auscultation ABDOMEN: Soft, nontender, nondistended. Positive bowel sounds. Normal active bowel sounds NEUROLOGICAL: Alert and oriented times three. Cranial nerves II through XII grossly intact. Sensation grossly intact all 4 limbs including 1st web space of right foot EXTREMITIES: 5-\5 strength bilateral upper extremities. right ankle DF 5-/5 (limited due to recent surgery) .5-/5 strength in left lower extremity. SKIN: right hip incision c/d/i no induration or ecchymosis, sutures in place, no erythema/drainage ASSESSMENT:80-year-old M with past medical history of chronic low back pain who presents status post fall with right femur fracture PLAN: 1. Rehab- PT/OT advance mobility and ADLs, WBAT to RLE, strengthen/stretch/maintain ROM all 4 limbs- ambulating with RW 2. Ortho- s/p right hip ORIF 07/29/[address] Ham, WBAT f/u outpatient 3. 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 Chamberlain in past -chest pain overnight on 08/01/20 resolved following pepto-bismol and tums, cardiac enzymes negative- no further complaints of chest pain -BPs well controlled, not on meds -medicine consulted to assist in overall management 4. Resp- + cigar smoker with recent bronchitis, monitor for worsening respiratory infection, Combivent and guaifenesin, sputum cx growing E. coli, patient started on augmentin 08-03-20 per hospitalist along with benadryl ( lowered dose as per staff patient more anxious which may be side effect of benadryl) as hx of rash with penicillins -patient appears clinically stable, lungs CTA, cough resolved, no leukocytosis/fever, CXR 08-06-20 shows no infiltrate, s/p 5 day course of Augmentin -incentive spirometry -flonase, claritin for seasonal allergies and warm compress to right eye 5. GI- hx of gastric ulcers, c/u Protonix, c/u sucralfate now that he is on xarelto 6. DVT ppx- xarelto 7. Pain- hx of chronic low back pain s/p multiple surgeries on chronic opioids, c/u oxycodone 20mg CR BID and will increase oxycodone frequency to 10mg 46h prn, increased gabapentin to 600mg TID to better address pain -tylneol 8. Psych- x/u xanax qhs- monitor for sedation/AMS while on opioids -trazodone helping with insomnia 9. - c/u flomax for bph 10. Dispo- 08-10-20 to home, progressing towards goals Allergies Coded Allergies: Penicillins (Verified Adverse Reaction, Mild, itchy, 02/07/19) Vital Signs Vital Signs Date Time Temp Pulse Resp B/P (MAP) Pulse Ox O2 Delivery O2 Flow Rate FiO2 08/10/20 10:00 18 Room Air 08/10/20 06:00 97.4 89 106/60 (75) 98 Microbiology Microbiology 08/03/20 Gram Stain - Final, Complete 08/03/20 Sputum Culture - Final, Complete Escherichia Coli Current Medications Current Medications Current Medications Medications (Trade) Dose Ordered Sig/Lyly Route PRN Reason Start Time Stop Time Status Last Admin Dose Admin Acetaminophen (Tylenol Tab) 1,000 mg Q8H PO 07/31/20 22:00 08/10/20 14:34 DC 08/10/20 04:49 Albuterol/ Ipratropium (Combivent Respimat 100-20mcg) 1 puff RTID INH 07/31/20 20:00 08/10/20 14:34 DC 08/10/20 07:24 Alprazolam (Xanax) 0.5 mg QHS PO 07/31/20 21:00 08/10/20 14:34 DC 08/09/20 20:06 Amoxicillin/ Clavulanate Potassium (Augmentin) 875 mg BID PO 08/03/20 21:00 08/08/20 09:01 DC 08/08/20 08:11 Artificial Tears (Akwa Tears) 2 drop QID OU 08/03/20 17:00 08/10/20 14:35 DC 08/09/20 20:07 Artificial Tears (Akwa Tears) 2 drop TIDP PRN OU DRY EYES 08/03/20 00:55 08/03/20 15:02 DC 08/03/20 01:33 Bisacodyl (Dulcolax Suppository) 10 mg DAILYPRN PRN [place] CONSTIPATION 07/31/20 16:35 08/10/20 14:34 DC Calcium Carbonate (Oscal) 500 mg DAILY PO 08/01/20 09:00 08/10/20 14:34 DC 08/09/20 08:22 Diphenhydramine HCl (Benadryl Elixir) 12.5 mg BID@0830,2030 PO 08/07/20 20:30 08/08/20 08:31 DC 08/08/20 08:11 Diphenhydramine HCl (Benadryl) 50 mg BID@0830,2030 PO 08/03/20 20:30 08/07/20 14:51 DC 08/07/20 08:28 Diphenhydramine HCl (Benadryl) 50 mg Q4HP PRN PO ITCHING/SWELLING 08/03/20 22:05 08/10/20 14:35 DC Docusate Sodium (Colace) 100 mg BID PO 07/31/20 21:00 08/10/20 14:34 DC 08/10/20 09:30 Fluticasone Propionate (Flonase 0.05% Nasal [place]) 1 spray BID NARES 08/03/20 21:00 08/10/20 14:35 DC 08/10/20 09:32 Gabapentin (Neurontin) 300 mg TID PO 07/31/20 21:00 08/01/20 12:34 DC 08/01/20 09:21 Gabapentin (Neurontin) 600 mg TID PO 08/01/20 16:00 08/10/20 14:35 DC 08/10/20 09:28 Guaifenesin (Robitussin Tab) 400 mg BID PO 08/01/20 09:00 08/10/20 14:35 DC 08/09/20 20:06 Lactobacillus Acidophilus (Bacid) 1 ea TID PO 08/06/20 16:00 08/10/20 14:35 DC 08/10/20 09:30 Loratadine (Claritin) 10 mg DAILY PO 08/03/20 15:00 08/10/20 14:35 DC 08/10/20 09:30 Morphine Sulfate (Morphine Sulfate Inj) 1 mg Q4H PRN IV MODERATE PAIN (PS 5-7) 08/04/20 05:40 UNV Multivitamins (Theragram-M) 1 tab DAILY PO 08/01/20 09:00 08/10/20 14:34 DC 08/10/20 09:30 Oxycodone HCl (OxyCONTIN) 20 mg BID PO 07/31/20 21:00 08/10/20 14:34 DC 08/10/20 09:29 Oxycodone HCl (Roxicodone, Oxyir) 10 mg Q4HP PRN PO SEVERE PAIN (PS 8-10) 08/08/20 11:15 08/10/20 14:35 DC 08/10/20 04:48 Oxycodone HCl (Roxicodone, Oxyir) 10 mg Q6HP PRN PO SEVERE PAIN (PS 8-10) 07/31/20 16:35 08/08/20 11:21 DC 08/08/20 02:13 Pantoprazole Sodium (Protonix) 40 mg DAILY PO 08/01/20 09:00 08/10/20 14:34 DC 08/10/20 09:30 Polyethylene Glycol (Miralax) 1 pkt DAILY PRN PO CONSTIPATION 07/31/20 16:35 08/10/20 14:34 DC Prednisolone Acetate (Predforte 1% Ophth Susp) 2 drop DAILYPRN PRN OD PAIN OR DISCOMFORT 08/03/20 00:55 08/03/20 15:02 DC 08/03/20 01:32 Ramelteon (Rozerem) 8 mg QHS PO 08/02/20 21:00 08/03/20 14:37 DC 08/02/20 21:34 Rivaroxaban (Xarelto) 10 mg DAILY@0600 PO 08/01/20 06:00 08/10/20 14:34 DC 08/10/20 04:49 Senna (Senokot) 1 tab QHS PO 07/31/20 21:00 08/10/20 14:34 DC 08/07/20 20:11 Sucralfate (Carafate) 1 gm ACHS PO 08/01/20 12:00 08/10/20 14:34 DC 08/09/20 20:06 Tamsulosin HCl (Flomax) 0.4 mg DAILY PO 08/01/20 09:00 08/10/20 14:34 DC 08/10/20 09:30 Trazodone HCl (Desyrel) 25 mg ASDIRECTED PRN PO INSOMNIA 08/03/20 14:35 08/10/20 14:35 DC Trazodone HCl (Desyrel) 25 mg QHS PO 08/03/20 21:00 08/06/20 14:26 DC 08/05/20 20:28 Trazodone HCl (Desyrel) 50 mg QHS PO 08/06/20 21:00 08/10/20 14:35 DC 08/09/20 20:05 Vitamin D (Vitamin D) 1,000 units DAILY PO 08/01/20 09:00 08/10/20 14:34 DC 08/10/20 09:30 ALEXANDRA QUINTANA MD August 10, 2020 14:37
--- NOTE | 2020-08-15 13:00 | PMRDS ---
NAME: SERVANDO BLAIR [facility] WT ID#: [id number] JOB: [id number] RUKHSANA: 08/10/2020 ACCT: [id number] DOCTOR: ALEXANDRA QUINTANA MD PMR DISCHARGE SUMMARY DATE OF ADMISSION: 07/31/2020 DATE OF DISCHARGE: 08/10/2020 CHIEF COMPLAINT/DISCHARGE DIAGNOSIS: Left hip fracture. HISTORY OF PRESENT ILLNESS: This is an 80-year-old male with a past medical history of multiple back surgeries, chronic opiate use, spinal stimulator, GERD, gastric ulcer status post repair, status post gastric bypass surgery, chronic atrial fibrillation, status post ablation, not on anticoagulation, who fell at home and presented to [facility] ED on 07/29/2020 complaining of right leg pain and difficulty walking. Hip x-ray revealed "nondisplaced fracture intertrochanteric region proximal right femur." CTH was performed showing no acute bleed or mass. He was evaluated by Orthopedics who performed an ORIF on 07/29/2020 after which he developed postop anemia and leukocytosis. He was transferred to PCU on 07/30/2020 for sinus bradycardia with second degree heart block which resolved. He reported a cough which began a week prior when he had bronchitis. He was noted to have mobility and ADL impairments and deemed medically appropriate for discharge to ARU on 07/31/2020. Overnight, the patient complained of left sided chest pain after pulling himself up in bed using his arms overhead with subsequent cardiac workup negative. The patient's symptoms also responded to Pepto Bismol and Tums. PAST MEDICAL HISTORY: As per HPI. HOSPITAL COURSE: The patient was admitted and enrolled in a comprehensive PT/OT program. He received 24 hour nursing supervision and weekly team meetings were held to discuss his progress. Patient was able to maintain weightbearing as tolerated following his right hip ORIF. The patient complained of a persistent cough with brown mucous for which sputum culture was ordered and eventually grew E. coli. Patient was started on Augmentin and his cough improved. Patient did not have any leukocytosis or fever and chest x-ray on 08/06/2020 showed no infiltrates. Patient complained of right eye irritation thought to be due to seasonal allergies which did respond to warm compress, Flonase and Claritin. Patient had a longstanding history of lower back pain on home doses of opioids. He was continued on long-acting Oxycodone and short-acting Oxycodone for breakthrough pain. His Gabapentin dose was increased to 600 mg t.i.d. to better address his pain. He made steady gains in therapy with no further report of chest pain and was instructed to follow-up with Cardiology to discuss his second degree heart block and was deemed medically and functionally stable to return home. DISCHARGE MEDICATIONS: As per instructions. FUNCTIONAL HISTORY ON DISCHARGE: Patient was modified independent for functional transfers and standby assist for ambulation. Thank you for this referral.
== END 2020-08-10 12:40 | disposition home health service (06) | DRG 560 ==
LOC: M PM&R 17:33
PROVIDERS: ADMIT Physical Medicine & Rehabilitation; ATTEND Physical Medicine & Rehabilitation
DX: S72.144D Nondisplaced intertrochanteric fracture of right femur, subsequent encounter for closed fracture with routine healing (principal); I48.20 Chronic atrial fibrillation, unspecified; K21.9 Gastro-esophageal reflux disease without esophagitis; I44.1 Atrioventricular block, second degree; M54.5 Low back pain; E11.9 Type 2 diabetes mellitus without complications; W22.8XXD Striking against or struck by other objects, subsequent encounter; Y92.002 Bathroom of unspecified non-institutional (private) residence as the place of occurrence of the external cause; F17.290 Nicotine dependence, other tobacco product, uncomplicated; Z66 Do not resuscitate; R07.89 Other chest pain; J40 Bronchitis, not specified as acute or chronic; G47.00 Insomnia, unspecified; J30.2 Other seasonal allergic rhinitis; N40.0 Benign prostatic hyperplasia without lower urinary tract symptoms; E55.9 Vitamin D deficiency, unspecified; Z98.84 Bariatric surgery status; Z74.1 Need for assistance with personal care; Z74.09 Other reduced mobility; Z79.891 Long term (current) use of opiate analgesic; Z88.0 Allergy status to penicillin; Z87.11 Personal history of peptic ulcer disease

== ENCOUNTER → 2020-08-23 | Outpatient (CLI) | payer MEDICARE, OTHER ==
[~2020-08-23] MED LIST changes: +CLAR10TA7 PO; +FLUTISP NARES; +SUCR1TA PO; +VITAD1000T PO
--- NOTE | 2020-08-23 14:40 | REP ---
INDICATION: RIGHT HIP REPLACEMENT,. COMPARISON: Preoperative examination 07/29/2020 which is the latest prior TECHNIQUE: AP pelvis and two views right hip FINDINGS: The previously described right hip fracture has been open the reduced and internally fixed. The leg screw tip does not breach the joint space. The alignment is near anatomical. There are bilateral hip degenerative changes. There is no evidence of an acute fracture. The iliac crests were not included on the AP view. IMPRESSION: As above <Electronically signed by Jesus Montanez > 08/23/20 [id number]
== END ==
LOC: M SOG 13:21
PROVIDERS: ATTEND Orthopaedic Surgery
DX: Z48.89 Encounter for other specified surgical aftercare (principal)

== ENCOUNTER → 2020-09-20 | Outpatient (CLI) | payer MEDICARE, OTHER ==
[~2020-09-20] MED LIST changes: +OMEP40CA4 PO; -OMEP40CA97 PO
--- NOTE | 2020-09-20 12:17 | REP ---
INDICATION: FX F/U. COMPARISON: 08/24/2019 TECHNIQUE: Two views of the pelvis. FINDINGS: Visualized portions of the pelvis demonstrate osteopenia and advanced degenerative changes. Patient is status post satisfactory open reduction and fixation for proximal right femur fracture. No acute fracture or dislocation noted. Evidence for peripheral vascular disease identified. IMPRESSION: Generalized osteopenia and degenerative changes. No acute fracture. Satisfactory appearance to right proximal femur. <Electronically signed by Rudy Valdes > 09/20/20 [id number]
== END ==
LOC: M SOG 09:18
PROVIDERS: ATTEND Orthopaedic Surgery
DX: S72.141D Displaced intertrochanteric fracture of right femur, subsequent encounter for closed fracture with routine healing (principal); W18.30XD Fall on same level, unspecified, subsequent encounter; Y92.009 Unspecified place in unspecified non-institutional (private) residence as the place of occurrence of the external cause

== ENCOUNTER → 2020-11-21 | Outpatient (REF) | payer MEDICARE, OTHER ==
[2020-11-21 17:44] LABS: C REACTIVE PROTEIN QUANTITATIV < 0.30 MG/DL (0.00-0.30); RHEUMATOID FACTOR QUANT < 10.0 IU/ML (<15.0)
== END ==
LOC: M LAB REF 16:37
PROVIDERS: ATTEND Internal Medicine
DX: M25.50 Pain in unspecified joint (principal)

== ENCOUNTER → 2021-12-02 | Outpatient (CLI) | payer MEDICARE, OTHER ==
[~2021-12-02] MED LIST changes: -D31000TA2 PO; +VITA100093 PO
== END ==
LOC: M SOG 08:21
PROVIDERS: ATTEND Orthopaedic Surgery
DX: M25.511 Pain in right shoulder (principal); M75.41 Impingement syndrome of right shoulder

== ENCOUNTER → 2022-06-24 | Outpatient (REF) | payer MEDICARE, OTHER ==
[~2022-06-24] MED LIST changes: +FLUT50SP17 NARES; -FLUTISP NARES
[2022-06-27 04:07] LABS: Alkaline Phosphatase Iso-Bone 28 % (12-68); Alkaline Phosphatase Iso-Intes 5 % (0-18); Alkaline Phosphatase Iso-Liver 67 % (13-88); TOTAL ALK PHOS 325 IU/L (44-121)
== END ==
LOC: M LAB REF 16:14
PROVIDERS: ATTEND Internal Medicine
DX: R74.8 Abnormal levels of other serum enzymes (principal)

== ENCOUNTER → 2022-07-15 | Outpatient (REF) | payer MEDICARE, OTHER | LOC: M LAB REF 16:59 | PROVIDERS: ATTEND Internal Medicine | DX: M51.37 Other intervertebral disc degeneration, lumbosacral region (principal); R74.8 Abnormal levels of other serum enzymes; I10 Essential (primary) hypertension ==

== ENCOUNTER → 2022-08-05 | Outpatient (CLI) | payer MEDICARE, OTHER ==
[2022-08-05 15:34] LABS: IRON (FE) 40 UG/DL (65-175); TOTAL IRON BINDING CAPACITY 267 UG/DL (250-425)
[2022-08-05 15:35] LABS: ALKALINE PHOSPHATASE 573 U/L (46-116); ALT/SGPT 73 U/L (7.0-40); AST/SGOT 46 U/L (<34); BILIRUBIN,DIRECT 1.3 MG/DL (<0.4); BILIRUBIN,TOTAL 1.8 MG/DL (0.3-1.2); TOTAL PROTEIN 6.2 G/DL (5.7-8.2)
[2022-08-05 15:52] LABS: HEPATITIS B SURFACE ANTIGEN NEGATIVE (NEGATIVE)
[2022-08-05 16:13] LABS: HEPATITIS B CORE ANTIBODY IGM NEGATIVE (NEGATIVE)
[2022-08-06 17:09] LABS: LIVER-KIDNEY MICROSOMAL ABY <20.1 Units (0.0-20.0)
[2022-08-07 17:10] LABS: ANCA-ATYPICAL <1:20 titer (Neg:<1:20); ANTI-MITOCHONDRIAL ANTIBODY <20.0 Units (0.0-20.0); ANTINUCLEAR ANTIBODIES DIRECT Negative (Negative); CYTOPLASMIC NEUTROP AB ANCA-C <1:20 titer (Neg:<1:20); PERINUCLEAR AB ANCA-P <1:20 titer (Neg:<1:20)
== END ==
LOC: M WUC 09:06
PROVIDERS: ATTEND Internal Medicine Gastroenterology
DX: R94.5 Abnormal results of liver function studies (principal); D50.9 Iron deficiency anemia, unspecified

== ENCOUNTER → 2022-08-14 | Outpatient (CLI) | payer MEDICARE, OTHER ==
[~2022-08-14] MED LIST changes: +GASTROGRAFIN SOLUTION 30ML As Ordered ONE; +ISOVUE-370 76% 100ML VIAL As Ordered ONE
[2022-08-14 10:26] LABS: BLOOD UREA NITROGEN 13 MG/DL (9-23); CREATININE FOR GFR 0.75 MG/DL (0.70-1.30); GLOMERULAR FILTRATION RATE > 60.0 (>35)
== END ==
LOC: M RAD 09:15
PROVIDERS: ATTEND Internal Medicine Gastroenterology
DX: D37.6 Neoplasm of uncertain behavior of liver, gallbladder and bile ducts (principal); R94.5 Abnormal results of liver function studies; K80.20 Calculus of gallbladder without cholecystitis without obstruction
CPT/HCPCS: 36415; 74177; 82565; 84520; Q9963; Q9967

== ENCOUNTER → 2022-11-24 | Outpatient (REF) | payer MEDICARE, OTHER ==
[~2022-11-24] MED LIST changes: +B-12100010 PO; +DULO1CAP5 PO; +DULO1CAP6 PO; -GASTROGRAFIN SOLUTION 30ML As Ordered ONE; -ISOVUE-370 76% 100ML VIAL As Ordered ONE; +METH5TA PO
[2022-12-03 10:12] LABS: IMMUNOTYPING SERUM IGA SO 256 mg/dL (61-437); IMMUNOTYPING SERUM IGM SO 120 mg/dL (15-143)
== END ==
LOC: M LAB REF 09:48
PROVIDERS: ATTEND Internal Medicine
DX: C91.10 Chronic lymphocytic leukemia of B-cell type not having achieved remission (principal)

== ENCOUNTER → 2022-12-18 | Outpatient (CLI) | payer MEDICARE, OTHER | LOC: M EKG 13:32 | PROVIDERS: ATTEND Physician Assistant Medical | DX: M54.50 Low back pain, unspecified (principal); M96.1 Postlaminectomy syndrome, not elsewhere classified ==

== ENCOUNTER → 2022-12-24 | Outpatient (REF) | payer MEDICARE, OTHER ==
[~2022-12-24] MED LIST changes: +METH-1177 PO
== END ==
LOC: M LAB REF 12:07
PROVIDERS: ATTEND Internal Medicine
DX: R19.7 Diarrhea, unspecified (principal)

== ENCOUNTER → 2023-01-06 | Outpatient (CLI) | payer MEDICARE, OTHER ==
[~2023-01-06] VITALS: Ht 162.6 cm; Wt 72.6 kg
[~2023-01-06] MED LIST changes: +NEUR300C PO
[2023-01-06 14:42] VITALS: BP 136/80; O2SAT 98
== END ==
LOC: M PAL 14:14
PROVIDERS: ATTEND Nurse Practitioner Adult Health
DX: C83.03 Small cell B-cell lymphoma, intra-abdominal lymph nodes (principal); G89.29 Other chronic pain; R19.7 Diarrhea, unspecified; R29.6 Repeated falls; F17.290 Nicotine dependence, other tobacco product, uncomplicated; Z66 Do not resuscitate; Z79.891 Long term (current) use of opiate analgesic; Z79.899 Other long term (current) drug therapy; Z80.0 Family history of malignant neoplasm of digestive organs; Z87.442 Personal history of urinary calculi; Z88.0 Allergy status to penicillin; Z88.1 Allergy status to other antibiotic agents; Z98.84 Bariatric surgery status

== ENCOUNTER → 2023-01-07 | Outpatient (REF) | payer MEDICARE, OTHER | LOC: M LAB REF 14:33 | PROVIDERS: ATTEND Internal Medicine | DX: R19.7 Diarrhea, unspecified (principal) ==

== ENCOUNTER → 2023-01-27 | Outpatient (CLI) | payer MEDICARE, OTHER ==
[~2023-01-27] MED LIST changes: +MORP15TA2 PO
== END ==
LOC: M PAL 07:41
PROVIDERS: ATTEND Nurse Practitioner Adult Health
DX: C83.03 Small cell B-cell lymphoma, intra-abdominal lymph nodes (principal); G89.29 Other chronic pain; R19.7 Diarrhea, unspecified; R29.6 Repeated falls; R53.83 Other fatigue; F17.290 Nicotine dependence, other tobacco product, uncomplicated; Z66 Do not resuscitate; Z79.891 Long term (current) use of opiate analgesic; Z79.899 Other long term (current) drug therapy; Z80.0 Family history of malignant neoplasm of digestive organs; Z87.442 Personal history of urinary calculi; Z88.0 Allergy status to penicillin; Z88.1 Allergy status to other antibiotic agents; Z98.84 Bariatric surgery status

== ENCOUNTER 2023-02-13 18:52 | Inpatient (IN) | payer MEDICARE, OTHER ==
[~2023-02-13] VITALS: Ht 172.7 cm; Wt 71.3 kg
[~2023-02-13 18:52] MED LIST changes: -FLUT50SP17 NARES; +FLUTISP NARES
[2023-02-13] MEDS: HYDROMORPHONE HCL 0.5 MG/ 0.5 ML SYRINGE IV PRN (21:31)
[2023-02-13 22:01] LABS: INR 1.05; PROTHROMBIN TIME 13.4 SECONDS (12.5-14.5)
[2023-02-13 22:02] LABS: PARTIAL THROMBOPLASTIN TIME 34.2 SECONDS (24.8-34.2)
[2023-02-13 22:14] LABS: BLOOD UREA NITROGEN 10 MG/DL (9-23); CALCIUM LEVEL 8.5 MG/DL (8.3-10.6); CARBON DIOXIDE LEVEL 27 MMOL/L (20-31); CHLORIDE LEVEL 105 MMOL/L (98-107); CREATININE FOR GFR 0.63 MG/DL (0.70-1.30); GLOMERULAR FILTRATION RATE > 60.0 (>35); GLUCOSE, FASTING 83 MG/DL (74-106); POTASSIUM SERUM 4.4 MMOL/L (3.5-5.1); SODIUM LEVEL 138 MMOL/L (136-145)
[2023-02-13 22:16] LABS: HEMATOCRIT 41.2 % (42.0-52.0); HEMOGLOBIN 13.9 g/dl (13.5-17.5); MEAN CORPUSCULAR HEMOGLOBIN 33.5 pg (27.0-33.0); MEAN CORPUSCULAR HGB CONC 33.7 g/dl (32.0-36.5); MEAN CORPUSCULAR VOLUME 99.3 fl (80.0-96.0); PLATELET COUNT, AUTOMATED 276 10^3/uL (150-450); RED BLOOD COUNT 4.15 10^6/uL (4.30-6.10); WHITE BLOOD COUNT 16.1 10^3/uL (4.0-10.0)
[2023-02-13 22:23] LABS: ATYPICAL LYMPH 1 % (0-5); BASOPHILS 1 % (0-1); EOSINOPHILS 1 % (0-3); LYMPHOCYTES 22 % (16-44); MONOCYTES 6 % (0-5); NEUTROPHILS 67 % (28-66); PLATELET ESTIMATE NORMAL (NORMAL)
[2023-02-13 22:25] LABS: RSV AMPLIFICATION NEGATIVE (NEGATIVE)
[2023-02-14] MEDS ORDERED: FLOM0.4C39 PO (00:06)
[2023-02-14] MEDS ORDERED: GABA-282 PO (00:06)
[2023-02-14] MEDS ORDERED: OMEP40CA5 PO (00:06)
[2023-02-14] MEDS ORDERED: HOME MED LIST COMPLETE! XX SCH (00:10)
[2023-02-14] MEDS: HYDROMORPHONE HCL 0.5 MG/ 0.5 ML SYRINGE IV PRN ×6 (00:21→20:52)
[2023-02-14] MEDS: LR 1,000 ML IV SCH ×3 (01:40→23:26)
[2023-02-14] MEDS ORDERED: ONDANSETRON 4MG 2ML VIAL IV PRN (01:40)
[2023-02-14 02:00] VITALS: BP 142/78; TEMP 99.7; O2SAT 99
[2023-02-14] MEDS: DULoxetine 30MG CAPSULE (CYMBALTA) PO SCH ×2 (03:21→20:45)
[2023-02-14 06:00] VITALS: BP 127/60; TEMP 99.7; O2SAT 94
[2023-02-14 08:23] LABS: HEMOGLOBIN 13.8 g/dl (13.5-17.5); MEAN CORPUSCULAR HEMOGLOBIN 32.9 pg (27.0-33.0); MEAN CORPUSCULAR HGB CONC 33.7 g/dl (32.0-36.5); MEAN CORPUSCULAR VOLUME 97.9 fl (80.0-96.0); PLATELET COUNT, AUTOMATED 269 10^3/uL (150-450); RED BLOOD COUNT 4.19 10^6/uL (4.30-6.10); WHITE BLOOD COUNT 13.4 10^3/uL (4.0-10.0)
[2023-02-14 08:56] LABS: BLOOD UREA NITROGEN 10 MG/DL (9-23); CALCIUM LEVEL 8.7 MG/DL (8.3-10.6); CARBON DIOXIDE LEVEL 29 MMOL/L (20-31); CHLORIDE LEVEL 104 MMOL/L (98-107); GLOMERULAR FILTRATION RATE > 60.0 (>35); GLUCOSE, FASTING 93 MG/DL (74-106); POTASSIUM SERUM 4.8 MMOL/L (3.5-5.1); SODIUM LEVEL 139 MMOL/L (136-145)
[2023-02-14] MEDS: OMEPRAZOLE 20MG CAP PO SCH (08:58)
[2023-02-14] MEDS: GABAPENTIN 300 MG CAP PO SCH ×3 (08:58→20:53)
[2023-02-14] MEDS: TAMSULOSIN 0.4 MG CAP PO SCH (08:58)
[2023-02-14 09:14] LABS: ATYPICAL LYMPH 23 % (0-5); BASOPHILS 1 % (0-1); LYMPHOCYTES 11 % (16-44); MONOCYTES 9 % (0-5); NEUTROPHILS 56 % (28-66)
[2023-02-14 09:15] LABS: PLATELET ESTIMATE NORMAL (NORMAL)
[2023-02-14 14:00] VITALS: BP 125/72; TEMP 99; O2SAT 93
[2023-02-14 20:00] VITALS: BP 133/64; TEMP 99; O2SAT 95
[2023-02-14] MEDS: ALPRAZolam 0.5 MG TAB PO SCH (20:53)
[2023-02-14 22:00] VITALS: BP 133/64; TEMP 99; O2SAT 95
[2023-02-15] VITALS (7 sets, daily range): BP systolic 108–152; BP diastolic 62–71; TEMP 97.1–99.8; O2SAT 95–99
[2023-02-15] MEDS: HYDROMORPHONE HCL 0.5 MG/ 0.5 ML SYRINGE IV PRN ×5 (03:39→18:27)
[2023-02-15 07:07] LABS: HEMATOCRIT 41.6 % (42.0-52.0); HEMOGLOBIN 14.1 g/dl (13.5-17.5); MEAN CORPUSCULAR HGB CONC 33.9 g/dl (32.0-36.5); MEAN CORPUSCULAR VOLUME 97.4 fl (80.0-96.0); PLATELET COUNT, AUTOMATED 242 10^3/uL (150-450); RED BLOOD COUNT 4.27 10^6/uL (4.30-6.10); WHITE BLOOD COUNT 14.8 10^3/uL (4.0-10.0)
[2023-02-15 07:36] LABS: BLOOD UREA NITROGEN 10 MG/DL (9-23); CALCIUM LEVEL 8.6 MG/DL (8.3-10.6); CARBON DIOXIDE LEVEL 26 MMOL/L (20-31); CHLORIDE LEVEL 101 MMOL/L (98-107); CREATININE FOR GFR 0.64 MG/DL (0.70-1.30); GLOMERULAR FILTRATION RATE > 60.0 (>35); GLUCOSE, FASTING 99 MG/DL (74-106); POTASSIUM SERUM 4.6 MMOL/L (3.5-5.1); SODIUM LEVEL 135 MMOL/L (136-145)
[2023-02-15] MEDS: LR 1,000 ML IV SCH (07:40)
[2023-02-15 08:01] LABS: ATYPICAL LYMPH 25 % (0-5); EOSINOPHILS 2 % (0-3); LYMPHOCYTES 6 % (16-44); MONOCYTES 8 % (0-5); NEUTROPHILS 59 % (28-66); PLATELET ESTIMATE NORMAL (NORMAL); SMUDGE CELLS 1+
[2023-02-15] MEDS ORDERED: propofoL 200 MG/20 ML VIAL As Ordered ONE (08:20)
[2023-02-15] MEDS ORDERED: MIDAZOLAM INJ 2MG/2ML VIAL As Ordered ONE (08:20)
[2023-02-15] MEDS ORDERED: LIDOCAINE 2% 100MG/5ML SDV (FOR ANES.) As Ordered ONE (08:20)
[2023-02-15] MEDS ORDERED: fentaNYL 100 MCG/2 ML INJECTION As Ordered ONE (08:20)
[2023-02-15] MEDS ORDERED: ONDANSETRON 4MG 2ML VIAL As Ordered ONE (08:20)
[2023-02-15] MEDS ORDERED: TRANEXAMIC ACID 100 MG/ML 10ML VIAL As Ordered ONE (08:27)
[2023-02-15] MEDS ORDERED: ePHEDrine SULFATE 25 MG/5 ML(5MG/ML) SYRINGE As Ordered ONE (08:38)
[2023-02-15] MEDS ORDERED: ACETAMINOPHEN 1000MG 100ML IV BAG As Ordered ONE (08:59)
[2023-02-15] MEDS ORDERED: MEPERIDINE 25 MG/ML 1ML VIAL IV PRN (09:30)
[2023-02-15] MEDS ORDERED: HYDROMORPHONE HCL 0.5 MG/ 0.5 ML SYRINGE IV PRN (09:30)
[2023-02-15] MEDS ORDERED: fentaNYL 100 MCG/2 ML INJECTION IV PRN (09:30)
[2023-02-15] MEDS ORDERED: oxyCODONE 5MG TAB PO PRN (09:30)
[2023-02-15] MEDS ORDERED: ONDANSETRON 4MG 2ML VIAL IV PRN (09:30)
[2023-02-15] MEDS ORDERED: HYDROmorphone HCL 2MG/ML 1ML VIAL As Ordered ONE (10:10)
[2023-02-15] MEDS: GABAPENTIN 300 MG CAP PO SCH ×3 (10:17→21:59)
[2023-02-15] MEDS: TAMSULOSIN 0.4 MG CAP PO SCH (10:45)
[2023-02-15] MEDS: ceFAZolin SOD 2 GM in IV 1 EA IV SCH ×2 (10:45→19:50)
[2023-02-15] MEDS: OMEPRAZOLE 20MG CAP PO SCH (10:45)
[2023-02-15] MEDS: ALPRAZolam 0.5 MG TAB PO SCH (21:59)
[2023-02-15] MEDS: DULoxetine 30MG CAPSULE (CYMBALTA) PO SCH (21:59)
[2023-02-16] MEDS: HYDROMORPHONE HCL 0.5 MG/ 0.5 ML SYRINGE IV PRN ×3 (00:40→07:48)
[2023-02-16] MEDS: ceFAZolin SOD 2 GM in IV 1 EA IV SCH (03:16)
[2023-02-16 06:00] VITALS: BP 126/67; TEMP 98.8; O2SAT 91
[2023-02-16 06:49] LABS: HEMATOCRIT 40.5 % (42.0-52.0); HEMOGLOBIN 13.6 g/dl (13.5-17.5); MEAN CORPUSCULAR HEMOGLOBIN 32.7 pg (27.0-33.0); MEAN CORPUSCULAR HGB CONC 33.6 g/dl (32.0-36.5); MEAN CORPUSCULAR VOLUME 97.4 fl (80.0-96.0); PLATELET COUNT, AUTOMATED 238 10^3/uL (150-450); RED BLOOD COUNT 4.16 10^6/uL (4.30-6.10); WHITE BLOOD COUNT 14.6 10^3/uL (4.0-10.0)
[2023-02-16 07:27] LABS: ATYPICAL LYMPH 9 % (0-5); EOSINOPHILS 1 % (0-3); LYMPHOCYTES 16 % (16-44); MONOCYTES 13 % (0-5); NEUTROPHILS 61 % (28-66); PLATELET ESTIMATE NORMAL (NORMAL)
[2023-02-16] MEDS: OMEPRAZOLE 20MG CAP PO SCH (07:47)
[2023-02-16] MEDS: GABAPENTIN 300 MG CAP PO SCH (07:47)
[2023-02-16] MEDS: TAMSULOSIN 0.4 MG CAP PO SCH (07:47)
[2023-02-16] MEDS ORDERED: ENOXAPARIN 40MG/0.4ML SYRINGE (J1650 PER 10MG) SC SCH (09:00)
[2023-02-16] MEDS ORDERED: VITAMIN D 1,000 INTERNATIONAL UNITS TABLET PO SCH (09:25)
[2023-02-16] MEDS ORDERED: MULTIVITAMINS/MINERALS THERAP 1 TAB PO SCH (09:25)
[2023-02-16] MEDS ORDERED: CYANOCOBALAMIN 500 MCG TAB PO SCH (09:35)
[2023-02-16] MEDS ORDERED: METHADONE 5MG TAB PO PRN (10:45)
[2023-02-16] MEDS ORDERED: ACETAMINOPHEN TAB 650MG DOSE (2X325MG) PO PRN (10:45)
[2023-02-16] MEDS ORDERED: MORPHINE 30 MG TAB **MSIR PO PRN (10:45)
[2023-02-16] MEDS ORDERED: XARE10TA PO (10:57)
[2023-02-16] MEDS ORDERED: METHADONE 10MG TAB PO SCH ×2 (21:00)
== END 2023-02-16 13:05 | DRG 481 ==
LOC: M ED 18:52 → EDBD 18:52 → M ED INP 23:45 → M MS4PR 02-14 02:09
PROVIDERS: ADMIT Internal Medicine; ATTEND Internal Medicine
PROC: 0QS706Z Reposition Left Upper Femur with Intramedullary Internal Fixation Device, Open Approach (ICD-10-PCS; principal; 2023-02-15)
DX: S72.142A Displaced intertrochanteric fracture of left femur, initial encounter for closed fracture (principal); F11.20 Opioid dependence, uncomplicated; C91.10 Chronic lymphocytic leukemia of B-cell type not having achieved remission; C83.00 Small cell B-cell lymphoma, unspecified site; I48.20 Chronic atrial fibrillation, unspecified; F41.9 Anxiety disorder, unspecified; K21.9 Gastro-esophageal reflux disease without esophagitis; Z66 Do not resuscitate; G89.29 Other chronic pain; M54.9 Dorsalgia, unspecified; R33.9 Retention of urine, unspecified; F17.210 Nicotine dependence, cigarettes, uncomplicated; W08.XXXA Fall from other furniture, initial encounter; Y99.8 Other external cause status; Y93.E9 Activity, other interior property and clothing maintenance; Y92.019 Unspecified place in single-family (private) house as the place of occurrence of the external cause; N40.1 Benign prostatic hyperplasia with lower urinary tract symptoms; G62.9 Polyneuropathy, unspecified; M81.0 Age-related osteoporosis without current pathological fracture; Z79.899 Other long term (current) drug therapy

== ENCOUNTER 2023-02-16 10:02 | Inpatient (IN) | payer MEDICARE, OTHER ==
[~2023-02-16] VITALS: Ht 172.7 cm; Wt 69.1 kg
[~2023-02-16 10:02] MED LIST changes: +OMEP40CA5 PO
[2023-02-16] MEDS ORDERED: XARE10TA PO (10:57)
[2023-02-16] MEDS ORDERED: METHADONE 5MG TAB PO PRN (11:00)
[2023-02-16] MEDS ORDERED: ACETAMINOPHEN TAB 650MG DOSE (2X325MG) PO PRN (11:00)
[2023-02-16 13:05] VITALS: BP 114/65; TEMP 99.2; O2SAT 94
[2023-02-16] MEDS ORDERED: PILL CUTTER 1 EACH XX PRN (14:05)
[2023-02-16] MEDS: METHADONE 5MG TAB PO SCH (15:01)
[2023-02-16] MEDS ORDERED: MIRALAX *UNIT DOSE* 17GM PACKET PO PRN (16:10)
[2023-02-16] MEDS: GABAPENTIN 300 MG CAP PO SCH ×2 (16:58→21:25)
[2023-02-16] MEDS: ACETAMINOPHEN 500 MG TAB PO SCH ×2 (17:00→21:24)
[2023-02-16] MEDS: MORPHINE 30 MG TAB **MSIR PO PRN (17:00)
[2023-02-16 20:00] VITALS: BP 110/57; TEMP 97.4; O2SAT 97
[2023-02-16] MEDS: DULoxetine 30MG CAPSULE (CYMBALTA) PO SCH (21:23)
[2023-02-16] MEDS: ALPRAZolam 0.5 MG TAB PO SCH (21:24)
[2023-02-16] MEDS: METHADONE 10MG TAB PO SCH (21:24)
[2023-02-16] MEDS: DICLOFENAC EPOLAMINE 1.3% PATCH TOP SCH (21:25)
[2023-02-17] MEDS: MORPHINE 30 MG TAB **MSIR PO PRN ×3 (02:30→19:24)
[2023-02-17 06:00] VITALS: BP 117/59; TEMP 96.9; O2SAT 94
[2023-02-17 07:44] LABS: BASO % 0.3 % (0.0-1.0); EOS # 0.3 10^3/uL (0.0-0.5); EOS % 2.4 % (0.0-3.0); HEMATOCRIT 38.1 % (42.0-52.0); HEMOGLOBIN 12.9 g/dl (13.5-17.5); LYMPH # 3.9 10^3/uL (1.5-5.0); LYMPH % 34.1 % (24.0-44.0); MEAN CORPUSCULAR HEMOGLOBIN 33.2 pg (27.0-33.0); MEAN CORPUSCULAR HGB CONC 33.9 g/dl (32.0-36.5); MEAN CORPUSCULAR VOLUME 98.2 fl (80.0-96.0); MONO # 1.3 10^3/uL (0.0-0.8); MONO % 11.2 % (2.0-8.0); NEUTROPHILS # 5.9 10^3/uL (1.5-8.5); NEUTROPHILS % 51.7 % (36.0-66.0); PLATELET COUNT, AUTOMATED 243 10^3/uL (150-450); RED BLOOD COUNT 3.88 10^6/uL (4.30-6.10); WHITE BLOOD COUNT 11.4 10^3/uL (4.0-10.0)
[2023-02-17 08:06] LABS: BLOOD UREA NITROGEN 15 MG/DL (9-23); CALCIUM LEVEL 8.5 MG/DL (8.3-10.6); CARBON DIOXIDE LEVEL 29 MMOL/L (20-31); CHLORIDE LEVEL 102 MMOL/L (98-107); CREATININE FOR GFR 0.65 MG/DL (0.70-1.30); GLOMERULAR FILTRATION RATE > 60.0 (>35); GLUCOSE, FASTING 94 MG/DL (74-106); POTASSIUM SERUM 4.4 MMOL/L (3.5-5.1); SODIUM LEVEL 137 MMOL/L (136-145)
[2023-02-17] MEDS: OMEPRAZOLE 20MG CAP PO SCH (08:49)
[2023-02-17] MEDS: GABAPENTIN 300 MG CAP PO SCH ×3 (08:49→20:15)
[2023-02-17] MEDS: VITAMIN D 1,000 INTERNATIONAL UNITS TABLET PO SCH (08:50)
[2023-02-17] MEDS: MULTIVITAMINS/MINERALS THERAP 1 TAB PO SCH (08:50)
[2023-02-17] MEDS: ACETAMINOPHEN 500 MG TAB PO SCH ×3 (08:50→20:15)
[2023-02-17] MEDS: TAMSULOSIN 0.4 MG CAP PO SCH (08:50)
[2023-02-17] MEDS: CYANOCOBALAMIN 500 MCG TAB PO SCH (08:50)
[2023-02-17] MEDS: METHADONE 5MG TAB PO SCH ×2 (08:50→13:58)
[2023-02-17] MEDS: ENOXAPARIN 40MG/0.4ML SYRINGE (J1650 PER 10MG) SC SCH (08:50)
[2023-02-17] MEDS: DICLOFENAC EPOLAMINE 1.3% PATCH TOP SCH ×2 (08:51→20:16)
[2023-02-17 14:00] VITALS: TEMP 97.2
[2023-02-17 20:00] VITALS: BP 108/58; TEMP 97.2; O2SAT 95
[2023-02-17] MEDS: METHADONE 10MG TAB PO SCH (20:15)
[2023-02-17] MEDS: ALPRAZolam 0.5 MG TAB PO SCH (20:15)
[2023-02-17] MEDS: DULoxetine 30MG CAPSULE (CYMBALTA) PO SCH (20:16)
[2023-02-18] MEDS: MORPHINE 30 MG TAB **MSIR PO PRN ×3 (03:34→20:30)
[2023-02-18 06:00] VITALS: BP 115/58; TEMP 96.6; O2SAT 94
[2023-02-18] MEDS: GABAPENTIN 300 MG CAP PO SCH ×3 (08:50→20:23)
[2023-02-18] MEDS: VITAMIN D 1,000 INTERNATIONAL UNITS TABLET PO SCH (08:51)
[2023-02-18] MEDS: OMEPRAZOLE 20MG CAP PO SCH (08:51)
[2023-02-18] MEDS: METHADONE 5MG TAB PO SCH ×2 (08:51→16:43)
[2023-02-18] MEDS: MULTIVITAMINS/MINERALS THERAP 1 TAB PO SCH (08:51)
[2023-02-18] MEDS: CYANOCOBALAMIN 500 MCG TAB PO SCH (08:51)
[2023-02-18] MEDS: DICLOFENAC EPOLAMINE 1.3% PATCH TOP SCH ×2 (08:52→20:25)
[2023-02-18] MEDS: TAMSULOSIN 0.4 MG CAP PO SCH (08:52)
[2023-02-18] MEDS: ACETAMINOPHEN 500 MG TAB PO SCH ×3 (08:52→20:24)
[2023-02-18] MEDS: ENOXAPARIN 40MG/0.4ML SYRINGE (J1650 PER 10MG) SC SCH (08:53)
[2023-02-18 14:00] VITALS: BP 108/67; TEMP 98.3; O2SAT 97
[2023-02-18 20:00] VITALS: BP 110/61; TEMP 98; O2SAT 96
[2023-02-18] MEDS: METHADONE 10MG TAB PO SCH (20:23)
[2023-02-18] MEDS: DULoxetine 30MG CAPSULE (CYMBALTA) PO SCH (20:24)
[2023-02-18] MEDS: ALPRAZolam 0.5 MG TAB PO SCH (20:24)
[2023-02-19] MEDS: MORPHINE 30 MG TAB **MSIR PO PRN ×3 (04:25→20:15)
[2023-02-19 05:51] LABS: HEMATOCRIT 38.3 % (42.0-52.0); HEMOGLOBIN 12.8 g/dl (13.5-17.5); MEAN CORPUSCULAR HGB CONC 33.4 g/dl (32.0-36.5); MEAN CORPUSCULAR VOLUME 98.7 fl (80.0-96.0); PLATELET COUNT, AUTOMATED 313 10^3/uL (150-450); RED BLOOD COUNT 3.88 10^6/uL (4.30-6.10); WHITE BLOOD COUNT 12.1 10^3/uL (4.0-10.0)
[2023-02-19 06:00] VITALS: BP 123/58; TEMP 97.8; O2SAT 96
[2023-02-19] MEDS: TAMSULOSIN 0.4 MG CAP PO SCH (07:25)
[2023-02-19] MEDS: MULTIVITAMINS/MINERALS THERAP 1 TAB PO SCH (07:25)
[2023-02-19] MEDS: METHADONE 5MG TAB PO SCH ×2 (07:25→13:21)
[2023-02-19] MEDS: OMEPRAZOLE 20MG CAP PO SCH (07:25)
[2023-02-19] MEDS: GABAPENTIN 300 MG CAP PO SCH ×3 (07:26→20:15)
[2023-02-19] MEDS: VITAMIN D 1,000 INTERNATIONAL UNITS TABLET PO SCH (07:26)
[2023-02-19] MEDS: ACETAMINOPHEN 500 MG TAB PO SCH ×3 (07:26→20:15)
[2023-02-19] MEDS: CYANOCOBALAMIN 500 MCG TAB PO SCH (07:26)
[2023-02-19] MEDS: DICLOFENAC EPOLAMINE 1.3% PATCH TOP SCH ×2 (07:27→20:15)
[2023-02-19] MEDS: ENOXAPARIN 40MG/0.4ML SYRINGE (J1650 PER 10MG) SC SCH (07:27)
[2023-02-19 11:02] LABS: ALBUMIN 2.4 G/DL (3.2-5.2); ALKALINE PHOSPHATASE 93 U/L (46-116); ALT/SGPT 13 U/L (7.0-40); AST/SGOT 17 U/L (<34); BILIRUBIN,TOTAL 0.5 MG/DL (0.3-1.2); BLOOD UREA NITROGEN 20 MG/DL (9-23); CARBON DIOXIDE LEVEL 28 MMOL/L (20-31); CHLORIDE LEVEL 106 MMOL/L (98-107); CREATININE FOR GFR 0.64 MG/DL (0.70-1.30); GLOMERULAR FILTRATION RATE > 60.0 (>35); GLUCOSE, FASTING 89 MG/DL (74-106); MAGNESIUM LEVEL 1.7 MG/DL (1.8-2.4); POTASSIUM SERUM 4.3 MMOL/L (3.5-5.1); SODIUM LEVEL 138 MMOL/L (136-145); TOTAL PROTEIN 5.6 G/DL (5.7-8.2)
[2023-02-19 11:50] LABS: HEMATOCRIT 41.8 % (42.0-52.0); HEMOGLOBIN 13.8 g/dl (13.5-17.5); MEAN CORPUSCULAR HEMOGLOBIN 33.2 pg (27.0-33.0); MEAN CORPUSCULAR VOLUME 100.5 fl (80.0-96.0); PLATELET COUNT, AUTOMATED 324 10^3/uL (150-450); RED BLOOD COUNT 4.16 10^6/uL (4.30-6.10); WHITE BLOOD COUNT 13.5 10^3/uL (4.0-10.0)
[2023-02-19 14:00] VITALS: BP 131/77; TEMP 97.6; O2SAT 98
[2023-02-19 20:00] VITALS: BP 112/67; TEMP 98.4; O2SAT 95
[2023-02-19] MEDS: METHADONE 10MG TAB PO SCH (20:15)
[2023-02-19] MEDS: ALPRAZolam 0.5 MG TAB PO SCH (20:15)
[2023-02-19] MEDS: DULoxetine 30MG CAPSULE (CYMBALTA) PO SCH (20:16)
[2023-02-20] MEDS: MORPHINE 30 MG TAB **MSIR PO PRN ×4 (01:52→22:47)
[2023-02-20 06:00] VITALS: BP 121/66; TEMP 97.6; O2SAT 95
[2023-02-20] MEDS: OMEPRAZOLE 20MG CAP PO SCH (08:10)
[2023-02-20] MEDS: ACETAMINOPHEN 500 MG TAB PO SCH ×3 (08:11→21:00)
[2023-02-20] MEDS: CYANOCOBALAMIN 500 MCG TAB PO SCH (08:11)
[2023-02-20] MEDS: METHADONE 5MG TAB PO SCH ×2 (08:11→13:42)
[2023-02-20] MEDS: GABAPENTIN 300 MG CAP PO SCH ×3 (08:11→21:01)
[2023-02-20] MEDS: VITAMIN D 1,000 INTERNATIONAL UNITS TABLET PO SCH (08:11)
[2023-02-20] MEDS: MULTIVITAMINS/MINERALS THERAP 1 TAB PO SCH (08:11)
[2023-02-20] MEDS: TAMSULOSIN 0.4 MG CAP PO SCH (08:11)
[2023-02-20] MEDS: ENOXAPARIN 40MG/0.4ML SYRINGE (J1650 PER 10MG) SC SCH (08:12)
[2023-02-20] MEDS: DICLOFENAC EPOLAMINE 1.3% PATCH TOP SCH ×2 (08:12→21:04)
[2023-02-20] MEDS: oxyCODONE 5MG TAB PO PRN ×3 (08:14→21:00)
[2023-02-20 14:00] VITALS: BP 110/58; TEMP 97.5; O2SAT 98
[2023-02-20 20:00] VITALS: BP 117/58; TEMP 97.6; O2SAT 95
[2023-02-20] MEDS: ALPRAZolam 0.5 MG TAB PO SCH (21:00)
[2023-02-20] MEDS: DULoxetine 30MG CAPSULE (CYMBALTA) PO SCH (21:01)
[2023-02-20] MEDS: METHADONE 10MG TAB PO SCH (21:01)
[2023-02-21] MEDS: MORPHINE 30 MG TAB **MSIR PO PRN ×3 (04:40→17:08)
[2023-02-21 06:00] VITALS: BP 112/57; TEMP 96.7; O2SAT 95
[2023-02-21] MEDS: CYANOCOBALAMIN 500 MCG TAB PO SCH (08:46)
[2023-02-21] MEDS: ENOXAPARIN 40MG/0.4ML SYRINGE (J1650 PER 10MG) SC SCH (08:46)
[2023-02-21] MEDS: GABAPENTIN 300 MG CAP PO SCH ×3 (08:46→20:01)
[2023-02-21] MEDS: VITAMIN D 1,000 INTERNATIONAL UNITS TABLET PO SCH (08:46)
[2023-02-21] MEDS: OMEPRAZOLE 20MG CAP PO SCH (08:46)
[2023-02-21] MEDS: METHADONE 5MG TAB PO SCH ×2 (08:46→14:26)
[2023-02-21] MEDS: ACETAMINOPHEN 500 MG TAB PO SCH ×3 (08:47→20:02)
[2023-02-21] MEDS: DICLOFENAC EPOLAMINE 1.3% PATCH TOP SCH ×2 (08:47→20:00)
[2023-02-21] MEDS: MULTIVITAMINS/MINERALS THERAP 1 TAB PO SCH (08:47)
[2023-02-21] MEDS: TAMSULOSIN 0.4 MG CAP PO SCH (08:47)
[2023-02-21 20:00] VITALS: BP 110/52; TEMP 97; O2SAT 96
[2023-02-21] MEDS: METHADONE 10MG TAB PO SCH (20:01)
[2023-02-21] MEDS: DULoxetine 30MG CAPSULE (CYMBALTA) PO SCH (20:01)
[2023-02-21] MEDS: ALPRAZolam 0.5 MG TAB PO SCH (20:01)
[2023-02-22] MEDS: MORPHINE 30 MG TAB **MSIR PO PRN ×4 (02:07→20:23)
[2023-02-22 06:00] VITALS: BP 111/52; TEMP 97; O2SAT 96
[2023-02-22 07:21] LABS: HEMATOCRIT 35.5 % (42.0-52.0); HEMOGLOBIN 11.9 g/dl (13.5-17.5); MEAN CORPUSCULAR HGB CONC 33.5 g/dl (32.0-36.5); MEAN CORPUSCULAR VOLUME 98.3 fl (80.0-96.0); PLATELET COUNT, AUTOMATED 382 10^3/uL (150-450); RED BLOOD COUNT 3.61 10^6/uL (4.30-6.10); WHITE BLOOD COUNT 10.8 10^3/uL (4.0-10.0)
[2023-02-22] MEDS: CYANOCOBALAMIN 500 MCG TAB PO SCH (08:26)
[2023-02-22] MEDS: METHADONE 5MG TAB PO SCH ×2 (08:26→13:50)
[2023-02-22] MEDS: GABAPENTIN 300 MG CAP PO SCH ×3 (08:26→20:24)
[2023-02-22] MEDS: DICLOFENAC EPOLAMINE 1.3% PATCH TOP SCH ×2 (08:27→20:25)
[2023-02-22] MEDS: ACETAMINOPHEN 500 MG TAB PO SCH ×3 (08:27→20:24)
[2023-02-22] MEDS: TAMSULOSIN 0.4 MG CAP PO SCH (08:27)
[2023-02-22] MEDS: ENOXAPARIN 40MG/0.4ML SYRINGE (J1650 PER 10MG) SC SCH (08:27)
[2023-02-22] MEDS: VITAMIN D 1,000 INTERNATIONAL UNITS TABLET PO SCH (08:27)
[2023-02-22] MEDS: MULTIVITAMINS/MINERALS THERAP 1 TAB PO SCH (08:27)
[2023-02-22] MEDS: OMEPRAZOLE 20MG CAP PO SCH (08:27)
[2023-02-22 14:00] VITALS: BP 110/60; TEMP 97.4; O2SAT 96
[2023-02-22 19:45] VITALS: BP 107/51; TEMP 98.1; O2SAT 94
[2023-02-22] MEDS: DULoxetine 30MG CAPSULE (CYMBALTA) PO SCH (20:23)
[2023-02-22] MEDS: METHADONE 10MG TAB PO SCH (20:24)
[2023-02-22] MEDS: ALPRAZolam 0.5 MG TAB PO SCH (20:24)
[2023-02-23] MEDS: MORPHINE 30 MG TAB **MSIR PO PRN ×2 (02:55→19:26)
[2023-02-23 06:00] VITALS: BP 115/72; TEMP 97.7; O2SAT 96
[2023-02-23] MEDS: OMEPRAZOLE 20MG CAP PO SCH (07:32)
[2023-02-23] MEDS: METHADONE 5MG TAB PO SCH ×2 (07:32→13:16)
[2023-02-23] MEDS: VITAMIN D 1,000 INTERNATIONAL UNITS TABLET PO SCH (07:32)
[2023-02-23] MEDS: TAMSULOSIN 0.4 MG CAP PO SCH (07:32)
[2023-02-23] MEDS: MULTIVITAMINS/MINERALS THERAP 1 TAB PO SCH (07:32)
[2023-02-23] MEDS: GABAPENTIN 300 MG CAP PO SCH ×3 (07:32→20:24)
[2023-02-23] MEDS: ENOXAPARIN 40MG/0.4ML SYRINGE (J1650 PER 10MG) SC SCH ×2 (07:33→09:00)
[2023-02-23] MEDS: CYANOCOBALAMIN 500 MCG TAB PO SCH (07:33)
[2023-02-23] MEDS: DICLOFENAC EPOLAMINE 1.3% PATCH TOP SCH ×3 (07:33→20:05)
[2023-02-23] MEDS: ACETAMINOPHEN 500 MG TAB PO SCH ×3 (07:33→20:24)
[2023-02-23 14:00] VITALS: BP 125/69; TEMP 97.9; O2SAT 97
[2023-02-23] MEDS: oxyCODONE 5MG TAB PO PRN (15:03)
[2023-02-23 20:00] VITALS: BP 109/59; TEMP 97.9; O2SAT 97
[2023-02-23] MEDS: DULoxetine 30MG CAPSULE (CYMBALTA) PO SCH (20:24)
[2023-02-23] MEDS: METHADONE 10MG TAB PO SCH (20:24)
[2023-02-23] MEDS: ALPRAZolam 0.5 MG TAB PO SCH (20:24)
[2023-02-23] MEDS ORDERED: LOPERAMIDE 2 MG CAPLET PO ONE (22:00)
[2023-02-24] MEDS: oxyCODONE 5MG TAB PO PRN ×2 (02:20→10:47)
[2023-02-24 06:09] VITALS: BP 135/74; TEMP 97.5; O2SAT 98
[2023-02-24] MEDS: DICLOFENAC EPOLAMINE 1.3% PATCH TOP SCH ×2 (07:01→20:00)
[2023-02-24] MEDS: MULTIVITAMINS/MINERALS THERAP 1 TAB PO SCH (07:04)
[2023-02-24] MEDS: METHADONE 5MG TAB PO SCH ×2 (07:04→13:23)
[2023-02-24] MEDS: ACETAMINOPHEN 500 MG TAB PO SCH ×3 (07:04→20:14)
[2023-02-24] MEDS: GABAPENTIN 300 MG CAP PO SCH ×3 (07:04→20:14)
[2023-02-24] MEDS: TAMSULOSIN 0.4 MG CAP PO SCH (07:05)
[2023-02-24] MEDS: CYANOCOBALAMIN 500 MCG TAB PO SCH (07:05)
[2023-02-24] MEDS: VITAMIN D 1,000 INTERNATIONAL UNITS TABLET PO SCH (07:05)
[2023-02-24] MEDS: OMEPRAZOLE 20MG CAP PO SCH (07:05)
[2023-02-24 07:49] LABS: HEMATOCRIT 40.1 % (42.0-52.0); HEMOGLOBIN 13.1 g/dl (13.5-17.5); MEAN CORPUSCULAR HEMOGLOBIN 32.5 pg (27.0-33.0); MEAN CORPUSCULAR HGB CONC 32.7 g/dl (32.0-36.5); MEAN CORPUSCULAR VOLUME 99.5 fl (80.0-96.0); PLATELET COUNT, AUTOMATED 476 10^3/uL (150-450); RED BLOOD COUNT 4.03 10^6/uL (4.30-6.10); WHITE BLOOD COUNT 10.3 10^3/uL (4.0-10.0)
[2023-02-24 08:20] LABS: BLOOD UREA NITROGEN 15 MG/DL (9-23); CALCIUM LEVEL 9.4 MG/DL (8.3-10.6); CARBON DIOXIDE LEVEL 27 MMOL/L (20-31); CHLORIDE LEVEL 106 MMOL/L (98-107); CREATININE FOR GFR 0.68 MG/DL (0.70-1.30); GLOMERULAR FILTRATION RATE > 60.0 (>35); GLUCOSE, FASTING 91 MG/DL (74-106); POTASSIUM SERUM 4.4 MMOL/L (3.5-5.1); SODIUM LEVEL 140 MMOL/L (136-145)
[2023-02-24] MEDS: ENOXAPARIN 40MG/0.4ML SYRINGE (J1650 PER 10MG) SC SCH (08:40)
[2023-02-24] MEDS ORDERED: METHADONE 5MG TAB PO PRN (10:30)
[2023-02-24 14:00] VITALS: BP 103/52; TEMP 98.7; O2SAT 96
[2023-02-24] MEDS: MORPHINE 30 MG TAB **MSIR PO PRN (19:23)
[2023-02-24 20:00] VITALS: BP 117/62; TEMP 97.1; O2SAT 98
[2023-02-24] MEDS: ALPRAZolam 0.5 MG TAB PO SCH (20:14)
[2023-02-24] MEDS: METHADONE 10MG TAB PO SCH (20:14)
[2023-02-24] MEDS: DULoxetine 30MG CAPSULE (CYMBALTA) PO SCH (20:14)
[2023-02-25] MEDS: oxyCODONE 5MG TAB PO PRN (02:26)
[2023-02-25] MEDS: MORPHINE 30 MG TAB **MSIR PO PRN ×2 (05:17→10:39)
[2023-02-25 06:02] VITALS: BP 131/79; TEMP 97.4; O2SAT 96
[2023-02-25] MEDS: METHADONE 5MG TAB PO SCH (08:11)
[2023-02-25] MEDS: OMEPRAZOLE 20MG CAP PO SCH (08:11)
[2023-02-25] MEDS: VITAMIN D 1,000 INTERNATIONAL UNITS TABLET PO SCH (08:12)
[2023-02-25] MEDS: MULTIVITAMINS/MINERALS THERAP 1 TAB PO SCH (08:12)
[2023-02-25] MEDS: GABAPENTIN 300 MG CAP PO SCH (08:12)
[2023-02-25] MEDS: TAMSULOSIN 0.4 MG CAP PO SCH (08:12)
[2023-02-25] MEDS: CYANOCOBALAMIN 500 MCG TAB PO SCH (08:12)
[2023-02-25] MEDS: ACETAMINOPHEN 500 MG TAB PO SCH (08:12)
[2023-02-25] MEDS: ENOXAPARIN 40MG/0.4ML SYRINGE (J1650 PER 10MG) SC SCH (08:13)
[2023-02-25] MEDS: DICLOFENAC EPOLAMINE 1.3% PATCH TOP SCH (08:13)
[2023-02-25] MEDS ORDERED: ECOT81TA5 PO (10:36)
[2023-02-25] MEDS ORDERED: MORP15TA2 PO (10:36)
[2023-02-25] MEDS ORDERED: NARC1SPR (10:36)
[2023-02-25] MEDS ORDERED: OXYC-517 PO (10:36)
[2023-02-25] MEDS ORDERED: METH5TA PO (10:36)
[2023-03-03] MEDS ORDERED: OXYC10TA12 PO (14:46)
[2023-03-03] MEDS ORDERED: METH5TA PO ×2 (14:46→14:51)
== END 2023-02-25 12:10 | disposition home health service (06) | DRG 560 ==
LOC: M PM&R 13:05
PROVIDERS: ADMIT Student in an Organized Health Care Education/Training Program; ATTEND Student in an Organized Health Care Education/Training Program
DX: S72.141D Displaced intertrochanteric fracture of right femur, subsequent encounter for closed fracture with routine healing (principal); C83.00 Small cell B-cell lymphoma, unspecified site; Z66 Do not resuscitate; N40.1 Benign prostatic hyperplasia with lower urinary tract symptoms; Z74.09 Other reduced mobility; Z74.1 Need for assistance with personal care; M54.50 Low back pain, unspecified; M25.511 Pain in right shoulder; F41.9 Anxiety disorder, unspecified; K21.9 Gastro-esophageal reflux disease without esophagitis; M81.0 Age-related osteoporosis without current pathological fracture; F17.290 Nicotine dependence, other tobacco product, uncomplicated; G62.9 Polyneuropathy, unspecified; K59.00 Constipation, unspecified; R33.9 Retention of urine, unspecified; G89.29 Other chronic pain; Z79.891 Long term (current) use of opiate analgesic; Z79.899 Other long term (current) drug therapy; Z98.84 Bariatric surgery status; Z88.0 Allergy status to penicillin; Z20.822 Contact with and (suspected) exposure to COVID-19; R31.9 Hematuria, unspecified

== ENCOUNTER → 2023-03-03 | Outpatient (CLI) | payer MEDICARE, OTHER ==
[~2023-03-03] VITALS: Ht 170.2 cm; Wt 62.0 kg
[~2023-03-03] MED LIST changes: +ECOT81TA5 PO; +NARC1SPR; +OXYC10TA12 PO
[2023-03-03 13:57] VITALS: BP 114/66; O2SAT 97
== END ==
LOC: M PAL 13:44
PROVIDERS: ATTEND Nurse Practitioner Adult Health
DX: C83.03 Small cell B-cell lymphoma, intra-abdominal lymph nodes (principal); G89.29 Other chronic pain; S72.142A Displaced intertrochanteric fracture of left femur, initial encounter for closed fracture; R19.7 Diarrhea, unspecified; R29.6 Repeated falls; R53.83 Other fatigue; F17.290 Nicotine dependence, other tobacco product, uncomplicated; Z51.5 Encounter for palliative care; Z66 Do not resuscitate; Z79.82 Long term (current) use of aspirin; Z79.891 Long term (current) use of opiate analgesic; Z79.899 Other long term (current) drug therapy; Z80.0 Family history of malignant neoplasm of digestive organs; Z87.442 Personal history of urinary calculi; Z88.0 Allergy status to penicillin; Z88.1 Allergy status to other antibiotic agents; Z98.84 Bariatric surgery status

== ENCOUNTER → 2023-03-18 | Outpatient (CLI) | payer MEDICARE ==
[~2023-03-18] VITALS: Ht 172.7 cm; Wt 71.3 kg
[~2023-03-18] MED LIST changes: +IRON27TA2 PO
[2023-03-18 11:15] VITALS: BP 122/67; O2SAT 96
== END ==
LOC: M PAL 11:05
PROVIDERS: ATTEND Nurse Practitioner Adult Health
DX: C83.03 Small cell B-cell lymphoma, intra-abdominal lymph nodes (principal); M16.0 Bilateral primary osteoarthritis of hip; Z98.890 Other specified postprocedural states; S72.142A Displaced intertrochanteric fracture of left femur, initial encounter for closed fracture; R19.7 Diarrhea, unspecified; R29.6 Repeated falls; R53.83 Other fatigue; F17.290 Nicotine dependence, other tobacco product, uncomplicated; Z51.5 Encounter for palliative care; Z66 Do not resuscitate; Z79.82 Long term (current) use of aspirin; Z79.891 Long term (current) use of opiate analgesic; Z79.899 Other long term (current) drug therapy; Z80.0 Family history of malignant neoplasm of digestive organs; Z87.442 Personal history of urinary calculi; Z88.0 Allergy status to penicillin; Z88.1 Allergy status to other antibiotic agents; Z98.84 Bariatric surgery status; Y92.9 Unspecified place or not applicable; Y93.9 Activity, unspecified
CPT/HCPCS: 73502; G0463

== ENCOUNTER → 2023-03-18 | Outpatient (CLI) | payer MEDICARE, OTHER | LOC: M SOG 08:03 | PROVIDERS: ATTEND Physician Assistant | DX: M16.0 Bilateral primary osteoarthritis of hip (principal); Z98.890 Other specified postprocedural states ==

== ENCOUNTER → 2023-05-13 | Outpatient (CLI) | payer MEDICARE, OTHER ==
[~2023-05-13] MED LIST changes: +IRON65TA2 PO; -MIRA1POW3 PO; +MIRA33506 PO; +WHEA1TAB2 PO
== END ==
LOC: M SOG 13:07
PROVIDERS: ATTEND Orthopaedic Surgery
DX: M25.552 Pain in left hip (principal)

== ENCOUNTER → 2023-05-14 | Outpatient (RCR) | payer MEDICARE | LOC: M PT 04-16 13:39 | PROVIDERS: ATTEND Physician Assistant | DX: S72.142D Displaced intertrochanteric fracture of left femur, subsequent encounter for closed fracture with routine healing (principal) ==

== ENCOUNTER → 2023-05-14 | Outpatient (CLI) | payer MEDICARE, OTHER | LOC: M RAD 12:07 | PROVIDERS: ATTEND Orthopaedic Surgery | DX: S72.412D Displaced unspecified condyle fracture of lower end of left femur, subsequent encounter for closed fracture with routine healing (principal); M79.89 Other specified soft tissue disorders ==

== ENCOUNTER → 2023-05-28 | Outpatient (CLI) | payer MEDICARE ==
[~2023-05-28] MED LIST changes: +GASTROGRAFIN SOLUTION 30ML As Ordered ONE
== END ==
LOC: M RAD 14:06
PROVIDERS: ATTEND Internal Medicine
DX: C83.03 Small cell B-cell lymphoma, intra-abdominal lymph nodes (principal); R60.0 Localized edema
CPT/HCPCS: 74177; Q9963

== ENCOUNTER 2023-06-02 10:44 | Outpatient (RCR) | payer MEDICARE ==
[~2023-06-02 10:44] MED LIST changes: -GASTROGRAFIN SOLUTION 30ML As Ordered ONE
== END 2023-06-14 ==
LOC: M PT 10:44
PROVIDERS: ATTEND Physician Assistant
DX: S72.142D Displaced intertrochanteric fracture of left femur, subsequent encounter for closed fracture with routine healing (principal)

== ENCOUNTER 2023-06-04 15:21 | Emergency (ER) | payer MEDICARE ==
[~2023-06-04] VITALS: Ht 170.2 cm; Wt 71.1 kg
[2023-06-04 17:34] VITALS: BP 122/68; TEMP 98.6; O2SAT 98
== END 2023-06-04 17:44 | disposition home or self-care (01) ==
LOC: M ED 15:21
DX: S76.012A Strain of muscle, fascia and tendon of left hip, initial encounter (principal); W00.0XXA Fall on same level due to ice and snow, initial encounter; Y92.531 Health care provider office as the place of occurrence of the external cause; Y93.89 Activity, other specified; Y99.8 Other external cause status; I48.91 Unspecified atrial fibrillation; Z88.0 Allergy status to penicillin; Z79.899 Other long term (current) drug therapy

== ENCOUNTER → 2023-06-04 | Outpatient (REF) | payer MEDICARE | LOC: M LAB REF 12:15 | PROVIDERS: ATTEND Internal Medicine | DX: R60.9 Edema, unspecified (principal) ==

== ENCOUNTER 2023-06-09 06:35 | Emergency (ER) | payer MEDICARE ==
[~2023-06-09] VITALS: Ht 167.6 cm; Wt 72.7 kg
[2023-06-09 09:50] VITALS: BP 130/70; TEMP 98.5; O2SAT 98
== END 2023-06-09 09:53 | disposition home or self-care (01) ==
LOC: M ED 06:35
DX: S22.32XA Fracture of one rib, left side, initial encounter for closed fracture (principal); Y92.9 Unspecified place or not applicable; Y93.9 Activity, unspecified; Y99.9 Unspecified external cause status; Z88.0 Allergy status to penicillin; Z79.899 Other long term (current) drug therapy; Z79.810 Long term (current) use of selective estrogen receptor modulators (SERMs)

== ENCOUNTER → 2023-06-24 | Outpatient (CLI) | payer MEDICARE ==
[~2023-06-24] VITALS: Ht 167.6 cm; Wt 72.1 kg
[2023-06-24 10:40] VITALS: BP 129/73; O2SAT 96
== END ==
LOC: M PAL 10:02
PROVIDERS: ATTEND Nurse Practitioner Adult Health
DX: C83.03 Small cell B-cell lymphoma, intra-abdominal lymph nodes (principal); G62.89 Other specified polyneuropathies; S72.142A Displaced intertrochanteric fracture of left femur, initial encounter for closed fracture; M54.9 Dorsalgia, unspecified; R60.0 Localized edema; M16.0 Bilateral primary osteoarthritis of hip; R53.83 Other fatigue; Z98.890 Other specified postprocedural states; R29.6 Repeated falls; F17.290 Nicotine dependence, other tobacco product, uncomplicated; Z51.5 Encounter for palliative care; Z79.1 Long term (current) use of non-steroidal anti-inflammatories (NSAID); Z79.891 Long term (current) use of opiate analgesic; Z79.899 Other long term (current) drug therapy; Z80.0 Family history of malignant neoplasm of digestive organs; Z87.442 Personal history of urinary calculi; Z88.0 Allergy status to penicillin; Z88.1 Allergy status to other antibiotic agents; Z90.49 Acquired absence of other specified parts of digestive tract; Z98.84 Bariatric surgery status; Y92.9 Unspecified place or not applicable; Y93.9 Activity, unspecified

== ENCOUNTER → 2023-06-29 | Outpatient (REF) | payer MEDICARE ==
[2023-06-29 13:51] LABS: VITAMIN B12 LEVEL 1221 PG/ML (211-911)
[2023-06-29 13:54] LABS: FOLATE > 24.0 NG/ML (>5.4)
== END ==
LOC: M LAB REF 12:10
PROVIDERS: ATTEND Internal Medicine
DX: D50.9 Iron deficiency anemia, unspecified (principal)

== ENCOUNTER → 2023-07-15 | Outpatient (CLI) | payer MEDICARE | LOC: M RAD 13:15 | PROVIDERS: ATTEND Internal Medicine | DX: M54.50 Low back pain, unspecified (principal) ==

== ENCOUNTER → 2023-10-09 | Outpatient (CLI) | payer MEDICARE ==
[~2023-10-09] VITALS: Ht 167.6 cm; Wt 68.4 kg
[~2023-10-09] MED LIST changes: +FURO20TA2 PO; +IBUP-1022 PO
[2023-10-09 13:08] VITALS: BP 123/68; O2SAT 96
== END ==
LOC: M PAL 12:56
PROVIDERS: ATTEND Nurse Practitioner Adult Health
DX: C83.03 Small cell B-cell lymphoma, intra-abdominal lymph nodes (principal); G62.89 Other specified polyneuropathies; M54.9 Dorsalgia, unspecified; R60.0 Localized edema; M16.0 Bilateral primary osteoarthritis of hip; R53.83 Other fatigue; R29.6 Repeated falls; S72.142D Displaced intertrochanteric fracture of left femur, subsequent encounter for closed fracture with routine healing; F17.290 Nicotine dependence, other tobacco product, uncomplicated; Z51.5 Encounter for palliative care; Z66 Do not resuscitate; Z79.1 Long term (current) use of non-steroidal anti-inflammatories (NSAID); Z79.891 Long term (current) use of opiate analgesic; Z79.899 Other long term (current) drug therapy; Z80.0 Family history of malignant neoplasm of digestive organs; Z87.442 Personal history of urinary calculi; Z88.0 Allergy status to penicillin; Z90.49 Acquired absence of other specified parts of digestive tract; Z98.84 Bariatric surgery status

== ENCOUNTER → 2023-10-14 | Outpatient (RCR) | payer MEDICARE ==
[~2023-10-14] MED LIST changes: -FURO20TA2 PO
== END ==
LOC: M PT 10:16
PROVIDERS: ATTEND Nurse Practitioner Adult Health
DX: M54.9 Dorsalgia, unspecified (principal); R53.1 Weakness; R26.81 Unsteadiness on feet

== ENCOUNTER 2023-10-21 09:58 | Outpatient (RCR) | payer MEDICARE ==
[2023-11-24] MEDS ORDERED: FURO20TA2 PO (13:09)
== END 2023-11-14 ==
LOC: M PT 09:58
PROVIDERS: ATTEND Nurse Practitioner Adult Health
DX: M54.9 Dorsalgia, unspecified (principal); R26.89 Other abnormalities of gait and mobility

== ENCOUNTER 2023-10-25 10:48 | Emergency (ER) | payer MEDICARE ==
[~2023-10-25] VITALS: Ht 167.6 cm; Wt 64.4 kg
[2023-10-25 12:33] LABS: BASO % 0.3 % (0.0-1.0); EOS # 0.2 10^3/uL (0.0-0.5); EOS % 1.6 % (0.0-3.0); HEMATOCRIT 37.4 % (42.0-52.0); HEMOGLOBIN 12.4 g/dl (13.5-17.5); LYMPH # 3.8 10^3/uL (1.5-5.0); LYMPH % 33.4 % (24.0-44.0); MEAN CORPUSCULAR HEMOGLOBIN 32.2 pg (27.0-33.0); MEAN CORPUSCULAR HGB CONC 33.2 g/dl (32.0-36.5); MEAN CORPUSCULAR VOLUME 97.1 fl (80.0-96.0); MONO # 0.9 10^3/uL (0.0-0.8); MONO % 7.9 % (2.0-8.0); NEUTROPHILS # 6.4 10^3/uL (1.5-8.5); NEUTROPHILS % 56.4 % (36.0-66.0); PLATELET COUNT, AUTOMATED 295 10^3/uL (150-450); RED BLOOD COUNT 3.85 10^6/uL (4.30-6.10); WHITE BLOOD COUNT 11.3 10^3/uL (4.0-10.0)
[2023-10-25 12:39] LABS: ERYTHROCYTE SEDIMENTATION RATE 27 mm/hr (0-20)
[2023-10-25 12:57] LABS: BLOOD UREA NITROGEN 15 MG/DL (9-23); CALCIUM LEVEL 8.3 MG/DL (8.3-10.6); CARBON DIOXIDE LEVEL 26 MMOL/L (20-31); CHLORIDE LEVEL 110 MMOL/L (98-107); CREATININE FOR GFR 0.74 MG/DL (0.70-1.30); GLOMERULAR FILTRATION RATE > 60.0 (>35); GLUCOSE, FASTING 112 MG/DL (74-106); MAGNESIUM LEVEL 1.6 MG/DL (1.8-2.4); POTASSIUM SERUM 4.7 MMOL/L (3.5-5.1); SODIUM LEVEL 139 MMOL/L (136-145)
[2023-10-25 13:00] LABS: THYROID STIMULATING HORMONE 1.426 uIU/ML (0.55-4.78)
[2023-10-25] MEDS: METHADONE 10MG TAB PO ONE (13:15)
[2023-10-25] MEDS: KETOROLAC 30 MG/ML 1ML VIAL IV ONE (13:34)
[2023-10-25] MEDS: GABAPENTIN 100 MG CAP PO ONE (13:34)
[2023-10-25 14:59] VITALS: TEMP 96.7
[2023-10-25] MEDS: HYDROMORPHONE HCL 0.5 MG/ 0.5 ML SYRINGE IV ONE (14:59)
[2023-10-25 16:45] VITALS: O2SAT 98
[2023-10-25 17:22] VITALS: BP 130/62
== END 2023-10-25 18:10 | disposition home or self-care (01) ==
LOC: M ED 10:48 → EDBD 10:48 → M ED 18:10
DX: R55 Syncope and collapse (principal); M54.50 Low back pain, unspecified; E83.42 Hypomagnesemia; I44.0 Atrioventricular block, first degree; Z87.891 Personal history of nicotine dependence; Z88.0 Allergy status to penicillin; Z79.810 Long term (current) use of selective estrogen receptor modulators (SERMs); Z79.1 Long term (current) use of non-steroidal anti-inflammatories (NSAID); Z79.899 Other long term (current) drug therapy
CPT/HCPCS: 72072; 72110; 72128; 72131; 80048; 83735; 84443; 85025; 85652; 86140; 93005; 93041; 94760; 96374; 96375; 99285; J1170; J1885

== ENCOUNTER → 2023-11-24 | Outpatient (CLI) | payer MEDICARE ==
[~2023-11-24] VITALS: Ht 162.6 cm; Wt 71.3 kg
[~2023-11-24] MED LIST changes: +FURO20TA2 PO; +MAG100TA PO; +PARO5TAB
[2023-11-24 13:05] VITALS: BP 119/67; O2SAT 95
== END ==
LOC: M PAL 12:54
PROVIDERS: ATTEND Nurse Practitioner Adult Health
DX: C83.03 Small cell B-cell lymphoma, intra-abdominal lymph nodes (principal); G62.89 Other specified polyneuropathies; F45.41 Pain disorder exclusively related to psychological factors; R26.89 Other abnormalities of gait and mobility; M54.9 Dorsalgia, unspecified; R60.0 Localized edema; R19.7 Diarrhea, unspecified; R53.83 Other fatigue; R29.6 Repeated falls; S72.142D Displaced intertrochanteric fracture of left femur, subsequent encounter for closed fracture with routine healing; F17.290 Nicotine dependence, other tobacco product, uncomplicated; Z51.5 Encounter for palliative care; Z66 Do not resuscitate; Z79.1 Long term (current) use of non-steroidal anti-inflammatories (NSAID); Z79.891 Long term (current) use of opiate analgesic; Z79.899 Other long term (current) drug therapy; Z80.0 Family history of malignant neoplasm of digestive organs; Z80.1 Family history of malignant neoplasm of trachea, bronchus and lung; Z87.442 Personal history of urinary calculi; Z88.0 Allergy status to penicillin; Z90.49 Acquired absence of other specified parts of digestive tract; Z98.84 Bariatric surgery status

== ENCOUNTER 2023-12-04 06:56 | Emergency (ER) | payer MEDICARE ==
[~2023-12-04] VITALS: Ht 162.6 cm; Wt 66.8 kg
[2023-12-04 06:56] VITALS: BP 140/81; TEMP 96.9; O2SAT 96
[~2023-12-04 06:56] MED LIST changes: -MAG100TA PO; -PARO5TAB
[2023-12-09] MEDS ORDERED: MAG100TA PO (15:27)
[2023-12-09] MEDS ORDERED: PARO5TAB (15:27)
== END 2023-12-04 08:54 | disposition left against medical advice (07) ==
LOC: M ED 06:56
DX: Z53.21 Procedure and treatment not carried out due to patient leaving prior to being seen by health care provider (principal)

== ENCOUNTER 2023-12-20 10:20 | Emergency (ER) | payer MEDICARE ==
[~2023-12-20] VITALS: Ht 162.6 cm; Wt 65.9 kg
[~2023-12-20 10:20] MED LIST changes: +GABA-1172 PO; -GABA-282 PO; +MAG100TA PO; +PARO5TAB
[2023-12-20 11:00] LABS: HEMATOCRIT 44.7 % (42.0-52.0); MEAN CORPUSCULAR HEMOGLOBIN 32.9 pg (27.0-33.0); MEAN CORPUSCULAR HGB CONC 33.6 g/dl (32.0-36.5); PLATELET COUNT, AUTOMATED 330 10^3/uL (150-450); RED BLOOD COUNT 4.56 10^6/uL (4.30-6.10); WHITE BLOOD COUNT 11.3 10^3/uL (4.0-10.0)
[2023-12-20 11:19] LABS: ATYPICAL LYMPH 1 % (0-5); EOSINOPHILS 1 % (0-3); LYMPHOCYTES 21 % (16-44); MONOCYTES 2 % (0-5); NEUTROPHILS 75 % (28-66)
[2023-12-20 11:21] LABS: ANISOCYTOSIS 1+; PLATELET ESTIMATE NORMAL (NORMAL); SMUDGE CELLS 1+
[2023-12-20] MEDS ORDERED: ERYT5OIN25 TOP (11:23)
[2023-12-20 11:31] LABS: ALBUMIN 3.2 G/DL (3.2-5.2); BILIRUBIN,DIRECT 0.1 MG/DL (<0.4); BILIRUBIN,TOTAL 0.4 MG/DL (0.3-1.2); TOTAL PROTEIN 6.4 G/DL (5.7-8.2)
[2023-12-20 15:12] VITALS: BP 122/74; TEMP 97.3; O2SAT 98
[2023-12-21] MEDS ORDERED: LEXA5TAB13 PO (12:13)
[2023-12-21] MEDS ORDERED: MAG100TA PO (12:19)
== END 2023-12-20 15:15 | disposition home or self-care (01) ==
LOC: EDBD 10:20 → M ED 10:20
DX: S22.080A Wedge compression fracture of T11-T12 vertebra, initial encounter for closed fracture (principal); Y92.9 Unspecified place or not applicable; Y93.9 Activity, unspecified; Y99.9 Unspecified external cause status; Z87.891 Personal history of nicotine dependence; Z88.0 Allergy status to penicillin; Z79.1 Long term (current) use of non-steroidal anti-inflammatories (NSAID); Z79.810 Long term (current) use of selective estrogen receptor modulators (SERMs); Z79.899 Other long term (current) drug therapy

== ENCOUNTER → 2023-12-21 | Outpatient (CLI) | payer MEDICARE ==
[~2023-12-21] VITALS: Ht 162.6 cm; Wt 66.3 kg
[~2023-12-21] MED LIST changes: +ERYT5OIN25 TOP; +LEXA5TAB13 PO
[2023-12-21 11:07] VITALS: BP 108/66; O2SAT 96
== END ==
LOC: M PAL 10:57
PROVIDERS: ATTEND Nurse Practitioner Adult Health
DX: C83.03 Small cell B-cell lymphoma, intra-abdominal lymph nodes (principal); G60.9 Hereditary and idiopathic neuropathy, unspecified; G03.9 Meningitis, unspecified; F45.41 Pain disorder exclusively related to psychological factors; I49.9 Cardiac arrhythmia, unspecified; R26.89 Other abnormalities of gait and mobility; R60.0 Localized edema; R19.7 Diarrhea, unspecified; R29.6 Repeated falls; S72.142D Displaced intertrochanteric fracture of left femur, subsequent encounter for closed fracture with routine healing; F17.290 Nicotine dependence, other tobacco product, uncomplicated; Z51.5 Encounter for palliative care; Z66 Do not resuscitate; Z79.1 Long term (current) use of non-steroidal anti-inflammatories (NSAID); Z79.891 Long term (current) use of opiate analgesic; Z79.899 Other long term (current) drug therapy; Z80.0 Family history of malignant neoplasm of digestive organs; Z80.1 Family history of malignant neoplasm of trachea, bronchus and lung; Z88.0 Allergy status to penicillin; Z87.442 Personal history of urinary calculi; Z90.49 Acquired absence of other specified parts of digestive tract; Z98.84 Bariatric surgery status

== ENCOUNTER 2023-12-31 07:54 | Day surgery (SDC) | payer MEDICARE ==
[~2023-12-31] VITALS: Ht 162.6 cm; Wt 69.5 kg
[~2023-12-31 07:54] MED LIST changes: +AMIODARONE HCL 150 MG/100 ML PREMIXED BAG (NEXTERONE) As Ordered ONE; +ISOVUE-300 61% 100ML VIAL As Ordered ONE; +METH-1175 PO; +MULT1TAB8 PO
[2023-12-31] MEDS ORDERED: MIDAZOLAM INJ 2MG/2ML VIAL As Ordered ONE (09:18)
[2023-12-31] MEDS ORDERED: fentaNYL 100 MCG/2 ML INJECTION As Ordered ONE (09:18)
[2023-12-31] MEDS ORDERED: propofoL 200 MG/20 ML VIAL As Ordered ONE (09:19)
[2023-12-31] MEDS ORDERED: LIDOCAINE 2% 100MG/5ML SDV (FOR ANES.) As Ordered ONE (09:20)
[2023-12-31] MEDS ORDERED: ONDANSETRON 4MG 2ML VIAL As Ordered ONE (09:21)
[2023-12-31] MEDS: ceFAZolin SOD 2 GM in IV 1 EA IV ONE (09:50)
[2023-12-31] MEDS ORDERED: ACETAMINOPHEN 1000MG 100ML IV BAG As Ordered ONE (10:02)
[2023-12-31] MEDS ORDERED: ePHEDrine SULFATE 25 MG/5 ML(5MG/ML) SYRINGE As Ordered ONE (10:04)
[2023-12-31] MEDS: LIDOCAINE 1% SDV 30ML VIAL As Ordered ONE (11:15)
[2023-12-31] MEDS ORDERED: ONDANSETRON 4MG 2ML VIAL IV PRN (11:40)
[2023-12-31] MEDS ORDERED: fentaNYL 100 MCG/2 ML INJECTION IV PRN (11:40)
[2023-12-31 13:00] VITALS: BP 98/53; TEMP 98.1; O2SAT 100
== END 2023-12-31 13:53 | disposition home or self-care (01) ==
LOC: M SDC 07:54
PROVIDERS: ATTEND Internal Medicine Cardiovascular Disease
DX: I44.2 Atrioventricular block, complete (principal); R55 Syncope and collapse; E66.9 Obesity, unspecified; Z98.84 Bariatric surgery status; M51.9 Unspecified thoracic, thoracolumbar and lumbosacral intervertebral disc disorder; G89.29 Other chronic pain; Z88.0 Allergy status to penicillin; Z79.899 Other long term (current) drug therapy; F17.290 Nicotine dependence, other tobacco product, uncomplicated
CPT/HCPCS: 33208; 71045; 76000; 93005; C1785; C1898; J0131; J0690; J2250; J2405; J3010

== ENCOUNTER → 2024-03-22 | Outpatient (CLI) | payer MEDICARE ==
[~2024-03-22] VITALS: Ht 165.1 cm; Wt 77.0 kg
[~2024-03-22] MED LIST changes: -AMIODARONE HCL 150 MG/100 ML PREMIXED BAG (NEXTERONE) As Ordered ONE; -ISOVUE-300 61% 100ML VIAL As Ordered ONE
[2024-03-22 13:20] VITALS: BP 138/86; O2SAT 95
== END ==
LOC: M PAL 12:58
PROVIDERS: ATTEND Family Medicine
DX: Z51.5 Encounter for palliative care (principal); G89.4 Chronic pain syndrome; C83.03 Small cell B-cell lymphoma, intra-abdominal lymph nodes; F32.A Depression, unspecified; R19.7 Diarrhea, unspecified; Z98.890 Other specified postprocedural states; Z66 Do not resuscitate; Z79.891 Long term (current) use of opiate analgesic; Z79.899 Other long term (current) drug therapy; Z87.311 Personal history of (healed) other pathological fracture; Z88.0 Allergy status to penicillin; Z95.0 Presence of cardiac pacemaker

== ENCOUNTER → 2024-06-21 | Outpatient (CLI) | payer MEDICARE ==
[~2024-06-21] VITALS: Ht 167.6 cm; Wt 77.1 kg
[~2024-06-21] MED LIST changes: +LEXA1TAB PO
[2024-06-21 13:08] VITALS: BP 148/94; O2SAT 97
== END ==
LOC: M PAL 12:58
PROVIDERS: ATTEND Physician Assistant
DX: Z51.5 Encounter for palliative care (principal); Z66 Do not resuscitate; C91.10 Chronic lymphocytic leukemia of B-cell type not having achieved remission; G89.21 Chronic pain due to trauma; M25.50 Pain in unspecified joint; Z79.891 Long term (current) use of opiate analgesic; Z88.0 Allergy status to penicillin; Z88.1 Allergy status to other antibiotic agents; Z79.899 Other long term (current) drug therapy

== ENCOUNTER → 2024-11-16 | Outpatient (CLI) | payer MEDICARE ==
[~2024-11-16] VITALS: Ht 162.6 cm; Wt 77.9 kg
[~2024-11-16] MED LIST changes: -FLOM0.4C39 PO; -IBUP-1022 PO; +IBUP600T42 PO; +PREG-35 PO; -PREG100CA PO; -SUCR1ORA2 PO; +SUCR1ORA20 PO; +TAMS-18 PO; +TRAZ-252 PO
[2024-11-16 13:18] VITALS: BP 143/85; O2SAT 96
== END ==
LOC: M PAL 12:58
PROVIDERS: ATTEND Physician Assistant
DX: Z51.5 Encounter for palliative care (principal); Z66 Do not resuscitate; C91.10 Chronic lymphocytic leukemia of B-cell type not having achieved remission; G89.28 Other chronic postprocedural pain; Z79.891 Long term (current) use of opiate analgesic; Z88.0 Allergy status to penicillin; Z88.1 Allergy status to other antibiotic agents; Z79.899 Other long term (current) drug therapy; Z79.52 Long term (current) use of systemic steroids; Z79.83 Long term (current) use of bisphosphonates

== ENCOUNTER → 2025-01-18 | Outpatient (CLI) | payer MEDICARE ==
[~2025-01-18] VITALS: Ht 162.6 cm; Wt 77.5 kg
[2025-01-18 13:32] VITALS: BP 128/82; O2SAT 99
== END ==
LOC: M PAL 13:18
PROVIDERS: ATTEND Physician Assistant
DX: Z51.5 Encounter for palliative care (principal); Z66 Do not resuscitate; C91.10 Chronic lymphocytic leukemia of B-cell type not having achieved remission; G89.28 Other chronic postprocedural pain; T84.84XS Pain due to internal orthopedic prosthetic devices, implants and grafts, sequela; Z79.891 Long term (current) use of opiate analgesic; Z88.1 Allergy status to other antibiotic agents; Z88.0 Allergy status to penicillin; Z79.899 Other long term (current) drug therapy; Z79.52 Long term (current) use of systemic steroids; Z79.83 Long term (current) use of bisphosphonates